=== PATIENT | male | born 1950 | race Caucasian/White ===

== ENCOUNTER 2018-04-30 12:02 | Emergency (ER) | payer MEDICARE, SELFPAY ==
[2018-04-30 12:03] VITALS: BP 190/95; PULSE 119; RESP 16; TEMP 36.7; O2SAT 95; BMI 24.3
--- NOTE | 2018-04-30 12:21 | EKG12_ITS ---
Test Reason : Blood Pressure : / mmHG Vent. Rate : 114 BPM Atrial Rate : 114 BPM P-R Int : 158 ms QRS Dur : 080 ms QT Int : 320 ms P-R-T Axes : 070 -58 066 degrees QTc Int : 441 ms Sinus tachycardia Left axis deviation Septal infarct , age undetermined Abnormal ECG Confirmed by OSMAN GO, SERENITY ([id number]), video news editor CLARISSE MARTINEZ ([id number]) on 05/01/2018 10:08:08 AM Referred By: CLARIBEL Confirmed By:SERENITY BREWER MD
--- NOTE | 2018-04-30 12:25 | ED.VISSUMM ---
- ER Visit Summary Date of Service: 04/30/18 Chief Complaint: [] Rectal cancer diagnosed at [facility] here to see local [place] surgeon History of Present Illness: The patient is a 68 M [] patient reports 6 weeks ago he was diagnosed with rectal cancer at the [facility] in [place]. He otherwise reports he has no past history he is on no medications. Indicates his symptoms began with rectal pain he had for evaluation they are was diagnosed with rectal cancer. He saw an oncologist named Dr. MIRELES who told him he would need chemo and MRI scanning after his surgery and he indicates he was in the preop area [facility] Saturday ready to have surgery, he indicates he waited there for many hours, he indicates he feels he was ignored nobody told him anything nobody came to get him for surgery so he got dressed and walked out of the preop area. He then indicates he called the [place] spoke with staff there indicating he wanted to be seen at [facility] to have his cancer managed by a surgeon here and indicates the [place] approved his transfer of care to [facility]. So he presents to the emergency department asking to be seen by a [place] surgeon to have his rectal cancer condition managed. 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 He did have with him some colonoscopy pictures of the tumor and what appeared to be preop labs are unremarkable no other imaging no other records, he indicates that history as above he is very adamant that the week [place] has approved his care at [facility]. I have explained to him that that is something we cannot confirm at this time but in either case we will proceed with our evaluation to stabilize his condition. I spoke with Dr. Goodwin of surgery, he indicates he be happy to see the patient to further manage his condition through the office he agrees with general screening labs, he also asked that all records if possible be obtained from the [place] and then he would see the patient and discussed management options, he did not feel that any imaging was necessary at this time as he would prefer to review his entire record to determine further management options Test Results: [] Emergency Department Course and Treatment: [] The patient screening labs are generally unremarkable see those reports, [facility] they have not yet been sent when they arrive we will attached into the chart and if they arrive while the patient is here we will provide him a copy, at this time patient is comfortable discharge home to follow-up as an outpatient he will be given Colace and Percocet No. 10 to use as needed pain and return for change in symptoms Treatment Plan: [] Disposition: [] Home stable Impression: [] Rectal pain related to rectal cancer This note was generated with [employer] dictation software. It may contain incorrect words, spelling, and punctuation that were not noted in review of the chart prior to signing ED Disposition - Plan for ED Patient: Chief Complaint: Abscess
--- NOTE | 2018-04-30 12:29 | ED.DCSUM_ITS ---
- ER Visit Summary Date of Service: 04/30/18 Chief Complaint: [] Rectal cancer diagnosed at [facility] here to see local [place] surgeon History of Present Illness: The patient is a 68 M [] patient reports 6 weeks ago he was diagnosed with rectal cancer at the [facility] in [place]. He otherwise reports he has no past history he is on no medications. Indicates his symptoms began with rectal pain he had for evaluation they are was diagnosed with rectal cancer. He saw an oncologist named Dr. MIRELES who told him he would need chemo and MRI scanning after his surgery and he indicates he was in the preop area [facility] Saturday ready to have surgery, he indicates he waited there for many hours, he indicates he feels he was ignored nobody told him anything nobody came to get him for surgery so he got dressed and walked out of the preop area. He then indicates he called the CT spoke with staff there indicating he wanted to be seen at [facility] to have his cancer managed by a surgeon here and indicates the CT approved his transfer of care to [facility]. So he presents to the emergency department asking to be seen by a [place] surgeon to have his rectal cancer condition managed. 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 He did have with him some colonoscopy pictures of the tumor and what appeared to be preop labs are unremarkable no other imaging no other records, he indicates that history as above he is very adamant that the week CT has approved his care at [facility]. I have explained to him that that is something we cannot confirm at this time but in either case we will proceed with our evaluation to stabilize his condition. I spoke with Dr. Goodwin of surgery, he indicates he be happy to see the patient to further manage his condition through the office he agrees with general screening labs, he also asked that all records if possible be obtained from the CT and then he would see the patient and discussed management options, he did not feel that any imaging was necessary at this time as he would prefer to review his entire record to determine further management options Test Results: [] Emergency Department Course and Treatment: [] The patient screening labs are generally unremarkable see those reports, [facility] they have not yet been sent when they arrive we will attached into the chart and if they arrive while the patient is here we will provide him a copy, at this time patient is comfortable discharge home to follow-up as an outpatient he will be given Colace and Percocet No. 10 to use as needed pain and return for change in symptoms Treatment Plan: [] Disposition: [] Home stable Impression: [] Rectal pain related to rectal cancer This note was generated with [employer] dictation software. It may contain incorrect words, spelling, and punctuation that were not noted in review of the chart prior to signing ED Disposition - Plan for ED Patient: Chief Complaint: Abscess
[2018-04-30] MEDS: 0.9% Normal Saline 1,000 ML 125 ML IV (12:46)
[2018-04-30 13:04] LABS: Absolute Lymphocyte Count 1.55 X10^3/ul (0.83-4.51); Absolute Neutrophil Count 6.7 X10^3/uL (2.0-7.7); Basophil# 0.02 X10^3/uL; Basophil% 0.2 % (0-1); Eosinophil# 0.05 X10^3/uL; Eosinophils% 0.5 % (0-5); Hematocrit 44.7 % (40-54); Lymphocyte # 1.55 X10^3/ul (4.0); Lymphocyte % 16.1 % (19-41); Mean Platelet Vol. 8.8 fl (6.2-12.0); Monocyte# 1.34 X10^3/uL; Monocyte% 13.9 % (0-10); Neutrophil # 6.67 X10^3/uL (2.7-7.7); Neutrophil % 69.1 % (47-70); Platelet Count 195 K/mm3 (150-450); RBC Distribution Width CV 12.3 % (11.6-14.6); RBC Distribution Width SD 43.2 fl (35.1-43.9); Red Blood Count 4.61 M/mm3 (4.6-6.2); White Blood Count 9.7 K/mm3 (4.4-11.0)
[2018-04-30 13:11] LABS: AST(SGOT) 51 U/L (15-37); Alanine Aminotransfer ALT/SGPT 57 U/L (16-61); Albumin, Serum 3.6 g/dL (3.2-5.0); Alkaline Phosphatase 113 U/L (45-117); Anion Gap 6 (5-15); BUN 5 mg/dL (7-18); BUN/Creat Ratio 7.2 RATIO (10-20); Bilirubin, Direct 0.41 mg/dL (0.00-0.30); Calcium,Total 8.8 mg/dL (8.5-10.1); Chloride 103 mmol/L (98-107); Creatinine, Serum 0.69 mg/dL (0.70-1.30); EST Glomerular Filtration Rate 120 mL/min (>60); Est Glom Filt Rate - Afr Amer 145 mL/min (>60); Globulin 3.7 g/dL (2.2-4.2); Glucose 156 mg/dL (74-106); Hemoglobin 16.6 g/dl (13.0-16.5); Lipase 157 U/L (73-393); Mean Corp Hgb Conc 37.1 g/gl (32-36); POSITIVE COUNT NO; POSITIVE DIFFERENTIAL NO; POSITIVE MORPHOLOGY NO; Potassium 3.6 mmol/L (3.5-5.1); Protein, Total 7.3 g/dL (6.4-8.2); Sodium Level 136 mmol/L (136-145)
[2018-04-30 13:13] LABS: Bacteria 0 SEEN /hpf (None Seen); Mucous, Urine 0 SEEN /hpf (<or=2+); Red Blood Cells-Urine 0 SEEN /hpf (0-5); Squamous Epithelial Cells - UA 0 SEEN /hpf (0-5); White Blood Cells 0 SEEN /hpf (0-5)
[2018-04-30 13:20] LABS: Color, Urine Yellow (Yellow); Glucose, Dipstick Normal (Normal); Ketone-Dipstick Negative (Negative); Leukocyte Esterase-Dipstick 25 /ul (Negative); Nitrite-Dipstick Negative (Negative); Occult Blood-Urine Negative /ul (Negative); Protein-Dipstick 15 mg/dl (Negative); Specific Gravity, Urine 1.015 (1.002-1.030); Urine Bilirubin Dipstick Negative (Negative); Urine Clarity Sl. Cloudy (Clear); Urine Urobilinogen 4 mg/dl (Normal)
[2018-04-30 14:02] VITALS: BP 148/78; PULSE 81; RESP 16; O2SAT 96
--- NOTE | 2018-04-30 14:31 | ED.DEP ---
ED Disposition - Plan for ED Patient: Chief Complaint: Abscess Instructions: ED Hemorrhoids Referrals: [facility] [Primary Care Provider] - Aelc Goodwin MD [STAFF PHYSICIAN] - Additional Instructions: Take all of your records with you to see Dr. Goodwin of surgery for further management
--- NOTE | 2018-04-30 14:34 | DCINST.ED_ITS ---
ED Disposition - Plan for ED Patient: Chief Complaint: Abscess Instructions: ED Hemorrhoids Referrals: [facility] [Primary Care Provider] - Alec Goodwin MD [STAFF PHYSICIAN] - Additional Instructions: Take all of your records with you to see Dr. Goodwin of surgery for further management
--- NOTE | 2018-04-30 14:35 | ED.DEP ---
ED Disposition - Plan for ED Patient: Chief Complaint: Abscess Instructions: ED Hemorrhoids Prescriptions: Oxycodone HCl/Acetaminophen [Percocet 5/325] 1 tab PO Q6H PRN PRN 3 Days #12 tab PRN Reason: Pain Docusate Sodium [Colace] 100 mg PO DAILY #20 cap Referrals: Alec Goodwin MD [STAFF PHYSICIAN] - [facility] [Primary Care Provider] - Additional Instructions: Take all of your records with you to see Dr. Goodwin of surgery for further management
[2018-04-30 15:05] VITALS: BP 136/74; PULSE 84; RESP 16; O2SAT 96
== END 2018-04-30 15:14 | disposition home or self-care (01) ==
PROVIDERS: Emergency Provider Emergency Medicine
DX: G89.3 Neoplasm related pain (acute) (chronic) (principal); C20 Malignant neoplasm of rectum; Z79.899 Other long term (current) drug therapy
CPT/HCPCS: 80048; 80076; 81001; 83690; 85025; 93005; 96360; 96361; 99283; J7030; A4216; J2405

== ENCOUNTER → 2018-05-07 08:14 | Outpatient (CLI) | payer MEDICARE, SELFPAY ==
--- NOTE | 2018-05-07 08:16 | CT_ITS ---
STUDY: CT CHEST WITH CONTRAST REASON FOR EXAM: Male, 68 years old. Recent diagnosis of anal carcinoma. RADIATION DOSAGE (If Supplied By Facility): CTDIvol = ( 11.24 ) mGy, DLP = ( 1048.00 ) mGycm TECHNIQUE: Transaxial imaging was performed following intravenous administration of 100 ml of Isovue 300 contrast material. Multiplanar coronal and sagittal images were reformatted. Individualized dose optimization techniques were used for this CT. COMPARISON: None. FINDINGS: Mild increased linear markings in the right middle lobe. This suggests over linear atelectasis and/or scarring. Minimal scarring in the posterior aspect of the lingular segment of the left upper lobe. There is no demonstrated pleural abnormality. There are calcifications of the coronary arteries. Normal mediastinum. Normal hilar regions. Normal enhanced pulmonary arteries. There is atherosclerotic calcification of the aortic arch and descending thoracic aorta. There are mild degenerative changes of the thoracic spine. There is a 3.2 cm x 2.8 cm fat containing nodular density in the right adrenal gland. A similar-appearing nodule is also seen in the left adrenal gland measuring 2.2 cm x 1.5 cm. These may represent adrenal adenomas. CT/Chest WITH Contrast IMPRESSION: Findings suggestive of a linear scarring in the right middle lobe and possible focal area of scarring in the posterior aspect of the medial segment of the left upper lobe. Electronically Signed: Albert Villatoro MD at 9:00 EDT Tel [phone], Service support ,
--- NOTE | 2018-05-07 08:16 | CT_ITS ---
STUDY: CT ABDOMEN AND PELVIS WITH CONTRAST REASON FOR EXAM: Male, 68 years old. Recent diagnosis of anal carcinoma. RADIATION DOSAGE (If Supplied By Facility): CTDIvol = ( 11.24 ) mGy, DLP = ( 1048.00 ) mGycm TECHNIQUE: Transaxial images were obtained from the dome of the diaphragm to the symphysis pubis with oral contrast. 100 ml of Isovue 300 contrast was administered. Sagittal and coronal images were reconstructed. Individualized dose optimization techniques were used for this CT. COMPARISON: None. FINDINGS: Focal linear marking is seen in the right middle lobe suggestive of developing or scarring and possible tiny scar in the posterior aspect of the lingular segment of the left upper lobe. Coronary artery calcification. There is decreased attenuation of the liver consistent with steatosis. Normal gallbladder and extrahepatic biliary system. Normal spleen. Normal pancreas. There is a 3.2 cm x 3 cm hypodense nodular mass in the right adrenal gland. This is not a typical adenoma. A similar appearing mass in the left adrenal gland measuring 2.5 cm x 1.7 cm is present. Correlation with MR is recommended for further evaluation. Normal right kidney. Normal left kidney. Normal visualized stomach. Normal small intestine. There are multiple colonic diverticula consistent with diverticulosis. There is inhomogeneous soft tissue mass arising from the anterior aspect of the rectum extending calculi into the anus in keeping with the patient's history of anal carcinoma. The appendix is visualized and appears normal. There is diffuse atherosclerotic calcification of the abdominal aorta and its major visceral branches, without a demonstrated aneurysm. Normal inferior vena cava. Normal retroperitoneum. Normal urinary bladder. There is inhomogeneous enlargement of the prostate gland. This measures 4.7 cm x 5.6 cm. There is a small umbilical hernia containing fat. Small bilateral hernias containing fat. Normal osseous structures. CT/Abdomen/Pelvis WITH Contrast IMPRESSION: Bilateral adrenal masses as described. These are not typical for adrenal adenomas and correlation with MRI is recommended. Soft tissue mass seen in the anterior aspect of the rectum extending caudally into the anal region. Inhomogeneously enlarged prostate gland. Electronically Signed: Albert Villatoro MD at 9:06 EDT Tel [phone], Service support ,
== END ==
PROVIDERS: Referring Provider Surgery; Visit Provider Surgery
DX: C21.0 Malignant neoplasm of anus, unspecified (principal)
CPT/HCPCS: 71260; 74177; Q9967

== ENCOUNTER → 2018-05-16 15:10 | Outpatient (CLI) | payer MEDICARE, SELFPAY ==
[2018-05-12 13:00] VITALS: BMI 24.6
[2018-05-16 15:17] LABS: Bacteria 0 SEEN /hpf (None Seen); Mucous, Urine 0 SEEN /hpf (<or=2+); Red Blood Cells-Urine 0 SEEN /hpf (0-5); Squamous Epithelial Cells - UA 0 SEEN /hpf (0-5); White Blood Cells 0 SEEN /hpf (0-5)
[2018-05-16 17:36] LABS: Color, Urine Yellow (Yellow); Glucose, Dipstick Normal (Normal); Ketone-Dipstick Negative (Negative); Leukocyte Esterase-Dipstick 25 /ul (Negative); Nitrite-Dipstick Negative (Negative); Occult Blood-Urine Negative /ul (Negative); Protein-Dipstick Negative (Negative); Urine Bilirubin Dipstick Negative (Negative); Urine Clarity Clear (Clear); Urine Urobilinogen 1 mg/dl (Normal)
[2018-05-16 17:42] LABS: Absolute Lymphocyte Count 1.67 X10^3/ul (0.83-4.51); Absolute Neutrophil Count 5.6 X10^3/uL (2.0-7.7); Basophil# 0.03 X10^3/uL; Basophil% 0.3 % (0-1); Eosinophil# 0.05 X10^3/uL; Eosinophils% 0.6 % (0-5); Hematocrit 45.4 % (40-54); Hemoglobin 16.5 g/dl (13.0-16.5); Lymphocyte # 1.67 X10^3/ul (4.0); Lymphocyte % 18.8 % (19-41); Mean Corp Hgb Conc 36.3 g/gl (32-36); Mean Corpuscular Hgb 35.5 pg (27.0-32.0); Mean Corpuscular Volume 97.6 fL (80-94); Monocyte% 16.9 % (0-10); Neutrophil # 5.63 X10^3/uL (2.7-7.7); Neutrophil % 63.2 % (47-70); Platelet Count 225 K/mm3 (150-450); RBC Distribution Width CV 12.2 % (11.6-14.6); RBC Distribution Width SD 43.3 fl (35.1-43.9); Red Blood Count 4.65 M/mm3 (4.6-6.2); White Blood Count 8.9 K/mm3 (4.4-11.0)
[2018-05-16 17:43] LABS: POSITIVE COUNT NO; POSITIVE DIFFERENTIAL NO; POSITIVE MORPHOLOGY NO
[2018-05-16 18:01] LABS: Hemoglobin A1c 5.6 % (4.2-6.3)
[2018-05-16 18:31] LABS: AST(SGOT) 51 U/L (15-37); Alanine Aminotransfer ALT/SGPT 63 U/L (16-61); Albumin, Serum 3.6 g/dL (3.2-5.0); Alkaline Phosphatase 112 U/L (45-117); Anion Gap 10 (5-15); BUN 6 mg/dL (7-18); BUN/Creat Ratio 9.2 RATIO (10-20); Calcium,Total 8.9 mg/dL (8.5-10.1); Chloride 102 mmol/L (98-107); Cholesterol 169 mg/dL (200); Creatinine, Serum 0.65 mg/dL (0.70-1.30); EST Glomerular Filtration Rate 128 mL/min (>60); Est Glom Filt Rate - Afr Amer 155 mL/min (>60); Globulin 3.7 g/dL (2.2-4.2); Glucose 111 mg/dL (74-106); High Density Lipoprotein 76 mg/dL; Potassium 3.5 mmol/L (3.5-5.1); Protein, Total 7.3 g/dL (6.4-8.2); Sodium Level 138 mmol/L (136-145); Thyroid Stim Hormone (TSH) 2.23 uIU/mL (0.358-3.74); Triglycerides 84 mg/dL; Very Low Density Lipoprotein 17 mg/dL (5-40)
[2018-05-17 08:08] LABS: Vitamin B12 458 pg/mL (211-911)
[2018-05-22 12:06] LABS: Vitamin B1, Thiamine 113.6 nmol/L (66.5-200.0)
== END ==
LOC: MFPLAB 15:10
PROVIDERS: Visit Provider Family Medicine
DX: I10 Essential (primary) hypertension (principal); F10.10 Alcohol abuse, uncomplicated; R73.09 Other abnormal glucose; Z72.0 Tobacco use
CPT/HCPCS: 36415; 80053; 80061; 81001; 82607; 82746; 83036; 84100; 84425; 84443; 85025

== ENCOUNTER 2018-05-20 09:21 | Day surgery (SDC) | payer MEDICARE, SELFPAY ==
[2018-05-12 13:00] VITALS: BMI 24.6
[2018-05-20] VITALS (7 sets, daily range): BP systolic 102–163; BP diastolic 65–90; PULSE 83–92; RESP 14–16; TEMP 36.1–36.8; O2SAT 93–97; BMI 24.2
--- NOTE | 2018-05-20 10:22 | RAD_ITS ---
STUDY: X-RAY CHEST REASON FOR EXAM: Male, 68 years old. Port placement. TECHNIQUE: Single AP portable view of the chest. COMPARISON: None. FINDINGS: A right-sided Port-A-Cath has been placed. The tip is in the proximal portion of the superior vena cava. Hyperinflation. There is no demonstrated pleural abnormality. Normal size heart. Normal mediastinum and jami. Normal visualized pulmonary arteries. Normal visualized aortic arch and descending thoracic aorta. Normal visualized thoracic spine. Normal visualized ribs, clavicles, and shoulders. There is no demonstrated abnormality of the visualized soft tissue structures of the upper abdomen. RAD/Chest 1 View (Portable) IMPRESSION: The tip of the port is in the proximal portion of the superior vena cava. Electronically Signed: Albert Villatoro MD at 12:47 EST Tel [phone], Service support ,
[2018-05-20] MEDS: Cefazolin 2 GM in 0.9% Normal Saline 100 ML IV (10:23)
--- NOTE | 2018-05-20 10:23 | DCINST_ITS ---
Discharge Diet: Light diet - advance as tolerated - if you have questions about your diet instructions, please talk to you doctor. Discharge Activity: May Not Drive - for 1 week or while taking narcotic pain medicine. May shower in (days): 1 Lifting Restrictions: 10 pounds Call your doctor if your incision/area has: Continuous Slow Oozing, Sudden Increased Bleeding, Increased Pain/ Swelling, Increased Redness, Foul Smelling Discharge Call your doctor if you observe: Fever of 101 or Higher Suture Line Care: Avoid Pulling/Pushing, Avoid Pinching/Bending Additional Dressing/Incision Instructions:: Change or remove dressing in 4 days. Leave steri-strips in place for 1 week. Allergies/Adverse Reactions: Allergies No Known Allergies Allergy (Verified 05/19/18 14:35) Medications to take at Discharge Cyclobenzaprine [Flexeril] 10 mg PO TID PRN PRN 04/30/18 Docusate Sodium [Colace] 100 mg PO DAILY #20 cap 04/30/18 Omeprazole [Prilosec] 1 tab PO DAILY 05/12/18 Loperamide [Imodium] 2 mg PO Q2H PRN PRN #60 cap 05/14/18 Hydrochlorothiazide [Hctz] 25 mg PO DAILY 05/19/18 Metoprolol Tartrate [Lopressor (Beta Adan)] 25 mg PO DAILY 05/19/18 Oxycodone HCl/Acetaminophen [Percocet 5/325] 1 - 2 tablet PO Q6H PRN PRN 05/19/18 Primary Care Physician: Care Physician,No Primary [Primary Care Provider] - Test Results: Test results from this visit will be discussed in further detail at your follow- up appointment, if applicable. Please Follow Up With: Alec Goodwin MD - [phone] When: Call to make an appointment to be seen in about 10 days.
[2018-05-20] MEDS: Bupivacaine Mpf 0.5% 30 ML VIAL (10:37)
--- NOTE | 2018-05-20 11:07 | OP.PCM_ITS ---
Problem List (1) Primary anal squamous cell carcinoma Status: Acute Report of Operation Date of Procedure: 05/20/18 Pre-Operative Diagnosis: Squamous cell carcinoma of the anus Post-Operative Diagnosis: Same Surgery/Procedure Performed:: Right internal jugular 6 Wallisian PowerPort placement Description of Surgical Findings:: Timeout and informed consent was obtained. 68-year-old gent was taken the operating room. He was placed on the table. He underwent monitored anesthesia care. Ancef 2 g given intravenously. The right neck was sterilely prepped draped. Ultrasound was used to identify the right internal jugular vein. 1% lidocaine mixed 50-50 with 0.5% Marcaine was used as local anesthetic. Total of 15 cc was used. Local was instilled under ultrasound guidance. Micropuncture needle inserted in the right internal jugular vein. Micropuncture wire. Micropuncture sheath. Exchanged out for an 035 J-wire. Local instilled down upon the chest wall. A transverse incision was created. Electrocautery dissection was used to make a subcutaneous port. The tubing was tunneled from the chest to the neck site. Sheath dilator was placed over the wire. The wire and dilator were removed. The catheter was advanced through the sheath. The sheath was split. The catheter was positioned at the SVC atrial junction. It was amputated to length connected to the port secured there with a port attachment device. The port was placed in the pocket and secured there with 2-0 silk. The port site was closed with interrupted 3-0 Vicryl subdermal stitch. The neck was closed with interrupted 5-0 Vicryl. Steri-Strips applied Telfa OpSite dressings applied. The port was accessed. It aspirated and then was flushed with saline and then heparinized saline. Sponge and instrument and needle counts were reported the surgeon be correct. Blood loss was minimal. He tolerated the procedure well and was taken to the recovery area in satisfactory condition without apparent complication. Blood loss minimal. Specimens none. Drains none. Blood loss minimal. Alec Goodwin M.D., F.A.C.S. Type of Anesthesia:: Local MAC Anesthesiologist: Ollie Vidal
== END 2018-05-20 12:24 | disposition home or self-care (01) ==
LOC: SDC 09:22 → AC 09:23
PROVIDERS: Referring Provider Surgery; Visit Provider Surgery
PROC: (CPT 36561; principal; 2018-05-20 10:45)
DX: C21.0 Malignant neoplasm of anus, unspecified (principal); I10 Essential (primary) hypertension; F17.200 Nicotine dependence, unspecified, uncomplicated; Z79.899 Other long term (current) drug therapy
CPT/HCPCS: 00532; 36561; 76937; 71045; 77001; 77386; J7120

== ENCOUNTER 2018-06-27 13:59 | Inpatient (IN) | payer MEDICARE, SELFPAY ==
[2018-05-12 13:00] VITALS: BMI 24.6
[2018-06-26 12:01] VITALS: BMI 22.9
[2018-06-27 14:02] VITALS: BP 144/79; PULSE 115; RESP 18; TEMP 37.2; O2SAT 98; BMI 24.3
[2018-06-27] MEDS: 0.9% Normal Saline 1,000 ML 999 ML IV (15:05)
[2018-06-27 15:14] LABS: Hematocrit 24.6 % (40-54); Mean Corpuscular Volume 99.2 fL (80-94); Mean Platelet Vol. 9.1 fl (6.2-12.0); Platelet Count 68 K/mm3 (150-450); RBC Distribution Width SD 52.9 fl (35.1-43.9); Red Blood Count 2.48 M/mm3 (4.6-6.2)
[2018-06-27 15:28] LABS: ALB/GLOB Ratio 0.7 RATIO (0.9-2.4); AST(SGOT) 30 U/L (15-37); Alanine Aminotransfer ALT/SGPT 22 U/L (16-61); Albumin, Serum 2.1 g/dL (3.2-5.0); Alkaline Phosphatase 69 U/L (45-117); Anion Gap 9 (5-15); BUN 11 mg/dL (7-18); BUN/Creat Ratio 17.9 RATIO (10-20); Calcium,Total 7.5 mg/dL (8.5-10.1); Chloride 98 mmol/L (98-107); Creatinine, Serum 0.61 mg/dL (0.70-1.30); EST Glomerular Filtration Rate 138 mL/min (>60); Est Glom Filt Rate - Afr Amer 167 mL/min (>60); Globulin 3.2 g/dL (2.2-4.2); Glucose 226 mg/dL (74-106); Lipase 24 U/L (73-393); Potassium 3.2 mmol/L (3.5-5.1); Protein, Total 5.3 g/dL (6.4-8.2); Sodium Level 131 mmol/L (136-145)
[2018-06-27 15:58] LABS: Differential Indicated MANUAL DIFF; POSITIVE COUNT YES; POSITIVE DIFFERENTIAL YES; POSITIVE MORPHOLOGY YES; White Blood Count 0.6 K/mm3 (4.4-11.0)
[2018-06-27 15:59] LABS: Mean Corpuscular Hgb 33.9 pg (27.0-32.0)
[2018-06-27 16:00] LABS: Hemoglobin 8.4 g/dl (13.0-16.5); Mean Corp Hgb Conc 34.1 g/gl (32-36)
[2018-06-27 16:26] LABS: Neutrophil-Segmented 44 % (47-70); Total Cells Counted 100 (MANUAL DIFF)
[2018-06-27 16:27] LABS: Lymphocyte 16 % (19-41); Monocyte 32 % (0-10); Neutrophil-Band 8 % (0-5)
[2018-06-27 16:29] LABS: Absolute Neutrophil Count 0.3 X10^3/uL (2.0-7.7)
[2018-06-27 16:30] LABS: Anisocytosis RARE; Differential Comment SEE COMMENTS; Macrocytosis RARE; Platelet Estimate MOD DEC (ADEQ)
--- NOTE | 2018-06-27 16:36 | ED.DCSUM_ITS ---
- ER Visit Summary Date of Service: 06/27/18 Chief Complaint: Diarrhea, dehydration History of Present Illness: The patient is a 68 M who presents with the above symptoms. Patient's been feeling this way for a couple of weeks. He has stage II-III anal cancer. He is getting chemo and radiation for this. He has been having persistent diarrhea and skin breakdown in his anal area. He also has sores in his mouth from his chemotherapy. He has been on Imodium and Lomotil. His radiation oncologist, Dr. Jim, gave him Aquaphor lidocaine and Silvadene for his anal area but it is not helping. Patient denies a fever. Physical Examination: Vital signs are reviewed. HEENT exam reveals sores inside of the mouth. He does have dry mucous membranes. Heart is tachycardic and regular rhythm without murmurs. Lungs are clear bilaterally. Abdomen soft with mild diffuse tenderness. Skin exam reveals skin breakdown and excoriations in his groin and anal area. His neurologic exam is at baseline and normal. Test Results: White blood cell count 0.6, hemoglobin 9, platelets 68. Sodium 131, potassium 3.2. Creatinine normal. Total bilirubin 1.8 Emergency Department Course and Treatment: Patient was hydrated with normal saline. He does appear to be clinically dehydrated. His radiation oncologist recommended admission. I will discussed this with the hospitalist. Treatment Plan: [] Disposition: Admit Impression: Dehydration, diarrhea, anal cancer This note was generated with [employer]hem dictation software. It may contain incorrect words, spelling, and punctuation that were not noted in review of the chart prior to signing ED Disposition - Plan for ED Patient: Chief Complaint: Diarrhea Referrals: Alexander Park MD [Primary Care Provider] -
--- NOTE | 2018-06-27 16:48 | PCM.HP.STD ---
<Aime Mayorga - Last Filed: 06/27/18 16:48> Problem List (1) Dehydration Status: Acute (2) Hyponatremia Status: Acute (3) Pancytopenia Status: Acute (4) Hypokalemia Status: Acute (5) Rectal cancer Status: Chronic History of Present Illness Date of Admission: 06/27/18 Chief Complaint: diarrhea The patient is a 68 year old M with pmhx of anal cancer stage II-III, pt of Dr. Trevino and Diandra, who presents to the ER with severe diarrhea ongoing for several days. He has associated anal pain and has been on immodium, lomotil, silvadene, aquaphor, lidocaine. He was found by nursing to be covered in stool across his backside. This began after his last chemo and radation which was 3 days ago. He had a negative C diff test, and enteric panel is pending. He denies sick contacts. He has poor PO intake. He denies nausea / vomiting and subjective abdominal pain. He denies fevers and chills. He appears dehydrated with electrolyte disturbances, and is pancytopenic. [] Past Medical History Past Medical History (Chronic Problems): Chronic Problems (Last Reviewed 06/19/18 @ 09:58 by Carla Barrett) Rectal cancer (Chronic) Mass of both adrenal glands (Chronic) Medical History: Medical History (Last Reviewed 06/19/18 @ 09:58 by Carla Barrett) Bleeding (Acute) R58 Blood in stool (Acute) K92.1 Nausea (Acute) R11.0 Back problem (Acute) M53.9 Allergies No Known Allergies Allergy (Verified 06/27/18 14:32) Home Medications: Ambulatory Orders Medication Instructions Recorded RX: Cyclobenzaprine [Flexeril] 10 mg PO TID PRN PRN 04/30/18 RX: Omeprazole [Prilosec] 1 tab PO DAILY 05/12/18 RX: Hydrochlorothiazide [Hctz] 25 mg PO DAILY 05/19/18 RX: Metoprolol Tartrate [Lopressor 25 mg PO DAILY 05/19/18 (beta vivi)] RX: Oxycodone HCl/Acetaminophen 1 - 2 tablet PO Q6H PRN PRN 05/19/18 [Percocet 5-325] RX: Lidocaine 2% Viscous 15 ml GT Q4H PRN PRN #240 ml 05/30/18 [Xylocaine Viscous] RX: Oxycodone HCl 5 mg PO Q4H PRN PRN #200 ml 05/30/18 RX: Potassium Chloride 20 meq PO BID 28 Days #420 ml 06/03/18 RX: Silver Sulfadiazine 1% Crm 1 applic TOPICAL BID #80 gm 06/03/18 [Silvadene Cream] RX: Lidocaine 2% Jelly [Xylocaine 30 ml TOPICAL TID #1 tube 06/10/18 2% Jelly] Loperamide [Imodium] 2 mg PO Q4H PRN PRN #60 capsule 06/11/18 Diphenoxylate/Atrop [Lomotil] 2 tablet PO 4X/DAY PRN PRN #60 06/25/18 tablet RX: Oxycodone [Oxyir] 5 mg PO Q4H PRN PRN #60 tablet 06/25/18 RX: Oxycodone HCl 5 - 10 ml PO Q4H PRN PRN 06/27/18 Surgical History: Surgical History (Last Reviewed 06/19/18 @ 09:58 by Carla Barrett) Hx of colonoscopy (Acute) Z98.890 04/24/2018 Lives: Alone Smoking Status: Current every day smoker Tobacco Use: Non-smoker Alcohol: None Drugs: None - *Family History Maternal Family History: Family History (Last Reviewed 06/19/18 @ 09:58 by Carla Barrett) Father Stomach cancer Brain cancer History Items: No pertinent history Paternal Family History: Family History (Last Reviewed 06/19/18 @ 09:58 by Carla Barrett) Father Stomach cancer Brain cancer History Items: Cancer Review of Systems Constitutional: Reports: Weakness. Denies: Chills, Fever, Weight Change HEENT: Denies: Head Aches, Sinus Congestion, Sinus Drainage Cardiovascular: Denies: Chest Pain, Palpitations Respiratory: Denies: Cough, Shortness of breath at rest, Sputum production Gastrointestinal: Reports: Diarrhea. Denies: Abdominal Pain, Nausea, Vomiting Genitourinary: Denies: Dysuria Musculoskeletal: Denies: Joint Pain, Joint Tenderness Skin: Denies: Rash, Wounds Neurological: Denies: Numbness, Tingling, Focal weakness Psychiatric: Denies: Anxiety, Depression, Homicidal Ideations, Suicidal Ideations Hematologic/ Lymphatic: Denies: Easy Bruising, Easy Bleeding VTE Information - Inpt Only VTE Present on Admission: No VTE Mechan Device Prophylaxis: SCD's VTE Pharm Prophylaxis ordered?: No Patient Problems: Active and Suspected Problems (Last Reviewed 06/19/18 @ 09:58 by Carla Barrett) Hyponatremia (Acute) Pancytopenia (Acute) Hypomagnesemia (Acute) Diarrhea (Acute) Dehydration (Acute) Hypokalemia (Acute) Mucositis (ulcerative) due to antineoplastic therapy (Acute) - Physical Exam General: Alert, Oriented x3, Cooperative HEENT: Atraumatic, PERRLA, EOMI, Normocephalic Neck: Supple, No JVD, Negative Carotid Bruits Lungs: Clear to auscultation, Normal air movement Cardiovascular: Regular rate, No murmurs Abdomen: Bowel Sounds Present, Tender - umbilical region Extremities: No edema, Capillary Refill Less than 3 Seconds Skin: No rashes, No breakdown Musculoskeletal: No Tenderness to Palpation of Joints or Extremities Neurological: Cranial nerves II-XII grossly intact Psych/Mental Status: Normal Affect, Appropriate, Alert and oriented to time, place, person, mood and affect Vital Signs Temp Pulse Resp BP Pulse Ox 98.9 F 115 H 18 144/79 H 98 06/27/18 14:02 06/27/18 14:02 06/27/18 14:02 06/27/18 14:02 06/27/18 14:02 Oxygen Delivery Method Room Air Weight: 160 lb 0.889 oz Body Mass Index (BMI) 24.3 Laboratory Tests Past 24 Hrs 06/27/18 06/27/18 15:05 15:05 WBC 0.6 L* RBC 2.48 L Hgb 8.4 L Hct 24.6 L MCV 99.2 H MCH 33.9 H MCHC 34.1 RDW 15.0 H RDW Differential 52.9 H Plt Count 68 L MPV 9.1 Neut % (Auto) Not Reportable Absolute Neuts (auto) 0.3 L Absolute Lymphs (auto) 0.10 L Total Counted 100 Neutrophils % (Manual) 44 L Band Neutrophils % 8 H Lymphocytes % (Manual) 16 L Monocytes % (Manual) 32 H Differential Comment SEE COMMENTS Diff Path Review May foll Platelet Estimate MOD DEC Anisocytosis RARE Macrocytosis RARE Sodium 131 L Potassium 3.2 L Chloride 98 Carbon Dioxide 24.0 Anion Gap 9 BUN 11 Creatinine 0.61 L Estim Creat Clear Calc 66.50 Est GFR (MDRD) Af Amer 167 Est GFR (MDRD) Non-Af 138 BUN/Creatinine Ratio 17.9 Glucose 226 H Calcium 7.5 L Total Bilirubin 1.80 H AST 30 ALT 22 Alkaline Phosphatase 69 Total Protein 5.3 L Albumin 2.1 L Globulin 3.2 Albumin/Globulin Ratio 0.7 L Lipase 24 L Assessment/Plan All Active Problems (Last Reviewed 06/19/18 @ 09:58 by Carla Barrett) Hyponatremia (Acute) Pancytopenia (Acute) Hypomagnesemia (Acute) Diarrhea (Acute) Dehydration (Acute) Hypokalemia (Acute) Mucositis (ulcerative) due to antineoplastic therapy (Acute) Primary anal squamous cell carcinoma (Acute) Hx of colonoscopy (Acute) Bleeding (Acute) Blood in stool (Acute) Nausea (Acute) Back problem (Acute) 1. Dehydration 2/2 chemo induced diarrhea - Hydrate with IV NaCl. continue lomotil, immodium, topicals for irritation/skin breakdown. C diff neg. Enteric panel neg. Lipase neg. T bili elevated. + umbilical pain to palp. 2. Hyponatremia/kalemia - 2/2 above - replete. check mag / phos. 3. Pancytopenia - trend. Monitor for fevers. 4. Anal cancer st II-III - pt of Drs. Jim/Uriel. DVT ppx: SCDs DC planning: PTOT. He appears very frail and weak. This patient was seen by Aime Mayorga PA-C under the supervision of Doctor Max. <Pierre Santana - Last Filed: 06/27/18 18:40> History of Present Illness The patient is a 68 year old M [] Past Medical History Medical History: Medical History (Last Reviewed 06/19/18 @ 09:58 by Carla Barrett) Bleeding (Acute) R58 Blood in stool (Acute) K92.1 Nausea (Acute) R11.0 Back problem (Acute) M53.9 Allergies No Known Allergies Allergy (Verified 06/27/18 14:32) Surgical History: Surgical History (Last Reviewed 06/19/18 @ 09:58 by Carla Barrett) Hx of colonoscopy (Acute) Z98.890 04/24/2018 - *Family History Maternal Family History: Family History (Last Reviewed 06/19/18 @ 09:58 by Carla Barrett) Father Stomach cancer Brain cancer Paternal Family History: Family History (Last Reviewed 06/19/18 @ 09:58 by Carla Barrett) Father Stomach cancer Brain cancer - Physical Exam Vital Signs Temp Pulse Resp BP Pulse Ox 99.9 F H 110 H 18 162/72 H 99 06/27/18 17:06 06/27/18 17:06 06/27/18 14:02 06/27/18 17:06 06/27/18 17:06 Oxygen Delivery Method Room Air Weight: 147 lb 4.301 oz Body Mass Index (BMI) 22.4 Microbiology Past 72 Hours 06/27/18 15:15 Enteric Bacteriology - Final Stool Laboratory Tests Past 24 Hrs 06/27/18 06/27/18 15:05 15:05 WBC 0.6 L* RBC 2.48 L Hgb 8.4 L Hct 24.6 L MCV 99.2 H MCH 33.9 H MCHC 34.1 RDW 15.0 H RDW Differential 52.9 H Plt Count 68 L MPV 9.1 Neut % (Auto) Not Reportable Absolute Neuts (auto) 0.3 L Absolute Lymphs (auto) 0.10 L Total Counted 100 Neutrophils % (Manual) 44 L Band Neutrophils % 8 H Lymphocytes % (Manual) 16 L Monocytes % (Manual) 32 H Differential Comment SEE COMMENTS Diff Path Review May foll Platelet Estimate MOD DEC Anisocytosis RARE Macrocytosis RARE Sodium 131 L Potassium 3.2 L Chloride 98 Carbon Dioxide 24.0 Anion Gap 9 BUN 11 Creatinine 0.61 L Estim Creat Clear Calc 66.50 Est GFR (MDRD) Af Amer 167 Est GFR (MDRD) Non-Af 138 BUN/Creatinine Ratio 17.9 Glucose 226 H Calcium 7.5 L Total Bilirubin 1.80 H AST 30 ALT 22 Alkaline Phosphatase 69 Total Protein 5.3 L Albumin 2.1 L Globulin 3.2 Albumin/Globulin Ratio 0.7 L Lipase 24 L Code Visit Addendum: Dr. Santana I personally examined the patient and reviewed the chart. I agree with the above. 1-year-old male with stage II-III anal cancer undergoing both chemotherapy and radiation. He states that he is never had surgery for it. He is presenting from home today because his radiation oncologist felt that with his diarrhea over the last 3 weeks and his lack of oral intake due to sores in his mouth. He had his last chemo on Saturday and was supposed to have radiation on Saturday and which she was not able to tolerate. He presented to the ER with leukopenia and thrombus cytopenia and anemia. This was felt to be related to his chemotherapy. We will treat his dehydration with IV fluids. He did have a C. difficile test a couple of days ago which was negative, and enteric bacteriology is pending. Can continue to to give his Lomotil and Imodium. OBSV E&M: [id number] Initial observation care L3
[2018-06-27 17:06] VITALS: BP 162/72; PULSE 110; TEMP 37.7; O2SAT 99
[2018-06-27 18:03] VITALS: BMI 22.4
[2018-06-27 18:07] VITALS: BMI 22.4
[2018-06-27 18:15] VITALS: BP 155/74; PULSE 113; RESP 16; TEMP 37.6; O2SAT 100
[2018-06-27] MEDS: 0.9% Normal Saline 1,000 ML 125 ML IV (18:58)
[2018-06-27 20:00] VITALS: BP 154/71; PULSE 116; RESP 16; TEMP 37.4; O2SAT 100
[2018-06-27] MEDS: BMX LIQUID 180 ML 10 ML PO (20:44)
[2018-06-27] MEDS: Menthol/Lanolin/Calamine/Znox 113 GM Tube 1 APPLIC TOPICAL (20:45)
[2018-06-27] MEDS: Acetaminophen 650 MG/20 ML UDC PO (22:27)
[2018-06-28] VITALS (7 sets, daily range): BP systolic 149–172; BP diastolic 66–86; PULSE 110–124; RESP 15–20; TEMP 36.4–38.3; O2SAT 96–100
[2018-06-28] MEDS: 0.9% NaCl VAD Flush 10 ML IV ×3 (06:35→06:38)
[2018-06-28 07:03] LABS: Anion Gap 9 (5-15); BUN 10 mg/dL (7-18); BUN/Creat Ratio 21.1 RATIO (10-20); Calcium,Total 7.4 mg/dL (8.5-10.1); Chloride 103 mmol/L (98-107); Creatinine, Serum 0.47 mg/dL (0.70-1.30); EST Glomerular Filtration Rate 186 mL/min (>60); Est Glom Filt Rate - Afr Amer 225 mL/min (>60); Estimated Creatinine Clearance 64.94 ml/min; Glucose 140 mg/dL (74-106); Sodium Level 135 mmol/L (136-145)
[2018-06-28 07:12] LABS: Absolute Lymphocyte Count 0.19 X10^3/ul (0.83-4.51); Absolute Neutrophil Count 0.1 X10^3/uL (2.0-7.7); Hematocrit 24.6 % (40-54); Hemoglobin 8.9 g/dl (13.0-16.5); Lymphocyte # 0.19 X10^3/ul (4.0); Lymphocyte % 34.5 % (19-41); Mean Corp Hgb Conc 36.2 g/gl (32-36); Mean Corpuscular Hgb 35.6 pg (27.0-32.0); Mean Corpuscular Volume 98.4 fL (80-94); Mean Platelet Vol. 9.5 fl (6.2-12.0); Monocyte# 0.25 X10^3/uL; Monocyte% 45.5 % (0-10); Neutrophil # 0.06 X10^3/uL (2.7-7.7); Neutrophil % 10.9 % (47-70); Platelet Count 62 K/mm3 (150-450); RBC Distribution Width SD 52.8 fl (35.1-43.9)
[2018-06-28 07:16] LABS: Differential Indicated SCAN CRITERIA MET; POSITIVE COUNT YES; POSITIVE DIFFERENTIAL YES; POSITIVE MORPHOLOGY YES
[2018-06-28 07:18] LABS: White Blood Count 0.6 K/mm3 (4.4-11.0)
[2018-06-28] MEDS: 0.9% Normal Saline 1,000 ML 125 ML IV (07:20)
[2018-06-28 07:29] LABS: Differential Comment SCAN; Platelet Estimate MOD DEC (ADEQ); Platelet Morphology LARGE
[2018-06-28 08:23] LABS: Magnesium 1.9 mg/dL (1.6-2.6); Phosphorus 1.7 mg/dL (2.5-4.9)
[2018-06-28] MEDS: BMX LIQUID 180 ML 10 ML PO ×2 (09:55→16:47)
[2018-06-28] MEDS: Menthol/Lanolin/Calamine/Znox 113 GM Tube 1 APPLIC TOPICAL ×3 (10:02→23:22)
--- NOTE | 2018-06-28 10:03 | NURSING ---
Pt talking to on phone. you made me come in here. I guess I'll Just here. pt continues to be very flat and irritable.
--- NOTE | 2018-06-28 11:58 | CM.UR ---
Attempted to meet with patient however he was sleeping at this time so I did not awake him. Remains obs status at this time. Gbaby Redmond RN, CCM.
--- NOTE | 2018-06-28 12:38 | PN_ITS ---
<Aime Mayorga - Last Filed: 06/28/18 12:35> Patient Problems: Active and Suspected Problems (Last Reviewed 06/19/18 @ 09:58 by Carla Barrett) Hyponatremia (Acute) Pancytopenia (Acute) Hypomagnesemia (Acute) Diarrhea (Acute) Dehydration (Acute) Hypokalemia (Acute) Mucositis (ulcerative) due to antineoplastic therapy (Acute) Subjective: Ongoing rectal pain and sores. Wants to try eating today. States he has not eaten in 3 days 2/2 throat pain with swallowing. Refused all pills this AM. No abdominal pain, no nausea or vomiting. No fever or chills. He does not feel the quantity of stool has decreased at all. - Physical Exam General: Alert, Oriented x3, Cooperative HEENT: Atraumatic, PERRLA, EOMI, Normocephalic Neck: Supple, No JVD, Negative Carotid Bruits Lungs: Clear to auscultation, Normal air movement Cardiovascular: Regular rate, No murmurs Abdomen: Bowel Sounds Present, Soft, Non Tender Extremities: No edema, Capillary Refill Less than 3 Seconds Skin: No rashes, No breakdown Musculoskeletal: No Tenderness to Palpation of Joints or Extremities Neurological: Cranial nerves II-XII grossly intact Psych/Mental Status: Appropriate, - - angry, Alert and oriented to time, place, person, mood and affect Vital Signs Temp Pulse Resp BP Pulse Ox 99.8 F H 115 H 20 H 152/73 H 96 06/28/18 10:00 06/28/18 10:00 06/28/18 10:00 06/28/18 10:00 06/28/18 10:00 Oxygen Delivery Method Room Air Weight: 147 lb 4.301 oz Body Mass Index (BMI) 22.4 Intake and Output for Last 24 Hours 06/26/18 06/27/18 06/28/18 23:59 23:59 23:59 Intake Total 2900 / 2900 Output Total 250 / 250 Balance 2650 / 2650 Microbiology Past 72 Hours 06/27/18 15:15 Enteric Bacteriology - Final Stool Laboratory Tests Past 24 Hrs 06/27/18 06/27/18 06/28/18 15:05 15:05 06:25 WBC 0.6 L* 0.6 L* RBC 2.48 L 2.50 L Hgb 8.4 L 8.9 L Hct 24.6 L 24.6 L MCV 99.2 H 98.4 H MCH 33.9 H 35.6 H MCHC 34.1 36.2 H RDW 15.0 H 15.0 H RDW Differential 52.9 H 52.8 H Plt Count 68 L 62 L MPV 9.1 9.5 Immature Gran % (Auto) 9.100 H Neut % (Auto) Not Reportable 10.9 L Lymph % (Auto) 34.5 [place] % (Auto) 45.5 H Eos % (Auto) 0.0 Baso % (Auto) 0.0 Absolute Neuts (auto) 0.3 L 0.1 L Absolute Lymphs (auto) 0.10 L 0.19 L Total Counted 100 Not Reportable Neutrophils % (Manual) 44 L Band Neutrophils % 8 H Lymphocytes % (Manual) 16 L Monocytes % (Manual) 32 H Differential Comment SEE COMMENTS SCAN Diff Path Review May foll May foll Platelet Estimate MOD DEC MOD DEC Plt Morphology Comment LARGE Anisocytosis RARE Macrocytosis RARE Sodium 131 L Potassium 3.2 L Chloride 98 Carbon Dioxide 24.0 Anion Gap 9 BUN 11 Creatinine 0.61 L Estim Creat Clear Calc 66.50 Est GFR (MDRD) Af Amer 167 Est GFR (MDRD) Non-Af 138 BUN/Creatinine Ratio 17.9 Glucose 226 H Calcium 7.5 L Phosphorus Magnesium Total Bilirubin 1.80 H AST 30 ALT 22 Alkaline Phosphatase 69 Total Protein 5.3 L Albumin 2.1 L Globulin 3.2 Albumin/Globulin Ratio 0.7 L Lipase 24 L 06/28/18 06/28/18 06:25 06:25 WBC RBC Hgb Hct MCV MCH MCHC RDW RDW Differential Plt Count MPV Immature Gran % (Auto) Neut % (Auto) Lymph % (Auto) [place] % (Auto) Eos % (Auto) Baso % (Auto) Absolute Neuts (auto) Absolute Lymphs (auto) Total Counted Neutrophils % (Manual) Band Neutrophils % Lymphocytes % (Manual) Monocytes % (Manual) Differential Comment Diff Path Review Platelet Estimate Plt Morphology Comment Anisocytosis Macrocytosis Sodium 135 L Potassium 3.0 L Chloride 103 Carbon Dioxide 23.0 Anion Gap 9 BUN 10 Creatinine 0.47 L Estim Creat Clear Calc 64.94 Est GFR (MDRD) Af Amer 225 Est GFR (MDRD) Non-Af 186 BUN/Creatinine Ratio 21.1 H Glucose 140 H Calcium 7.4 L Phosphorus 1.7 L Magnesium 1.9 Total Bilirubin AST ALT Alkaline Phosphatase Total Protein Albumin Globulin Albumin/Globulin Ratio Lipase Medical Necessity - Tobacco Use Smoking Status: Current every day smoker Tobacco Use: Cigarettes Assessment/Plan All Active Problems (Last Reviewed 06/19/18 @ 09:58 by Carla Barrett) Hyponatremia (Acute) Pancytopenia (Acute) Hypomagnesemia (Acute) Diarrhea (Acute) Dehydration (Acute) Hypokalemia (Acute) Mucositis (ulcerative) due to antineoplastic therapy (Acute) Primary anal squamous cell carcinoma (Acute) Hx of colonoscopy (Acute) Bleeding (Acute) Blood in stool (Acute) Nausea (Acute) Back problem (Acute) 1. Dehydration 2/2 chemo induced diarrhea - Hydrate with IV NaCl. continue lomotil, immodium, topicals for irritation/skin breakdown. C diff neg. Enteric panel neg. Lipase neg. T bili elevated. trial magic mouthwash for throat pain. 2. Hyponatremia/kalemia - 2/2 above - replete. check mag / phos. 3. Pancytopenia - trend. Monitor for fevers. 4. Anal cancer st II-III - pt of Drs. Jim/Uriel. DVT ppx: SCDs DC planning: PTOT. He appears very frail and weak. This patient was seen by Aime Mayorga PA-C under the supervision of Doctor Patiño. <Piper Patiño - Last Filed: 06/28/18 15:31> - Physical Exam Vital Signs Temp Pulse Resp BP Pulse Ox 99.4 F H 115 H 20 H 170/85 H 100 06/28/18 13:00 06/28/18 13:00 06/28/18 13:00 06/28/18 13:00 06/28/18 13:00 Oxygen Delivery Method Room Air Weight: 66.8 kg Body Mass Index (BMI) 22.4 Intake and Output for Last 24 Hours 06/26/18 06/27/18 06/28/18 23:59 23:59 23:59 Intake Total 2900 / 2900 Output Total 250 / 250 Balance 2650 / 2650 Microbiology Past 72 Hours 06/27/18 15:15 Enteric Bacteriology - Final Stool Laboratory Tests Past 24 Hrs 06/27/18 06/27/18 06/28/18 15:05 15:05 06:25 WBC 0.6 L* 0.6 L* RBC 2.48 L 2.50 L Hgb 8.4 L 8.9 L Hct 24.6 L 24.6 L MCV 99.2 H 98.4 H MCH 33.9 H 35.6 H MCHC 34.1 36.2 H RDW 15.0 H 15.0 H RDW Differential 52.9 H 52.8 H Plt Count 68 L 62 L MPV 9.1 9.5 Immature Gran % (Auto) 9.100 H Neut % (Auto) Not Reportable 10.9 L Lymph % (Auto) 34.5 [place] % (Auto) 45.5 H Eos % (Auto) 0.0 Baso % (Auto) 0.0 Absolute Neuts (auto) 0.3 L 0.1 L Absolute Lymphs (auto) 0.10 L 0.19 L Total Counted 100 Not Reportable Neutrophils % (Manual) 44 L Band Neutrophils % 8 H Lymphocytes % (Manual) 16 L Monocytes % (Manual) 32 H Differential Comment SEE COMMENTS SCAN Diff Path Review May foll May foll Platelet Estimate MOD DEC MOD DEC Plt Morphology Comment LARGE Anisocytosis RARE Macrocytosis RARE Sodium 131 L Potassium 3.2 L Chloride 98 Carbon Dioxide 24.0 Anion Gap 9 BUN 11 Creatinine 0.61 L Estim Creat Clear Calc 66.50 Est GFR (MDRD) Af Amer 167 Est GFR (MDRD) Non-Af 138 BUN/Creatinine Ratio 17.9 Glucose 226 H Calcium 7.5 L Phosphorus Magnesium Total Bilirubin 1.80 H AST 30 ALT 22 Alkaline Phosphatase 69 Total Protein 5.3 L Albumin 2.1 L Globulin 3.2 Albumin/Globulin Ratio 0.7 L Lipase 24 L 06/28/18 06/28/18 06:25 06:25 WBC RBC Hgb Hct MCV MCH MCHC RDW RDW Differential Plt Count MPV Immature Gran % (Auto) Neut % (Auto) Lymph % (Auto) [place] % (Auto) Eos % (Auto) Baso % (Auto) Absolute Neuts (auto) Absolute Lymphs (auto) Total Counted Neutrophils % (Manual) Band Neutrophils % Lymphocytes % (Manual) Monocytes % (Manual) Differential Comment Diff Path Review Platelet Estimate Plt Morphology Comment Anisocytosis Macrocytosis Sodium 135 L Potassium 3.0 L Chloride 103 Carbon Dioxide 23.0 Anion Gap 9 BUN 10 Creatinine 0.47 L Estim Creat Clear Calc 64.94 Est GFR (MDRD) Af Amer 225 Est GFR (MDRD) Non-Af 186 BUN/Creatinine Ratio 21.1 H Glucose 140 H Calcium 7.4 L Phosphorus 1.7 L Magnesium 1.9 Total Bilirubin AST ALT Alkaline Phosphatase Total Protein Albumin Globulin Albumin/Globulin Ratio Lipase Assessment/Plan This patient was seen in conjunction with ANNI Shah. I have independently interviewed and examined the patient and reviewed pertinent historical, laboratory, and other data. Please refer to ANNI Shah note for his patient's presentation, findings, and recommendations. I have reviewed and his note and concur with his documentation Patient was seen and examined. Complains of inability to eat because of pain in his mouth. Denied any fever or chills. In neutropenic precautions. Denied any chest pain no dizziness or palpitations. He has had 2 bowel movements today. Physical Exam: Gen: Looks in some discomfort, cachectic, pale, not jaundiced, mildly dehydrated CVS:HS I +II, regular, no murmurs RESP: Diminished at lung bases ABD: Full, soft, nontender, no ballotable organs EXT:No edema ASSESSMENT: 1. Diarrhea, chemo-induced 2. Pancytopenia 3. Hypokalemia 4. Hypophosphatemia 5. Hyponatremia 6. Malnutrition, moderate protein-energy 7. Anal cancer stage II-III Plan: Continue with gentle hydration Replete electrolytes Labs in am Code Visit Inpatient E&M: [id number] Subs Hosp L2
[2018-06-28] MEDS: Na Biphos/Potassium Phosphate PACKET 1 PACKET PO (16:35)
--- NOTE | 2018-06-28 16:44 | NURSING ---
pt is upset that he was incont of stool in his attends. Wanted to get up but Too late now. Despite Breakfast and lunch being delivered to him, he has refused to eat. This nurse encouraged pt to have Fecal Management system x2 different times today. Pt gets agitated and upset. I dont want no damn tube up my ass. My butt already hurts. Despite education, refusing. Pt refusing Lomtoil as well.
--- NOTE | 2018-06-28 16:57 | NURSING ---
Just voided 150ml of drk tea colored urine per Lakeisha ROCHA. Bladder scanned by this nurse for 168ml. Will continue to monitor. pt stated, leave me alone, I just want to when this nurse offered pain medicaion orally for his pain to his throat and coccyx.
--- NOTE | 2018-06-28 17:58 | NURSING ---
Informed Dr. Patiño of low output today. Order for bolus verbally givne.
[2018-06-28] MEDS: Morphine 2 MG/ML Syringe 1 MG IV ×2 (19:01→23:48)
--- NOTE | 2018-06-28 19:10 | NURSING ---
This nurse walked in room, pt sitting in chair naked and trying to use the phone. Stool all over the bed, all over the floor. Pt knew where he was at but refused to tell me his name and month/year. I dont need to tell you. Agitated and seems confused. All before morphine was given. this nurse tried to reapply Ekaterina to coccyx but pt was agitated and refused at this time. Back in bed. Talking to . Bed exit on at this time.
[2018-06-29] VITALS (13 sets, daily range): BP systolic 86–161; BP diastolic 54–89; PULSE 88–150; RESP 15–52; TEMP 36.5–37.8; O2SAT 94–100
[2018-06-29] MEDS: 0.9% Normal Saline 1,000 ML 999 ML IV ×2 (01:29→20:19)
[2018-06-29] MEDS: BMX LIQUID 180 ML 10 ML PO ×2 (01:49→09:36)
[2018-06-29] MEDS: Morphine 2 MG/ML Syringe 1 MG IV ×2 (02:48→09:35)
[2018-06-29 06:26] LABS: BUN 13 mg/dL (7-18); BUN/Creat Ratio 24.1 RATIO (10-20); Calcium,Total 7.3 mg/dL (8.5-10.1); Creatinine, Serum 0.54 mg/dL (0.70-1.30); EST Glomerular Filtration Rate 160 mL/min (>60); Est Glom Filt Rate - Afr Amer 194 mL/min (>60); Estimated Creatinine Clearance 64.94 ml/min; Glucose 161 mg/dL (74-106); Magnesium 2.1 mg/dL (1.6-2.6); Sodium Level 135 mmol/L (136-145)
[2018-06-29 06:27] LABS: Anion Gap 10 (5-15); Chloride 104 mmol/L (98-107); Potassium 3.8 mmol/L (3.5-5.1)
[2018-06-29 06:41] LABS: Absolute Lymphocyte Count 0.13 X10^3/ul (0.83-4.51); Absolute Neutrophil Count 0.5 X10^3/uL (2.0-7.7); Eosinophil# 0.01 X10^3/uL; Eosinophils% 1.4 % (0-5); Hematocrit 27.4 % (40-54); Hemoglobin 9.9 g/dl (13.0-16.5); Lymphocyte # 0.13 X10^3/ul (4.0); Lymphocyte % 17.6 % (19-41); Mean Corp Hgb Conc 36.1 g/gl (32-36); Mean Corpuscular Hgb 37.1 pg (27.0-32.0); Mean Corpuscular Volume 102.6 fL (80-94); Mean Platelet Vol. 10.2 fl (6.2-12.0); Monocyte# 0.01 X10^3/uL; Monocyte% 1.4 % (0-10); Neutrophil # 0.51 X10^3/uL (2.7-7.7); Neutrophil % 68.8 % (47-70); RBC Distribution Width CV 15.1 % (11.6-14.6); RBC Distribution Width SD 53.3 fl (35.1-43.9); Red Blood Count 2.67 M/mm3 (4.6-6.2)
[2018-06-29 06:43] LABS: Differential Indicated SCAN CRITERIA MET; POSITIVE COUNT YES; POSITIVE DIFFERENTIAL YES; POSITIVE MORPHOLOGY YES; Platelet Count 48 K/mm3 (150-450); White Blood Count 0.7 K/mm3 (4.4-11.0)
[2018-06-29 07:05] LABS: Differential Comment SCAN; Platelet Estimate MKD DEC (ADEQ); Platelet Morphology LARGE
[2018-06-29] MEDS: 0.9% NaCl VAD Flush 10 ML IV ×5 (09:35→20:33)
[2018-06-29] MEDS: Diphenoxylate/Atrop 1 Tablet PO (09:36)
[2018-06-29] MEDS: Menthol/Lanolin/Calamine/Znox 113 GM Tube 1 APPLIC TOPICAL ×3 (09:41→17:26)
--- NOTE | 2018-06-29 10:14 | RAD_ITS ---
STUDY: X-RAY - ABDOMEN/PELVIS REASON FOR EXAM: Male, 68 years old. Abdominal distention with pain TECHNIQUE: AP supine and upright views of the abdomen and pelvis. COMPARISON: None. FINDINGS: Normal visualized lung bases. Dilated loops of small bowel noted throughout the abdomen with luminal diameter measuring up to 5.9 cm in the right lower quadrant. Very little colonic gas is identified. Multiple air-fluid levels are seen on upright imaging. There is also an air-fluid level in the stomach. This is new since CT assembler tractor topogram of 05/14/2018. There is no demonstrated free abdominal air. The visualized liver, spleen and kidneys are grossly normal in size and morphology. Normal soft tissue structures. Vascular calcifications are present. No obvious bony abnormality. RAD/Abd Inc Decub and/or Erect IMPRESSION: 1. Small bowel obstruction. 2. Atherosclerosis. Electronically Signed: Arturo Ambrosio MD at 12:47 EST , Service support ,
--- NOTE | 2018-06-29 10:20 | PN_ITS ---
Patient Problems: Active and Suspected Problems (Last Reviewed 06/19/18 @ 09:58 by Carla Barrett) Hyponatremia (Acute) Pancytopenia (Acute) Hypomagnesemia (Acute) Diarrhea (Acute) Dehydration (Acute) Hypokalemia (Acute) Mucositis (ulcerative) due to antineoplastic therapy (Acute) Subjective: Patient was seen and examined. He complains of ulcers in the mouth. Was started on BMX yesterday. He is reportedly refusing to take medications from the nurses or eat or drink. He expresses frustration at care but is unwilling to be medicated even for pain. No fevers or chills. No nausea or vomiting. Vitals/I&O's: Vital Signs Temp Pulse Resp BP Pulse Ox 98.9 F 119 H 15 157/71 H 94 06/29/18 02:53 06/29/18 02:53 06/29/18 05:00 06/29/18 02:53 06/29/18 05:00 Oxygen Delivery Method Room Air Weight: 66.8 kg Body Mass Index (BMI) 22.4 Intake and Output for Last 24 Hours 06/27/18 06/28/18 06/29/18 23:59 23:59 23:59 Intake Total 4761 / 4761 1525 / 1525 Output Total 575 / 575 250 / 250 Balance 4186 / 4186 1275 / 1275 General: Alert, Oriented x3, Cooperative, - - Very ill looking, pale, no jaundice HEENT: Atraumatic, PERRLA, EOMI, Normocephalic, - - Ulcers of the lower extremities with scabbing, old blood Oral: Dry Mucosa Neck: Supple, No JVD, Negative Carotid Bruits Lungs: Clear to auscultation, Normal air movement Cardiovascular: Regular rate, Regular Rhythm, Normal S1, Normal S2, No murmurs Abdomen: Bowel Sounds Present, Soft, Distended, Tender - Generalized tenderness without guarding Extremities: Edema - Trace bilateral stay Skin: No rashes, No breakdown Musculoskeletal: No Tenderness to Palpation of Joints or Extremities Neurological: Cranial nerves II-XII grossly intact, Neuro grossly intact Psych/Mental Status: Normal Affect, Appropriate Microbiology Past 72 Hours 06/27/18 15:15 Stool Enteric Bacteriology - Final Laboratory Results 06/29/18 05:50: WBC 0.7 L*, RBC 2.67 L, Hgb 9.9 L, Hct 27.4 L, MCV 102.6 H, MCH 37.1 H, MCHC 36.1 H, RDW 15.1 H, RDW Differential 53.3 H, Plt Count 48 L*, MPV 10.2, Immature Gran % (Auto) 10.800 H, Neut % (Auto) 68.8, Lymph % (Auto) 17.6 L , [place] % (Auto) 1.4, Eos % (Auto) 1.4, Baso % (Auto) 0.0, Absolute Neuts (auto) 0.5 L, Absolute Lymphs (auto) 0.13 L, Total Counted Not Reportable, Differential Comment SCAN, Diff Path Review November mervat, Platelet Estimate MKD DEC, Plt Morphology Comment LARGE 06/29/18 05:50: Sodium 135 L, Potassium 3.8, Chloride 104, Carbon Dioxide 21.0, Anion Gap 10, BUN 13, Creatinine 0.54 L, Estim Creat Clear Calc 64.94, Est GFR (MDRD) Af Amer 194, Est GFR (MDRD) Non-Af 160, BUN/Creatinine Ratio 24.1 H, Glucose 161 H, Calcium 7.3 L, Magnesium 2.1 Current Medications Acetaminophen (Tylenol Liquid) 650 mg PO Q6H PRN PRN PRN Reason: fever Last Admin: 06/27/18 22:27 Dose: 650 mg Calamine/Phenol (Calmoseptine Ointment) 1 applic TOPICAL 4X/DAY JOSE LUIS; Protocol Last Admin: 06/29/18 09:41 Dose: 1 applicatio Diphenoxylate HCl/Atropine (Lomotil) 1 - 2 tablet PO 4X/DAY PRN PRN PRN Reason: Diarrhea Last Admin: 06/29/18 09:36 Dose: 2 tablet Heparin Sodium (Beef Lung) () 50 units IV UD PRN PRN Reason: HEPARIN FLUSH Potassium Chloride/Sodium Chloride () 1,000 mls @ 125 mls/hr IV .Q8H JOSE LUIS Last Admin: 06/29/18 06:26 Dose: 125 mls/hr Lidocaine/Diphenhydr/Alum/Mg/Simeth () 15 ml PO Q3H PRN PRN PRN Reason: WOUND CARE Magnesium Hydroxide (Milk Of Magnesia) 30 ml PO DAILY PRN PRN PRN Reason: Constipation Morphine Sulfate () 2 mg IV Q2H PRN PRN PRN Reason: SEVERE PAIN (6-1010) Nicotine (Nicoderm Cq (Pbkc)) 21 mg TRANSDERM. DAILY [facility] Nicotine Polacrilex (Rugby Nicotine (Bkc)) 2 mg PO Q2H PRN PRN PRN Reason: Nicotine Craving Nutritional Formula (Lactose Free) (Ensure Clear) 120 ml PO 4X/DAY [facility] Last Admin: 06/29/18 09:35 Dose: 120 ml Oxycodone HCl (Oxyir) 5 mg PO Q4H PRN PRN PRN Reason: SEVERE PAIN (6-04/23) Potassium Phos/Sodium Phos (Neutra-Phos Packet) 1 packet PO 4X/DAY [facility] Last Admin: 06/29/18 09:42 Dose: Not Given Sodium Chloride () 10 ml IV UD PRN PRN Reason: VAD FLUSH Last Admin: 06/29/18 09:35 Dose: 10 ml Tbo-Filgrastim (Granix) 480 mcg SC DAILY [facility] Medical Necessity - Tobacco Use Smoking Status: Current every day smoker Tobacco Use: Cigarettes Assessment/Plan All Active Problems (Last Reviewed 06/19/18 @ 09:58 by Carla Barrett) Hyponatremia (Acute) Pancytopenia (Acute) Hypomagnesemia (Acute) Diarrhea (Acute) Dehydration (Acute) Hypokalemia (Acute) Mucositis (ulcerative) due to antineoplastic therapy (Acute) Primary anal squamous cell carcinoma (Acute) Hx of colonoscopy (Acute) Bleeding (Acute) Blood in stool (Acute) Nausea (Acute) Back problem (Acute) 68-year-old male with past medical history of an Donte/T2/T3 follows up with oncology in the outpatient undergoing chemotherapy and radiotherapy comes in with a 3-day history of severe diarrhea pain and pain in his rectal region. 1. Pancytopenia, chemotherapy related, absolute neutrophil count is 500 today, down from 1000 yesterday, will start patient on Granix, oncology consulted. Repeat CBC D in a.m. 2. Abdominal distention, patient admitted with diarrhea, diarrhea appears to be resolved, status post Lomotil treatment last night and today, will get a KUB, hold off on Lomotil, monitor patient closely 3. Hypokalemia, resolved with treatment 4. Hyponatremia, remains the same 5. Hypophosphatemia, replaced yesterday, repeat pending 6. Anal cancer stage II/III, follows oncology in the outpatient 7. Moderate protein energy malnutrition 8. DVT ppx: SCDs on account of thrombocytopenia Code Visit Inpatient E&M: 21818 Subs Hosp L2
[2018-06-29 12:35] LABS: Phosphorus 1.9 mg/dL (2.5-4.9)
[2018-06-29] MEDS: TBO-FILGRASTIM 480 MCG/0.8 ML ML SC (14:03)
[2018-06-29] MEDS: NYSTATIN 500,000 UNIT/5 ML UDC 500000 UNIT PO ×2 (14:05→17:25)
--- NOTE | 2018-06-29 14:32 | CON.PCM_ITS ---
Consult Referring Physician: Consult Results: Neutropenic feverdue to chemotherapy, mucositis, abdominal dis tension. 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 He started combined chemotherapy and Radiation therapy on 05/22/2018. He received the last cycle of chemotherapy-Mytomycin + 5FU from 06/19/2018 to 06/23/2018. He is now admitted with fever, neutropenia, mucositis and diarrhea. Has developed abdominal distension on admission. Past Medical History: Chronic Problems (Last Reviewed 06/19/18 @ 09:58 by Carla Barrett) Rectal cancer (Chronic) Primary anal squamous cell carcinoma (Chronic) Mass of both adrenal glands (Chronic) Past Medical/Surgical History: Past Medical History - Most Recent Inpatient Visit Past Medical History Start: 06/27/18 18:03 Text: Status: Complete Freq: ONCE Protocol: Document 06/27/18 18:07 VIRGILIO (Rec: 06/27/18 18:14 VIRGILIO [id number]) BMI Required to complete PMH What is Patient's BMI 22.4 Past Medical History Unable History Recalled No Query Text:Pt Unable/Family Not Present Neurologic Medical History Hx Stroke/TIA No Hx Dementia/Alzheimer's No Hx Parkinson's Disease No Hx Seizures No Hx Multiple Sclerosis No Hx Migraines No Cardiac Medical History VTE Present on Admission No Hx of Deep Vein Thrombosis/VTE/PE No Hx Hypertension No Hx Chest Pain/Angina No Hx Heart Attack No Hx Cardiac Surgery/Stents/Etc. No Hx Heart Failure No Hx Pacemaker/AICD No Hx Irregular Heartbeat and/or Afib No Hx Anticoagulant Therapy No Query Text:(Coumadin, Aspirin, Plavix, Xarelto, etc.) Hx Pain in Legs when Walking/Leg Cramps No Respiratory Medical History Hx COPD No Hx Emphysema No Hx Smoking Yes Smoking Status Current every day smoker Tobacco Use Cigarettes Years Smoking 54 Packs Smoked per Day 2 Hx Smoking Cessation Counseling No Hx Smoking Exposure No Hx Tobacco Use in last 12 months Yes Sent to [facility] Yes Hx of Pipe Smoking No Hx of Cigar Smoking No Hx Sleep Apnea No Do you snore loudly (louder than talking No or can be heard through closed doors)? Do you often feel tired/ fatigued/ No sleepy during daytime? Has anyone observed you stop breathing No during sleep? STOP Results Negative GI Medical History Hx Ulcer No Hx Hepatitis No Hx Cirrhosis No Hx GI Bleed Yes Hx Unplanned Weight Loss Yes Genitourinary Medical History Indwelling Catheter in Place on Arrival/ No Admission Hx Renal Disease No Hx Dialysis No Musculoskeletal History Hx Arthritis No Hx Rheumatoid Arthritis No Endocrine Medical History Hx Diabetes No Hx Thyroid Disease No Hematologic Medical History Hx of Blood Transfusion No Hx of Transfusion in last 3 Months No Ever experience any problems with No transfusion(s)? Hx of Preganancy in last 3 Months N/A Nurse Filling Out Transfusion & JDIAL Questions: Date: 06/27/18 Time: 18:13 Psycho/Social Medical History Hx Depression Yes Hx Anxiety Yes Hx Behavior Disorder No Hx Alcohol Use No Hx Substance Use No Other Medical History Hx Blood Disorders No Hx Anemia Yes Hx Cancer Yes: rectal Hx Drug Resistant Organism No Wound/Pressure Injury Present on Arrival Yes /Admission Query Text:If yes, chart assessment in Shift/Clinical Findings Central Line/PICC/VAD Present on Arrival Yes /Admission Antibiotics within last 7 days? No Methicillin Resistant Staphylococcus aureus Screening Active MRSA No Risk for Readmission Number of Risk Factors 6 At Risk for Readmission Patient is At Risk For Readmission Patient is eligible for Call Back Y Past Medical History (Last Reviewed 06/19/18 @ 09:58 by Carla Barrett) Bleeding (Acute) Blood in stool (Acute) Nausea (Acute) Back problem (Acute) Past Surgical History (Last Reviewed 06/19/18 @ 09:58 by Carla Barrett) Hx of colonoscopy (Acute) Maternal Family History: Family History (Last Reviewed 06/19/18 @ 09:58 by Carla Barrett) Father Stomach cancer Brain cancer Family History: No pertinent history Paternal Family History: Family History (Last Reviewed 06/19/18 @ 09:58 by Carla Barrett) Father Stomach cancer Brain cancer Family History: Cancer - Social History Lives: Alone Smoking Status: Current every day smoker Tobacco Use: Cigarettes Alcohol: None Drugs: None Allergies/Adverse Reactions: Allergy/AdvReac Type Severity Reaction Status Date / Time No Known Allergies Allergy Verified 06/27/18 14:32 Review of Systems Constitutional:: Reports: Weakness, Fatigue, Fever Cardiovascular:: Denies: Chest pain, Palpitations, Dyspnea on exertion, Orthopnea, PND, Shortness of breath Respiratory: Denies: Cough, Hemoptysis, Shortness of Breath, Wheezing Gastrointestinal:: Reports: Abdominal pain, Diarrhea. Denies: Nausea, Vomiting, Constipation, Hematochezia Genitourinary: Denies: Dysuria, Hematuria, 15, Flank pain Musculoskeletal:: Denies: Back pain, Myalgia, Arthralgia Skin: Reports: Skin Changes - perianal area.. Denies: Rash, Wounds Neurological:: Denies: Headache, Dizziness, Visual changes, Tinnitus, Hearing loss Psychiatric: Denies: Anxiety, Depression, Homicidal Ideations, Suicidal Ideations Vital Signs Height 5 ft 8 in Weight: 66.8 kg Weight in Pounds 147.3 lbs BMI 24.6 Pulse Ox 100 Temperature 98.7 F Pulse Rate 101 Respiratory Rate 19 Blood Pressure 160/89 Blood Pressure Position Semi-Fowlers - Physical Exam General: Alert, Oriented x3, - - Looks ill. HEENT: Atraumatic, PERRLA, EOMI, Normocephalic Oropharynx:: Ulcerated lesions - lips Neck:: Supple, Trachea midline. Negative for: JVD, bilateral Cardiac:: Regular rate, Regular rhythm, Normal S1, Normal S2. Negative for: Murmur Lungs: Clear to auscultation, Excusion symmetrical. Negative for: Rhonchi, Wheezes Abdomen:: Distended, Tender Neurological: Neuro grossly intact Lymphatics:: Negative for: Cervical lymphadenopathy, Supraclavicular lymphadenopathy, Axillary lymphadenopathy Laboratory Data: Microbiology 06/27/18 15:15 Enteric Bacteriology - Final Stool Laboratory Tests 06/29/18 06/29/18 06/29/18 Range/Units 05:50 05:50 05:50 WBC 0.7 L* (4.4-11.0) K/mm3 RBC 2.67 L (4.6-6.2) M/mm3 Hgb 9.9 L (13.0-16.5) g/dl Hct 27.4 L (40-54) % MCV 102.6 H (80-94) fL MCH 37.1 H (27.0-32.0) pg MCHC 36.1 H (32-36) g/gl RDW 15.1 H (11.6-14.6) % RDW Differential 53.3 H (35.1-43.9) fl Plt Count 48 L* (150-450) K/mm3 MPV 10.2 (6.2-12.0) fl Immature Gran % (Auto) 10.800 H (0.0-0.9) % Neut % (Auto) 68.8 (47-70) % Lymph % (Auto) 17.6 L (19-41) % [place] % (Auto) 1.4 (0-10) % Eos % (Auto) 1.4 (0-5) % Baso % (Auto) 0.0 (0-1) % Absolute Neuts (auto) 0.5 L (2.0-7.7) X10^3/uL Absolute Lymphs (auto) 0.13 L (0.83-4.51) X10^3/ul Total Counted Not Reportable Differential Comment SCAN Diff Path Review May foll Platelet Estimate MKD DEC (ADEQ) Plt Morphology Comment LARGE Sodium 135 L (136-145) mmol/L Potassium 3.8 (3.5-5.1) mmol/L Chloride 104 (98-107) mmol/L Carbon Dioxide 21.0 (21.0-32.0) mmol/L Anion Gap 10 (5-15) BUN 13 (7-18) mg/dL Creatinine 0.54 L (0.70-1.30) mg/dL Estim Creat Clear Calc 64.94 ml/min Est GFR (MDRD) Af Amer 194 (>60) mL/min Est GFR (MDRD) Non-Af 160 (>60) mL/min BUN/Creatinine Ratio 24.1 H (10-20) RATIO Glucose 161 H (74-106) mg/dL Calcium 7.3 L (8.5-10.1) mg/dL Phosphorus 1.9 L (2.5-4.9) mg/dL Magnesium 2.1 (1.6-2.6) mg/dL Diagnostic Data: Diagnostic Data Abdomen X-Ray 06/29/18 10:14 IMPRESSION: 1. Small bowel obstruction. 2. Atherosclerosis. Electronically Signed: Arturo Ambrosio MD at 12:47 EST , Service support , Assessment and Plan Neutropenic Fever, Pancytopenia due to chemotherapy. Anal cancer on chemotherapy and Radiation therapy. Mucositis. Abdominal distention + diarrhea R/O ileus vs obstruction. Suggestions: To continue broad spectrum Antibiotics. NPO, obtain CT a/p and Surgery consult. Thanks, will follow. Medications: Prescriptions This Visit Medication Instructions Recorded Oxycodone HCl 5 - 10 ml PO Q4H PRN PRN 06/27/18 Medications Added to Medication List This Visit Category Date Time Status Bmx Liquid Med 06/29/18 09:57 Active 15 ml PO Q3H PRN PRN Docosonal [Abreva] Med 06/29/18 10:30 Active 1 applic TP 5X/DAY KCL 20MEQ in D5.45NS [KCl 20Meq in D5.45ns 1000ML] 1, Med 06/29/18 15:00 Active 000 ml IV 100 mls/hr Nicotine Polacrilex [Rugby Nicotine (BKC)] Med 06/29/18 09:55 Active 2 mg PO Q2H PRN PRN Nicotine [Nicoderm Cq (PBKC)] Med 06/29/18 11:30 Active 21 mg TRANSDERM. DAILY Nystatin Med 06/29/18 14:00 Active 500,000 unit PO 4X/DAY Tbo-Filgrastim [Granix] Med 06/29/18 10:30 Active 480 mcg SC DAILY morphine Inj Med 06/29/18 09:56 Active 2 mg IV Q2H PRN PRN Primary Care Provider: Alexander Park MD Referring Provider: - Problem List (1) Neutropenic fever Status: Acute (2) Pancytopenia Status: Acute (3) Primary anal squamous cell carcinoma Status: Chronic Code Visit Office Visits / Consults: 43440 IP Consult L5
--- NOTE | 2018-06-29 15:00 | CT_ITS ---
STUDY: CT ABDOMEN AND PELVIS WITH CONTRAST REASON FOR EXAM: Male, 68 years old. Blood in stool. Rectal cancer. RADIATION DOSAGE (If Supplied By Facility): CTDIvol = ( 18.06 ) mGy, DLP = ( 718.42 ) mGycm TECHNIQUE: Transaxial images were obtained from the dome of the diaphragm to the symphysis pubis without oral contrast. 100ML ml of Isovue 300 contrast was administered. Sagittal and coronal images were reconstructed. Individualized dose optimization techniques were used for this CT. COMPARISON: 05/07/2018 FINDINGS: The visualized lung bases are clear. The visualized portions of the heart and pericardium are within normal limits. There are no calcified gallstones present. There is portal venous air noted in the left lobe of the liver. There are no focal hepatic lesions. The spleen is normal in size. The pancreas is within normal limits. There are stable bilateral indeterminate adrenal nodules. There are no renal or ureteral stones. There is no hydronephrosis. There are no focal renal lesions. There is marked distention of the stomach. There is thickening in the pyloric region which may represent focal gastritis. There are multiple dilated loops of small bowel with collapsed loops noted distally. This is consistent with a small bowel obstruction. There is pneumatosis noted within small bowel loops in the right mid abdomen. There are thickened loops of small bowel in right lower quadrant. There is bowel wall thickening and decreased enhancement noted in the distal sigmoid colon. The appendix is visualized and appears normal. Their atherosclerotic calcifications noted in the aorta and its branches The aorta is normal in caliber. There is a moderate amount of free fluid. There is no free air, fluid collection or lymphadenopathy. There are no destructive osseous lesions. CT/Abdomen/Pelvis WITH Contrast IMPRESSION: Small obstruction. Pneumatosis noted in small bowel loops in the right mid abdomen. Thickened loops of small bowel in the right lower quadrant. Portal venous air in the left lobe of the liver. These findings are consistent with bowel ischemia. Bowel wall thickening and decreased enhancement in the sigmoid colon which may also be due to ischemia. Distended stomach. Thickening of the pylorus which may represent focal gastritis. Moderate amount of ascites. No free air. Stable bilateral indeterminate adrenal nodules. N.B. : The above information has been verbally conveyed by Daryn Sauceda to Yoseph Smith RN, on 06/29/2018 19:29:22 (ET). Electronically Signed: Daryn Sauceda, at 19:07 EST Tel , Service support ,
--- NOTE | 2018-06-29 15:07 | NURSING ---
This RN and commis chef attempted x2 to place NG tube unsuccessfully. Pt refusing to allow anymore attempts. notified.
[2018-06-29] MEDS: Morphine 2 MG/ML Syringe IV (17:32)
--- NOTE | 2018-06-29 17:56 | PCM.CONS.GEN ---
Problem List (1) Abdominal distention Status: Acute (2) Diarrhea Status: Acute Qualifiers: Diarrhea type: unspecified type Qualified Code(s): R19.7 - Diarrhea, unspecified Reason for Consult Date of Consultation: 06/29/18 Reason for Consultation: Ileus versus small bowel obstruction History of Present Illness: The patient is a 68 year old M who was admitted with neutropenic fever. Throughout the course of the day he has become more distended. He is complaining of thigh pain as well as shortness of breath. He says his abdominal pain is minimal but he is more distended. He is not having any nausea. NG was attempted but was unable to be placed. He reports that he is not passing any gas today. He has not vomited. Past Medical History Past Medical History (Chronic Problems): Chronic Problems (Last Reviewed 06/19/18 @ 09:58 by Carla Barrett) Rectal cancer (Chronic) Primary anal squamous cell carcinoma (Chronic) Mass of both adrenal glands (Chronic) Medical History: Medical History (Last Reviewed 06/19/18 @ 09:58 by Carla Barrett) Bleeding (Acute) R58 Blood in stool (Acute) K92.1 Nausea (Acute) R11.0 Back problem (Acute) M53.9 Allergies No Known Allergies Allergy (Verified 06/27/18 14:32) Home Medications: Ambulatory Orders Medication Instructions Recorded Omeprazole [Prilosec] 1 tab PO DAILY 05/12/18 Hydrochlorothiazide [Hctz] 25 mg PO DAILY 05/19/18 Metoprolol Tartrate [Lopressor 25 mg PO DAILY 05/19/18 (beta vivi)] Oxycodone HCl/Acetaminophen 1 - 2 tablet PO Q6H PRN PRN 05/19/18 [Percocet 5-325] Lidocaine 2% Viscous [Xylocaine 15 ml GT Q4H PRN PRN #240 ml 05/30/18 Viscous] Oxycodone HCl 5 mg PO Q4H PRN PRN #200 ml 05/30/18 Potassium Chloride 20 meq PO BID 28 Days #420 ml 06/03/18 Silver Sulfadiazine 1% Crm 1 applic TOPICAL BID #80 gm 06/03/18 [Silvadene Cream] Lidocaine 2% Jelly [Xylocaine 2% 30 ml TOPICAL TID #1 tube 06/10/18 Jelly] Loperamide [Imodium] 2 mg PO Q4H PRN PRN #60 capsule 06/11/18 Diphenoxylate/Atrop [Lomotil] 2 tablet PO 4X/DAY PRN PRN #60 06/25/18 tablet Oxycodone [Oxyir] 5 mg PO Q4H PRN PRN #60 tablet 06/25/18 Oxycodone HCl 5 - 10 ml PO Q4H PRN PRN 06/27/18 Surgical History: Surgical History (Last Reviewed 06/19/18 @ 09:58 by Carla Barrett) Hx of colonoscopy (Acute) Z98.890 04/24/2018 Surgical History: no surgical history Lives: Alone Smoking Status: Current every day smoker Tobacco Use: Cigarettes Alcohol: None Drugs: None - *Family History Maternal Family History: Family History (Last Reviewed 06/19/18 @ 09:58 by Carla Barrett) Father Stomach cancer Brain cancer History Items: No pertinent history Paternal Family History: Family History (Last Reviewed 06/19/18 @ 09:58 by Carla Barrett) Father Stomach cancer Brain cancer History Items: Cancer Review of Systems Constitutional: Reports: Anorexia, Fever HEENT: Denies: Difficulty Swallowing Cardiovascular: Denies: Chest Pain Respiratory: Reports: Shortness of Breath Gastrointestinal: Reports: Abdominal Pain, Diarrhea, Nausea. Denies: Constipation, Vomiting Musculoskeletal: Reports: Leg Pain. Denies: Joint Tenderness Neurological: Denies: Incoordination Psychiatric: Reports: Depression Patient Problems: Active and Suspected Problems (Last Reviewed 06/19/18 @ 09:58 by Carla Barrett) Hyponatremia (Acute) Pancytopenia (Acute) Neutropenic fever (Acute) Abdominal distention (Acute) - Physical Exam General: Alert, Cooperative HEENT: Atraumatic Oral: Moist Mucosa Neck: No JVD Lungs: Normal air movement Cardiovascular: Tachycardic Abdomen: Distended, Tender Extremities: No clubbing Musculoskeletal: Cachexia Neurological: Cranial nerves II-XII grossly intact Psych/Mental Status: Normal Affect Vital Signs Temp Pulse Resp BP Pulse Ox 100.1 F H 140 H 22 H 157/88 H 97 06/29/18 14:37 06/29/18 14:37 06/29/18 14:37 06/29/18 14:37 06/29/18 14:37 Oxygen Delivery Method Room Air Weight: 147 lb 4.301 oz Body Mass Index (BMI) 22.4 Intake and Output for Last 24 Hours 06/27/18 06/28/18 06/29/18 23:59 23:59 23:59 Intake Total 4761 / 4761 2420 / 2420 Output Total 575 / 575 650 / 650 Balance 4186 / 4186 1770 / 1770 Microbiology Past 72 Hours 06/27/18 15:15 Enteric Bacteriology - Final Stool Laboratory Tests Past 24 Hrs 06/29/18 06/29/18 06/29/18 05:50 05:50 05:50 WBC 0.7 L* RBC 2.67 L Hgb 9.9 L Hct 27.4 L MCV 102.6 H MCH 37.1 H MCHC 36.1 H RDW 15.1 H RDW Differential 53.3 H Plt Count 48 L* MPV 10.2 Immature Gran % (Auto) 10.800 H Neut % (Auto) 68.8 Lymph % (Auto) 17.6 L [place] % (Auto) 1.4 Eos % (Auto) 1.4 Baso % (Auto) 0.0 Absolute Neuts (auto) 0.5 L Absolute Lymphs (auto) 0.13 L Total Counted Not Reportable Differential Comment SCAN Diff Path Review May foll Platelet Estimate MKD DEC Plt Morphology Comment LARGE Sodium 135 L Potassium 3.8 Chloride 104 Carbon Dioxide 21.0 Anion Gap 10 BUN 13 Creatinine 0.54 L Estim Creat Clear Calc 64.94 Est GFR (MDRD) Af Amer 194 Est GFR (MDRD) Non-Af 160 BUN/Creatinine Ratio 24.1 H Glucose 161 H Calcium 7.3 L Phosphorus 1.9 L Magnesium 2.1 Clinical Impression(s) from Imaging Studies Abdomen X-Ray 06/29/18 10:14 IMPRESSION: 1. Small bowel obstruction. 2. Atherosclerosis. Electronically Signed: Arturo Ambrosio MD at 12:47 EST , Service support , Assessment/Plan All Active Problems (Last Reviewed 06/19/18 @ 09:58 by Carla Barrett) Hyponatremia (Acute) Pancytopenia (Acute) Neutropenic fever (Acute) Abdominal distention (Acute) Hypomagnesemia (Acute) Diarrhea (Acute) Dehydration (Acute) Hypokalemia (Acute) Mucositis (ulcerative) due to antineoplastic therapy (Acute) Hx of colonoscopy (Acute) Bleeding (Acute) Blood in stool (Acute) Nausea (Acute) Back problem (Acute) 68-year-old male with ileus versus small bowel obstruction 1. Patient appears in discomfort with shortness of breath and is complaining of leg pain. NG tube was attempted but was unable to be placed and the patient refused any further attempts. I have ordered a CT scan with p.o. and IV contrast to check the abdomen. I assume this is an ileus as the patient has had no previous abdominal surgeries or bowel obstructions. 2. Patient is severely neutropenic and febrile this afternoon. The patient is also thrombocytopenic. The patient would not be a good surgical candidate at this time given all of these things. The patient does have a port and I will check blood cultures as well. 3. Continue n.p.o., IV fluids. If the patient will allow for another attempt at an NG I believe this will make him more comfortable. If this is an ileus the underlying cause needs to be identified and treated for the ileus to resolve. David Guadalupe MD Pager: [facility] [address] [place] [address], [address] [place] [address] Office:
--- NOTE | 2018-06-29 18:01 | CON.PCM_ITS ---
Problem List (1) Abdominal distention Status: Acute (2) Diarrhea Status: Acute Qualifiers: Diarrhea type: unspecified type Qualified Code(s): R19.7 - Diarrhea, unspecified Reason for Consult Date of Consultation: 06/29/18 Reason for Consultation: Ileus versus small bowel obstruction History of Present Illness: The patient is a 68 year old M who was admitted with neutropenic fever. Throughout the course of the day he has become more distended. He is complaining of thigh pain as well as shortness of breath. He says his abdominal pain is minimal but he is more distended. He is not having any nausea. NG was attempted but was unable to be placed. He reports that he is not passing any gas today. He has not vomited. Past Medical History Past Medical History (Chronic Problems): Chronic Problems (Last Reviewed 06/19/18 @ 09:58 by Carla Barrett) Rectal cancer (Chronic) Primary anal squamous cell carcinoma (Chronic) Mass of both adrenal glands (Chronic) Medical History: Medical History (Last Reviewed 06/19/18 @ 09:58 by Carla Barrett) Bleeding (Acute) R58 Blood in stool (Acute) K92.1 Nausea (Acute) R11.0 Back problem (Acute) M53.9 Allergies No Known Allergies Allergy (Verified 06/27/18 14:32) Home Medications: Ambulatory Orders Medication Instructions Recorded Omeprazole [Prilosec] 1 tab PO DAILY 05/12/18 Hydrochlorothiazide [Hctz] 25 mg PO DAILY 05/19/18 Metoprolol Tartrate [Lopressor 25 mg PO DAILY 05/19/18 (beta vivi)] Oxycodone HCl/Acetaminophen 1 - 2 tablet PO Q6H PRN PRN 05/19/18 [Percocet 5-325] Lidocaine 2% Viscous [Xylocaine 15 ml GT Q4H PRN PRN #240 ml 05/30/18 Viscous] Oxycodone HCl 5 mg PO Q4H PRN PRN #200 ml 05/30/18 Potassium Chloride 20 meq PO BID 28 Days #420 ml 06/03/18 Silver Sulfadiazine 1% Crm 1 applic TOPICAL BID #80 gm 06/03/18 [Silvadene Cream] Lidocaine 2% Jelly [Xylocaine 2% 30 ml TOPICAL TID #1 tube 06/10/18 Jelly] Loperamide [Imodium] 2 mg PO Q4H PRN PRN #60 capsule 06/11/18 Diphenoxylate/Atrop [Lomotil] 2 tablet PO 4X/DAY PRN PRN #60 06/25/18 tablet Oxycodone [Oxyir] 5 mg PO Q4H PRN PRN #60 tablet 06/25/18 Oxycodone HCl 5 - 10 ml PO Q4H PRN PRN 06/27/18 Surgical History: Surgical History (Last Reviewed 06/19/18 @ 09:58 by Carla Barrett) Hx of colonoscopy (Acute) Z98.890 04/24/2018 Surgical History: no surgical history Lives: Alone Smoking Status: Current every day smoker Tobacco Use: Cigarettes Alcohol: None Drugs: None - *Family History Maternal Family History: Family History (Last Reviewed 06/19/18 @ 09:58 by Carla Barrett) Father Stomach cancer Brain cancer History Items: No pertinent history Paternal Family History: Family History (Last Reviewed 06/19/18 @ 09:58 by Carla Barrett) Father Stomach cancer Brain cancer History Items: Cancer Review of Systems Constitutional: Reports: Anorexia, Fever HEENT: Denies: Difficulty Swallowing Cardiovascular: Denies: Chest Pain Respiratory: Reports: Shortness of Breath Gastrointestinal: Reports: Abdominal Pain, Diarrhea, Nausea. Denies: Co nstipation, Vomiting Musculoskeletal: Reports: Leg Pain. Denies: Joint Tenderness Neurological: Denies: Incoordination Psychiatric: Reports: Depression Patient Problems: Active and Suspected Problems (Last Reviewed 06/19/18 @ 09:58 by Carla Barrett) Hyponatremia (Acute) Pancytopenia (Acute) Neutropenic fever (Acute) Abdominal distention (Acute) - Physical Exam General: Alert, Cooperative HEENT: Atraumatic Oral: Moist Mucosa Neck: No JVD Lungs: Normal air movement Cardiovascular: Tachycardic Abdomen: Distended, Tender Extremities: No clubbing Musculoskeletal: Cachexia Neurological: Cranial nerves II-XII grossly intact Psych/Mental Status: Normal Affect Vital Signs Temp Pulse Resp BP Pulse Ox 100.1 F H 140 H 22 H 157/88 H 97 06/29/18 14:37 06/29/18 14:37 06/29/18 14:37 06/29/18 14:37 06/29/18 14:37 Oxygen Delivery Method Room Air Weight: 147 lb 4.301 oz Body Mass Index (BMI) 22.4 Intake and Output for Last 24 Hours 06/27/18 06/28/18 06/29/18 23:59 23:59 23:59 Intake Total 4761 / 4761 2420 / 2420 Output Total 575 / 575 650 / 650 Balance 4186 / 4186 1770 / 1770 Microbiology Past 72 Hours 06/27/18 15:15 Enteric Bacteriology - Final Stool Laboratory Tests Past 24 Hrs 06/29/18 06/29/18 06/29/18 05:50 05:50 05:50 WBC 0.7 L* RBC 2.67 L Hgb 9.9 L Hct 27.4 L MCV 102.6 H MCH 37.1 H MCHC 36.1 H RDW 15.1 H RDW Differential 53.3 H Plt Count 48 L* MPV 10.2 Immature Gran % (Auto) 10.800 H Neut % (Auto) 68.8 Lymph % (Auto) 17.6 L [place] % (Auto) 1.4 Eos % (Auto) 1.4 Baso % (Auto) 0.0 Absolute Neuts (auto) 0.5 L Absolute Lymphs (auto) 0.13 L Total Counted Not Reportable Differential Comment SCAN Diff Path Review May foll Platelet Estimate MKD DEC Plt Morphology Comment LARGE Sodium 135 L Potassium 3.8 Chloride 104 Carbon Dioxide 21.0 Anion Gap 10 BUN 13 Creatinine 0.54 L Estim Creat Clear Calc 64.94 Est GFR (MDRD) Af Amer 194 Est GFR (MDRD) Non-Af 160 BUN/Creatinine Ratio 24.1 H Glucose 161 H Calcium 7.3 L Phosphorus 1.9 L Magnesium 2.1 Clinical Impression(s) from Imaging Studies Abdomen X-Ray 06/29/18 10:14 IMPRESSION: 1. Small bowel obstruction. 2. Atherosclerosis. Electronically Signed: Arturo Ambrosio MD at 12:47 EST , Service support , Assessment/Plan All Active Problems (Last Reviewed 06/19/18 @ 09:58 by Carla Barrett) Hyponatremia (Acute) Pancytopenia (Acute) Neutropenic fever (Acute) Abdominal distention (Acute) Hypomagnesemia (Acute) Diarrhea (Acute) Dehydration (Acute) Hypokalemia (Acute) Mucositis (ulcerative) due to antineoplastic therapy (Acute) Hx of colonoscopy (Acute) Bleeding (Acute) Blood in stool (Acute) Nausea (Acute) Back problem (Acute) 68-year-old male with ileus versus small bowel obstruction 1. Patient appears in discomfort with shortness of breath and is complaining of leg pain. NG tube was attempted but was unable to be placed and the patient refused any further attempts. I have ordered a CT scan with p.o. and IV contrast to check the abdomen. I assume this is an ileus as the patient has had no previous abdominal surgeries or bowel obstructions. 2. Patient is severely neutropenic and febrile this afternoon. The patient is also thrombocytopenic. The patient would not be a good surgical candidate at this time given all of these things. The patient does have a port and I will check blood cultures as well. 3. Continue n.p.o., IV fluids. If the patient will allow for another attempt at an NG I believe this will make him more comfortable. If this is an ileus the underlying cause needs to be identified and treated for the ileus to resolve. David Guadalupe MD Pager: [facility] [address] [place] [address], [address] [place] [address] Office:
--- NOTE | 2018-06-29 18:58 | RAD_ITS ---
STUDY: X-RAY - ABDOMEN/PELVIS REASON FOR EXAM: Male, 68 years old. NG tube placement. TECHNIQUE: Single AP view of the abdomen / pelvis. COMPARISON: CT dated 06/29/2018. FINDINGS: There is an enteric tube noted with its tip in the stomach. There are multiple dilated loops of small bowel in the upper abdomen, consistent with the patient's history of a small bowel obstruction. This is not significantly changed when compared with the CT performed earlier the same day. The visualized osseous structures are within normal limits. RAD/Abdomen Single View (Portable) IMPRESSION: Enteric tube tip in the stomach. Electronically Signed: Daryn Sauceda, at 20:37 EST Tel , Service support ,
--- NOTE | 2018-06-29 18:59 | PCM.PN.BLA ---
Progress Note I reviewed the patient's CT scan. The patient CT is not officially read but I see a large amount of fluid around the liver as well as portal venous gas and severe pneumatosis of the small bowel. I am concerned for ischemic bowel versus translocation of bacteria. I discussed this with the patient and I explained that he is in a very serious situation given his neutropenic status and platelet count. I explained that if he wanted to be conservative I could treat him with antibiotics and an NG tube but that if he wanted to be aggressive now was the window for transfer to a tertiary care center as our hospital does not have an on-site water treatment plant supervisor overnight and minimal staff. The patient would like to be as aggressive as possible and would like transfer to the [facility]. I was able to place a pediatric NG tube. I was unable to place a full size NG due to the patient's nasal turbinates. KUB is pending. I will start the patient on Cipro and Flagyl. I am ordering a stat CBC, lactate, CMP. I have discussed this with the hospitalist and we are arranging for a stat transfer to the surgical intensive care unit at [facility]. David Guadalupe MD Pager: [facility] [address] [place] [address], [address] [place] [address] Office:
--- NOTE | 2018-06-29 19:02 | PN_ITS ---
Progress Note I reviewed the patient's CT scan. The patient CT is not officially read but I see a large amount of fluid around the liver as well as portal venous gas and severe pneumatosis of the small bowel. I am concerned for ischemic bowel versus translocation of bacteria. I discussed this with the patient and I explained that he is in a very serious situation given his neutropenic status and platelet count. I explained that if he wanted to be conservative I could treat him with antibiotics and an NG tube but that if he wanted to be aggressive now was the window for transfer to a tertiary care center as our hospital does not have an on-site assistant reading teacher overnight and minimal staff. The patient would like to be as aggressive as possible and would like transfer to the [facility]. I was able to place a pediatric NG tube. I was unable to place a full size NG due to the patient's nasal turbinates. KUB is pending. I will start the patient on Cipro and Flagyl. I am ordering a stat CBC, lactate, CMP. I have discussed this with the hospitalist and we are arranging for a stat transfer to the surgical intensive care unit at [facility]. David Guadalupe MD Pager: [facility] [address] [place] [address], [address] [place] [address] Office:
[2018-06-29] MEDS: LORazepam 2 MG/ML Syringe 0.5 MG IV (19:10)
[2018-06-29 19:21] LABS: Hematocrit 28.1 % (40-54); Hemoglobin 9.7 g/dl (13.0-16.5); Mean Corp Hgb Conc 34.5 g/gl (32-36); Mean Corpuscular Hgb 36.6 pg (27.0-32.0); Mean Platelet Vol. 11.3 fl (6.2-12.0); Platelet Count 40 K/mm3 (150-450); RBC Distribution Width CV 16.7 % (11.6-14.6); RBC Distribution Width SD 62.4 fl (35.1-43.9); Red Blood Count 2.65 M/mm3 (4.6-6.2)
[2018-06-29 19:23] LABS: POSITIVE COUNT YES; POSITIVE DIFFERENTIAL YES; POSITIVE MORPHOLOGY YES
[2018-06-29 19:24] LABS: Absolute Nucleated RBC Count 0.03 10^3/uL (0-5)
[2018-06-29 19:49] LABS: Phosphorus 6.8 mg/dL (2.5-4.9)
[2018-06-29 19:53] LABS: White Blood Count 1.4 K/mm3 (4.4-11.0)
[2018-06-29 19:57] LABS: ALB/GLOB Ratio 0.5 RATIO (0.9-2.4); AST(SGOT) 70 U/L (15-37); Alanine Aminotransfer ALT/SGPT 65 U/L (16-61); Albumin, Serum 1.5 g/dL (3.2-5.0); Alkaline Phosphatase 71 U/L (45-117); Anion Gap 23 (5-15); BUN 22 mg/dL (7-18); BUN/Creat Ratio 17.3 RATIO (10-20); Calcium,Total 7.9 mg/dL (8.5-10.1); Chloride 103 mmol/L (98-107); Creatinine, Serum 1.27 mg/dL (0.70-1.30); EST Glomerular Filtration Rate 60 mL/min (>60); Est Glom Filt Rate - Afr Amer 72 mL/min (>60); Estimated Creatinine Clearance 51.14 ml/min; Globulin 3.1 g/dL (2.2-4.2); Glucose 172 mg/dL (74-106); Potassium 4.6 mmol/L (3.5-5.1); Protein, Total 4.6 g/dL (6.4-8.2); Sodium Level 138 mmol/L (136-145)
[2018-06-29 20:00] LABS: Lactic Acid 15.7 mmol/L (0.4-2.0)
--- NOTE | 2018-06-29 20:18 | DCINST_ITS ---
- Discharge Diagnoses Current Active Problems: Current Active and Chronic Problems (Last Reviewed 06/19/18 @ 09:58 by Carla Barrett) Hyponatremia (Acute) Pancytopenia (Acute) Rectal cancer (Chronic) Neutropenic fever (Acute) Abdominal distention (Acute) Allergies/Adverse Reactions: Allergies No Known Allergies Allergy (Verified 06/27/18 14:32) Medications to take at Discharge Omeprazole [Prilosec] 1 tab PO DAILY 05/12/18 Hydrochlorothiazide [Hctz] 25 mg PO DAILY 05/19/18 Metoprolol Tartrate [Lopressor (beta vivi)] 25 mg PO DAILY 05/19/18 Lidocaine 2% Viscous [Xylocaine Viscous] 15 ml GT Q4H PRN PRN #240 ml 05/30/18 Oxycodone HCl 5 mg PO Q4H PRN PRN #200 ml 05/30/18 Potassium Chloride 20 meq PO BID 28 Days #420 ml 06/03/18 Silver Sulfadiazine 1% Crm [Silvadene Cream] 1 applic TOPICAL BID #80 gm 06/03/18 Lidocaine 2% Jelly [Xylocaine 2% Jelly] 30 ml TOPICAL TID #1 tube 06/10/18 Oxycodone HCl 5 - 10 ml PO Q4H PRN PRN 06/27/18 Ciprofloxacin [Cipro IVPB] 400 mg IV Q12 bag 06/29/18 Docosonal [Abreva] 1 applic TP 5X/DAY tube 06/29/18 Metronidazole [Flagyl IVPB] 500 mg IV Q8 bag 06/29/18 Nicotine Polacrilex [Nicotine Gum] 2 mg PO Q2H PRN PRN gum 06/29/18 Nicotine [Nicoderm Cq] 21 mg TRANSDERM. DAILY patch 06/29/18 Nystatin 500,000 unit PO 4X/DAY udc 06/29/18 Oxycodone [Oxyir] 5 mg PO Q4H PRN PRN tablet 06/29/18 Tbo-Filgrastim [Granix] 480 mcg SC DAILY vial 06/29/18 Primary Care Physician: Alexander Park MD [Primary Care Provider] - Test Results: Test results from this visit will be discussed in further detail at your follow- up appointment, if applicable. Proposed Discharge Date: 06/29/18 - Transfer to [facility]
--- NOTE | 2018-06-29 20:19 | PCM.DC.SUM ---
Discharge Date and Diagnosis - Problem List Patient Problems: Active and Suspected Problems (Last Reviewed 06/19/18 @ 09:58 by Carla Barrett) Hyponatremia (Acute) Pancytopenia (Acute) Neutropenic fever (Acute) Abdominal distention (Acute) Date of Admission: 06/27/18 Date of Discharge: 06/29/18 - Primary Discharge Diagnosis Active and Suspected Problems (Last Reviewed 06/19/18 @ 09:58 by Carla Barrett) Hyponatremia (Acute) Pancytopenia (Acute) Neutropenic fever (Acute) Abdominal distention (Acute) - Secondary Discharge Diagnosis Chronic Problems (Last Reviewed 06/19/18 @ 09:58 by Carla Barrett) Rectal cancer (Chronic) Primary anal squamous cell carcinoma (Chronic) Mass of both adrenal glands (Chronic) Hospital Course and Treatment Imaging Results: 06/29/18 15:00 CT Abd [Abdomen/Pelvis WITH Contrast] [CT] Urgent IMPRESSION: Small obstruction. Pneumatosis noted in small bowel loops in the right mid abdomen. Thickened loops of small bowel in the right lower quadrant. Portal venous air in the left lobe of the liver. These findings are consistent with bowel ischemia. Bowel wall thickening and decreased enhancement in the sigmoid colon which may also be due to ischemia. Distended stomach. Thickening of the pylorus which may represent focal gastritis. Moderate amount of ascites. No free air. Stable bilateral indeterminate adrenal nodules. Consults: Oncology General Surgery Operations: None Procedures: None Summary of Care Provided: Per HPI: The patient is a 68 year old M with pmhx of anal cancer stage II-III, pt of Dr. Trevino and Diandra, who presents to the ER with severe diarrhea ongoing for several days. He has associated anal pain and has been on immodium, lomotil, silvadene, aquaphor, lidocaine. He was found by nursing to be covered in stool across his backside. This began after his last chemo and radation which was 3 days ago. He had a negative C diff test, and enteric panel is pending. He denies sick contacts. He has poor PO intake. He denies nausea / vomiting and subjective abdominal pain. He denies fevers and chills. He appears dehydrated with electrolyte disturbances, and is pancytopenic. Hospital Course: He presented to our hospital with throat pain, and anal pain on the recommendation of his radiation oncologist who felt that with his diarrhea he was dehydrated over the last couple weeks. He was given Imodium as an outpatient and his diarrhea has since stopped. During his hospitalization he developed and had worsening abdominal distention. He also developed a fever to 100.9 and given that his white count on admission was 0.6 he was started on Cipro and Flagyl. 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 He has completed his chemotherapy that consisted of mitomycin and 5-FU, however he had not completed all radiation treatments. To evaluate his abdominal distention and a KUB was ordered which showed dilated loops therefore general surgery was consulted who went ahead and ordered a CT scan of his abdomen and pelvis. When general surgery evaluated the patient he was not having any significant abdominal pain but did say that his abdominal distention was worse. Surgery was able to get a 10 [place] NG placed and had close to 2 L of output almost immediately. The CT scan of the abdomen and pelvis did demonstrate pneumatosis of the intestine as well portal air in the left lobe of the liver. It was discussed with the patient that surgery could not be done at this facility because of his thrombocytopenia down to 40 as well as his white count of 0.7. He said that he would like everything done and to be as aggressive as possible, therefore [facility] was called and they accepted patient in transfer. Prior to the patient being able to be transferred I was notified by nursing staff that patient's blood pressure had gone to 119 systolic which while normal, the patient had been sitting in systolics of 150s-170s all day therefore he was started on a 2 L bolus. About 35 minutes after the bolus started patient systolic blood pressure was in the 80s and a rapid response was called. His blood pressure did respond without any pressors needed and fluids were continued. He was transferred to the ICU pending arrival of transport and transfer to [facility]. Prior to the [employer] labs were obtained which demonstrated a lactic acid of 15.7 as well as a worsening creatinine from 0.54 earlier in the day to 1.27. Also an ABG was obtained during the [employer], which demonstrated a pH of 7.2, bicarb of 10.7, O2 saturation of 84, PCO2 of 27.2. He was also given bicarb during the [employer], and fluids were continued. Patient Problems: Active and Suspected Problems (Last Reviewed 06/19/18 @ 09:58 by Carla Barrett) Hyponatremia (Acute) Pancytopenia (Acute) Neutropenic fever (Acute) Abdominal distention (Acute) - Physical Exam Vital Signs Temp Pulse Resp BP Pulse Ox 97.7 F L 138 H 40 H 102/84 H 100 06/29/18 20:12 06/29/18 20:12 06/29/18 20:12 06/29/18 20:12 06/29/18 20:12 Oxygen Delivery Method Room Air Weight: 147 lb 4.301 oz Body Mass Index (BMI) 22.4 Intake and Output for Last 24 Hours 06/27/18 06/28/18 06/29/18 23:59 23:59 23:59 Intake Total 4761 / 4761 2420 / 2420 Output Total 575 / 575 650 / 650 Balance 4186 / 4186 1770 / 1770 Microbiology Past 72 Hours 06/27/18 15:15 Enteric Bacteriology - Final Stool Laboratory Tests Past 24 Hrs 06/29/18 06/29/18 06/29/18 05:50 05:50 05:50 WBC 0.7 L* RBC 2.67 L Hgb 9.9 L Hct 27.4 L MCV 102.6 H MCH 37.1 H MCHC 36.1 H RDW 15.1 H RDW Differential 53.3 H Plt Count 48 L* MPV 10.2 Immature Gran % (Auto) 10.800 H Neut % (Auto) 68.8 Lymph % (Auto) 17.6 L [place] % (Auto) 1.4 Eos % (Auto) 1.4 Baso % (Auto) 0.0 Absolute Neuts (auto) 0.5 L Absolute Lymphs (auto) 0.13 L Total Counted Not Reportable Nucleated RBC % Differential Comment SCAN Diff Path Review May foll Platelet Estimate MKD DEC Plt Morphology Comment LARGE Absolute Retic Sodium 135 L Potassium 3.8 Chloride 104 Carbon Dioxide 21.0 Anion Gap 10 BUN 13 Creatinine 0.54 L Estim Creat Clear Calc 64.94 Est GFR (MDRD) Af Amer 194 Est GFR (MDRD) Non-Af 160 BUN/Creatinine Ratio 24.1 H Glucose 161 H Lactic Acid Calcium 7.3 L Phosphorus 1.9 L Magnesium 2.1 Total Bilirubin AST ALT Alkaline Phosphatase Total Protein Albumin Globulin Albumin/Globulin Ratio 06/29/18 06/29/18 06/29/18 19:04 19:04 19:04 WBC Pending RBC 2.65 L Hgb 9.7 L Hct 28.1 L MCV 106.0 H MCH 36.6 H MCHC 34.5 RDW 16.7 H RDW Differential 62.4 H Plt Count 40 L* MPV 11.3 Immature Gran % (Auto) 0.000 Neut % (Auto) 19.3 L Lymph % (Auto) 9.6 L [place] % (Auto) 70.4 H Eos % (Auto) 0.7 Baso % (Auto) 0.0 Absolute Neuts (auto) 0.3 L Absolute Lymphs (auto) 0.13 L Total Counted Pending Nucleated RBC % Pending Differential Comment Diff Path Review Pending Platelet Estimate Plt Morphology Comment Absolute Retic Pending Sodium 138 Potassium 4.6 Chloride 103 Carbon Dioxide 12.0 L Anion Gap 23 H BUN 22 H Creatinine 1.27 Estim Creat Clear Calc 51.14 Est GFR (MDRD) Af Amer 72 Est GFR (MDRD) Non-Af 60 BUN/Creatinine Ratio 17.3 Glucose 172 H Lactic Acid 15.7 H* Calcium 7.9 L Phosphorus Magnesium 3.0 H Total Bilirubin 1.90 H AST 70 H ALT 65 H Alkaline Phosphatase 71 Total Protein 4.6 L Albumin 1.5 L Globulin 3.1 Albumin/Globulin Ratio 0.5 L 06/29/18 19:04 WBC RBC Hgb Hct MCV MCH MCHC RDW RDW Differential Plt Count MPV Immature Gran % (Auto) Neut % (Auto) Lymph % (Auto) [place] % (Auto) Eos % (Auto) Baso % (Auto) Absolute Neuts (auto) Absolute Lymphs (auto) Total Counted Nucleated RBC % Differential Comment Diff Path Review Platelet Estimate Plt Morphology Comment Absolute Retic Sodium Potassium Chloride Carbon Dioxide Anion Gap BUN Creatinine Estim Creat Clear Calc Est GFR (MDRD) Af Amer Est GFR (MDRD) Non-Af BUN/Creatinine Ratio Glucose Lactic Acid Calcium Phosphorus 6.8 H Magnesium Total Bilirubin AST ALT Alkaline Phosphatase Total Protein Albumin Globulin Albumin/Globulin Ratio Home Medications: Medications to take at Discharge Omeprazole [Prilosec] 1 tab PO DAILY 05/12/18 Hydrochlorothiazide [Hctz] 25 mg PO DAILY 05/19/18 Metoprolol Tartrate [Lopressor (beta vivi)] 25 mg PO DAILY 05/19/18 Lidocaine 2% Viscous [Xylocaine Viscous] 15 ml GT Q4H PRN PRN #240 ml 05/30/18 Oxycodone HCl 5 mg PO Q4H PRN PRN #200 ml 05/30/18 Potassium Chloride 20 meq PO BID 28 Days #420 ml 06/03/18 Silver Sulfadiazine 1% Crm [Silvadene Cream] 1 applic TOPICAL BID #80 gm 06/03/18 Lidocaine 2% Jelly [Xylocaine 2% Jelly] 30 ml TOPICAL TID #1 tube 06/10/18 Oxycodone HCl 5 - 10 ml PO Q4H PRN PRN 06/27/18 Ciprofloxacin [Cipro IVPB] 400 mg IV Q12 bag 06/29/18 Docosonal [Abreva] 1 applic TP 5X/DAY tube 06/29/18 Metronidazole [Flagyl IVPB] 500 mg IV Q8 bag 06/29/18 Nicotine Polacrilex [Nicotine Gum] 2 mg PO Q2H PRN PRN gum 06/29/18 Nicotine [Nicoderm Cq] 21 mg TRANSDERM. DAILY patch 06/29/18 Nystatin 500,000 unit PO 4X/DAY udc 06/29/18 Oxycodone [Oxyir] 5 mg PO Q4H PRN PRN tablet 06/29/18 Tbo-Filgrastim [Granix] 480 mcg SC DAILY vial 06/29/18 Primary Care Physician: Alexander Park MD [Primary Care Provider] - Disposition: Acute care Hospital Minutes spent on discharge:: 55 Patient Condition:: Poor Medical Necessity - Tobacco Use Smoking Status: Current every day smoker Tobacco Use: Cigarettes Meaningful Use Info Meaningful Use Diagnoses (Choose all that apply): None applicable Code Visit Inpatient E&M: 58246 Disch Hosp
--- NOTE | 2018-06-29 20:28 | NURSING ---
Addendum entered by Dayana Machado Underation 06/29/18 21:35: Bedside report given in ICU to Caryn Mixon RN. Dr. Guadalupe at bedside. Original Note: Pt's vital signs beginning to worsen, IV boluses up and running per MD orders. Rapid Response called. Dr. Guadalupe, Dr. Santana, & Dr. Wu all at bedside. See rapid response documentation for interventions & vital signs. Still attempting to get bed at [facility] where pt wishes to be transferred. Dr. Guadalupe spoke with pt's multiple times. She agreed pt would want to remain a full code. This RN assisted pt in transfer to ICU at approximately 2100.
[2018-06-29] MEDS: Sodium Bicarbonate 8.4% 50 ML Syringe 50 MEQ IV (20:32)
--- NOTE | 2018-06-29 20:58 | PCM.PN.BLA ---
Progress Note Rapid Response note: Patient with anal cancer who rapid response was called because of Severe Sepsis secondary to enteritis from pneumatosis intestinalis. Patient is awaiting transport to [facility]. HR: 120-140s; RR 30s to 40s: BP increased from 88/57 to SPB 144 while receiving IVF bolus. Lethargic S1, S2 present tachycardia Lungs diminished Bowel sounds absent; distended; tender Assessment Plan: Patient with severe sepsis from enteritis and colitis Was given bicarb by Surgeon. Per Dr. Guadalupe, General Surgeon, Patient and wants patient to be a Full Code ABGs with pH of 7.2; PCO2 of 27.2; PO2 of 57; bicarb of 10.7. Oxygen saturation 84%. Discussed with dietetic technician registered Continue IV fluid bolus at Continue Cipro and Flagyl If patient deteriorate further will intubate while we wait for transport to patient registration [facility]. Trend lactic acid.
[2018-06-29 20:59] LABS: Differential Indicated MANUAL DIFF
[2018-06-29 21:00] LABS: Lymphocyte 9 % (19-41); Metamyelocyte 6 % (0-1); Monocyte 6 % (0-10); Neutrophil-Band 24 % (0-5); Neutrophil-Segmented 55 % (47-70); Toxic Granulation 2+
[2018-06-29 21:01] LABS: Allen Test POS; Base Excess -17 mmol/L (-2 to +2); Bicarbonate 10.7 mmol/L (22-26); Blood Gas Specimen Type ART; O2 Delivery Device Nasal Can; PO2 57 mmHG (75-100); SITE L Radial; SO2 84 % (95-99); Time Given 2045; Total Carbon Dioxide 12 mmol/L; pCO2 27.2 mmHg (35-45)
[2018-06-29 21:01] LABS: Anisocytosis 1+; Burr Cells 1+; Platelet Estimate MKD DEC (ADEQ)
[2018-06-29 21:02] LABS: Neutrophil # 1.11 X10^3/uL (2.7-7.7)
[2018-06-29 21:03] LABS: Absolute Lymphocyte Count 0.13 X10^3/ul (0.83-4.51); Absolute Neutrophil Count 1.1 X10^3/uL (2.0-7.7); Lymphocyte # 0.13 X10^3/ul (4.0)
[2018-06-29 21:05] LABS: Total Cells Counted 100 (MANUAL DIFF)
[2018-06-29 21:08] LABS: NRBC Flagged by Analyzer 2.2 % (0-5)
--- NOTE | 2018-06-29 21:11 | PN_ITS ---
Progress Note Rapid Response note: Patient with anal cancer who rapid response was called because of Severe Sepsis secondary to enteritis from pneumatosis intestinalis. Patient is awaiting transport to [facility]. HR: 120-140s; RR 30s to 40s: BP increased from 88/57 to SPB 144 while receiving IVF bolus. Lethargic S1, S2 present tachycardia Lungs diminished Bowel sounds absent; distended; tender Assessment Plan: Patient with severe sepsis from enteritis and colitis Was given bicarb by Surgeon. Per Dr. Guadalupe, General Surgeon, Patient and wants patient to be a Full Code ABGs with pH of 7.2; PCO2 of 27.2; PO2 of 57; bicarb of 10.7. Oxygen saturation 84%. Discussed with member of the legislative council Continue IV fluid bolus at Continue Cipro and Flagyl If patient deteriorate further will intubate while we wait for transport to patient registration [facility]. Trend lactic acid.
[2018-06-29] MEDS: Ciprofloxacin 400 MG/200 ML BAG 200 MG IV (21:21)
--- NOTE | 2018-06-29 21:50 | NURSING ---
verbal consent obtained to transfer pt to [facility]. Witnessed by MariRN
[2018-06-29 23:04] LABS: Reflex Lactate? Y
[2018-06-29] MEDS: 0.9% Normal Saline 1,000 ML 150 ML IV (23:27)
[2018-06-30 00:24] LABS: Lactic Acid 8.8 mmol/L (0.4-2.0)
--- NOTE | 2018-06-30 00:28 | PN_ITS ---
Progress Note Severe Sepsis Follow up Note Patient is alert and knows what is going on Tachypnea; LCTA; s1, S2 present tachycardia Abdomen: Tender, distended; no bowel sounds Severe sepsis due to enteritis and colitis in the setting of pneumatosis intestinalis and ischemic colitis Anal cancer Thrombocytopenia Lactate is trending down Completed IVF NSS bolus. Maintenance IVF continued Continue Cipro and Flagyl. Stool cultures unremarkable Transport is here to take patient to [facility].
--- NOTE | 2018-06-30 00:36 | NURSING ---
Squad arrived, verbal [id number] report given. Assisted in transferring pt to EMS cart. Pt Alert to self upon discharge. Nurse called and notified of pt's departure from our facility. [facility] called to report pt has departed the facility and approximate ETA of 1 hour. Provided update to JOSEFINA Harvey at [facility] of repeat Lactic, and pt condition.
[2018-06-30 13:58] LABS: Pathologist Review Reviewed
[2018-06-30 14:01] LABS: Pathologist Review Reviewed
[2018-06-30 14:03] LABS: Pathologist Review Reviewed
[2018-06-30 14:05] LABS: Pathologist Review Reviewed
--- OUTSIDE RECORDS SUMMARY | 2018-10-01 06:08 | XMS RPT_ITS ---
:1950 Author Organization OHIP Support Name Relationship Address Phone R Unavailable Unavailable Unavailable SHMIGAL, PUMA Unavailable [address] + [place] [address] R Unavailable Unavailable Unavailable SHMIGAL, PUMA Unavailable [address] + [place] [address] R Unavailable Unavailable Unavailable SHMIGAL, PUMA Unavailable [address] + [place] [address] R Unavailable Unavailable Unavailable SHMIGAL, PUMA Unavailable [address] + [place] [address] R Unavailable Unavailable Unavailable SHMIGAL, PUMA Unavailable [address] + [place] [address] R Unavailable Unavailable Unavailable SHMIGAL, PUMA Unavailable [address] + [place] [address] R Unavailable Unavailable Unavailable SHMIGAL, PUMA Unavailable [address] + [place] [address] MOMS DAWG POUND Unavailable [address] + [place] [address] SHMIGAL, PUMA Unavailable [address] + [place] [address] [employer] Unavailable [address] + [place] [address] SHMIGAL, PUMA Unavailable [address] + [place] [address] [employer]OM[employer] Unavailable [address] + [place] [address] SHMIGAL, PUMA Unavailable [address] + [place] [address] [employer] Unavailable [address] + [place] [address] SHMIGAL, PUMA Unavailable [address] + [place] [address] [employer] Unavailable [address] + [place] [address] SHMIGAL, PUMA Unavailable [address] + [place] [address] [employer] Unavailable [address] + [place] [address] SHMIGAL, PUMA Unavailable [address] + [place] [address] [employer] Unavailable [address] + [place] [address] SHMIGAL, PUMA Unavailable [address] + [place] [address] [employer] Unavailable [address] + [place] [address] SHMIGAL, PUMA Unavailable [address] + [place] [address] [employer] Unavailable [address] + [place] [address] SHMIGAL, PUMA Unavailable [address] + [place] [address] [employer] Unavailable [address] + [place] [address] SHMIGAL, PUMA Unavailable [address] + [place] [address] [employer] Unavailable [address] + [place] [address] SHMIGAL, PUMA Unavailable [address] + [place] [address] [employer] Unavailable [address] + [place] [address] SHMIGAL, PUMA Unavailable [address] + [place] [address] [employer] Unavailable [address] + [place] [address] SHMIGAL, PUMA Unavailable [address] + [place] [address] [employer] Unavailable [address] + [place] [address] SHMIGAL, PUMA Unavailable [address] + [place] [address] [employer] Unavailable [address] + [place] [address] SHMIGAL, PUMA Unavailable [address] + [place] [address] [employer] Unavailable [address] + [place] [address] SHMIGAL, PUMA Unavailable [address] + [place] [address] [employer] Unavailable [address] + [place] [address] SHMIGAL, PUMA Unavailable [address] + [place] [address] [employer] Unavailable [address] + [place] [address] SHMIGAL, PUMA Unavailable [address] + [place] [address] [employer] Unavailable [address] + [place] [address] SHMIGAL, PUMA Unavailable [address] + [place] [address] [employer] Unavailable [address] + [place] [address] SHMIGAL, PUMA Unavailable [address] + [place] [address] [employer] Unavailable [address] + [place] [address] SHMIGAL, PUMA Unavailable [address] + [place] [address] [employer] Unavailable [address] + [place] [address] SHMIGAL, PUMA Unavailable [address] + [place] [address] [employer] Unavailable [address] + [place] [address] SHMIGAL, PUMA Unavailable [address] + [place] [address] [employer] Unavailable [address] + [place] [address] SHMIGAL, PUMA Unavailable [address] + [place] [address] [employer] Unavailable [address] + [place] [address] SHMIGAL, PUMA Unavailable [address] + [place] [address] Care Team Providers Name Role Phone Hugo Jim Attending Unavailable Hugo Jim Attending Unavailable Hugo Jim Referring Unavailable Primay Care Physicia, No Primary Care Unavailable Becki Trevino Consulting Unavailable [place] Primary Care Unavailable Anita Santanas F Admitting Unavailable Paintsil, Big Horn Attending Unavailable Royce Melendez Consulting Unavailable David Guadalupe Consulting Unavailable Tam Murillo Consulting Unavailable Lalys, Pierre F Admitting Unavailable [place] Primary Care Unavailable Kotsonis, Pierre F Consulting Unavailable Kotsros, Pierre F Attending Unavailable Lalys, Pierre F Admitting Unavailable [place] Primary Care Unavailable Paintsil, Big Horn Consulting Unavailable Paintsil, [place] Attending Unavailable Jane Ramirez Attending Unavailable [facility] [place] Primary Care Unavailable Alec Goodwin Attending Unavailable [facility] [place] Referring Unavailable Alec Goodwin Attending Unavailable Alec Goodwin Referring Unavailable Primay Care Physicia, No Primary Care Unavailable Becki Trevino Attending Unavailable Primay Care Physicia, No Primary Care Unavailable Hugo Jim Referring Unavailable KoericsWestonPierre F Admitting Unavailable [place] Primary Care Unavailable Prah, Royce Consulting Unavailable Pierre Santana F Attending Unavailable Paintsil, [place] Consulting Unavailable KotsonisWestonPierre F Admitting Unavailable Prah, Royce Attending Unavailable [place] Primary Care Unavailable Prah, Royce Consulting Unavailable Paintsil, Big Horn Referring Unavailable Calabretta, David Consulting Unavailable Paintsil, [place] Consulting Unavailable Kotsonis, Pierre F Admitting Unavailable Calabretta, David Attending Unavailable [place] Primary Care Unavailable Prah, Royce Consulting Unavailable Kotsonis, Pierre F Referring Unavailable Calabretta, David Consulting Unavailable Paintsil, Big [place] Consulting Unavailable Max, Pierre F Admitting Unavailable AgyeRoyce guevara Attending Unavailable [place] Primary Care Unavailable Prah, Royce Consulting Unavailable Calabretta, David Consulting Unavailable ChidiTam wray Consulting Unavailable Paintsil, Big Horn Consulting Unavailable Becki Trevino Attending Unavailable Primay Care Physicia, No Primary Care Unavailable Isckarus, Mansour Consulting Unavailable BillkarusBecki Attending Unavailable Ludwigus, Becki Referring Unavailable Primay Care Physicia, No Primary Care Unavailable Hugo Jim Attending Unavailable Primay Care Physicia, No Primary Care Unavailable Isckarus, Mansour Consulting Unavailable BillkarusBecki Attending Unavailable Hugo Jim Referring Unavailable Primay Care Physicia, No Primary Care Unavailable Isckarus, Mansour Consulting Unavailable Hugo Jim Attending Unavailable Hugo Jim Referring Unavailable Cebul Alec Attending Unavailable Cebul, Alec Referring Unavailable Primay Care Physicia, No Primary Care Unavailable Cebul Alec Attending Unavailable Primay Care Physicia, No Referring Unavailable [place] Attending Unavailable Primay Care Physicia, No Primary Care Unavailable Hugo Jim Attending Unavailable Hugo Jim Referring Unavailable Primay Care Physicia, No Primary Care Unavailable Isckarus, Mansour Consulting Unavailable LudwigusBecki Attending Unavailable Hugo Jim Referring Unavailable Primay Care Physicia, No Primary Care Unavailable Isckarus, Mansour Consulting Unavailable Hugo Jim Attending Unavailable Hugo Jim Referring Unavailable Hugo Jim Attending Unavailable Diandra, Hugo Referring Unavailable Primay Care Physicia, No Primary Care Unavailable Isckarus, Mansour Consulting Unavailable Asya Javed Attending Unavailable Diandra, Hugo Referring Unavailable Primay Care Physicia, No Primary Care Unavailable Isckarus, Mansour Consulting Unavailable Diandra, Hugo Attending Unavailable Diandra, Hugo Referring Unavailable Primay Care Physicia, No Primary Care Unavailable Isckarus, Mansour Consulting Unavailable Isckarus, Mansour Attending Unavailable Diandra, Hugo Referring Unavailable Primay Care Physicia, No Primary Care Unavailable Isckarus, Mansour Consulting Unavailable Diandra, Hugo Attending Unavailable Diandra, Hugo Referring Unavailable Primay Care Physicia, No Primary Care Unavailable Isckarus, Mansour Consulting Unavailable Isckarus, Mansour Attending Unavailable Diandra, Hugo Referring Unavailable Primay Care Physicia, No Primary Care Unavailable Isckarus, Mansour Consulting Unavailable Alec Goodiwn Attending Unavailable Isckarus, Mansour Attending Unavailable Diandra, Hugo Referring Unavailable Primay Care Physicia, No Primary Care Unavailable Isckarus, Mansour Consulting Unavailable YOBANI POE II Attending Unavailable VILMA GRESHAM Admitting Unavailable VILMA GRESHAM Attending Unavailable Chitra Cruz Admitting Unavailable Chitra Cruz Attending Unavailable [facility] Primary Care Unavailable PROBLEMS PROBLEMS DATE TYPE CONDITION / CODE ATTENDING STATUS SOURCE 06/30/2018 Active Vascular disorder of VILMA GRESHAM intestine, [facility] unspecified / [place] K55.9(ICD-10) Repository 06/30/2018 Active Cardiac arrest, VILMA GRESHAM cause unspecified / [facility] I46.9(ICD-10) [place] Repository 06/30/2018 Active Other abnormalities VILMA GRESHAM of breathing / [facility] R06.89(ICD-10) [place] Repository 06/30/2018 Active Disorder of kidney VILMA GRESHAM Active Matthew and ureter, Clinic [facility] unspecified / [place] N28.9(ICD-10) Repository 06/25/2018 Unknown C21.0 - Malignant Hugo Jim Active [facility] neoplasm of anus, Community unspecified / Hospital C21.0(ICD-10) Repository 06/25/2018 Unknown E27.9 - Disorder of Hugo Jim Active [facility] adrenal gland, Community unspecified / Hospital E27.9(ICD-10) Repository 06/25/2018 Unknown Z79.899 - Other long Hugo Jim Active [facility] term (current) drug Community therapy / Hospital Z79.899(ICD-10) Repository 06/25/2018 Unknown G89.3 - Neoplasm Hugo Jim Active [facility] related pain (acute) Community (chronic) / Hospital G89.3(ICD-10) Repository 06/25/2018 Unknown R19.7 - Diarrhea, Hugo Jim Active [facility] unspecified / Community R19.7(ICD-10) Hospital Repository 06/03/2018 Unknown E87.6 - Hypokalemia Hugo Jim Active [facility] / E87.6(ICD-10) [facility] Repository 06/03/2018 Unknown E86.0 - Dehydration Hugo Jim Active [facility] / E86.0(ICD-10) [facility] Repository 06/03/2018 Unknown E83.42 - Hugo Jim Active [facility] Hypomagnesemia / Community E83.42(ICD-10) Hospital Repository 06/03/2018 Unknown D70.9 - Neutropenia, Hugo Jim Active [facility] unspecified / [facility] D70.9(ICD-10) Hospital Repository 06/03/2018 Unknown L58.9 - Hugo Jim Active [facility] Radiodermatitis, [facility] unspecified / Hospital L58.9(ICD-10) Repository 05/28/2018 Unknown K12.30 - Oral Hugo Jim Active [facility] mucositis [facility] (ulcerative), Hospital unspecified / Repository K12.30(ICD-10) 05/06/2018 Unknown C44.92 - Squamous CebulAlec Active [facility] cell carcinoma of Community skin, unspecified / Hospital C44.92(ICD-10) Repository 04/30/2018 Unknown R52 - Pain, Jwayyed, Active [facility] unspecified / [place] [facility] R52(ICD-10) Hospital Repository PROCEDURES PROCEDURES No Procedure Records FoundRESULTS RESULTS END OF TREATMENT Observed: 07/01/2018 Status: F Source: [facility] SUMMARY 4:46 PM [facility] HOSPITAL REPOSITORY [facility] [place] [address] End of Treatment Summary Date of Service: 07/01/18 1623 MR#: [id number] Acct: [id number] Name: RAJ NORIEGA Rep #: [id number] : 1950 From: Hugo Jim DO Age/Sex: 68/M Location: [facility] Status: Signed End of Treatment Summary: Diagnosis: Raj Noriega is a 68-year-old male diagnosed with Clinical Stage IIA-IIB (cT2-3 N0 Mx) 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 Oncologic History: Presented with symptoms of change in bowel habits, rectal bleeding, drainage and mucus with pain with defecation. Symptoms are present 2-3 months. 04/14/2018: Patient was evaluated by GI physician. 04/14/2018: Flexible sigmoidoscopy was performed which demonstrated a large ulcer in the distal rectum to the dentate line with abscess cavity concerning for malignancy, unable to take biopsies as the patient was unable to tolerate. 04/16/2018: Ultrasound of the liver was completed due to elevated liver enzymes which demonstrated a hypoechoic mass along the posterior aspect of the liver, recommend MRI of the liver. There is also diffuse hyperechogenicity of the liver most consistent with fatty infiltration. 04/17/2018: Patient underwent colonoscopy due to hematochezia and pain with defecation. 2 small polyps were found in the sigmoid colon which were removed by cold snare polypectomy. There was a large ulcerated tumor in the distal rectum extending to the anal verge, multiple biopsies were taken. Diverticulosis was found in the sigmoid colon and ascending colon. Pathology demonstrated invasive moderately differentiated squamous cell carcinoma. Within the sigmoid colon polyp demonstrated tubular adenoma. 04/30/2018: Patient presented to the [facility] emergency room for pain and to try and see his surgeon for the rectal/anal mass. 05/06/2018: Patient was seen by general surgery at [facility]. Recommended CT scan of the abdomen and pelvis for further staging and consultation with oncology. It was not felt there was an abscess to be drained. 05/07/2018: Patient underwent CT chest abdomen pelvis. There is noted to be bilateral adrenal masses, the right adrenal gland has a 3.2 x 3 cm hypodense nodular mass that does not appear to be a typical adenoma and there is a similar-appearing mass in the left adrenal gland measuring 2.5 x 1.7 cm. 05/07/2018: Patient was seen by medical oncology. PET scan was ordered for anal cancer staging as well as to evaluate to the adrenal masses bilaterally. MRI of the pelvis was to further delineate the local extent of disease. 06/27/2018: Patient was admitted to [facility] for severe diarrhea and anal region pain. He was found to have severe pancytopenia with WBC 1.4 ANC 0.3 (0.1 tito on 06/28/18). CT of the abdomen and pelvis was completed on 06/29/2018 which demonstrated pneumatosis noted in the small bowel loops in the right mid abdomen with thickened loops of small bowel and portal venous air in the left lobe of the liver which are findings consistent with bowel ischemia. Bowel wall thickening and decreased enhancement in the sigmoid colon is also noted and may be due to ischemia. He was ultimately diagnosed with small bowel obstruction and neutropenic fever with sepsis and decision was made to transfer to [facility] for further management. Unfortunately within a few hours of arriving at [facility] the patient succumbed to his illness and . The patient completed a course of external beam radiotherapy in our department. This treatment was delivered for curative intent. Treatment was given according to the following parameters: RAJ NORIEGA received 3900 cGy of 10 MV photons in 26 fractions to the anal tumor with margin, dequan-rectal fat, presacral space, internal iliac LNs, external iliac LNs, and inguinal LNs. He received simultaneous integrated boost consisting of 4680 cGy to the anal tumor with margin. Treatment was completed in 26 fractions with a VMAT technique consisting of 3 arcs. Initial plan was to complete a simultaneous integrated boost plan consisting of 5400 centigrade to the anal tumor and 4500 cGy to the elective cornelio regions as noted above but he was not able to complete treatment due to toxicity and clinical decline. The patient did receive concurrent chemotherapy with CI 5FU and MMC. Date of First Treatment: 05/20/18 Date of Last Treatment: 06/26/18 Total Elapsed Days (including weekend and holidays): 37 Missed Treatments: 2 treatments related to toxicity Response and Tolerance: The patient tolerated this course of chemoradiation therapy with difficulty. The following radiation related toxicities developed during the course of radiation therapy: * Grade 3 dequan-anal skin toxicity which was treated with aquaphor/lidocaine and silvadene cream as well as Sitz bath. Patient was not reliably using recommendations * Grade 3-4 diarrhea which was treated with dietary modification, imodium, and lomotil. He regularly received IV fluids to ensure hydration * Grade 1 fatigue * Grade 3 mucositis with ulceration which was treated with MMW and oxycodone * Grade 4 neutropenia with ANC of 0.1 (tito) and secondary sepsis * Small bowel enteritis and possibly ischemic gut Total weight change during therapy: 8 lb weight loss Disposition: The patient was planned to receive definitive chemoradiation therapy for anal cancer in 30 fractions but due to severe chemoradiation toxicity he was admitted to the hospital towards the end of treatment and because of severe neutropenic sepsis and possible bowel ischemia he was transferred to [facility] for further management and stabilization where he very unfortunately likely from sepsis. Hugo Jim DO, MS Vault Custodian, Department of Radiation Oncology [facility] 07/01/18 1646 <Electronically signed by Hugo Jim DO> Date Hugo Jim DO Cosigner Signature: Date (if applicable) CC: No Primary Care Physician; Becki Trevino MD; Hugo Jim DO PROCEDURE Observed: 06/30/2018 Status: COMPLETED Source: [place] 6:05 AM [facility] REPOSITORY HNO ID: [id number] Author: Elian Morales MD (Fel) Service: Critical Care Author Type: Fellow Type: Procedures Filed: 06/30/2018 6:07 AM Note Text: BEDSIDE PROCEDURE NOTE INTUBATION Date/Start Time: 06/30/2018 2:19 AM Performed by: ELIAN MORALES) Authorized by: MARNIE SALGADO Consent/[place] Protocol Written consent obtained: No, emergent procedure Sign in communication: N/A, emergent procedure Affirmation of time out: N/A Sign out discussion: No Pre-procedure Details: Type: Orotracheal Medications: N/A Procedure Details: Indication: Airway protection, cardiopulmonary resuscitation and respiratory failure Respiratory Failure Type: Acute Difficulty Encountered: None Equipment: Video laryngoscope The patient was administered supplemental oxygen by bag-mask ventilation. Adjunct airway equipment and suction were at the bedside and ready to use. The head was unable to be placed in the sniffing position. The method used for intubation was: Rapid sequence Cricoid Pressure: was maintained I - visualized entire cords via direct video laryngoscopy. The tube was inserted using a glide scope and secured at 23 cm at the lip. Placement was confirmed with capnometer and end-tidal CO2. Number of Attempts: 1 SIGNATURE: Elian Morales MD PATIENT NAME: Raj Noriega DATE: June 30, 2018 TIME: 6:05 AM PAGER/CONTACT #: ALL[facility] Observed: 06/30/2018 Status: COMPLETED Source: [place] 4:14 AM [facility] REPOSITORY HNO ID: [id number] Author: Mis Glover (Chaplain) Service: (none) Author Type: Regulatory Assistant Type: Allied Health Filed: 06/30/2018 4:15 AM Note Text: SPIRITUALCARE Spiritual Care Visit- Brief Note Name: Raj Noriega Date: June 30, 2018 Notes: Regulatory Assistant notified of pt , will send condolence card. Regulatory Assistant Signature: Mis Glover Jumpbasting Lining Baster To contact the Spiritual Care Department: Please call [phone] or Page the On-Call Regulatory Assistant at pager [phone] Thank you for the opportunity to be of service. This is an electronically created document. IF PRINTED, PLEASE DO NOT REMOVE FROM THE CHART OR MODIFY PRINTED COPY. PLAN OF CARE Observed: 06/30/2018 Status: COMPLETED Source: [place] 3:51 AM [facility] REPOSITORY HNO ID: [id number] Author: Raj Lawton Service: General Surgery Author Type: Resident Type: Plan of Care Filed: 06/30/2018 6:01 AM Note Text: CORS NF Note 06/30/18 3:53 AM 68yo M with history of anal cancer s/p chemo/rads who presents on transfer from [facility] after he presented there with rectal pain found to have abd distension with CT at OSH showing pneumatosis of SB and portal gas, with hypotension to 80's responsive to fluids but with lactate 15. On arrival to bedside patient coded. Code continued for ~1.5 hours before stopped-see code flowsheet for details. Raj Lawton MD PGY-1 Urology Pager: [phone] Phone: [phone] ALL[facility] Observed: 06/30/2018 Status: COMPLETED Source: [place] 3:47 AM [facility] REPOSITORY HNO ID: [id number] Author: Makenna Nelson RN Service: Healing Service Author Type: Registered Nurse Type: Allied Health Filed: 06/30/2018 10:32 AM Note Text: HEALING SERVICES THERAPY NOTE SERVICE DATE: 06/30/2018 SERVICE TIME: 818 INTERVENTIONAL FOCUS: Self-directed Care / Patient Experience Visit With: Patient Urgency of Visit: Routine Type of Visit: Patient Not Available HS visit attempted; pt , per nurse in SICU. SIGNATURE: Makenna Nelson RN PATIENT NAME: Raj Noriega DATE: June 30, 2018 TIME: 10:31 AM PAGER/CONTACT #: [phone] CASE MANAGEM Observed: 06/30/2018 Status: COMPLETED Source: [email or web address] 3:47 AM [facility] REPOSITORY HNO ID: [id number] Author: Betty Marquez RN Service: Care Management Author Type: Registered Nurse Type: Care Mgt Progress Note Filed: 07/01/2018 1:04 PM Note Text: CARE MANAGEMENT PROGRESS NOTE SERVICE DATE: 07/01/2018 SERVICE TIME: 1:03 PM LOS: 1 day [place] [employer] Chief Note Not Attributed Census List Admission Date: 06/30/2018 [place] Care Opportunities: No Alerts SIGNATURE: Betty Marquez RN PATIENT NAME: Raj Noriega DATE: July 01, 2018 TIME: 1:03 PM PAGER/CONTACT #: [phone] CNDS Observed: 06/30/2018 Status: COMPLETED Source: [place] 3:47 AM [facility] REPOSITORY HNO ID: [id number] Author: Rose Cheney Service: Critical Care Author Type: Nurse Practitioner Type: Discharge Summaries Filed: 07/21/2018 4:43 PM Note Text: Attestation signed by Marnie Salgado at 07/21/2018 6:54 PM I was present upon the patient's arrival and participated in all resuscitative efforts as described in this discharge summary. MARNIE SALGADO MD 07/21/2018 DISCHARGE SUMMARY PATIENT NAME: Raj Noriega ADMISSION DATE: 06/30/2018 DISCHARGE DATE: June 30, 2018 ATTENDING PHYSICIAN: Marnie Salgado / Jaydon Gresham Code Status: Full REASON FOR HOSPITALIZATION: Second opinion, possible surgical management of ischemic bowel. DIAGNOSIS: Active Problems: Ischemic colitis, elevated lactate Primary Diagnosis: Ischemic bowel. Secondary Diagnoses: Distributive shock, elevated lactate OPERATIONS DURING HOSPITALIZATION: None PROCEDURES DURING HOSPITALIZATION: Central line placement, arterial line placement, endotracheal intubation, cardiopulmonary resuscitation. HOSPITAL COURSE: Mr. Raj Noriega arrived to the [facility] via ambulance transport in shock, minimally responsive, hypotensive, thready pulse. Upon arrival he quickly lost a pulse within seconds of transferring to hospital bed from transport cot. Cardiopulmonary resuscitation was initiated and maintained for 90 minutes. (please see code documentation for details) After 90 minutes of CPR Mr. Noriega had no return of circulation. Resuscitation stopped and he at 3:47am. Family was notified and supported emotionally, all family questions answered. Transitions of Care Critical Issues: Patient arrived in shock. LABS AND PROCEDURES PENDING AT DISCHARGE: NA ALLERGIES No Known Allergies SIGNATURE: Rose Cheney APRN.CNP PAGER/CONTACT #: [phone] DATE: July 21, 2018 TIME: 4:33 PM PROCEDURE Observed: 06/30/2018 Status: COMPLETED Source: [place] 3:46 AM [facility] REPOSITORY HNO ID: [id number] Author: Rose Cheney Service: Critical Care Author Type: Nurse Practitioner Type: Procedures Filed: 06/30/2018 3:48 AM Note Text: BEDSIDE PROCEDURE NOTE ARTERIAL LINE Date/Start Time: 06/23/2018 2:35 AM Performed by: ROSE CHENEY) Authorized by: ROSE CHENEY) Consent/[place]say Protocol Written consent obtained: No, emergent procedure Sign in communication: N/A, emergent procedure Affirmation of Time Out: Yes Sign Out Discussion: Yes Pre-procedure Details: The area was prepped with chlorhexidine (Chloroprep) and allowed to dry. Medications: N/A Procedure Details: Indication: Monitoring of vital bodily functions Site: Right femoral Technique: Modified Seldinger The artery was cannulated with an 18 gauge introducer needle. A J-tipped spring wire was passed into the artery through the needle and left in situ while the needle was removed. An 18 gauge catheter was advanced over the guidewire and left in situ while the guidewire was removed. Pulsatile blood flow exited the catheter. Arterial waveform was noted on the monitor when the catheter was transduced. Securement/Dressing: Sterile sutures All catheters, needles, and wires were accounted for and intact Number of attempts: 1 Successful Placement: Yes Post-procedure Details: Patient tolerated the procedure well with no immediate complications Estimated Blood Loss: Scant Specimens Sent: None Comments: Procedure completed during cardiac arrest SIGNATURE: Rose Cheney APRN.CNP PATIENT NAME: Raj Noriega DATE: June 30, 2018 TIME: 3:46 AM PAGER/CONTACT #: PROCEDURE Observed: 06/30/2018 Status: COMPLETED Source: [place] 3:42 AM [facility] REPOSITORY HNO ID: [id number] Author: Rose Cheney Service: Critical Care Author Type: Nurse Practitioner Type: Procedures Filed: 06/30/2018 3:45 AM Note Text: BEDSIDE PROCEDURE NOTE CENTRAL LINE Date/Start Time: 06/30/2018 2:25 AM Performed by: ROSE CHENEY) Authorized by: ROSE CHENEY (JASBIR) Consent/[place] Protocol Written consent obtained: No, emergent procedure Sign In Communication: Completed Affirmation of Time Out: Yes Sign Out Discussion: Yes Pre-procedure details: The area was prepped with chlorhexidine (Chloroprep) and allowed to dry. A sterile partial body drape was applied following the usual aseptic technique. [facility] central line insertion checklist, attached to the Central Line- Associated Bloodstream infection Prevention policy utilized: No, emergent procedure Medications: N/A Procedure details: Indication: Monitoring of central venous pressure, vasoactive medication, venous access and replace a malfunctioning catheter Patient Position: Flat A 20 cm triple-lumen, 7 Fr, non-tunneled, pressure injectable, antimicrobial catheter was advanced over the guidewire and left in situ while the guidewire was removed. The catheter was secured in place at 20 cm Securement: Line sutured and securement device Assessment: Blood return through all ports All catheters, needles, and wires were accounted for and intact Number of Attempts: 1 Successful Placement: yes Post-procedure Details: Patient tolerated the procedure well with no immediate complications Immediate Complications: None Estimated Blood Loss: Scant Specimens Sent: None Comments: Procedure completed emergently during cardiac arrest. SIGNATURE: Rose Cheney APRN.CNP PATIENT NAME: Raj Noriega DATE: June 30, 2018 TIME: 3:42 AM PAGER/CONTACT #: PROGRESS Observed: 06/30/2018 Status: COMPLETED Source: [place] 3:40 AM [facility] REPOSITORY O ID: [id number] Author: Marnie Salgado Service: Critical Care Author Type: Physician Type: Progress Notes Filed: 06/30/2018 4:09 AM Note Text: Patient arrived in extremis with RR 50, sat difficult to obtain, minimally responsive, mottled Monitors being placed and IV / antonio being placed pt went into pulseless Vtach ACLS protocol initiated with defibrillation, epi, amio, hco3, volume, calcium, [id number] drips, intubation ACLS for over 1 hour with inability to sustain a BP without compressions PH 6.95 with lactate 21 despite aggressive interventions No operative intervention possible ETT full of pulmonary edema Patients notified by SENIOR DEVELOPER and surgical fellow of grim prognosis Surgical fellow discussed no operative intervention possible and that resuscitation not effective and she agreed to stop resuscitation / withdraw support Epi, Levo and vaso drips discontinued, cpr terminated Fentanyl 100 mcg and versed 2 mg given No Heartbeat, pupil reaction, respiration, organized cardiac electrical activity Mr. Noriega pronounced at 0347 Continuously present at bedside for duration of resuscitation efforts. SENIOR DEVELOPER and I spoke with patients . MARNIE SALGADO MD 06/30/2018 3:55 AM PROCEDURE Observed: 06/30/2018 Status: COMPLETED Source: [place] 2:47 AM [facility] REPOSITORY HNO ID: [id number] Author: Marnie Salgado Service: Critical Care Author Type: Physician Type: Procedures Filed: 07/04/2018 10:14 AM Note Text: Order Date + Time: 06/30/18246 [place] [facility] [place] Justification: Due to the urgency of patient need, I assume responsibility for the decision to transfuse the blood products requested below. I understand that patient testing may be incomplete, and that subsequent testing results may prove to be positive or incompatible. Please release the requested blood products. I understand that I will be called immediately if upon completion of testing the red cell products are found to be incompatible. If for any reason the decision is made not to transfuse the ordered products, I understand that I am still responsible for completing the order by responding to this notification. Emerg Rel Reason: No Current Type and Screen sample available. Blood Prod Requested: No. of Units Issued: 1 GASA + ALL Collected: 06/30/2018 Status: F Source: [place] FOR 2:43 AM [facility] RADIANCE USE ONLY REPOSITORY TYPE CODE TESTS RESULT OUT OF REFERENCE UNITS RANGE LAB PH 7.35-7.45 pH Low Alert 6.95 LAB PCO2 34-46 mm Hg pCO2 High 71 LAB PO2 85-95 mm Hg pO2 Low Alert 24 LAB BE mmol/L Base Excess NEG 15 LAB HCO3 22-26 mmol/L Bicarbonate Low 15 LAB CO2CT 22.0-28.0 mmol/L CO2 Content Low 17 LAB O2HB 95-98 % Oxyhemoglobin, Low Art. 14 LAB COHB 0-5.0 % Carboxyhemoglobin, 0.5 Art LAB MHGB 0.4-1.5 % Methemoglobin 1.0 LAB TEMP C Temperature, Body 37.0 LAB PHTC 7.35-7.45 pH, Temp Low Alert Corrected 6.95 LAB PCO2T 34-46 mm Hg pCO2, Temp High Correct 71 LAB PO2T mm Hg pO2, Temp Corrected 24 LAB NAB 135-146 mmol/L Sodium,Whole Bld 135 LAB KWB 3.5-5.0 mmol/L Potassium, High Whole Bld 5.9 LAB HGBB 13.0-17.0 g/dL Low Alert Hemoglobin,Total,A 4.6 CL LAB HCTB 39.0-51.0 % Hematocrit, Low ACL 15 LAB IC 1.08-1.30 mmol/L Calcium, Ion, Low WB 0.93 LAB GLB 60-105 mg/dL Glucose,Whole High Bld 273 LAB LACT 0.5-2.2 mmol/L Lactate High 21.0 LAB ABGCOM Blood Gas Comm, Art Critical Value Result Comment: PH TOT HGB PCO2 PO2 HCT LACTATE LAB ACBWHO Notified Whom, Art Called to and read back by Result Comment: Marbella MEDINA G54 A ANAIS LAB ACBDTE [id number] Notify Date, Art LAB ACBTME [id number] Notify Time, Art Performed By: #### ALLBG #### [facility] [address] [place] [id number] GASA + ALL Collected: 06/30/2018 Status: F Source: [place] FOR 2:31 AM [facility] RADIANCE USE ONLY REPOSITORY TYPE CODE TESTS RESULT OUT OF REFERENCE UNITS RANGE LAB PH 7.35-7.45 pH Low Alert 6.99 LAB PCO2 34-46 mm Hg pCO2 High 60 LAB PO2 85-95 mm Hg pO2 Low Alert 30 LAB BE mmol/L Base Excess NEG 17 LAB HCO3 22-26 mmol/L Bicarbonate Low 14 LAB CO2CT 22.0-28.0 mmol/L CO2 Content Low 16 LAB O2HB 95-98 % Oxyhemoglobin, Low Art. 23 LAB COHB 0-5.0 % Carboxyhemoglobin, 0.2 Art LAB MHGB 0.4-1.5 % Methemoglobin 0.7 LAB TEMP C Temperature, Body 37.0 LAB PHTC 7.35-7.45 pH, Temp Low Alert Corrected 6.99 LAB PCO2T 34-46 mm Hg pCO2, Temp High Correct 60 LAB PO2T mm Hg pO2, Temp Corrected 30 LAB NAB 135-146 mmol/L Sodium,Whole Bld 139 LAB KWB 3.5-5.0 mmol/L Potassium, High Alert Whole Bld 6.5 LAB HGBB 13.0-17.0 g/dL Low Hemoglobin,Total,A 9.4 CL LAB HCTB 39.0-51.0 % Hematocrit, Low ACL 29 LAB IC 1.08-1.30 mmol/L Calcium, Ion, Low WB 1.05 LAB GLB 60-105 mg/dL Glucose,Whole Low Bld 53 LAB LACT 0.5-2.2 mmol/L Lactate High 16.0 LAB ABGCOM Blood Gas Comm, Art Critical Value Result Comment: PH K PO2 LACTIC ACID LAB ACBWHO Notified Whom, Art Called to and read back by Result Comment: Marbella MEDINA G54 L CLOSE LAB ACBDTE [id number] Notify Date, Art LAB ACBTME [id number] Notify Time, Art Performed By: #### ALLBG #### [facility] [address] [place] [address] NURSING PROG Observed: 06/30/2018 Status: COMPLETED Source: [place] 2:00 AM [facility] REPOSITORY HNO ID: [id number] Author: Brionna (Rn) JOSEFINA [place] Service: Nursing Author Type: Registered Nurse Type: Nursing Progress Note Filed: 06/30/2018 6:23 AM Note Text: 0140: pt admitted to G54-08 from O[facility] via critical care transport with no monitor attached; patient immediately connected to SICU monitor; sinus tachycardia. Upon assessment, AANDOx0, unable to follow commands, labored breathing with use of accessory muscles. Abdominal distention with no bowel sounds present. NG attached to LIS draining sanguinous. SICU at bedside. Patient skin appears mottled, unstageable noted around rectum-present on admission, and having difficulty breathing at rest on 4L NC ; supplies for arterial line, central line, and intubation at bedside; will continue to monitor 0200- VTach shown on monitor, no pulse palpated, CPR started, SEE CODE SHEET 0347: asystole on monitor; no pulse palpated despite interventions; time of pronounced by SICU staff PROTIME Collected: 06/30/2018 Status: F Source: [place] 1:54 AM [facility] REPOSITORY TYPE CODE TESTS RESULT OUT OF RANGE REFERENCE UNITS LAB PSEC 9.7-13.0 sec High PT Sec 31.5 LAB INR 0.9-1.3 High PT INR 3.2 Result Comment: Vitamin K Antagonist (VKA) Therapeutic Range: INR 2 to 3 (Target INR of 2.5) Note: For patients treated with VKA drugs, such as warfarin, the [place] [employer] 2012 Guideline recommends a therapeutic INR range of 2 to 3 (target INR of 2.5). This recommendation includes high-risk patients with antiphospholipid syndrome with previous arterial or venous thromboembolism, current-generation mechanical or bioprosthetic aortic heart valve replacement. Note: Patients with mechanical aortic valve replacement and additional risk factors for thromboembolic events (atrial fibrillation, previous thromboembolism, LV dysfunction, hypercoagulable conditions) or an older generation mechanical AVR (i.e., ball in-Cage) or any mechanical MVR should have a INR therapeutic range of 2.5 to 3.5 (target INR of 3). Kathleen GH, et al. Chest 2012, 141:7S-47S Bianca RA, et al. [facility] 2017, 70: 252-289 Performed By: #### PT, PTT, PROCAL, CMP, MG1, PHOS, TRANSF, PREALB, CBCDIF #### [facility] [employer] [address] [place], [place] [address] APTT Collected: 06/30/2018 Status: F Source: [place] 1:54 [facility] REPOSITORY TYPE CODE TESTS RESULT OUT OF RANGE REFERENCE UNITS LAB APTT 23.0-32.4 sec High APTT 41.2 Result Comment: Unfractionated Heparin Therapeutic Ranges: Standard Heparin Nomogram: 53 to 78 seconds (anti-Xa level of 0.3 to 0.7 U/ml) Low Dose/ACS Nomogram: 49 to 67 seconds (anti-Xa level of 0.2 to 0.5 U/ml) Stroke Treatment Nomogram: 49 to 67 seconds (anti-Xa level of 0.2 to 0.5 U/ml) Note: The APTT therapeutic range has been determined for the current lot of laboratory APTT reagent in use throughout the [facility]. Performed By: #### PT, PTT, PROCAL, CMP, MG1, PHOS, TRANSF, PREALB, CBCDIF #### [facility] [employer] [address], [place] [address] PROCALCITONIN Collected: 06/30/2018 Status: F Source: [place] 1:54 AM [facility] REPOSITORY TYPE CODE TESTS RESULT OUT OF REFERENCE UNITS RANGE LAB PROCLT <0.09 ng/mL Procalcitonin High 20.29 Result Comment: For a guided interpretation of test results, please visit the Change in Procalcitonin Calculator, [email or web address]. Performed By: #### PT, PTT, PROCAL, CMP, MG1, PHOS, TRANSF, PREALB, CBCDIF #### [facility] [employer] [address] [place], [place] [address] COMP METABOLIC PANEL Collected: 06/30/2018 Status: F Source: [place] 1:54 AM [facility] REPOSITORY TYPE CODE TESTS RESULT OUT OF REFERENCE UNITS RANGE LAB TP 6.3-8.0 g/dL Low Protein, Total 4.1 LAB ALB 3.9-4.9 g/dL Low Albumin 1.7 LAB CA 8.5-10.2 mg/dL Low Calcium, Total 6.6 LAB TBIL 0.2-1.3 mg/dL Bilirubin, High Total 1.9 LAB ALKP 38-113 U/L Alkaline Phosphatase 61 LAB AST 14-40 U/L AST High 613 Result Comment: Results may be falsely increased due to interference by hemolysis. Suggest reorder as clinically indicated. LAB GLU 74-99 mg/dL Glucose 82 Result Comment: The [place] [employer] (ADA) provides guidance for cutoff values for fasting glucose and random glucose. The ADA defines fasting as no caloric intake for at least 8 hours. Fas ting plasma glucose results between 100 to 125 mg/dL indicate increased risk for diabetes (prediabetes). Fasting plasma glucose results greater than or equal to 126 mg/dL meet the criteria for diagnosis of diabetes. In the absence of unequivocal hyperglycemia, results should be confirmed by repeat testing. In a patient with classic symptoms of hyperglycemia or hyperglycemic crisis, random plasma glucose results greater than or equal to 200 mg/dL meet the criteria for diagnosis of diabetes. Reference: Standards of Medical Care in Diabetes 2016, [place] [employer]. Diabetes Care. 2016.39(Suppl 1). LAB BUN 9-24 mg/dL BUN 22 LAB CRET 0.73-1.22 mg/dL Creatinine 0.90 LAB NA 136-144 mmol/L Sodium 140 LAB K 3.7-5.1 mmol/L Potassium 4.3 LAB CL 97-105 mmol/L Chloride 105 LAB CO2 22-30 mmol/L Low CO2 10 LAB AGAP 9-18 mmol/L Anion Gap High 25 LAB ALT 10-54 U/L ALT High 339 LAB GFRAA eGFR- Amer. >60 LAB GFRNAA . eGFR-All Other Races >60 Result Comment: eGFR (Estimated GFR) Units of measure: mL/min/1.73 meters squared eGFR is derived from the reexpressed MDRD Study equation using the following parameters: serum creatinine, age, gender and race. The creatinine assay has been calibrated to be traceable to IDMS. An eGFR <60 mL/min/1.73m2 for >3 months is consistent with chronic kidney disease. Refer to KDOQI guidelines for clinical interpretation. In patients with unstable renal function, e.g. those with acute kidney injury, the eGFR may not accurately reflect actual GFR. Performed By: #### PT, PTT, PROCAL, CMP, MG1, PHOS, TRANSF, PREALB, CBCDIF #### [facility] [employer] [address] [place] [address] MAGNESIUM Collected: 06/30/2018 Status: F Source: [place] 1:54 AM [facility] REPOSITORY TYPE CODE TESTS RESULT OUT OF REFERENCE UNITS RANGE LAB MG 1.7-2.3 mg/dL High Magnesium 2.9 Performed By: #### PT, PTT, PROCAL, CMP, MG1, PHOS, TRANSF, PREALB, CBCDIF #### [facility] [employer] [address] [place] [address] PHOSPHORUS Collected: 06/30/2018 Status: F Source: [place] 1:54 AM [facility] REPOSITORY TYPE CODE TESTS RESULT OUT OF REFERENCE UNITS RANGE LAB PHOS 2.7-4.8 mg/dL Phosphorus 4.8 Performed By: #### PT, PTT, PROCAL, CMP, MG1, PHOS, TRANSF, PREALB, CBCDIF #### [facility] [address] [place], [place] [id number] TRANSFERRIN Collected: 06/30/2018 Status: F Source: [place] 1:54 AM [facility] REPOSITORY TYPE CODE TESTS RESULT OUT OF REFERENCE UNITS RANGE LAB TRANSF 200-360 mg/dL Transferrin Low 60 Performed By: #### PT, PTT, PROCAL, CMP, MG1, PHOS, TRANSF, PREALB, CBCDIF #### [address] [address] PREALBUMIN Collected: 06/30/2018 Status: F Source: [place] 1:54 AM [facility] REPOSITORY TYPE CODE TESTS RESULT OUT OF REFERENCE UNITS RANGE LAB PREALB 17-36 mg/dL Low Prealbumin <3 Performed By: #### PT, PTT, PROCAL, CMP, MG1, PHOS, TRANSF, PREALB, CBCDIF #### [place] [id number] CBC AND DIFFERENTIAL Collected: 06/30/2018 Status: F Source: [place] 1:54 AM [facility] REPOSITORY TYPE CODE TESTS RESULT OUT OF REFERENCE UNITS RANGE LAB WBC 3.70-11.00 k/uL Low WBC 2.81 LAB RBC 4.20-6.00 m/uL Low RBC 2.48 LAB HGB 13.0-17.0 g/dL Low Hemoglobin 9.0 LAB HCT 39.0-51.0 % Low Hematocrit 26.6 LAB MCV 80.0-100.0 fL MCV High 107.3 LAB MCH 26.0-34.0 pG MCH High 36.3 LAB MCHC 30.5-36.0 g/dL MCHC 33.8 LAB RDWCV 11.5-15.0 % RDW-CV High 17.0 LAB PLTCT 150-400 k/uL Low Platelet Count 33 Result Comment: Result checked and verified No clot detected. LAB MPV 9.0-12.7 fL MPV 11.3 LAB ANEUT % Neut% 83.5 LAB AANEUT 1.45-7.50 k/uL Abs Neut 2.35 LAB ALYMP % Lymph% 1.7 LAB AALYMP 1.00-4.00 k/uL Abs Lymph 0.05 Low LAB AMONO % Mineral% 9.6 LAB AAMONO <0.87 k/uL Abs Mineral 0.27 LAB AEOS % Eosin% 0.0 LAB AAEOS <0.46 k/uL Abs Eosin 0.00 LAB ABASO % Baso% 0.0 LAB AABASO <0.11 k/uL Abs Baso 0.00 LAB NRBC 0 /100 WBC NRBCs 2 High LAB AMETA % [place]ville% 4.3 LAB AMYELO % Myelo% 0.9 LAB ANIIMI Anisocytosis Present LAB LFTIMI Left Shift Present LAB OVAIMI Ovalocytes Few LAB POLIMI Polychromasia Slight LAB RCFIMI RBC Fragments Few LAB TEAIMI Tear Drop Cells Few LAB PLTEST Platelet Estimate Platelet estimate decreased LAB DTYP DTYPE Manual Diff Performed By: #### PT, PTT, PROCAL, CMP, MG1, PHOS, TRANSF, PREALB, CBCDIF #### [facility] [address] [place], [place] [address] GASV + ALL Collected: 06/30/2018 Status: F Source: [place] 1:53 AM [facility] REPOSITORY TYPE CODE TESTS RESULT OUT OF REFERENCE UNITS RANGE LAB VPH 7.32-7.42 pH Low 7.21 LAB VPC2 42-55 mm Hg pCO2 Low 33 LAB VPO2 35-45 mm Hg pO2 Low 23 LAB VBE mmol/L Base Excess NEG 14 LAB VHC3 24-28 mmol/L Bicarbonate Low 13 LAB VC2C 25-29 mmol/L CO2 Content Low 14 LAB O2HBCX 60-85 % Oxyhemoglobin, Low Jordan. 19 LAB CO <2.0 % Carboxyhemoglobin, 0.1 Jordan LAB METHB 0.4-1.5 % Methemoglobin Low 0.0 LAB VTMP C Temperature, Body 37.0 LAB VPHTC 7.32-7.42 pH, Temp Low Corrected 7.21 LAB VPC2T mm Hg pCO2, Temp Correct 33 LAB VPO2T mm Hg pO2, Temp Corrected 23 LAB NAB 135-146 mmol/L Sodium,Whole Bld 136 LAB KWB 3.5-5.0 mmol/L Potassium, Whole Bld 4.6 LAB HGBB 13.0-17.0 g/dL Low Hemoglobin,Total,A 10.0 CL LAB HCTB 39.0-51.0 % Hematocrit, Low ACL 31 LAB IC 1.08-1.30 mmol/L Calcium, Ion, WB 1.08 LAB GLB 60-105 mg/dL Glucose,Whole Bld 92 LAB LACT 0.5-2.2 mmol/L Lactate High 12.3 LAB VBGCOM Blood Gas Comm, Jordan Urgent value Result Comment: LACT LAB VCBWHO Notified Whom, Jordan Called to and read back by Result Comment: RITA G54 IbethSHUN LAB VCBDTE [id number] Notify Date, Jordan LAB VCBTME [id number] Notify Time, Jordan Performed By: #### VALLBG #### [facility] [employer] [address] [place] [address] TYPE AND SCREEN Collected: 06/30/2018 Status: F Source: [place] 1:53 AM [facility] REPOSITORY TYPE CODE TESTS RESULT OUT OF REFERENCE UNITS RANGE LAB %ABR O ABO/RH(D) POSITIVE LAB % Antibody NEG Screen Performed By: #### TSCR #### [facility] [employer] [address] [place] [id number] LACTIC ACID Collected: 06/29/2018 Status: F Source: [place] 11:42 PM [facility] REPOSITORY Order Comment: NEEDS TO BE ON ICE AFTER YOU COLLECT TYPE CODE TESTS RESULT OUT OF REFERENCE UNITS RANGE LAB L503.6005 0.4-2.0 mmol/L High alert LACTIC ACID 8.8 Result Comment: Critical Result(s) Called at: 00:25:05 06/30/2018 by: KARIN BENNETT Performed By: #### L503.6005 #### [facility] [address] [place], [place], [address] PROGRESS Observed: 06/29/2018 Status: COMPLETED Source: [place] 9:11 PM [facility] REPOSITORY HNO ID: [id number] Author: Rose [place]) Close Service: Critical Care Author Type: Nurse Practitioner Type: Progress Notes Filed: 06/30/2018 3:56 AM Note Text: Surgical Intensive Care Unit History and Physical Admission Note Admit DATE: June 29, 2018 Admit TIME: 01:55 REASON FOR ICU ADMISSION: Surgical evaluation, critical care management of ischemic gut, hemodynamic support, resuscitation. ASSESSMENT AND PLAN: Mr. Raj Noriega is a 68 year old gentleman who presents to the SICU from [facility] for concern of ischemic colitis. At [facility] his lactate was 16, upon arrival he was mottled, cool purple extremities, resp rate 40, saturation 80s. He went into cardiac arrest shortly after arrival to SICU. See code flowsheet for details He has a history of Rectal cancer for which he is currently undergoing chemotherapy, currently neutropenic. Update: After 1+ hours in cardiac arrest, implementing all measures to resuscitate Mr. Noriega's was called about patient's status. He was showing signs of brain , fixed dilated pupils. Resuscitation stopped, his blood pressure was immediately non-detectable, escape non perfusion beats on ECG. Given fentanly. Time of 3:47am. Neurological: Acute pain, encephalopathy, likely anoxic injury secondary to cardiac arrest. -- neuro exam once able CardioVascular: Cardiac arrest, V.fib arrest, intermittent NSR with significant ST elevations. Requiring high doses of norepi, epi, and vaso infusions. -- ongoing resuscitation -- central access obtained -- broad abx -- continue pressors Respiratory/Pulmonary: Respiratory failure in setting of arrest. -- intubated, ventilating Renal/; Renal insufficiency, hdez in place Renal dosing meds Ischemic Colitis, Pertonitis: History of rectal cancer, chemo and radiation CT at OSH with portal vas, severe pneumatosis, concern for ischemic bowel. -- surgical team consulted -- broad abx: vanco, pip/tazo, fluconazole Dysglycemia: -- POC blood glucose checks Q6hrs -- Goal Glucose 80-180, PRN SSI Hematology: Anemia of chronic disease Goal Hgb >7.0 Immunosuppressed, neutropenia: Secondary to chemotherapy, complicated by persumed peritonitis in setting of ischemic colitis -- broad abx: pip/tazo and vanco Rectal Cancer: Currently undergoing chemotherapy Seen and discussed on rounds with SICU staff: Marnie Salgado MD PAST MEDICAL HISTORY: Rectal Cancer, SCC, HTN PAST SURGICAL HISTORY: NA SOCIAL HISTORY: NA PRIOR TO ADMISSION MEDICATIONS HCTZ, metop ALLERGIES: NKDA OBJECTIVE: VITAL SIGNS: See code shet RESPIRATORY Mechanical Ventilation: Yes PHYSICAL EXAM: Neuro: Unable to assess at this time Pulmonary Exam: Diminished throughout Cardiovascular: RRR without murmur, gallop, or rubs. No ectopy. Abdomen: Distended Skin: cool, mottled. Extremities: no edema , thready Pedal pulses Surgical incisions: clean, dry and intact CXR Findings: pending PATIENT CHECKLIST ? Are restraints necessary? No ? Deep vein thrombosis prophylaxis administered? NA ? Central line present on admission to SICU? No ? Stress ulcer prophylaxis? Yes. ? HOB elevated 45 degrees? Yes. ? On sedation? No ? Pain addressed? Yes. ? Plan reviewed with assigned RN? Yes. ? Nutrition: Enteral- No. TPN- No. PO- No. ? Family updated? Yes. LEVEL OF CARE:Critical Care I have seen and reviewed the patient today for an aggregate of 50 minutes directly supervising and providing critical care in the prevention of imminent deterioration as noted above, exclusive of any procedures I performed or supervised. Time spent included physical examination at bedside and verifying the findings, reviewing labs, X Rays; discussing with SICU staff, primary physician and consultants; and developing plan of care with the bedside nurse. SIGNATURE: Rose Cheney APRN.CNP PATIENT NAME: Raj Noriega DATE: June 29, 2018 TIME: 2:59 AM PHONE# (text, call, or page) [phone] DISCHARGE SUMMARY Observed: 06/29/2018 Status: F Source: [place] 9:08 PM [facility] REPOSITORY [facility] Medical Records Department [address] [place] [id number] Discharge Summary 06/29/182018 MR#: [id number] Acct: [id number] Name: RAJ NORIEGA Rep #: [id number] : 1950 68 From: Pierre Santana MD PCP: Alexander Park MD Status: ADM IN Y Location: ICU ICU07- Discharge Date and Diagnosis - Problem List Patient Problems: Active and Suspected Problems (Last Reviewed 06/19/18 @ 09:58 by Carla Brarett) Hyponatremia (Acute) Pancytopenia (Acute) Neutropenic fever (Acute) Abdominal distention (Acute) Date of Admission: 06/27/18 Date of Discharge: 06/29/18 - Primary Discharge Diagnosis Active and Suspected Problems (Last Reviewed 06/19/18 @ 09:58 by Carla Barrett) Hyponatremia (Acute) Pancytopenia (Acute) Neutropenic fever (Acute) Abdominal distention (Acute) - Secondary Discharge Diagnosis Chronic Problems (Last Reviewed 06/19/18 @ 09:58 by Carla Barrett) Rectal cancer (Chronic) Primary anal squamous cell carcinoma (Chronic) Mass of both adrenal glands (Chronic) Hospital Course and Treatment Imaging Results: 06/29/18 15:00 CT Abd [Abdomen/Pelvis WITH Contrast] [CT] Urgent IMPRESSION: Small obstruction. Pneumatosis noted in small bowel loops in the right mid abdomen. Thickened loops of small bowel in the right lower quadrant. Portal venous air in the left lobe of the liver. These findings are consistent with bowel ischemia. Bowel wall thickening and decreased enhancement in the sigmoid colon which may also be due to ischemia. Distended stomach. Thickening of the pylorus which may represent focal gastritis. Moderate amount of ascites. No free air. Stable bilateral indeterminate adrenal nodules. Consults: Oncology General Surgery Operations: None Procedures: None Summary of Care Provided: Per HPI: The patient is a 68 year old M with pmhx of anal cancer stage II-III, pt of Dr. Trevino and Dianrda, who presents to the ER with severe diarrhea ongoing for several days. He has associated anal pain and has been on immodium, lomotil, silvadene, aquaphor, lidocaine. He was found by nursing to be covered in stool across his backside. This began after his last chemo and radation which was 3 days ago. He had a negative C diff test, and enteric panel is pending. He denies sick contacts. He has poor PO intake. He denies nausea / vomiting and subjective abdominal pain. He denies fevers and chills. He appears dehydrated with electrolyte disturbances, and is pancytopenic. Hospital Course: He presented to our hospital with throat pain, and anal pain on the recommendation of his radiation oncologist who felt that with his diarrhea he was dehydrated over the last couple weeks. He was given Imodium as an outpatient and his diarrhea has since stopped. During his hospitalization he developed and had worsening abdominal distention. He also developed a fever to 100.9 and given that his white count on admission was 0.6 he was started on Cipro and Flagyl. 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 He has completed his chemotherapy that consisted of mitomycin and 5-FU, however he had not completed all radiation treatments. To evaluate his abdominal distention and a KUB was ordered which showed dilated loops therefore general surgery was consulted who went ahead and ordered a CT scan of his abdomen and pelvis. When general surgery evaluated the patient he was not having any significant abdominal pain but did say that his abdominal distention was worse. Surgery was able to get a 10 [place] NG placed and had close to 2 L of output almost immediately. The CT scan of the abdomen and pelvis did demonstrate pneumatosis of the intestine as well portal air in the left lobe of the liver. It was discussed with the patient that surgery could not be done at this facility because of his thrombocytopenia down to 40 as well as his white count of 0.7. He said that he would like everything done and to be as aggressive as possible, therefore [facility] was called and they accepted patient in transfer. Prior to the patient being able to be transferred I was notified by nursing staff that patient's blood pressure had gone to 119 systolic which while normal, the patient had been sitting in systolics of 150s- 170s all day therefore he was started on a 2 L bolus. About 35 minutes after the bolus started patient systolic blood pressure was in the 80s and a rapid response was called. His blood pressure did respond without any pressors needed and fluids were continued. He was transferred to the ICU pending arrival of transport and transfer to [facility]. Prior to the [facility] labs were obtained which demonstrated a lactic acid of 15.7 as well as a worsening creatinine from 0.54 earlier in the day to 1.27. Also an ABG was obtained during the [facility], which demonstrated a pH of 7.2, bicarb of 10.7, O2 saturation of 84, PCO2 of 27.2. He was also given bicarb during the [facility], and fluids were continued. Patient Problems: Active and Suspected Problems (Last Reviewed 06/19/18 @ 09:58 by Carla Barrett) Hyponatremia (Acute) Pancytopenia (Acute) Neutropenic fever (Acute) Abdominal distention (Acute) - Physical Exam Vital Signs Temp Pulse Resp BP Pulse Ox 97.7 F L 138 H 40 H 102/84 H 100 06/29/18 20:12 06/29/18 20:12 06/29/18 20:12 06/29/18 20:12 06/29/18 20:12 Oxygen Delivery Method Room Air Weight: 147 lb 4.301 oz Body Mass Index (BMI) 22.4 Intake and Output for Last 24 Hours Intake Total 4761 / 4761 2420 / 2420 Output Total 575 / 575 650 / 650 Balance 4186 / 4186 1770 / 1770 Microbiology Past 72 Hours 06/27/18 15:15 Enteric Bacteriology - Final Stool Laboratory Tests Past 24 Hrs WBC 0.7 L* RBC 2.67 L Hgb 9.9 L Hct 27.4 L MCV 102.6 H MCH 37.1 H MCHC 36.1 H RDW 15.1 H Home Medications: Medications to take at Discharge Omeprazole [Prilosec] 1 tab PO DAILY 05/12/18 Hydrochlorothiazide [Hctz] 25 mg PO DAILY 05/19/18 Metoprolol Tartrate [Lopressor (beta vivi)] 25 mg PO DAILY 05/19/18 Lidocaine 2% Viscous [Xylocaine Viscous] 15 ml GT Q4H PRN PRN #240 ml 05/30/18 Oxycodone HCl 5 mg PO Q4H PRN PRN #200 ml 05/30/18 Potassium Chloride 20 meq PO BID 28 Days #420 ml 06/03/18 Silver Sulfadiazine 1% Crm [Silvadene Cream] 1 applic TOPICAL BID #80 gm 06/03/18 Lidocaine 2% Jelly [Xylocaine 2% Jelly] 30 ml TOPICAL TID #1 tube 06/10/18 Oxycodone HCl 5 - 10 ml PO Q4H PRN PRN 06/27/18 Ciprofloxacin [Cipro IVPB] 400 mg IV Q12 bag 06/29/18 Docosonal [Abreva] 1 applic TP 5X/DAY tube 06/29/18 Metronidazole [Flagyl IVPB] 500 mg IV Q8 bag 06/29/18 Nicotine Polacrilex [Nicotine Gum] 2 mg PO Q2H PRN PRN gum 06/29/18 Nicotine [Nicoderm Cq] 21 mg TRANSDERM. DAILY patch 06/29/18 Nystatin 500,000 unit PO 4X/DAY udc 06/29/18 Oxycodone [Oxyir] 5 mg PO Q4H PRN PRN tablet 06/29/18 Tbo-Filgrastim [Granix] 480 mcg SC DAILY vial 06/29/18 Primary Care Physician: Alexander Park MD [Primary Care Provider] - Disposition: Acute care Hospital Minutes spent on discharge:: 55 Patient Condition:: Poor Medical Necessity - Tobacco Use Smoking Status: Current every day smoker Tobacco Use: Cigarettes Meaningful Use Info Meaningful Use Diagnoses (Choose all that apply): None applicable Code Visit Inpatient E AND M: 46523 Disch Hosp 06/29/182107 <Electronically signed by Pierre Santana MD> Date Pierre Santana MD Cosigner Signature (if applicable): Date CC: Alexander Park MD; Pierre Santana MD Signed BLOOD GASES BY CPS Collected: 06/29/2018 Status: F Source: [place] 8:52 PM [facility] HOSPITAL REPOSITORY TYPE CODE TESTS RESULT OUT OF RANGE REFERENCE UNITS LAB L9000.9990 Normal BLD GAS TYPE ART LAB L9001.1000 Normal SITE L Radial LAB L9001.1010 Normal KEN TEST POS LAB L9001.1050 O2 Normal Delivery Dev Nasal Can LAB L9001.1055 /min Normal LPM 2.0 LAB L9001.1104 Normal Results To HOSP MD LAB L9001.1105 Normal Time Given 2044 LAB L9001.1110 7.35-7.45 Low pH - I-STAT 7.20 LAB L9001.1210 35-45 mmHg Low pCO2 - ISTAT 27.2 LAB L9001.1310 75-100 mmHG Low PO2 I-STAT 57 LAB L9001.2300 22-26 mmol/L Low HCO3 ISTAT 10.7 LAB L9001.2400 -2 to +2 mmol/L Low BE ISTAT -17 LAB L9001.2415 mmol/L Normal TOTAL CO2 12 ISTAT LAB L9001.2425 95-99 % Low SO2 ISTAT 84 Performed By: #### L9000.0800 #### [facility] Point of Care [address] [place] [address] DISCHARGE INSTRUCTION Observed: 06/29/2018 Status: F Source: [place] 8:18 PM [facility] REPOSITORY [facility] Medical Records Department [address] [place] [address] Instructions for Home/Discharge Instructions 06/29/182016 MR#: [id number] Acct: [id number] Name: RAJ NORIEGA Rep #: [id number] : 1950 68 From: Pierre Santana MD PCP: Alexander Park MD Status: ADM IN - Discharge Diagnoses Current Active Problems: Current Active and Chronic Problems (Last Reviewed 06/19/18 @ 09:58 by Carla Barrett) Hyponatremia (Acute) Pancytopenia (Acute) Rectal cancer (Chronic) Neutropenic fever (Acute) Abdominal distention (Acute) Allergies/Adverse Reactions: Allergies No Known Allergies Allergy (Verified 06/27/18 14:32) Medications to take at Discharge Omeprazole [Prilosec] 1 tab PO DAILY 05/12/18 Hydrochlorothiazide [Hctz] 25 mg PO DAILY 05/19/18 Metoprolol Tartrate [Lopressor (beta vivi)] 25 mg PO DAILY 05/19/18 Lidocaine 2% Viscous [Xylocaine Viscous] 15 ml GT Q4H PRN PRN #240 ml 05/30/18 Oxycodone HCl 5 mg PO Q4H PRN PRN #200 ml 05/30/18 Potassium Chloride 20 meq PO BID 28 Days #420 ml 06/03/18 Silver Sulfadiazine 1% Crm [Silvadene Cream] 1 applic TOPICAL BID #80 gm 06/03/18 Lidocaine 2% Jelly [Xylocaine 2% Jelly] 30 ml TOPICAL TID #1 tube 06/10/18 Oxycodone HCl 5 - 10 ml PO Q4H PRN PRN 06/27/18 Ciprofloxacin [Cipro IVPB] 400 mg IV Q12 bag 06/29/18 Docosonal [Abreva] 1 applic TP 5X/DAY tube 06/29/18 Metronidazole [Flagyl IVPB] 500 mg IV Q8 bag 06/29/18 Nicotine Polacrilex [Nicotine Gum] 2 mg PO Q2H PRN PRN gum 06/29/18 Nicotine [Nicoderm Cq] 21 mg TRANSDERM. DAILY patch 06/29/18 Nystatin 500,000 unit PO 4X/DAY udc 06/29/18 Oxycodone [Oxyir] 5 mg PO Q4H PRN PRN tablet 06/29/18 Tbo-Filgrastim [Granix] 480 mcg SC DAILY vial 06/29/18 Primary Care Physician: Alexander Park MD [Primary Care Provider] - Test Results: Test results from this visit will be discussed in further detail at your follow-up appointment, if applicable. Proposed Discharge Date: 06/29/18 - Transfer to [facility] 06/29/182017 <Electronically signed by Pierre Santana MD> Date Pierre Santana MD CC: David Guadalupe MD; Alexander Park MD; Royce Melendez MD CBC W/DIFF, AUTOMATED Collected: 06/29/2018 Status: C Source: [place] 7:04 PM [facility] REPOSITORY Order Comment: CRITICAL PLATELET VALUE VERIFIED. CALLED TO A. SELF 06/29/181953 Aletha Limon. RESULTS READ BACK BY SAME. TYPE CODE TESTS RESULT OUT OF RANGE REFERENCE UNITS LAB L100.1000 4.4-11.0 K/mm3 Low alert WBC 1.4 Result Comment: CRITICAL VALUE VERIFIED. CALLED TO A. SELF 06/29/181952 Aletha Limon. RESULTS READ BACK BY SAME. AMENDED REPORT 06/29/181952 WBC previously reported as: 1.4 *L K/mm3 LAB L100.1200 4.6-6.2 M/mm3 Low RBC 2.65 LAB L100.1300 13.0-16.5 g/dl Low HGB 9.7 LAB L100.1400 40-54 % Low HCT 28.1 LAB L100.1500 80-94 fL High MCV 106.0 LAB L100.1600 27.0-32.0 pg High MCH 36.6 LAB L100.1700 32-36 g/gl Normal MCHC 34.5 LAB L100.1810 11.6-14.6 % High RDW CV 16.7 LAB L100.1820 35.1-43.9 fl High RDW SD 62.4 LAB L100.1900 150-450 K/mm3 Low alert PLT 40 LAB L100.2000 6.2-12.0 fl Normal MPV 11.3 LAB L100.2620 2.0-7.7 X10 3/uL Low Absolute Neut 1.1 Result Comment: AMENDED REPORT 06/29/182099 Absolute Neut previously reported as: 0.3 L X10^3/uL LAB L100.2720 0.83-4.51 X10 3/ul Low Absolute Lymph 0.13 Result Comment: AMENDED REPORT 06/29/182099 Absolute Lymph previously reported as: 0.13 L X10^3/ul LAB L100.9900 Normal Reviewed PATH REV Result Comment: Pancytopenia. Clinical correlation necessary. Vasyl Mcmillan M.D. 06/30/18 AMENDED REPORT 06/30/18 0597 PATH REV previously reported as: May foll LAB L100.3100 MANUAL DIFF Normal CELLS COUNTED 100 LAB L100.3200 47-70 % Normal SEGS 55 LAB L100.3300 0-5 % High BAND 24 LAB L100.3400 0-1 % High META 6 LAB L100.3800 19-41 % Low LYMPH 9 LAB L100.3900 0-10 % Normal MONOCYTE 6 LAB L100.4800 Normal TOXIC GRAN 2+ LAB L100.5500 ADEQ Normal PLT EST MKD DEC LAB L100.7200 Normal PRABHA CELLS 1+ LAB L100.7300 Normal ANISO 1+ Performed By: #### L100.0100, L100.4422 #### [facility] [address] [place], [place], [id number] NRBC PANEL Collected: 06/29/2018 Status: F Source: [place] 7:04 PM [facility] REPOSITORY Order Comment: CRITICAL PLATELET VALUE VERIFIED. CALLED TO A. SELF 06/29/18 Jackeline Limon. RESULTS READ BACK BY SAME. TYPE CODE TESTS RESULT OUT OF RANGE REFERENCE UNITS LAB L100.4450 0-5 % Normal NRBC, FLAGGED 2.2 Result Comment: AMENDED REPORT 06/29/182107 NRBC, FLAGGED previously reported as: 2.2 % 0.@ Submit slide to Pathologist for review. LAB L100.4455 0-5 10 3/uL Normal NRBC # 0.03 Performed By: #### L100.0100, L100.4425 #### [facility] [address] [place], [address] PHOSPHORUS Collected: 06/29/2018 Status: F Source: [place] 7:04 PM [facility] REPOSITORY TYPE CODE TESTS RESULT OUT OF RANGE REFERENCE UNITS LAB L501.2300 2.5-4.9 mg/dL High PHOS 6.8 Performed By: #### L501.2300 #### [facility] [address] [place], [address] COMPREHENSIVE METABOLIC Collected: 06/29/2018 Status: F Source: [facility] 7:04 PM [facility] REPOSITORY TYPE CODE TESTS RESULT OUT OF RANGE REFERENCE UNITS LAB L501.0100 74-106 mg/dL High GLU 172 Result Comment: Fasting Glucose result greater than or equal to 126 mg/dL suggests DIABETES MELLITUS per A.D.A. criteria. Please note revised GLUCOSE reference range effective 2017. LAB L501.1000 7-18 mg/dL High BUN 22 LAB L501.1100 0.70-1.30 mg/dL Normal CREAT,SERUM 1.27 Result Comment: The validity of the calculated GFR AND GFRAA in patients over 70 years has not been determined. Clinical correlation is essential. LAB L501.1110 >60 mL/min Normal EST GFR 60 Result Comment: Non- GFR Calc LAB L501.1115 >60 mL/min Normal EST GFR - AA 72 Result Comment: GFR Calc LAB L501.1255 ml/min Normal Estimated CRCL 51.14 LAB L501.1300 10-20 RATIO Normal BUN/CRE 17.3 LAB L501.1500 6.4-8. g/dL Low 2 T PROT 4.6 LAB L501.1800 3.2-5. g/dL Low 0 ALB 1.5 LAB L501.1950 2.2-4. g/dL Normal 2 GLOB 3.1 LAB L501.2000 0.9-2. RATIO Low 4 A/G 0.5 LAB L501.2200 8.5-10 mg/dL Low .1 CA 7.9 LAB L501.4100 15-37 U/L High AST 70 LAB L501.4305 45-117 U/L Normal ALK P 71 LAB L501.4405 16-61 U/L High ALT 65 LAB L501.4600 0.20-1 mg/dL High .00 T BILI 1.90 LAB L501.5300 136-14 mmol/L Normal 5 NA 138 Result Comment: CALLED SARAH FAJARDO MS-3 WITH CRITICAL CREAT BY [facility] 06-29-18.1956PM READ BACK BY SAME LAB L501.5600 3.5-5.1 mmol/L Normal K 4.6 LAB L501.5900 98-107 mmol/L Normal CL 103 LAB L501.6100 21.0-32.0 mmol/L Low CO2 12.0 LAB L501.6200 5-15 High GAP 23 Performed By: #### L500.4050, L501.5200 #### [facility] [address] [place], [place], [id number] MAGNESIUM Collected: 06/29/2018 Status: F Source: [place] 7:04 PM [facility] REPOSITORY TYPE CODE TESTS RESULT OUT OF RANGE REFERENCE UNITS LAB L501.5200 1.6-2.6 mg/dL High MG 3.0 Performed By: #### L500.4050, L501.5200 #### [facility] [address] [place], [place], [id number] LACTIC ACID Collected: 06/29/2018 Status: F Source: [place] 7:04 PM [facility] REPOSITORY Order Comment: Yes/No query for Sepsis Lactate Rule Y TYPE CODE TESTS RESULT OUT OF REFERENCE UNITS RANGE LAB L503.6005 0.4-2.0 mmol/L High alert LACTIC ACID 15.7 Result Comment: RESULT CALLED TO LUPE ALONZO-3 ON LA BY [facility] 12-16-18 AT 2001PM READ BACK BY SAME Performed By: #### L503.6005 #### [facility] [address] [place], [address] ABDOMEN SINGLE VIEW Observed: 06/29/2018 Status: F Source: [place] (PORTABLE) 6:59 PM [facility] REPOSITORY [facility] Imaging Services [address] [place] [address] Abdomen Single View (Portable) MR#: [id number] Acct: [id number] Name: RAJ NORIEGA Rep #: [id number] : 1950 M 68 From: Daryn Sauceda MD PCP: Alexander Park MD Status: ADM IN Study: Abdomen Single View (Portable) Date of Exam: 06/29/18 Exam# [id number] Ordering Dr: David Guadalupe MD STUDY: X-RAY - ABDOMEN/PELVIS REASON FOR EXAM: Male, 68 years old. NG tube placement. TECHNIQUE: Single AP view of the abdomen / pelvis. COMPARISON: CT dated 06/29/2018. FINDINGS: There is an enteric tube noted with its tip in the stomach. There are multiple dilated loops of small bowel in the upper abdomen, consistent with the patient's history of a small bowel obstruction. This is not significantly changed when compared with the CT performed earlier the same day. The visualized osseous structures are within normal limits. RAD/Abdomen Single View (Portable) IMPRESSION: Enteric tube tip in the stomach. Electronically Signed: Daryn Sauceda, at 20:37 EST Tel , Service support , CC: David Guadalupe MD; Alexander Park MD Advertising Copywriter: Signed CONSULTATION Observed: 06/29/2018 Status: F Source: [place] 6:01 PM [facility] RE[facility]IT[facility] Medical Records Department [address] [place] [address] Consultation 06/29/18 1756 MR#: [id number] Acct: [id number] Name: RAJ NORIEGA Rep #: [id number] : 1950 68 From: David Guadalupe MD PCP: Alexander Park MD Status: ADM IN Location: [place] [address] Problem List (1) Abdominal distention Status: Acute (2) Diarrhea Status: Acute Qualifiers: Diarrhea type: unspecified type Qualified Code(s): R19.7 - Diarrhea, unspecified Reason for Consult Date of Consultation: 06/29/18 Reason for Consultation: Ileus versus small bowel obstruction History of Present Illness: The patient is a 68 year old M who was admitted with neutropenic fever. Throughout the course of the day he has become more distended. He is complaining of thigh pain as well as shortness of breath. He says his abdominal pain is minimal but he is more distended. He is not having any nausea. NG was attempted but was unable to be placed. He reports that he is not passing any gas today. He has not vomited. Past Medical History Past Medical History (Chronic Problems): Chronic Problems (Last Reviewed 06/19/18 @ 09:58 by Carla Barrett) Rectal cancer (Chronic) Primary anal squamous cell carcinoma (Chronic) Mass of both adrenal glands (Chronic) Medical History: Medical History (Last Reviewed 06/19/18 @ 09:58 by Carla Barrett) Bleeding (Acute) R58 Blood in stool (Acute) K92.1 Nausea (Acute) R11.0 Back problem (Acute) M53.9 Allergies No Known Allergies Allergy (Verified 06/27/18 14:32) Home Medications: Ambulatory Orders Medication Instructions Recorded Omeprazole [Prilosec] 1 tab PO DAILY 05/12/18 Hydrochlorothiazide [Hctz] 25 mg PO DAILY 05/19/18 Surgical History: Surgical History (Last Reviewed 06/19/18 @ 09:58 by Carla Barrett) Hx of colonoscopy (Acute) Z98.890 04/24/2018 Surgical History: no surgical history Lives: Alone Smoking Status: Current every day smoker Tobacco Use: Cigarettes Alcohol: None Drugs: None - *Family History Maternal Family History: Family History (Last Reviewed 06/19/18 @ 09:58 by Carla Barrett) Father Stomach cancer Brain cancer History Items: No pertinent history Paternal Family History: Family History (Last Reviewed 06/19/18 @ 09:58 by Carla Barrett) Father Stomach cancer Brain cancer History Items: Cancer Review of Systems Constitutional: Reports: Anorexia, Fever HEENT: Denies: Difficulty Swallowing Cardiovascular: Denies: Chest Pain Respiratory: Reports: Shortness of Breath Gastrointestinal: Reports: Abdominal Pain, Diarrhea, Nausea. Denies: Constipation, Vomiting Musculoskeletal: Reports: Leg Pain. Denies: Joint Tenderness Neurological: Denies: Incoordination Psychiatric: Reports: Depression Patient Problems: Active and Suspected Problems (Last Reviewed 06/19/18 @ 09:58 by Carla Barrett) Hyponatremia (Acute) Pancytopenia (Acute) Neutropenic fever (Acute) Abdominal distention (Acute) - Physical Exam General: Alert, Cooperative HEENT: Atraumatic Oral: Moist Mucosa Neck: No JVD Lungs: Normal air movement Cardiovascular: Tachycardic Abdomen: Distended, Tender Extremities: No clubbing Musculoskeletal: Cachexia Neurological: Cranial nerves II-XII grossly intact Psych/Mental Status: Normal Affect Vital Signs Temp Pulse Resp BP Pulse Ox 100.1 F H 140 H 22 H 157/88 H 97 06/29/18 14:37 06/29/18 14:37 06/29/18 14:37 06/29/18 14:37 06/29/18 14:37 Oxygen Delivery Method Room Air Weight: 147 lb 4.301 oz Body Mass Index (BMI) 22.4 Intake and Output for Last 24 Hours Intake Total 4761 / 4761 2420 / 2420 Output Total 575 / 575 650 / 650 Balance 4186 / 4186 1770 / 1770 Microbiology Past 72 Hours 06/27/18 15:15 Enteric Bacteriology - Final Stool Laboratory Tests Past 24 Hrs WBC 0.7 L* RBC 2.67 L Hgb 9.9 L Hct 27.4 L MCV 102.6 H MCH 37.1 H MCHC 36.1 H RDW 15.1 H Clinical Impression(s) from Imaging Studies Abdomen X-Ray 06/29/18 10:14 IMPRESSION: 1. Small bowel obstruction. 2. Atherosclerosis. Electronically Signed: Arturo Ambrosio MD at 12:47 EST , Service support , Assessment/Plan All Active Problems (Last Reviewed 06/19/18 @ 09:58 by Carla Barrett) Hyponatremia (Acute) Pancytopenia (Acute) Neutropenic fever (Acute) Abdominal distention (Acute) Hypomagnesemia (Acute) Diarrhea (Acute) Dehydration (Acute) Hypokalemia (Acute) Mucositis (ulcerative) due to antineoplastic therapy (Acute) Hx of colonoscopy (Acute) Bleeding (Acute) Blood in stool (Acute) Nausea (Acute) Back problem (Acute) 68-year-old male with ileus versus small bowel obstruction 1. Patient appears in discomfort with shortness of breath and is complaining of leg pain. NG tube was attempted but was unable to be placed and the patient refused any further attempts. I have ordered a CT scan with p.o. and IV contrast to check the abdomen. I assume this is an ileus as the patient has had no previous abdominal surgeries or bowel obstructions. 2. Patient is severely neutropenic and febrile this afternoon. The patient is also thrombocytopenic. The patient would not be a good surgical candidate at this time given all of these things. The patient does have a port and I will check blood cultures as well. 3. Continue n.p.o., IV fluids. If the patient will allow for another attempt at an NG I believe this will make him more comfortable. If this is an ileus the underlying cause needs to be identified and treated for the ileus to resolve. David Guadalupe MD Pager: [facility] [address] [place] [address] Office: 06/29/18 1801 <Electronically signed by David Guadalupe MD> Date David Guadalupe MD Cosigner Signature (if applicable): Date CC: David Guadalupe MD; Alexander Park MD; Royce Melendez MD Signed CONSULTATION Observed: 06/29/2018 Status: F Source: [place] 3:12 PM [facility] REPOSITORY [facility] Medical Records Department [address] [place] [address] Consultation 06/29/18 1428 MR#: [id number] Acct: [id number] Name: RAJ NORIEGA Rep #: [id number] : 1950 68 From: Royce Melendez MD PCP: Alexander Park MD Status: ADM IN Y Location: [address] Consult Referring Physician: Consult Results: Neutropenic feverdue to chemotherapy, mucositis, abdominal distension. 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 He started combined chemotherapy and Radiation therapy on 05/22/2018. He received the last cycle of chemotherapy-Mytomycin + 5FU from 06/19/2018 to 06/23/2018. He is now admitted with fever, neutropenia, mucositis and diarrhea. Has developed abdominal distension on admission. Past Medical History: Chronic Problems (Last Reviewed 06/19/18 @ 09:58 by Carla Barrett) Rectal cancer (Chronic) Primary anal squamous cell carcinoma (Chronic) Mass of both adrenal glands (Chronic) Past Medical/Surgical History: Past Medical History - Most Recent Inpatient Visit Past Medical History Start: 06/27/18 18:03 Text: Status: Complete Freq: ONCE Protocol: Document 06/27/18 18:07 VIRGILIO (Rec: 06/27/18 18:14 VIRGILIO [id number]) BMI Required to complete PMH What is Patient's BMI 22.4 Past Medical History Unable History Recalled No Query Text:Pt Unable/Family Not Present Neurologic Medical History Hx Stroke/TIA No Hx Dementia/Alzheimer's No Hx Parkinson's Disease No Hx Seizures No Hx Multiple Sclerosis No Hx Migraines No Cardiac Medical History VTE Present on Admission No Hx of Deep Vein Thrombosis/VTE/PE No Hx Hypertension No Hx Chest Pain/Angina No Hx Heart Attack No Hx Cardiac Surgery/Stents/Etc. No Hx Heart Failure No Hx Pacemaker/AICD No Hx Irregular Heartbeat and/or Afib No Hx Anticoagulant Therapy No Query Text:(Coumadin, Aspirin, Plavix, Xarelto, etc.) Hx Pain in Legs when Walking/Leg Cramps No Respiratory Medical History Hx COPD No Hx Emphysema No Hx Smoking Yes Smoking Status Current every day smoker Tobacco Use Cigarettes Years Smoking 54 Packs Smoked per Day 2 Hx Smoking Cessation Counseling No Hx Smoking Exposure No Hx Tobacco Use in last 12 months Yes Sent to [facility] Yes Hx of Pipe Smoking No Hx of Cigar Smoking No Hx Sleep Apnea No Do you snore loudly (louder than talking No or can be heard through closed doors)? Do you often feel tired/ fatigued/ No sleepy during daytime? Has anyone observed you stop breathing No during sleep? STOP Results Negative GI Medical History Hx Ulcer No Hx Hepatitis No Hx Cirrhosis No Hx GI Bleed Yes Hx Unplanned Weight Loss Yes Genitourinary Medical History Indwelling Catheter in Place on Arrival/ No Admission Hx Renal Disease No Hx Dialysis No Musculoskeletal History Hx Arthritis No Hx Rheumatoid Arthritis No Endocrine Medical History Hx Diabetes No Hx Thyroid Disease No Hematologic Medical History Hx of Blood Transfusion No Hx of Transfusion in last 3 Months No Ever experience any problems with No transfusion(s)? Hx of Preganancy in last 3 Months N/A Nurse Filling Out Transfusion AND JDIAL Questions: Date: 06/27/18 Time: 18:13 Psycho/Social Medical History Hx Depression Yes Hx Anxiety Yes Hx Behavior Disorder No Hx Alcohol Use No Hx Substance Use No Other Medical History Hx Blood Disorders No Hx Anemia Yes Hx Cancer Yes: rectal Hx Drug Resistant Organism No Wound/Pressure Injury Present on Arrival Yes /Admission Query Text:If yes, chart assessment in Shift/Clinical Findings Central Line/PICC/VAD Present on Arrival Yes /Admission Antibiotics within last 7 days? No Methicillin Resistant Staphylococcus aureus Screening Active MRSA No Risk for Readmission Number of Risk Factors 6 At Risk for Readmission Patient is At Risk For Readmission Patient is eligible for Call Back Y Past Medical History (Last Reviewed 06/19/18 @ 09:58 by Carla Barrett) Bleeding (Acute) Blood in stool (Acute) Nausea (Acute) Back problem (Acute) Past Surgical History (Last Reviewed 06/19/18 @ 09:58 by Carla Barrett) Hx of colonoscopy (Acute) Maternal Family History: Family History (Last Reviewed 06/19/18 @ 09:58 by Carla Barrett) Father Stomach cancer Brain cancer Family History: No pertinent history Paternal Family History: Family History (Last Reviewed 06/19/18 @ 09:58 by Carla Barrett) Father Stomach cancer Brain cancer Family History: Cancer - Social History Lives: Alone Smoking Status: Current every day smoker Tobacco Use: Cigarettes Alcohol: None Drugs: None Allergies/Adverse Reactions: Allergy/AdvReac Type Severity Reaction Status Date / Time No Known Allergies Allergy Verified 06/27/18 14:32 Review of Systems Constitutional:: Reports: Weakness, Fatigue, Fever Cardiovascular:: Denies: Chest pain, Palpitations, Dyspnea on exertion, Orthopnea, PND, Shortness of breath Respiratory: Denies: Cough, Hemoptysis, Shortness of Breath, Wheezing Gastrointestinal:: Reports: Abdominal pain, Diarrhea. Denies: Nausea, Vomiting, Constipation, Hematochezia Genitourinary: Denies: Dysuria, Hematuria, 15, Flank pain Musculoskeletal:: Denies: Back pain, Myalgia, Arthralgia Skin: Reports: Skin Changes - perianal area.. Denies: Rash, Wounds Neurological:: Denies: Headache, Dizziness, Visual changes, Tinnitus, Hearing loss Psychiatric: Denies: Anxiety, Depression, Homicidal Ideations, Suicidal Ideations Vital Signs Height 5 ft 8 in - Physical Exam General: Alert, Oriented x3, - - Looks ill. HEENT: Atraumatic, PERRLA, EOMI, Normocephalic Oropharynx:: Ulcerated lesions - lips Neck:: Supple, Trachea midline. Negative for: JVD, bilateral Cardiac:: Regular rate, Regular rhythm, Normal S1, Normal S2. Negative for: Murmur Lungs: Clear to auscultation, Excusion symmetrical. Negative for: Rhonchi, Wheezes Abdomen:: Distended, Tender Neurological: Neuro grossly intact Lymphatics:: Negative for: Cervical lymphadenopathy, Supraclavicular lymphadenopathy, Axillary lymphadenopathy Laboratory Data: Microbiology 06/27/18 15:15 Enteric Bacteriology - Final Stool Laboratory Tests WBC 0.7 L* (4.4-11.0) K/mm3 RBC 2.67 L (4.6-6.2) M/mm3 Hgb 9.9 L (13.0-16.5) g/dl Diagnostic Data: Diagnostic Data Abdomen X-Ray 06/29/18 10:14 IMPRESSION: 1. Small bowel obstruction. 2. Atherosclerosis. Electronically Signed: Arturo Ambrosio MD at 12:47 EST , Service support , Assessment and Plan Neutropenic Fever, Pancytopenia due to chemotherapy. Anal cancer on chemotherapy and Radiation therapy. Mucositis. Abdominal distention + diarrhea R/O ileus vs obstruction. Suggestions: To continue broad spectrum Antibiotics. NPO, obtain CT a/p and Surgery consult. Thanks, will follow. Medications: Prescriptions This Visit Medication Instructions Recorded Oxycodone HCl 5 - 10 ml PO Q4H PRN PRN 06/27/18 Medications Added to Medication List This Visit Bmx Liquid Med 06/29/18 09:57 Active 15 ml PO Q3H PRN PRN Primary Care Provider: Alexander Park MD Referring Provider: - Problem List (1) Neutropenic fever Status: Acute (2) Pancytopenia Status: Acute (3) Primary anal squamous cell carcinoma Status: Chronic Code Visit Office Visits / Consults: [id number] IP Consult L5 06/29/18 1422 <Electronically signed by Royce Melendez MD> Date Royce Melendez MD Cosigner Signature (if applicable): Date CC: David Guadalupe MD; Alexander Park MD; Royce Melendez MD Signed ABDOMEN/PELVIS WITH Observed: 06/29/2018 Status: F Source: HARVEY CONTRAST 3:01 PM [facility] REPOSITORY [facility] Imaging Services [address] [place] [address] Abdomen/Pelvis WITH Contrast MR#: [id number] Acct: [id number] Name: RAJ NORIEGA Rep #: [id number] : 1950 M 68 From: Daryn Sauceda MD PCP: Alexander Park MD Status: ADM IN Study: Abdomen/Pelvis WITH Contrast Date of Exam: 06/29/18 Exam# [id number] Ordering Dr: David Guadalupe MD STUDY: CT ABDOMEN AND PELVIS WITH CONTRAST REASON FOR EXAM: Male, 68 years old. Blood in stool. Rectal cancer. RADIATION DOSAGE (If Supplied By Facility): CTDIvol = ( 18.06 ) mGy, DLP = ( 718.42 ) mGycm TECHNIQUE: Transaxial images were obtained from the dome of the diaphragm to the symphysis pubis without oral contrast. 100ML ml of Isovue 300 contrast was administered. Sagittal and coronal images were reconstructed. Individualized dose optimization techniques were used for this CT. COMPARISON: 05/07/2018 FINDINGS: The visualized lung bases are clear. The visualized portions of the heart and pericardium are within normal limits. There are no calcified gallstones present. There is portal venous air noted in the left lobe of the liver. There are no focal hepatic lesions. The spleen is normal in size. The pancreas is within normal limits. There are stable bilateral indeterminate adrenal nodules. There are no renal or ureteral stones. There is no hydronephrosis. There are no focal renal lesions. There is marked distention of the stomach. There is thickening in the pyloric region which may represent focal gastritis. There are multiple dilated loops of small bowel with collapsed loops noted distally. This is consistent with a small bowel obstruction. There is pneumatosis noted within small bowel loops in the right mid abdomen. There are thickened loops of small bowel in right lower quadrant. There is bowel wall thickening and decreased enhancement noted in the distal sigmoid colon. The appendix is visualized and appears normal. Their atherosclerotic calcifications noted in the aorta and its branches The aorta is normal in caliber. There is a moderate amount of free fluid. There is no free air, fluid collection or lymphadenopathy. There are no destructive osseous lesions. CT/Abdomen/Pelvis WITH Contrast IMPRESSION: Small obstruction. Pneumatosis noted in small bowel loops in the right mid abdomen. Thickened loops of small bowel in the right lower quadrant. Portal venous air in the left lobe of the liver. These findings are consistent with bowel ischemia. Bowel wall thickening and decreased enhancement in the sigmoid colon which may also be due to ischemia. Distended stomach. Thickening of the pylorus which may represent focal gastritis. Moderate amount of ascites. No free air. Stable bilateral indeterminate adrenal nodules. N.B. : The above information has been verbally conveyed by Daryn Sauceda to Yoseph Tavarez RN, on 06/29/2018 19:29:22 (ET). Electronically Signed: Daryn Sauceda, at 19:07 EST Tel , Service support , CC: David Guadalupe MD; Alexander Park MD Advertising Copywriter: Signed ABD INC DECUB Observed: 06/29/2018 Status: F Source: HARVEY AND/OR ERECT 10:15 AM [facility] REPOSITORY [facility] Imaging Services [address] [place] [address] Abd Inc Decub and/or Erect MR#: [id number] Acct: [id number] Name: RAJ NORIEGA Rep #: [id number] : 1950 M 68 From: Arturo Ambrosio MD PCP: Alexander Park MD Status: ADM IN Study: Abd Inc Decub and/or Erect Date of Exam: 06/29/18 Exam# [id number] Ordering Dr: Piper Patiño MD STUDY: X-RAY - ABDOMEN/PELVIS REASON FOR EXAM: Male, 68 years old. Abdominal distention with pain TECHNIQUE: AP supine and upright views of the abdomen and pelvis. COMPARISON: None. FINDINGS: Normal visualized lung bases. Dilated loops of small bowel noted throughout the abdomen with luminal diameter measuring up to 5.9 cm in the right lower quadrant. Very little colonic gas is identified. Multiple air-fluid levels are seen on upright imaging. There is also an air-fluid level in the stomach. This is new since CT vp inform[facility] topogram of 05/14/2018. There is no demonstrated free abdominal air. The visualized liver, spleen and kidneys are grossly normal in size and morphology. Normal soft tissue structures. Vascular calcifications are present. No obvious bony abnormality. RAD/Abd Inc Decub and/or Erect IMPRESSION: 1. Small bowel obstruction. 2. Atherosclerosis. Electronically Signed: Arturo Ambrosio MD at 12:47 EST , Service support , CC: Piper Patiño MD; Alexander Park MD Advertising Copywriter: Signed BASIC METABOLIC Collected: 06/29/2018 Status: F Source: HARVEY PROFILE (BMP) 5:50 AM [facility] REPOSITORY Order Comment: SPECIMEN OBTAINED FROM LINE DRAW TYPE CODE TESTS RESULT OUT OF RANGE REFERENCE UNITS LAB L501.0100 74-106 mg/dL High GLU 161 Result Comment: Fasting Glucose result greater than or equal to 126 mg/dL suggests DIABETES MELLITUS per A.D.A. criteria. Please note revised GLUCOSE reference range effective 2017. LAB L501.1000 7-18 mg/dL Normal BUN 13 LAB L501.1100 0.70-1.30 mg/dL Low CREAT,SERUM 0.54 Result Comment: The validity of the calculated GFR AND GFRAA in patients over 70 years has not been determined. Clinical correlation is essential. LAB L501.1110 >60 mL/min Normal EST GFR 160 Result Comment: Non- GFR Calc LAB L501.1115 >60 mL/min Normal EST GFR - AA 194 Result Comment: GFR Calc LAB L501.1255 ml/min Normal Estimated CRCL 64.94 LAB L501.1300 10-20 RATIO High BUN/CRE 24.1 LAB L501.2200 8.5-10 mg/dL Low .1 CA 7.3 LAB L501.5300 136-14 mmol/L Low 5 NA 135 LAB L501.5600 3.5-5. mmol/L Normal 1 K 3.8 LAB L501.5900 98-107 mmol/L Normal CL 104 LAB L501.6100 21.0-3 mmol/L Normal 2.0 CO2 21.0 LAB L501.6200 5-15 Normal GAP 10 Performed By: #### L500.2500, L501.5200 #### [facility] [address] [place], [address] MAGNESIUM Collected: 06/29/2018 Status: F Source: [place]ER[place]OD 5:50 AM [facility] REPOSITORY Order Comment: SPECIMEN OBTAINED FROM LINE DRAW TYPE CODE TESTS RESULT OUT OF RANGE REFERENCE UNITS LAB L501.5200 1.6-2.6 mg/dL Normal MG 2.1 Performed By: #### L500.2500, L501.5200 #### [facility] [address] [place], [address] CBC W/DIFF, AUTOMATED Collected: 06/29/2018 Status: C Source: [place] 5:50 AM [facility] REPOSITORY Order Comment: SPECIMEN OBTAINED FROM LINE DRAW TYPE CODE TESTS RESULT OUT OF RANGE REFERENCE UNITS LAB L100.1000 4.4-11.0 K/mm3 Low alert WBC 0.7 Result Comment: CRITICAL VALUE VERIFIED. CALLED TO YOSEPH TAVAREZ 06/29/18 0642 Karin Shin. RESULTS READ BACK BY SAME . LAB L100.1200 4.6-6.2 M/mm3 Low RBC 2.67 LAB L100.1300 13.0-16.5 g/dl Low HGB 9.9 LAB L100.1400 40-54 % Low HCT 27.4 LAB L100.1500 80-94 fL High MCV 102.6 LAB L100.1600 27.0-32.0 pg High MCH 37.1 LAB L100.1700 32-36 g/gl High MCHC 36.1 LAB L100.1810 11.6-14.6 % High RDW 15.1 CV LAB L100.1820 35.1-43.9 fl High RDW 53.3 SD LAB L100.1900 150-450 K/mm3 Low alert PLT 48 Result Comment: CRITICAL VALUE VERIFIED. CALLED TO YOSEPH TAVAREZ 06/29/18 0642 Karin Shin. RESULTS READ BACK BY SAME . LAB L100.2000 6.2-12.0 fl Normal MPV 10.2 LAB L100.2100 47-70 % Normal NEUT% 68.8 LAB L100.2200 19-41 % Low LY% 17.6 LAB L100.2300 0-10 % Normal MONO% 1.4 LAB L100.2400 0-5 % Normal EO% 1.4 LAB L100.2500 0-1 % Normal BASO% 0.0 LAB L100.2550 0.0-0.9 % High IM GRAN % 10.800 Result Comment: IG% - Immature Granulocytes (promyelocytes, myelocytes and metamyelocytes) > 1% indicates that a LEFT SHIFT is Present. LAB L100.2620 2.0-7.7 X10 3/uL Low Absolute Neut 0.5 LAB L100.2720 0.83-4.51 X10 3/ul Low Absolute Lymph 0.13 LAB L100.4500 Normal SMEAR COMMENT SCAN LAB L100.5500 ADEQ Normal PLT EST MKD DEC LAB L100.5650 Normal PLT MORPH LARGE LAB L100.9900 Normal PATH REV Reviewed Result Comment: Pancytopenia. Clinical correlation necessary. Vasyl Mcmillan M.D. 06/30/18 AMENDED REPORT 06/30/18 1403 PATH REV previously reported as: November Performed By: #### L100.0100 #### [facility] [address] [place], [place], [address] PHOSPHORUS Collected: 06/29/2018 Status: F Source: HARVEY 5:50 AM [facility] REPOSITORY Order Comment: Comments: as add on test TYPE CODE TESTS RESULT OUT OF RANGE REFERENCE UNITS LAB L501.2300 2.5-4.9 mg/dL Low PHOS 1.9 Performed By: #### L501.2300 #### [facility] [address] [place], [address] SR-ABDOMEN/PELVIS WITH Observed: 06/29/2018 Status: F Source: CASTRO CONTRAST IMPORT 12:00 AM [facility] REPOSITORY Images were obtained outside of [facility] [id number] CR-ABD INC DECUB Observed: 06/29/2018 Status: F Source: CASTRO AND/OR ERECT IMPORT 12:00 AM [facility] REPOSITORY Images were obtained outside of [facility] [id number] BASIC METABOLIC Collected: 06/28/2018 Status: F Source: HARVEY PROFILE (BMP) 6:25 AM [facility] REPOSITORY TYPE CODE TESTS RESULT OUT OF RANGE REFERENCE UNITS LAB L501.0100 74-106 mg/dL High GLU 140 Result Comment: Fasting Glucose result greater than or equal to 126 mg/dL suggests DIABETES MELLITUS per A.D.A. criteria. Please note revised GLUCOSE reference range effective 2017. LAB L501.1000 7-18 mg/dL Normal BUN 10 LAB L501.1100 0.70-1.30 mg/dL Low CREAT,SERUM 0.47 Result Comment: The validity of the calculated GFR AND GFRAA in patients over 70 years has not been determined. Clinical correlation is essential. LAB L501.1110 >60 mL/min Normal EST GFR 186 Result Comment: Non- GFR Calc LAB L501.1115 >60 mL/min Normal EST GFR - AA 225 Result Comment: GFR Calc LAB L501.1255 ml/min Normal Estimated CRCL 64.94 LAB L501.1300 10-20 RATIO High BUN/CRE 21.1 LAB L501.2200 8.5-10 mg/dL Low .1 CA 7.4 LAB L501.5300 136-14 mmol/L Low 5 NA 135 LAB L501.5600 3.5-5. mmol/L Low 1 K 3.0 LAB L501.5900 98-107 mmol/L Normal CL 103 LAB L501.6100 21.0-3 mmol/L Normal 2.0 CO2 23.0 LAB L501.6200 5-15 Normal GAP 9 Performed By: #### L500.2500 #### [facility] [address] [place], [address] CBC W/DIFF, AUTOMATED Collected: 06/28/2018 Status: C Source: HARVEY 6:25 AM [facility] REPOSITORY TYPE CODE TESTS RESULT OUT OF RANGE REFERENCE UNITS LAB L100.1000 4.4-11.0 K/mm3 Low alert WBC 0.6 Result Comment: CRITICAL VALUE VERIFIED. CALLED TO XOCHILT ETIENNE 06/28/18 3718 Karin Shin. RESULTS READ BACK BY SAME . LAB L100.1200 4.6-6.2 M/mm3 Low RBC 2.50 LAB L100.1300 13.0-16.5 g/dl Low HGB 8.9 LAB L100.1400 40-54 % Low HCT 24.6 LAB L100.1500 80-94 fL High MCV 98.4 LAB L100.1600 27.0-32.0 pg High MCH 35.6 LAB L100.1700 32-36 g/gl High MCHC 36.2 LAB L100.1810 11.6-14.6 % High RDW 15.0 CV LAB L100.1820 35.1-43.9 fl High RDW 52.8 SD LAB L100.1900 150-450 K/mm3 Low PLT 62 LAB L100.2000 6.2-12.0 fl Normal MPV 9.5 LAB L100.2100 47-70 % Low NEUT% 10.9 LAB L100.2200 19-41 % Normal LY% 34.5 LAB L100.2300 0-10 % High MONO% 45.5 LAB L100.2400 0-5 % Normal EO% 0.0 LAB L100.2500 0-1 % Normal BASO% 0.0 LAB L100.2550 0.0-0.9 % High IM 9.100 GRAN % Result Comment: IG% - Immature Granulocytes (promyelocytes, myelocytes and metamyelocytes) > 1% indicates that a LEFT SHIFT is Present. LAB L100.2620 2.0-7.7 X10 3/uL Low Absolute Neut 0.1 LAB L100.2720 0.83-4.51 X10 3/ul Low Absolute Lymph 0.19 LAB L100.4500 Normal SMEAR COMMENT SCAN LAB L100.5500 ADEQ Normal PLT EST MOD DEC LAB L100.5650 Normal PLT MORPH LARGE LAB L100.9900 Normal PATH REV Reviewed Result Comment: Pancytopenia. Clinical correlation necessary. Vasyl Mcmillan M.D. 06/30/18 AMENDED REPORT 06/30/18 1401 PATH REV previously reported as: May foll Performed By: #### L100.0100 #### [facility] [address] [place], [address] PHOSPHORUS Collected: 06/28/2018 Status: F Source: [place] 6:25 AM [facility] REPOSITORY Order Comment: Comments: as add on test TYPE CODE TESTS RESULT OUT OF RANGE REFERENCE UNITS LAB L501.2300 2.5-4.9 mg/dL Low PHOS 1.7 Performed By: #### L501.2300, L501.5200 #### [facility] [address] [place], [address] MAGNESIUM Collected: 06/28/2018 Status: F Source: [place]ER[place]OD 6:25 AM [facility] REPOSITORY Order Comment: Comments: as add on test TYPE CODE TESTS RESULT OUT OF RANGE REFERENCE UNITS LAB L501.5200 1.6-2.6 mg/dL Normal MG 1.9 Performed By: #### L501.2300, L501.5200 #### [facility] [address] [place], [address] HISTORY AND PHYSICAL Observed: 06/27/2018 Status: F Source: [place]ER[place]OD EXAM 6:40 PM [facility] REPOSITORY [facility] Medical Records Department [address] [place] [id number] History and Physical 06/27/18 1648 MR#: [id number] Acct: [id number] Name: RAJ NORIEGA Rep #: [id number] : 1950 68 From: Aime HUTTON PCP: Alexander Park MD Status: ADM KI Y Location: [place] [address] <Aime Mayorga - Last Filed: 06/27/18 16:48> Problem List (1) Dehydration Status: Acute (2) Hyponatremia Status: Acute (3) Pancytopenia Status: Acute (4) Hypokalemia Status: Acute (5) Rectal cancer Status: Chronic History of Present Illness Date of Admission: 06/27/18 Chief Complaint: diarrhea The patient is a 68 year old M with pmhx of anal cancer stage II-III, pt of Dr. Jeff, who presents to the ER with severe diarrhea ongoing for several days. He has associated anal pain and has been on immodium, lomotil, silvadene, aquaphor, lidocaine. He was found by nursing to be covered in stool across his backside. This began after his last chemo and radation which was 3 days ago. He had a negative C diff test, and enteric panel is pending. He denies sick contacts. He has poor PO intake. He denies nausea / vomiting and subjective abdominal pain. He denies fevers and chills. He appears dehydrated with electrolyte disturbances, and is pancytopenic. [] Past Medical History Past Medical History (Chronic Problems): Chronic Problems (Last Reviewed 06/19/18 @ 09:58 by Carla Barrett) Rectal cancer (Chronic) Mass of both adrenal glands (Chronic) Medical History: Medical History (Last Reviewed 06/19/18 @ 09:58 by Carla Barrett) Bleeding (Acute) R58 Blood in stool (Acute) K92.1 Nausea (Acute) R11.0 Back problem (Acute) M53.9 Allergies No Known Allergies Allergy (Verified 06/27/18 14:32) Home Medications: Ambulatory Orders Medication Instructions Recorded Surgical History: Surgical History (Last Reviewed 06/19/18 @ 09:58 by Carla Barrett) Hx of colonoscopy (Acute) Z98.890 04/24/2018 Lives: Alone Smoking Status: Current every day smoker Tobacco Use: Non-smoker Alcohol: None Drugs: None - *Family History Maternal Family History: Family History (Last Reviewed 06/19/18 @ 09:58 by Carla Barrett) Father Stomach cancer Brain cancer History Items: No pertinent history Paternal Family History: Family History (Last Reviewed 06/19/18 @ 09:58 by Carla Barrett) Father Stomach cancer Brain cancer History Items: Cancer Review of Systems Constitutional: Reports: Weakness. Denies: Chills, Fever, Weight Change HEENT: Denies: Head Aches, Sinus Congestion, Sinus Drainage Cardiovascular: Denies: Chest Pain, Palpitations Respiratory: Denies: Cough, Shortness of breath at rest, Sputum production Gastrointestinal: Reports: Diarrhea. Denies: Abdominal Pain, Nausea, Vomiting Genitourinary: Denies: Dysuria Musculoskeletal: Denies: Joint Pain, Joint Tenderness Skin: Denies: Rash, Wounds Neurological: Denies: Numbness, Tingling, Focal weakness Psychiatric: Denies: Anxiety, Depression, Homicidal Ideations, Suicidal Ideations Hematologic/ Lymphatic: Denies: Easy Bruising, Easy Bleeding VTE Information - Inpt Only VTE Present on Admission: No VTE Mechan Device Prophylaxis: SCD's VTE Pharm Prophylaxis ordered?: No Patient Problems: Active and Suspected Problems (Last Reviewed 06/19/18 @ 09:58 by Carla Barrett) Hyponatremia (Acute) Pancytopenia (Acute) Hypomagnesemia (Acute) Diarrhea (Acute) Dehydration (Acute) Hypokalemia (Acute) Mucositis (ulcerative) due to antineoplastic therapy (Acute) - Physical Exam General: Alert, Oriented x3, Cooperative HEENT: Atraumatic, PERRLA, EOMI, Normocephalic Neck: Supple, No JVD, Negative Carotid Bruits Lungs: Clear to auscultation, Normal air movement Cardiovascular: Regular rate, No murmurs Abdomen: Bowel Sounds Present, Tender - umbilical region Extremities: No edema, Capillary Refill Less than 3 Seconds Skin: No rashes, No breakdown Musculoskeletal: No Tenderness to Palpation of Joints or Extremities Neurological: Cranial nerves II-XII grossly intact Psych/Mental Status: Normal Affect, Appropriate, Alert and oriented to time, place, person, mood and affect Vital Signs Temp Pulse Resp BP Pulse Ox 98.9 F 115 H 18 144/79 H 98 06/27/18 14:02 06/27/18 14:02 06/27/18 14:02 06/27/18 14:02 06/27/18 14:02 Oxygen Delivery Method Room Air Weight: 160 lb 0.889 oz Body Mass Index (BMI) 24.3 Laboratory Tests Past 24 Hrs WBC 0.6 L* RBC 2.48 L Hgb 8.4 L Assessment/Plan All Active Problems (Last Reviewed 06/19/18 @ 09:58 by Carla Barrett) Hyponatremia (Acute) Pancytopenia (Acute) Hypomagnesemia (Acute) Diarrhea (Acute) Dehydration (Acute) Hypokalemia (Acute) Mucositis (ulcerative) due to antineoplastic therapy (Acute) Primary anal squamous cell carcinoma (Acute) Hx of colonoscopy (Acute) Bleeding (Acute) Blood in stool (Acute) Nausea (Acute) Back problem (Acute) 1. Dehydration 2/2 chemo induced diarrhea - Hydrate with IV NaCl. continue lomotil, immodium, topicals for irritation/skin breakdown. C diff neg. Enteric panel neg. Lipase neg. T bili elevated. + umbilical pain to palp. 2. Hyponatremia/kalemia - 2/2 above - replete. check mag / phos. 3. Pancytopenia - trend. Monitor for fevers. 4. Anal cancer st II-III - pt of Drs. Jim/Uriel. DVT ppx: SCDs DC planning: PTOT. He appears very frail and weak. This patient was seen by Aime Mayorga PA-C under the supervision of Doctor Max. <Pierre Santana - Last Filed: 06/27/18 18:40> History of Present Illness The patient is a 68 year old M [] Past Medical History Medical History: Medical History (Last Reviewed 06/19/18 @ 09:58 by Carla Barrett) Bleeding (Acute) R58 Blood in stool (Acute) K92.1 Nausea (Acute) R11.0 Back problem (Acute) M53.9 Allergies No Known Allergies Allergy (Verified 06/27/18 14:32) Surgical History: Surgical History (Last Reviewed 06/19/18 @ 09:58 by Carla Barrett) Hx of colonoscopy (Acute) Z98.890 04/24/2018 - *Family History Maternal Family History: Family History (Last Reviewed 06/19/18 @ 09:58 by Carla Barrett) Father Stomach cancer Brain cancer Paternal Family History: Family History (Last Reviewed 06/19/18 @ 09:58 by Carla Barrett) Father Stomach cancer Brain cancer - Physical Exam Vital Signs Temp Pulse Resp BP Pulse Ox 99.9 F H 110 H 18 162/72 H 99 06/27/18 17:06 06/27/18 17:06 06/27/18 14:02 06/27/18 17:06 06/27/18 17:06 Oxygen Delivery Method Room Air Weight: 147 lb 4.301 oz Body Mass Index (BMI) 22.4 Microbiology Past 72 Hours 06/27/18 15:15 Enteric Bacteriology - Final Stool Laboratory Tests Past 24 Hrs WBC 0.6 L* RBC 2.48 L Hgb 8.4 L Code Visit Addendum: Dr. Santana I personally examined the patient and reviewed the chart. I agree with the above. 1-year-old male with stage II-III anal cancer undergoing both chemotherapy and radiation. He states that he is never had surgery for it. He is presenting from home today because his radiation oncologist felt that with his diarrhea over the last 3 weeks and his lack of oral intake due to sores in his mouth. He had his last chemo on Saturday and was supposed to have radiation on Saturday and which she was not able to tolerate. He presented to the ER with leukopenia and thrombus cytopenia and anemia. This was felt to be related to his chemotherapy. We will treat his dehydration with IV fluids. He did have a C. difficile test a couple of days ago which was negative, and enteric bacteriology is pending. Can continue to to give his Lomotil and Imodium. OBSV E AND M: 19992 Initial observation care L3 06/27/18 1700 <Electronically signed by Aime HUTTON> Date Aime HUTTON 06/27/18 1840<Electronically signed by Pierre Santana MD> Cosigner Signature: Date (if applicable) Pierre Santana MD CC: ANNI Mayorga; Alexander Park MD; Pierre Santana MD Signed EMERGENCY DEPARTMENT Observed: 06/27/2018 Status: F Source: [place] SUMMARY 4:36 PM [facility] REPOSITORY [facility] Medical Records Department [address] [address] Emergency Department Summary 06/27/18 1634 MR#: [id number] Acct: [id number] Name: RAJ NORIEGA Rep #: [id number] : 1950 68 From: Robb Dong MD PCP: Alexander Park MD Status: REG ER - ER Visit Summary Date of Service: 06/27/18 Chief Complaint: Diarrhea, dehydration History of Present Illness: The patient is a 68 M who presents with the above symptoms. Patient's been feeling this way for a couple of weeks. He has stage II-III anal cancer. He is getting chemo and radiation for this. He has been having persistent diarrhea and skin breakdown in his anal area. He also has sores in his mouth from his chemotherapy. He has been on Imodium and Lomotil. His radiation oncologist, Dr. Jim, gave him Aquaphor lidocaine and Silvadene for his anal area but it is not helping. Patient denies a fever. Physical Examination: Vital signs are reviewed. HEENT exam reveals sores inside of the mouth. He does have dry mucous membranes. Heart is tachycardic and regular rhythm without murmurs. Lungs are clear bilaterally. Abdomen soft with mild diffuse tenderness. Skin exam reveals skin breakdown and excoriations in his groin and anal area. His neurologic exam is at baseline and normal. Test Results: White blood cell count 0.6, hemoglobin 9, platelets 68. Sodium 131, potassium 3.2. Creatinine normal. Total bilirubin 1.8 Emergency Department Course and Treatment: Patient was hydrated with normal saline. He does appear to be clinically dehydrated. His radiation oncologist recommended admission. I will discussed this with the hospitalist. Treatment Plan: [] Disposition: Admit Impression: Dehydration, diarrhea, anal cancer This note was generated with [employer] dictation software. It may contain incorrect words, spelling, and punctuation that were not noted in review of the chart prior to signing ED Disposition - Plan for ED Patient: Chief Complaint: Diarrhea Referrals: Alxeander Park MD [Primary Care Provider] - What to do if you have Problems For any increased pain, shortness of breath, bleeding, nausea or vomiting, chest pain, or any unexpected problems, contact your Primary Care Provider. Call [facility] ([phone]) or report to the closest Emergency Room. Call 911 if necessary. 06/27/18 2707 <Electronically signed by Robb Dong MD> Date Robb Dong MD Cosigner Signature (If Indicated): Date CC: Alexander Park MD Observed: 06/27/2018 Status: F Source: [place] ENTERIC PATHOGEN 3:15 PM [facility] PANEL STOOL REPOSITORY Order Date: 06/27/18 EP PANEL STOOL Normal Reference Range = Not Detected Not detected for Campylobacter group, Salmonella species, Shigella species, Vibrio Group, Yersinia enterocolitica, EHEC (Shiga Toxin 1, Shiga Toxin 2), Norovirus Gl/Gll, and Rotavirus A. Other common stool pathogens are not detected on this panel include: Aeromonas/Plesiomonas or parasites. Order testing for these organisms separately if suspected. This is an amplified DNA test which makes it both specific and sensitive. CAMPYLOBACTER Not Detected Salmonella Not Detected Shigella sp. Not Detected Shiga Toxin Not Detected Yersinia Not Detected VIBRIO Not Detected Norovirus Not Detected Rotavirus Not Detected Performed By: #### M100.637 #### [facility] [address] [place], [address] COMPREHENSIVE METABOLIC Collected: 06/27/2018 Status: F Source: [place] PROFIL 3:05 PM [facility] REPOSITORY TYPE CODE TESTS RESULT OUT OF RANGE REFERENCE UNITS LAB L501.0100 74-106 mg/dL High GLU 226 Result Comment: Glucose result greater than or equal to 200 mg/dL suggests DIABETES MELLITUS per A.D.A. criteria. Please note revised GLUCOSE reference range effective 2017. LAB L501.1000 7-18 mg/dL Normal BUN 11 LAB L501.1100 0.70-1.30 mg/dL Low CREAT,SERUM 0.61 Result Comment: The validity of the calculated GFR AND GFRAA in patients over 70 years has not been determined. Clinical correlation is essential. LAB L501.1110 >60 mL/min Normal EST GFR 138 Result Comment: Non- GFR Calc LAB L501.1115 >60 mL/min Normal EST GFR - AA 167 Result Comment: GFR Calc LAB L501.1255 ml/min Normal Estimated CRCL 66.50 LAB L501.1300 10-20 RATIO Normal BUN/CRE 17.9 LAB L501.1500 6.4-8. g/dL Low 2 T PROT 5.3 LAB L501.1800 3.2-5. g/dL Low 0 ALB 2.1 LAB L501.1950 2.2-4. g/dL Normal 2 GLOB 3.2 LAB L501.2000 0.9-2. RATIO Low 4 A/G 0.7 LAB L501.2200 8.5-10 mg/dL Low .1 CA 7.5 LAB L501.4100 15-37 U/L Normal AST 30 LAB L501.4305 45-117 U/L Normal ALK P 69 LAB L501.4405 16-61 U/L Normal ALT 22 LAB L501.4600 0.20-1 mg/dL High .00 T BILI 1.80 LAB L501.5300 136-14 mmol/L Low 5 NA 131 LAB L501.5600 3.5-5. mmol/L Low 1 K 3.2 LAB L501.5900 98-107 mmol/L Normal CL 98 LAB L501.6100 21.0-3 mmol/L Normal 2.0 CO2 24.0 LAB L501.6200 5-15 Normal GAP 9 Performed By: #### L500.4050, L501.2450 #### [facility] [address] [place], [address] LIPASE Collected: 06/27/2018 Status: F Source: [place] 3:05 PM [facility] REPOSITORY TYPE CODE TESTS RESULT OUT OF REFERENCE UNITS RANGE LAB L501.2450 73-393 U/L Low LIPASE 24 Performed By: #### L500.4050, L501.2450 #### [facility] [address] [place], [address] CBC W/DIFF, AUTOMATED Collected: 06/27/2018 Status: C Source: [place] 3:05 PM [facility] REPOSITORY TYPE CODE TESTS RESULT OUT OF RANGE REFERENCE UNITS LAB L100.1000 4.4-11.0 K/mm3 Low alert WBC 0.6 Result Comment: RESULTS CALLED TO EZRA EASLEY RN 06/27/18 Fox Miller. REPORT READ BACK BY SAME . LAB L100.1200 4.6-6.2 M/mm3 Low RBC 2.48 LAB L100.1300 13.0-16.5 g/dl Low HGB 8.4 LAB L100.1400 40-54 % Low HCT 24.6 LAB L100.1500 80-94 fL High MCV 99.2 LAB L100.1600 27.0-32.0 pg High MCH 33.9 LAB L100.1700 32-36 g/gl Normal MCHC 34.1 LAB L100.1810 11.6-14.6 % High RDW CV 15.0 LAB L100.1820 35.1-43.9 fl High RDW SD 52.9 LAB L100.1900 150-450 K/mm3 Low 68 PLT LAB L100.2000 6.2-12.0 fl Normal MPV 9.1 LAB L100.3100 MANUAL DIFF Normal CELLS COUNTED 100 LAB L100.3200 47-70 % Low 44 SEGS LAB L100.3300 0-5 % 8 High BAND LAB L100.3800 19-41 % Low 16 LYMPH LAB L100.3900 0-10 % 32 High MONOCYTE LAB L100.2620 2.0-7.7 X10 3/uL Low Absolute Neut 0.3 LAB L100.2720 0.83-4.51 X10 3/ul Low Absolute Lymph 0.10 LAB L100.4500 Normal SMEAR COMMENT SEE COMMENTS Result Comment: NEUTROPENIA NOTED LYMPHOPENIA NOTED LEUKOCYTOPENIA NOTED LAB L100.5500 ADEQ PLT EST MOD Normal DEC LAB L100.7300 ANISO RARE Normal LAB L100.7800 RARE Normal MACROCYTE LAB L100.9900 PATH REV Normal Reviewed Result Comment: Pancytopenia. Clinical correlation necessary. Vasyl Mcmillan M.D. 06/30/18 AMENDED REPORT 06/30/18 1358 PATH REV previously reported as: November Performed By: #### L100.0100 #### [facility] [address] [place], [address] RADIATION ONCOLOGY Observed: 06/25/2018 Status: F Source: [place] VISIT 4:16 PM [facility] REPOSITORY [facility] Medical Oncology [address] 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 Plan was made to treat with definitive THERMODYNAMICS TEACHER with 5FU and MMC and SIB with 5400 cGy to anal disease with 2.5 cm margin and 4500 cGy to elective LNs (perirectal, presacral, internal iliac, external iliac, and inguinal), all in 30 fractions. Treatment Data: Treatment Site: Anal Canal and pelvic LNs Current total dose/Total dose planned: 4680 cGy / 5400 cGy Fraction number: Chemotherapy: 5FU and MMC (cycle 1 initiated on day 3 (05/22/18) due to delay getting PORT, cycle 2 06/19/18) Subjective: Reports fevers at home up to 101-102, resolved Pain: 6-8 / 10, to start oxycodone 5 mg prn. Skin: anal irritation and erythema, very raw and painful. Not following recommendations regarding management with sitz bath, unreliable use of of lidocaine/aquaphor and silvadene. Diarrhea management to reduce stool in the area. BM: rectal urgency and 10+ stool per day, sometimes diarrhea but many times has small amount of leakage without stool, worse this week with chemo. Believes imodium is not helping so not taking it, did not alter diet to improve diarrhea and still drinking alcohol. Will try Lomotil. No bleeding or mucus this week. Mucositis: developed painful mouth sores involving both lips and oral cavity/oropharynx, using salt gargles. Not using MMW or lidocaine. improved after cycle 1, very mild with cycle 2 Urination: no dysuria or hematuria Fever: complained of 101 F fever at home Nausea: none Fatigue: moderate Height/Weight/BMI: Height: 5 ft 8 in Weight: Baseline 160 lbs (05/21/18: 160.5 lbs, 05/28/18: 157.4 lbs, 06/03/18: 157.2 lbs, 06/11/18: 158.4 lbs, 06/19/18: 155.4 lbs, 06/25/18: 151.2 lbs) Vital Signs Temperature 97.9 F 06/25/18 13:55 Temperature Source Oral 06/25/18 13:55 Pulse Rate 115 H 06/25/18 13:55 Respiratory Rate 20 H 06/25/18 13:55 Objective: Gen: NAD Skin: dequan-anal erythema noted with patchy moist desquamation. ENT: minimal mucositis, no thrush Laboratory Tests Laboratory Tests WBC 3.2 L Hgb 11.8 L Plt Count 182 Absolute Neuts (auto) 1.6 L BUN 4 L Creatinine 0.68 L Albumin 3.0 L Laboratory Tests WBC 2.4 L Hgb 10.6 L Plt Count 106 L Absolute Neuts (auto) 2.1 Assessment: Tolerating radiation ok overall. All treatment related imaging reviewed and approved, good bladder filling. Heavy alcohol use (12 cans of beer per day) and smoking (2 ppd), continuing as is he able during treatment as he is unwilling to quit. Loose stool/diarrhea, worse this week. 10+ per patient, not all BM but some just mucus leakage. Believes imodium is not helping so not taking it, did not alter diet to improve diarrhea and still drinking alcohol. Having difficult time keeping skin clean. Pain/skin irritation involving anus 6-8 / 10 especially with BM oral sores/mucositis after first cycle of chemo very unreliable Plan: Continue treatment as planned Pain: lidocaine/aquaphor mixture and silvadene in anal region throughout the day. oxycodone prn, using at night Diarrhea: careful use of dietary modification and imodium scheduled, has improved, will continue IVF as needed. Cdiff pending. Reviewed skin care management using lotion in the groin and dequan-anal region Reviewed recommended use of Sitz bath multiple times per day to keep anal region clean and use anal creams as noted above. Patient doesn't follow instructions Mucositis: MMW, viscous lidocaine, liquid oxycodone. Resolved after cycle 1 Weight: mild loss, continue supplements as recommended. Continue regular IVF Fevers: no neutropenia or documented fever Recommend using pads for mucus leakage Follow up next week or sooner if needed Thank you for allowing me to participate in the management and care of your patient. If I may answer any questions in the interim, please do not hesitate to contact me at any time. Hugo Jim DO, MS [employer], Department of Radiation Oncology [facility] 06/25/18 1616 <Electronically signed by Hugo Jim DO> Date Hugo Jim DO Cosigner Signature: Date (if applicable) CC: Observed: 06/25/2018 Status: F Source: [place] CDIFF (MOLECULAR) 3:04 PM [facility] REPOSITORY Reason for Laboratory Test . Cdiff-Molecular Normal Reference Range = Negative C. Diff DNA Negative- No toxigenic C. Diff DNA Detected NAAT METHOD Testing was performed using nucleic acid amplification Performed By: #### M100.6796 #### [facility] [address] [place], [address] CBC W/DIFF, AUTOMATED Collected: 06/25/2018 Status: F Source: [place] 2:11 PM [facility] REPOSITORY Order Comment: Reason for Laboratory Test . TYPE CODE TESTS RESULT OUT OF RANGE REFERENCE UNITS LAB L100.1000 4.4-11.0 K/mm3 Low WBC 2.4 LAB L100.1200 4.6-6.2 M/mm3 Low RBC 2.93 LAB L100.1300 13.0-16.5 g/dl Low HGB 10.6 LAB L100.1400 40-54 % Low HCT 29.2 LAB L100.1500 80-94 fL High MCV 99.7 LAB L100.1600 27.0-32.0 pg High MCH 36.2 LAB L100.1700 32-36 g/gl High MCHC 36.3 LAB L100.1810 11.6-14.6 % High RDW CV 15.1 LAB L100.1820 35.1-43.9 fl High RDW SD 54.7 LAB L100.1900 150-450 K/mm3 Low PLT 106 LAB L100.2000 6.2-12.0 fl Normal MPV 9.0 LAB L100.2100 47-70 % High NEUT% 86.1 LAB L100.2200 19-41 % Low LY% 7.0 LAB L100.2300 0-10 % Normal MONO% 5.3 LAB L100.2400 0-5 % Normal EO% 1.2 LAB L100.2500 0-1 % Normal BASO% 0.4 LAB L100.2550 0.0-0.9 % Normal IM GRAN % 0.000 Result Comment: IG% - Immature Granulocytes (promyelocytes, myelocytes and metamyelocytes) > 1% indicates that a LEFT SHIFT is Present. LAB L100.2620 2.0-7.7 X10 3/uL Normal Absolute Neut 2.1 LAB L100.2720 0.83-4.51 X10 3/ul Low Absolute Lymph 0.17 LAB L100.4500 Normal SMEAR COMMENT COMMENT Result Comment: SLIDE SCANNED - LYMPHOPENIA NOTED. Performed By: #### L100.0100 #### [facility] [address] [place], [address] COMPREHENSIVE METABOLIC Collected: 06/25/2018 Status: F Source: [facility] 2:11 PM [facility] REPOSITORY Order Comment: Reason for Laboratory Test . TYPE CODE TESTS RESULT OUT OF RANGE REFERENCE UNITS LAB L501.0100 74-106 mg/dL High GLU 109 Result Comment: Fasting Glucose result from 100 to 125 mg/dL suggests IMPAIRED HOMEOSTASIS per A.D.A. criteria. Please note revised GLUCOSE reference range effective 2017. LAB L501.1000 7-18 mg/dL Normal BUN 10 LAB L501.1100 0.70-1.30 mg/dL Low CREAT,SERUM 0.54 Result Comment: The validity of the calculated GFR AND GFRAA in patients over 70 years has not been determined. Clinical correlation is essential. LAB L501.1110 >60 mL/min Normal EST GFR 158 Result Comment: Non- GFR Calc LAB L501.1115 >60 mL/min Normal EST GFR - AA 191 Result Comment: GFR Calc LAB L501.1255 ml/min Normal Estimated CRCL 66.50 LAB L501.1300 10-20 RATIO Normal BUN/CRE 18.3 LAB L501.1500 6.4-8. g/dL Low 2 T PROT 5.9 LAB L501.1800 3.2-5. g/dL Low 0 ALB 2.6 LAB L501.1950 2.2-4. g/dL Normal 2 GLOB 3.3 LAB L501.2000 0.9-2. RATIO Low 4 A/G 0.8 LAB L501.2200 8.5-10 mg/dL Low .1 CA 8.2 LAB L501.4100 15-37 U/L Normal AST 20 LAB L501.4305 45-117 U/L Normal ALK P 84 LAB L501.4405 16-61 U/L Normal ALT 21 LAB L501.4600 0.20-1 mg/dL High .00 T BILI 1.40 LAB L501.5300 136-14 mmol/L Low 5 NA 131 LAB L501.5600 3.5-5. mmol/L Normal 1 K 3.6 LAB L501.5900 98-107 mmol/L Low CL 94 LAB L501.6100 21.0-3 mmol/L Normal 2.0 CO2 24.0 LAB L501.6200 5-15 Normal GAP 13 Performed By: #### L500.4050 #### [facility] [address] [place], [address] RADIATION ONCOLOGY Observed: 06/19/2018 Status: F Source: [place] VISIT 1:20 PM [facility] REPOSITORY [facility] [address] 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 Plan was made to treat with definitive THERMODYNAMICS TEACHER with 5FU and MMC and SIB with 5400 cGy to anal disease with 2.5 cm margin and 4500 cGy to elective LNs (perirectal, presacral, internal iliac, external iliac, and inguinal), all in 30 fractions. Treatment Data: Treatment Site: Anal Canal and pelvic LNs Current total dose/Total dose planned: 3780 cGy / 5400 cGy Fraction number: Chemotherapy: 5FU and MMC (cycle 1 initiated on day 3 (05/22/18) due to delay getting PORT, cycle 2 06/19/18) Subjective: Reports fevers at home up to 101-102, resolved Pain: -, not using pain medication as prescribed, has liquid oxycodone Skin: anal irritation and erythema, very raw and painful. Not following recommendations regarding management with sitz bath, continued use of lidocaine/aquaphor and silvadene. Diarrhea management to reduce stool in the area. BM: multiple loose stool per day (mostly at night), sometimes diarrhea, improved some this week. No bleeding or mucus this week. Mucositis: developed painful mouth sores involving both lips and oral cavity/oropharynx, using salt gargles. Not using MMW or lidocaine. improved after cycle 1 Urination: no dysuria or hematuria Nausea: none Fatigue: mild Height/Weight/BMI: Height: 5 ft 8 in Weight: Baseline 160 lbs (05/21/18: 160.5 lbs, 05/28/18: 157.4 lbs, 06/03/18: 157.2 lbs, 06/11/18: 158.4 lbs, 06/19/18: 155.4 lbs) Vital Signs Temperature 97.5 F L 06/19/18 12:54 Temperature Source Oral 06/19/18 12:54 Pulse Rate 116 H 06/19/18 12:54 Respiratory Rate 17 06/19/18 12:54 Objective: Gen: NAD Skin: dequan-anal erythema noted with patchy moist desquamation. Laboratory Tests WBC 8.9 Hgb 16.5 Plt Count 225 Absolute Neuts (auto) 5.6 Laboratory Tests Laboratory Tests WBC 3.2 L Hgb 11.8 L Plt Count 182 Absolute Neuts (auto) 1.6 L BUN 4 L Creatinine 0.68 L Albumin 3.0 L 06/19/18: CBC/CMP otherwise unremarkable Assessment: Tolerating radiation ok overall. All treatment related imaging reviewed and approved, good bladder filling. Heavy alcohol use (12 cans of beer per day) and smoking (2 ppd), continuing as is he able during treatment as he is unwilling to quit. Loose stool/diarrhea, better controlled this week. About 7 stool per day Pain/skin irritation involving anus - especially with BM oral sores/mucositis after first cycle of chemo very unreliable Plan: Continue treatment as planned Pain: lidocaine/aquaphor mixture and silvadene in anal region throughout the day. oxycodone prn, using at night Diarrhea: careful use of dietary modification and imodium scheduled, has improved, will continue IVF as needed Reviewed skin care management using lotion in the groin and dequan-anal region Reviewed recommended use of Sitz bath multiple times per day to keep anal region clean and use anal creams as noted above. Patient doesn't follow instructions Mucositis: MMW, viscous lidocaine, liquid oxycodone. Resolved after cycle 1 Weight: mild loss, continue supplements as recommended. Continue regular IVF Recommend using pads for mucus leakage Follow up next week or sooner if needed Thank you for allowing me to participate in the management and care of your patient. If I may answer any questions in the interim, please do not hesitate to contact me at any time. Hugo Jim DO, MS [employer] Custodian, Department of Radiation Oncology [facility] 06/19/18 1320 <Electronically signed by Hugo Jim DO> Date Hugo Jim DO Cosigner Signature: Date (if applicable) CC: ONCOLOGY VISIT REPORT Observed: 06/19/2018 Status: F Source: [place] 10:30 AM [facility] REPOSITORY [facility] [place] [address] OFFICE VISIT Date of Service: 06/19/18 0941 MR#: [id number] Acct: [id number] Name: RAJ NORIEGA Rep #: [id number] : 1950 From: Becki Trevino MD Age/Sex: 68/M Location: ONC Status: Signed - Problem List (1) Primary anal squamous cell carcinoma Status: Acute (2) Mass of both adrenal glands Status: Chronic (3) Hypomagnesemia Status: Acute (4) Diarrhea Status: Acute Qualifiers: Diarrhea type: unspecified type Qualified Code(s): R19.7 - Diarrhea, unspecified (5) Dehydration Status: Acute (6) Hypokalemia Status: Acute (7) Mucositis (ulcerative) due to antineoplastic therapy Status: Acute - Date of Service Date of Service:: 06/19/18 - Chief Complaint Anal cancer on treatment - History of Present Illness Patient is a 68-year-old male who wishes to transfer his care from the [facility]. He has a history of alcohol and tobacco dependence. He has had increasing rectal pain and bleeding over the past few months and on April 14, 2018 he had a very limited sigmoidoscopy that revealed a large ulcer in the distal rectum to the dentate line with cavitation and biopsies then were not possible due to pain. On April 17 he was able to undergo a full colonoscopy when again a large ulcerated mass in the distal rectum extending into the anal verge multiple biopsies were done then revealing a squamous carcinoma. 2 sigmoid polyps were resected and were found to represent tubular adenomas. The patient was referred to oncology at the [place] though has not been seen yet and wishes to receive care closer to home. He was seen by Dr. Goodwin, who advised consultation with medical and radiation oncology. A CT scan of the abdomen and pelvis May 07, 2018: IMPRESSION: Bilateral adrenal masses as described. These are not typical for adrenal adenomas and correlation with MRI is recommended. Soft tissue mass seen in the anterior aspect of the rectum extending caudally into the anal region. Inhomogeneously enlarged prostate gland. CT scan of the chest May 07, 2018: IMPRESSION: Findings suggestive of a linear scarring in the right middle lobe and possible focal area of scarring in the posterior aspect of the medial segment of the left upper lobe. PET/CT May 12, 2018: MPRESSION: 1. ABNORMAL EXAMINATION INDICATIVE OF MALIGNANT VIABLE NEOPLASM. 2. Increased glucose concentration noted at the level of the distal rectal vault, anal verge fulfills quantitative criteria for neoplastic infiltration. 3. No other quantitatively significant hypermetabolic abnormalities are noted. There is no definitive scintigraphic evidence of distant metastatic Treatment: Combined chemo therapy (mitomycin-C and 5-FU) and radiation May 22, 2018- - Past Medical/Social History Past Medical History Other Cancer History: ANAL SQUAMOUS CELL CA Social History Social History: No changes Smoking Status Current every day smoker Review of Systems Constitutional:: Reports: Weakness, Fatigue, - - Mouth sores healed. Denies: Fever, Sweats, Weight loss, Appetite change, Chills Cardiovascular:: Reports: Ankle swelling - Occasional since he has been off HCTZ, Dyspnea on exertion. Denies: Chest pain, Palpitations, Orthopnea, PND, Shortness of breath Respiratory: Reports: Shortness of breath upon exertion. Denies: Cough, Hemoptysis, Shortness of Breath, Wheezing Gastrointestinal:: Reports: Diarrhea - Intermittent bouts of frequent small loose mucus mixed stools with bouts of constipation, Constipation, - - Pain in the rectum responsive to topical cream and as needed analgesia average use of narcotics is every afternoon to help him sleep. Denies: Abdominal pain, Nausea, Vomiting, Hematochezia Genitourinary: Denies: Dysuria, Hematuria, 15, Flank pain Musculoskeletal:: Denies: Back pain, Myalgia, Arthralgia Skin: Denies: Rash, Skin Changes, Wounds Neurological:: Denies: Headache, Dizziness, Visual changes, Tinnitus, Hearing loss Psychiatric: Denies: Anxiety, Depression, Homicidal Ideations, Suicidal Ideations Vital Signs Height 5 ft 8 in Weight: 71.486 kg Weight in Pounds 157.6 lbs BMI 24.6 Pulse Ox 98 - Physical Exam General: Alert, Oriented x3, No apparent distress, - - ECOG 1 HEENT: Atraumatic, PERRLA, EOMI, Normocephalic Oropharynx:: Dry mucosa Neck:: Supple, Trachea midline, - - Port okay. Negative for: JVD, bilateral Cardiac:: Regular rate, Regular rhythm, Normal S1, Normal S2. Negative for: Murmur Lungs: Clear to auscultation, Excusion symmetrical. Negative for: Rhonchi, Wheezes Abdomen:: Bowel sounds x 4, Soft, Non-tender, Non-distended. Negative for: Hepatosplenomegaly Extremities:: Negative for: Cyanosis, Edema Neurological: Neuro grossly intact Skin:: Negative for: Lesions, Rash, Petechiae, Ecchymosis Psychiatric:: Appropriate affect, Euthymic Lymphatics:: Negative for: Cervical lymphadenopathy, Supraclavicular lymphadenopathy, Axillary lymphadenopathy Diagnostic Data: Diagnostic Data PET, CT Tumor Imaging 05/12/18 10:26 IMPRESSION: 1. ABNORMAL EXAMINATION INDICATIVE OF MALIGNANT VIABLE NEOPLASM. 2. Increased glucose concentration noted at the level of the distal rectal vault, anal verge fulfills quantitative criteria for neoplastic infiltration. 3. No other quantitatively significant hypermetabolic abnormalities are noted. There is no definitive scintigraphic evidence of distant metastatic disease. Electronic Signature Casimiro Monaco D.O. 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 We will start combined modality therapy today May 22, 2018 and will be monitored on a weekly basis for supportive treatment. 2-Indeterminate bilateral adrenal masses not PET avid, unlikely metastatic. Plan: 1. Started sphincter sparing concomitant chemo therapy (mitomycin and 5-FU by CIV) and radiation therapy May 22, 2018. Radical surgery will be reserved for failure to achieve complete remission of his disease at the conclusion of treatment. He is to receive his second and final round of systemic therapy starting today. 2. pain management consult for rectal pain related to cancer and chronic back pain referred. 3. Mucositis secondary to 5-FU worsened by ongoing alcohol consumption, continue supportive treatment with lidocaine-based mouth wash and analgesia. Improved but expect a relapse with the upcoming round of chemotherapy and continued consumption of alcohol 4. Electrolyte imbalance, hypokalemia and hypomagnesemia secondary to HCTZ and diarrhea, continue support with IV fluids and parenteral potassium and magnesium as needed. Improved. 5. Diarrhea/strangury secondary to anal cancer and therapy, continue supportive treatment and use Imodium as needed. Use a stool softener when constipated especially and regularly using narcotic analgesia 6. Ongoing alcohol dependence . 7. We will continue with weekly toxicity evaluation. 8. Instructed to stay off HCTZ for the time being. Comorbid conditions: Alcohol and cigarette dependence, chronic back pain, GERD, fatty and alcoholic liver disease. Patient was seen with his impression and plan discussed, cutting down on cigarettes and alcohol was advised. Medications: Prescriptions This Visit Medication Instructions Recorded Omeprazole [Prilosec] 1 tab PO DAILY 05/12/18 Magic Mouth Wash 10 ml PO 4X/DAY PRN PRN 7 Days 05/28/18 Primary Care Provider: No Primary Care Phys Referring Provider: 06/19/18 1030 <Electronically signed by Becki Trevino MD> Date Becki Trevino MD Cosigner Signature: Date (if applicable) CC: CBC W/DIFF, AUTOMATED Collected: 06/19/2018 Status: F Source: [place] 9:29 AM [facility] REPOSITORY TYPE CODE TESTS RESULT OUT OF RANGE REFERENCE UNITS LAB L100.1000 4.4-11.0 K/mm3 Low WBC 3.2 LAB L100.1200 4.6-6.2 M/mm3 Low RBC 3.33 LAB L100.1300 13.0-16.5 g/dl Low HGB 11.8 LAB L100.1400 40-54 % Low HCT 34.3 LAB L100.1500 80-94 fL High MCV 103.0 LAB L100.1600 27.0-32.0 pg High MCH 35.4 LAB L100.1700 32-36 g/gl Normal MCHC 34.4 LAB L100.1810 11.6-14.6 % High RDW CV 16.8 LAB L100.1820 35.1-43.9 fl High RDW SD 62.1 LAB L100.1900 150-450 K/mm3 Normal PLT 182 LAB L100.2000 6.2-12.0 fl Normal MPV 8.7 LAB L100.2100 47-70 % Normal NEUT% 51.6 LAB L100.2200 19-41 % Low LY% 15.7 LAB L100.2300 0-10 % High MONO% 29.6 LAB L100.2400 0-5 % Normal EO% 1.9 LAB L100.2500 0-1 % Normal BASO% 0.6 LAB L100.2550 0.0-0.9 % Normal IM GRAN % 0.600 Result Comment: IG% - Immature Granulocytes (promyelocytes, myelocytes and metamyelocytes) > 1% indicates that a LEFT SHIFT is Present. LAB L100.2620 2.0-7.7 X10 3/uL Low Absolute Neut 1.6 LAB L100.2720 0.83-4.51 X10 3/ul Low Absolute Lymph 0.50 LAB L100.5500 ADEQ PLT EST Normal ADEQUATE LAB L100.7500 POLYCHROMASIA Normal 1+ LAB L100.7600 HYPOCHROMASIA Normal RARE LAB L100.7800 MACROCYTE Normal 1+ Performed By: #### L100.0100 #### [facility] [address] [place], [place], [address] COMPREHENSIVE METABOLIC Collected: 06/19/2018 Status: F Source: [facility] 9:29 AM [facility] REPOSITORY TYPE CODE TESTS RESULT OUT OF RANGE REFERENCE UNITS LAB L501.0100 74-106 mg/dL High GLU 147 Result Comment: Fasting Glucose result greater than or equal to 126 mg/dL suggests DIABETES MELLITUS per A.D.A. criteria. Please note revised GLUCOSE reference range effective 2017. LAB L501.1000 7-18 mg/dL Low BUN 4 LAB L501.1100 0.70-1.30 mg/dL Low CREAT,SERUM 0.68 Result Comment: The validity of the calculated GFR AND GFRAA in patients over 70 years has not been determined. Clinical correlation is essential. LAB L501.1110 >60 mL/min Normal EST GFR 122 Result Comment: Non- GFR Calc LAB L501.1115 >60 mL/min Normal EST GFR - AA 148 Result Comment: GFR Calc LAB L501.1255 ml/min Normal Estimated CRCL 66.50 LAB L501.1300 10-20 RATIO Low BUN/CRE 5.9 LAB L501.1500 6.4-8. g/dL Normal 2 T PROT 6.7 LAB L501.1800 3.2-5. g/dL Low 0 ALB 3.0 LAB L501.1950 2.2-4. g/dL Normal 2 GLOB 3.7 LAB L501.2000 0.9-2. RATIO Low 4 A/G 0.8 LAB L501.2200 8.5-10 mg/dL Normal .1 CA 8.5 LAB L501.4100 15-37 U/L Normal AST 33 LAB L501.4305 45-117 U/L Normal ALK P 111 LAB L501.4405 16-61 U/L Normal ALT 32 LAB L501.4600 0.20-1 mg/dL Normal .00 T BILI 0.70 LAB L501.5300 136-14 mmol/L Normal 5 NA 138 LAB L501.5600 3.5-5. mmol/L Normal 1 K 3.7 LAB L501.5900 98-107 mmol/L Normal CL 102 LAB L501.6100 21.0-3 mmol/L Normal 2.0 CO2 25.0 LAB L501.6200 5-15 Normal GAP 11 Performed By: #### L500.4050 #### [facility] [address] [place], [address] COMPREHENSIVE METABOLIC Collected: 06/16/2018 Status: F Source: [facility] 1:43 PM [facility] REPOSITORY Order Comment: Reason for Laboratory Test . TYPE CODE TESTS RESULT OUT OF RANGE REFERENCE UNITS LAB L501.0100 74-106 mg/dL High GLU 163 Result Comment: Fasting Glucose result greater than or equal to 126 mg/dL suggests DIABETES MELLITUS per A.D.A. criteria. Please note revised GLUCOSE reference range effective 2017. LAB L501.1000 7-18 mg/dL Normal BUN 7 LAB L501.1100 0.70-1.30 mg/dL Low CREAT,SERUM 0.63 Result Comment: The validity of the calculated GFR AND GFRAA in patients over 70 years has not been determined. Clinical correlation is essential. LAB L501.1110 >60 mL/min Normal EST GFR 133 Result Comment: Non- GFR Calc LAB L501.1115 >60 mL/min Normal EST GFR - AA 161 Result Comment: GFR Calc LAB L501.1255 ml/min Normal Estimated CRCL 66.50 LAB L501.1300 10-20 RATIO Normal BUN/CRE 11.1 LAB L501.1500 6.4-8. g/dL Normal 2 T PROT 6.4 LAB L501.1800 3.2-5. g/dL Low 0 ALB 2.8 LAB L501.1950 2.2-4. g/dL Normal 2 GLOB 3.6 LAB L501.2000 0.9-2. RATIO Low 4 A/G 0.8 LAB L501.2200 8.5-10 mg/dL Normal .1 CA 8.6 LAB L501.4100 15-37 U/L Normal AST 34 LAB L501.4305 45-117 U/L Normal ALK P 106 LAB L501.4405 16-61 U/L Normal ALT 36 LAB L501.4600 0.20-1 mg/dL Normal .00 T BILI 0.60 LAB L501.5300 136-14 mmol/L Normal 5 NA 136 LAB L501.5600 3.5-5. mmol/L Normal 1 K 3.9 LAB L501.5900 98-107 mmol/L Normal CL 99 LAB L501.6100 21.0-3 mmol/L Normal 2.0 CO2 28.0 LAB L501.6200 5-15 Normal GAP 9 Performed By: #### L500.4050, L501.5200 #### [facility] [address] [place], [place], [address] MAGNESIUM Collected: 06/16/2018 Status: F Source: [place] 1:43 PM [facility] REPOSITORY Order Comment: Reason for Laboratory Test . TYPE CODE TESTS RESULT OUT OF RANGE REFERENCE UNITS LAB L501.5200 1.6-2.6 mg/dL Low MG 1.5 Performed By: #### L500.4050, L501.5200 #### [facility] [address] [place], [place], [address] CBC W/DIFF, AUTOMATED Collected: 06/16/2018 Status: C Source: [place] 1:43 PM [facility] REPOSITORY Order Comment: Reason for Laboratory Test . TYPE CODE TESTS RESULT OUT OF RANGE REFERENCE UNITS LAB L100.1000 4.4-11.0 K/mm3 Low WBC 3.4 LAB L100.1200 4.6-6.2 M/mm3 Low RBC 3.14 LAB L100.1300 13.0-16.5 g/dl Low HGB 11.2 LAB L100.1400 40-54 % Low HCT 32.0 LAB L100.1500 80-94 fL High MCV 101.9 LAB L100.1600 27.0-32.0 pg High MCH 35.7 LAB L100.1700 32-36 g/gl Normal MCHC 35.0 LAB L100.1810 11.6-14.6 % High RDW CV 16.7 LAB L100.1820 35.1-43.9 fl High RDW SD 59.7 LAB L100.1900 150-450 K/mm3 Normal PLT 187 LAB L100.2000 6.2-12.0 fl Normal MPV 8.9 LAB L100.2100 47-70 % Normal NEUT% 61.9 LAB L100.2200 19-41 % Low LY% 11.0 LAB L100.2300 0-10 % High MONO% 25.6 LAB L100.2400 0-5 % Normal EO% 0.6 LAB L100.2500 0-1 % Normal BASO% 0.3 LAB L100.2550 0.0-0.9 % Normal IM GRAN % 0.600 Result Comment: IG% - Immature Granulocytes (promyelocytes, myelocytes and metamyelocytes) > 1% indicates that a LEFT SHIFT is Present. LAB L100.2620 2.0-7.7 X10 3/uL Absolute Neut Normal 2.1 LAB L100.2720 0.83-4.51 X10 3/ul Low Absolute Lymph 0.38 LAB L100.7300 ANISO Normal RARE LAB L100.7500 POLYCHROMASIA Normal RARE LAB L100.9900 PATH REV Normal Reviewed Result Comment: Leukopenia and Macrocytic anemia. Clinical correlation necessary. Vasyl Mcmillan M.D. 06/17/18 AMENDED REPORT 06/17/18 1504 PATH REV previously reported as: November Performed By: #### L100.0100 #### [facility] [address] [place], [address] ONCOLOGY VISIT REPORT Observed: 06/12/2018 Status: F Source: [place] 2:09 PM [facility] REPOSITORY [facility] [address] [place] [address] OFFICE VISIT Date of Service: 06/12/18 1233 MR#: [id number] Acct: [id number] Name: RAJ NORIEGA Rep #: [id number] : 1950 From: Becki Trevino MD Age/Sex: 68/M Location: [facility] Status: Signed - Problem List (1) Primary anal squamous cell carcinoma Status: Acute (2) Mass of both adrenal glands Status: Chronic (3) Hypomagnesemia Status: Acute (4) Diarrhea Status: Acute Qualifiers: Diarrhea type: unspecified type Qualified Code(s): R19.7 - Diarrhea, unspecified (5) Dehydration Status: Acute (6) Hypokalemia Status: Acute (7) Mucositis (ulcerative) due to antineoplastic therapy Status: Acute - Date of Service Date of Service:: 06/12/18 - Chief Complaint Anal cancer on treatment - History of Present Illness Patient is a 68-year-old male who wishes to transfer his care from the [facility]. He has a history of alcohol and tobacco dependence. He has had increasing rectal pain and bleeding over the past few months and on April 14, 2018 he had a very limited sigmoidoscopy that revealed a large ulcer in the distal rectum to the dentate line with cavitation and biopsies then were not possible due to pain. On April 17 he was able to undergo a full colonoscopy when again a large ulcerated mass in the distal rectum extending into the anal verge multiple biopsies were done then revealing a squamous carcinoma. 2 sigmoid polyps were resected and were found to represent tubular adenomas. The patient was referred to oncology at the [place] though has not been seen yet and wishes to receive care closer to home. He was seen by Dr. Cebul, who advised consultation with medical and radiation oncology. A CT scan of the abdomen and pelvis May 07, 2018: IMPRESSION: Bilateral adrenal masses as described. These are not typical for adrenal adenomas and correlation with MRI is recommended. Soft tissue mass seen in the anterior aspect of the rectum extending caudally into the anal region. Inhomogeneously enlarged prostate gland. CT scan of the chest May 07, 2018: IMPRESSION: Findings suggestive of a linear scarring in the right middle lobe and possible focal area of scarring in the posterior aspect of the medial segment of the left upper lobe. PET/CT May 12, 2018: MPRESSION: 1. ABNORMAL EXAMINATION INDICATIVE OF MALIGNANT VIABLE NEOPLASM. 2. Increased glucose concentration noted at the level of the distal rectal vault, anal verge fulfills quantitative criteria for neoplastic infiltration. 3. No other quantitatively significant hypermetabolic abnormalities are noted. There is no definitive scintigraphic evidence of distant metastatic Treatment: Combined chemo therapy (mitomycin-C and 5-FU) and radiation May 22, 2018- - Past Medical/Social History Past Medical History Other Cancer History: ANAL SQUAMOUS CELL CA Social History Social History: No changes Smoking Status Current every day smoker Review of Systems Constitutional:: Reports: Weakness, Fatigue, - - Mouth sores improved this week. Denies: Fever, Sweats, Weight loss, Appetite change, Chills Cardiovascular:: Reports: Dyspnea on exertion. Denies: Chest pain, Palpitations, Orthopnea, PND, Shortness of breath Respiratory: Reports: Shortness of breath upon exertion. Denies: Cough, Hemoptysis, Shortness of Breath, Wheezing Gastrointestinal:: Reports: Diarrhea - Frequent but generally small volume bowel movements no further rectal bleeds, - - Applying topical burn cream to the perianal area. Denies: Abdominal pain, Nausea, Vomiting, Constipation, Hematochezia Genitourinary: Denies: Dysuria, Hematuria, 15, Flank pain Musculoskeletal:: Denies: Back pain, Myalgia, Arthralgia Skin: Denies: Rash, Skin Changes, Wounds Neurological:: Denies: Headache, Dizziness, Visual changes, Tinnitus, Hearing loss Psychiatric: Denies: Anxiety, Depression, Homicidal Ideations, Suicidal Ideations Comment: 4-6 beers daily Vital Signs Height 5 ft 8 in Weight: 71.849 kg Weight in Pounds 158.4 lbs BMI 24.6 Pulse Ox 96 - Physical Exam General: Alert, Oriented x3, No apparent distress, - - ECOG 2 Seen in a wheelchair HEENT: Atraumatic, PERRLA, EOMI, Normocephalic Oropharynx:: Dry mucosa, - - Mucositis almost completely resolved Neck:: Supple, Trachea midline, - - Port okay. Negative for: JVD, bilateral Cardiac:: Regular rate, Regular rhythm, Normal S1, Normal S2. Negative for: Murmur Lungs: Clear to auscultation, Diminished, Excusion symmetrical. Negative for: Rhonchi, Wheezes Abdomen:: Soft, Non-tender, Non-distended. Negative for: Hepatosplenomegaly Extremities:: Negative for: Cyanosis, Edema Neurological: Neuro grossly intact Skin:: Negative for: Lesions, Rash, Petechiae, Ecchymosis Psychiatric:: Appropriate affect, Euthymic Lymphatics:: Negative for: Cervical lymphadenopathy, Supraclavicular lymphadenopathy Laboratory Data: Microbiology 06/03/18 14:40 Blood Culture - Final Blood Culture (Wb) - Anticubital Right No growth in 5 days. 06/03/18 14:45 Blood Culture - Final Blood Culture (Wb) - Port No growth in 5 days. Laboratory Tests WBC 3.2 L (4.4-11.0) K/mm3 RBC 3.07 L (4.6-6.2) M/mm3 Diagnostic Data: Diagnostic Data PET, CT Tumor Imaging 05/12/18 10:26 IMPRESSION: 1. ABNORMAL EXAMINATION INDICATIVE OF MALIGNANT VIABLE NEOPLASM. 2. Increased glucose concentration noted at the level of the distal rectal vault, anal verge fulfills quantitative criteria for neoplastic infiltration. 3. No other quantitatively significant hypermetabolic abnormalities are noted. There is no definitive scintigraphic evidence of distant metastatic disease. Electronic Signature Casimiro Monaco D.O. 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 We will start combined modality therapy today May 22, 2018 and will be monitored on a weekly basis for supportive treatment. 2-Indeterminate bilateral adrenal masses not PET avid, unlikely metastatic. Plan: 1. Started sphincter sparing concomitant chemo therapy (mitomycin and 5-FU by CIV) and radiation therapy May 22, 2018. Radical surgery will be reserved for failure to achieve complete remission of his disease at the conclusion of treatment. 2. pain management consult for rectal pain related to cancer and chronic back pain referred. 3. Mucositis secondary to 5-FU worsened by ongoing alcohol consumption, continue supportive treatment with lidocaine-based mouth wash and analgesia. Improving 4. Electrolyte imbalance, hypokalemia and hypomagnesemia secondary to HCTZ and diarrhea, continue support with IV fluids and parenteral potassium and magnesium. Improving. 5. Diarrhea/strangury secondary to anal cancer and therapy, continue supportive treatment and use Imodium as needed. 6. Ongoing alcohol dependence though he is cutting down, no DTs. 7. Poor oral intake due to anorexia, loss of taste, and mucositis; diet reviewed and will continue to support with IV fluids. 8. We will continue with weekly toxicity evaluation. 9. Instructed to stay off HCTZ for the time being. Comorbid conditions: Alcohol and cigarette dependence, chronic back pain, GERD, fatty and alcoholic liver disease. Patient was seen with his impression and plan discussed, cutting down on cigarettes and alcohol was advised. Medications: Prescriptions This Visit Medication Instructions Recorded Omeprazole [Prilosec] 1 tab PO DAILY 05/12/18 Primary Care Provider: Shari Primary Care Phys Referring Provider: 06/12/18 1409 <Electronically signed by Becki Trevino MD> Date Becki Trevino MD Cosigner Signature: Date (if applicable) CC: CBC W/DIFF, AUTOMATED Collected: 06/12/2018 Status: F Source: [place] 11:57 AM [facility] REPOSITORY TYPE CODE TESTS RESULT OUT OF RANGE REFERENCE UNITS LAB L100.1000 4.4-11.0 K/mm3 Low WBC 3.2 LAB L100.1200 4.6-6.2 M/mm3 Low RBC 3.07 LAB L100.1300 13.0-16.5 g/dl Low HGB 11.0 LAB L100.1400 40-54 % Low HCT 31.0 LAB L100.1500 80-94 fL High MCV 101.0 LAB L100.1600 27.0-32.0 pg High MCH 35.8 LAB L100.1700 32-36 g/gl Normal MCHC 35.5 LAB L100.1810 11.6-14.6 % High RDW CV 14.8 LAB L100.1820 35.1-43.9 fl High RDW SD 45.8 LAB L100.1900 150-450 K/mm3 Normal PLT 154 LAB L100.2000 6.2-12.0 fl Normal MPV 9.5 LAB L100.2100 47-70 % Normal NEUT% 63.2 LAB L100.2200 19-41 % Low LY% 14.9 LAB L100.2300 0-10 % High MONO% 20.0 LAB L100.2400 0-5 % Normal EO% 0.3 LAB L100.2500 0-1 % Normal BASO% 0.6 LAB L100.2550 0.0-0.9 % High IM GRAN % 1.000 Result Comment: IG% - Immature Granulocytes (promyelocytes, myelocytes and metamyelocytes) > 1% indicates that a LEFT SHIFT is Present. LAB L100.2620 2.0-7.7 X10 3/uL Normal Absolute Neut 2.0 LAB L100.2720 0.83-4.51 X10 3/ul Low Absolute Lymph 0.47 Performed By: #### L100.0100 #### [facility] [address] [place] [place], [address] BASIC METABOLIC Collected: 06/12/2018 Status: F Source: [place] [facility] ([facility]) 11:57 AM [facility] REPOSITORY TYPE CODE TESTS RESULT OUT OF RANGE REFERENCE UNITS LAB L501.0100 74-106 mg/dL High GLU 138 Result Comment: Fasting Glucose result greater than or equal to 126 mg/dL suggests DIABETES MELLITUS per A.D.A. criteria. Please note revised GLUCOSE reference range effective 2017. LAB L501.1000 7-18 mg/dL Low BUN 4 LAB L501.1100 0.70-1.30 mg/dL Low CREAT,SERUM 0.67 Result Comment: The validity of the calculated GFR AND GFRAA in patients over 70 years has not been determined. Clinical correlation is essential. LAB L501.1110 >60 mL/min Normal EST GFR 125 Result Comment: Non- GFR Calc LAB L501.1115 >60 mL/min Normal EST GFR - AA 151 Result Comment: GFR Calc LAB L501.1255 ml/min Normal Estimated CRCL 66.50 LAB L501.1300 10-20 RATIO Low BUN/CRE 6.0 LAB L501.2200 8.5-10 mg/dL Normal .1 CA 8.6 LAB L501.5300 136-14 mmol/L Normal 5 NA 137 LAB L501.5600 3.5-5. mmol/L Normal 1 K 3.9 LAB L501.5900 98-107 mmol/L Normal CL 100 LAB L501.6100 21.0-3 mmol/L Normal 2.0 CO2 28.0 LAB L501.6200 5-15 Normal GAP 9 Performed By: #### L500.2500, L501.5200 #### [facility] [address] [place], [address] MAGNESIUM Collected: 06/12/2018 Status: F Source: [place] 11:57 AM [facility] REPOSITORY TYPE CODE TESTS RESULT OUT OF RANGE REFERENCE UNITS LAB L501.5200 1.6-2.6 mg/dL Low MG 1.4 Performed By: #### L500.2500, L501.5200 #### [facility] [address] [place], [address] RADIATION ONCOLOGY Observed: 06/11/2018 Status: F Source: [place] VISIT 3:33 PM [facility] REPOSITORY [facility] 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 Plan was made to treat with definitive THERMODYNAMICS TEACHER with 5FU and MMC and SIB with 5400 cGy to anal disease with 2.5 cm margin and 4500 cGy to elective LNs (perirectal, presacral, internal iliac, external iliac, and inguinal), all in 30 fractions. Treatment Data: Treatment Site: Anal Canal and pelvic LNs Current total dose/Total dose planned: 2880 cGy / 5400 cGy Fraction number: Chemotherapy: 5FU and MMC (cycle 1 initiated on day 3 (05/22/18) due to delay getting PORT) Subjective: Reports fevers at home up to 101-102, resolved Pain: -, not using pain medication as prescribed Skin: anal irritation and erythema, very raw and painful. Not following recommendations regarding management with sitz bath, continued use of lidocaine/aquaphor, or diarrhea management to reduce stool in the area. BM: multiple loose stool per day (mostly at night), sometimes diarrhea. Has leakage of mucus and discomfort. Occasional minimal bleeding. Not taking imodium as Rx'ed Mucositis: developed painful mouth sores involving both lips and oral cavity/oropharynx, using salt gargles. Not using MMW or lidocaine. improved Nausea: none Fatigue: mild Height/Weight/BMI: Height: 5 ft 8 in Weight: Baseline 160 lbs (05/21/18: 160.5 lbs, 05/28/18: 157.4 lbs, 06/03/18: 157.2 lbs, 06/11/18: 158.4 lbs) Vital Signs Temperature 98.0 F 06/11/18 13:36 Temperature Source Temporal Artery 06/11/18 13:36 Pulse Rate 86 06/11/18 13:36 Respiratory Rate 16 06/11/18 13:36 Objective: Gen: NAD Skin: dequan-anal erythema noted. no desquamation involving dequan-anal skin or groin Laboratory Tests WBC 8.9 Hgb 16.5 Plt Count 225 Absolute Neuts (auto) 5.6 Laboratory Tests 06/09/18: chem 7 unremarkable Assessment: Tolerating radiation well overall. All treatment related imaging reviewed and approved, good bladder filling. Heavy alcohol use (12 cans of beer per day) and smoking (2 ppd), continuing during treatment as he is unwilling to quit. Loose stool/diarrhea, some mucus leakage Pain involving anus , not using sitz bath oral sores/mucositis much improved very unreliable Plan: Continue treatment as planned Pain: lidocaine/aquaphor mixture in anal region throughout the day. silvadene on desquamation. oxycodone prn Diarrhea: careful use of dietary modification and imodium scheduled, continue fluid intake Reviewed skin care management using lotion in the groin and dequan-anal region hypokalemia: related to diarrhea and oral sores/low intake. Replacement per med onc Reviewed recommended use of Sitz bath multiple times per day to keep anal region clean and use anal creams as noted above. Patient doesn't follow instructions Will check labs tomorrow per med onc Mucositis: MMW, viscous lidocaine. Resolved Weight: stable, continue supplements as recommended. Continue regular IVF given reduced intake due to mucositis. Recommend using pads for mucus leakage Follow up next week or sooner if needed Thank you for allowing me to participate in the management and care of your patient. If I may answer any questions in the interim, please do not hesitate to contact me at any time. Hugo Jim DO, MS Vault Custodian, Department of Radiation Oncology [facility] 06/11/18 4820 <Electronically signed by Hugo Jim DO> Date Hugo Jim DO Cosigner Signature: Date (if applicable) CC: BASIC METABOLIC Collected: 06/09/2018 Status: F Source: HARVE[place] PROFILE (BMP) 1:30 PM [facility] REPOSITORY TYPE CODE TESTS RESULT OUT OF RANGE REFERENCE UNITS LAB L501.0100 74-106 mg/dL Normal GLU 99 Result Comment: Please note revised GLUCOSE reference range effective 2017. LAB L501.1000 7-18 mg/dL Normal BUN 7 LAB L501.1100 0.70-1.30 mg/dL Low CREAT,SERUM 0.65 Result Comment: The validity of the calculated GFR AND GFRAA in patients over 70 years has not been determined. Clinical correlation is essential. LAB L501.1110 >60 mL/min Normal EST GFR 129 Result Comment: Non- GFR Calc LAB L501.1115 >60 mL/min Normal EST GFR - AA 156 Result Comment: GFR Calc LAB L501.1255 ml/min Normal Estimated CRCL 66.50 LAB L501.1300 10-20 RATIO Normal BUN/CRE 10.7 LAB L501.2200 8.5-10 mg/dL Normal .1 CA 8.5 LAB L501.5300 136-14 mmol/L Normal 5 NA 137 LAB L501.5600 3.5-5. mmol/L Normal 1 K 4.2 LAB L501.5900 98-107 mmol/L Normal CL 104 LAB L501.6100 21.0-3 mmol/L Normal 2.0 CO2 24.0 LAB L501.6200 5-15 Normal GAP 9 Performed By: #### L500.2500, L501.5200 #### [facility] [address] [place], [address] MAGNESIUM Collected: 06/09/2018 Status: F Source: HARVEY 1:30 PM [facility] REPOSITORY TYPE CODE TESTS RESULT OUT OF RANGE REFERENCE UNITS LAB L501.5200 1.6-2.6 mg/dL Low MG 1.3 Performed By: #### L500.2500, L501.5200 #### [facility] [address] [place], [address] CBC W/DIFF, AUTOMATED Collected: 06/06/2018 Status: C Source: HARVEY 10:41 AM [facility] REPOSITORY Order Comment: Reason for Laboratory Test . TYPE CODE TESTS RESULT OUT OF RANGE REFERENCE UNITS LAB L100.1000 4.4-11.0 K/mm3 Low WBC 3.4 LAB L100.1200 4.6-6.2 M/mm3 Low RBC 3.22 LAB L100.1300 13.0-16.5 g/dl Low HGB 11.4 LAB L100.1400 40-54 % Low HCT 31.6 LAB L100.1500 80-94 fL High MCV 98.1 LAB L100.1600 27.0-32.0 pg High MCH 35.4 LAB L100.1700 32-36 g/gl High MCHC 36.1 LAB L100.1810 11.6-14.6 % Normal RDW CV 12.5 LAB L100.1820 35.1-43.9 fl Normal RDW SD 42.3 LAB L100.1900 150-450 K/mm3 Low PLT 66 LAB L100.2000 6.2-12.0 fl Normal MPV 10.2 LAB L100.2100 47-70 % Normal NEUT% 63.9 LAB L100.2200 19-41 % Normal LY% 19.2 LAB L100.2300 0-10 % High MONO% 12.7 LAB L100.2400 0-5 % Normal EO% 0.9 LAB L100.2500 0-1 % Normal BASO% 0.9 LAB L100.2550 0.0-0.9 % High IM GRAN % 2.400 Result Comment: IG% - Immature Granulocytes (promyelocytes, myelocytes and metamyelocytes) > 1% indicates that a LEFT SHIFT is Present. LAB L100.2620 2.0-7.7 X10 3/uL Normal Absolute Neut 2.2 LAB L100.2720 0.83-4.51 X10 3/ul Low Absolute Lymph 0.65 LAB L100.9900 Normal PATH REV Reviewed Result Comment: Pancytopenia. Clinical correlation necessary. Vasyl Mcmillan M.D. 06/09/18 AMENDED REPORT 06/09/18 1053 PATH REV previously reported as: November mervat Performed By: #### L100.0100 #### [facility] [address] [place], [place], [address] BASIC METABOLIC Collected: 06/06/2018 Status: F Source: [place] PROFILE (BMP) 10:41 AM [facility] REPOSITORY Order Comment: Reason for Laboratory Test . Reason for Laboratory Test . TYPE CODE TESTS RESULT OUT OF RANGE REFERENCE UNITS LAB L501.0100 74-106 mg/dL High GLU 117 Result Comment: Fasting Glucose result from 100 to 125 mg/dL suggests IMPAIRED HOMEOSTASIS per A.D.A. criteria. Please note revised GLUCOSE reference range effective 2017. LAB L501.1000 7-18 mg/dL Normal BUN 9 LAB L501.1100 0.70-1.30 mg/dL Normal CREAT,SERUM 0.79 Result Comment: The validity of the calculated GFR AND GFRAA in patients over 70 years has not been determined. Clinical correlation is essential. LAB L501.1110 >60 mL/min Normal EST GFR 102 Result Comment: Non- GFR Calc LAB L501.1115 >60 mL/min Normal EST GFR - AA 124 Result Comment: GFR Calc LAB L501.1255 ml/min Normal Estimated CRCL 66.50 LAB L501.1300 10-20 RATIO Normal BUN/CRE 11.3 LAB L501.2200 8.5-10 mg/dL Normal .1 CA 9.3 LAB L501.5300 136-14 mmol/L Normal 5 NA 141 LAB L501.5600 3.5-5. mmol/L Low 1 K 3.4 LAB L501.5900 98-107 mmol/L Normal CL 98 LAB L501.6100 21.0-3 mmol/L Normal 2.0 CO2 31.0 LAB L501.6200 5-15 Normal GAP 12 Performed By: #### L500.2500, L503.6030, L503.6550 #### [facility] [address] [place], [address] IRON+IRON BINDING Collected: 06/06/2018 Status: F Source: HARVEY CAPACITY 10:41 AM [facility] REPOSITORY Order Comment: Reason for Laboratory Test . Reason for Laboratory Test . TYPE CODE TESTS RESULT OUT OF RANGE REFERENCE UNITS LAB L503.6075 250-450 ug/dL Low TIBC 172 LAB L503.6150 65-175 ug/dL IRON Normal 101 LAB L503.6250 15.0-55.0 % High IRON SATURATION 58.7 Performed By: #### L500.2500, L503.6030, L503.6550 #### [facility] [address] [place], [address] FERRITIN Collected: 06/06/2018 Status: F Source: HARVEY 10:41 AM [facility] REPOSITORY Order Comment: Reason for Laboratory Test . Reason for Laboratory Test . TYPE CODE TESTS RESULT OUT OF REFERENCE UNITS RANGE LAB L503.6550 26-388 ng/mL High FERRITIN 1416 Performed By: #### L500.2500, L503.6030, L503.6550 #### [facility] [address] [place], [address] ONCOLOGY VISIT REPORT Observed: 06/04/2018 Status: F Source: HARVEY 2:50 PM [facility] REPOSITORY [facility] [address] [place] [address] OFFICE VISIT Date of Service: 06/04/18 1421 MR#: [id number] Acct: [id number] Name: RAJ NORIEGA Rep #: [id number] : 1950 From: Becki Trevino MD Age/Sex: 68/M Location: [facility] Status: Signed - Problem List (1) Primary anal squamous cell carcinoma Status: Acute (2) Mass of both adrenal glands Status: Chronic (3) Hypomagnesemia Status: Acute (4) Diarrhea Status: Acute Qualifiers: Diarrhea type: unspecified type Qualified Code(s): R19.7 - Diarrhea, unspecified (5) Dehydration Status: Acute (6) Hypokalemia Status: Acute (7) Mucositis (ulcerative) due to antineoplastic therapy Status: Acute - Date of Service Date of Service:: 06/04/18 - Chief Complaint Anal cancer on treatment - History of Present Illness Patient is a 68-year-old male who wishes to transfer his care from the [facility]. He has a history of alcohol and tobacco dependence. He has had increasing rectal pain and bleeding over the past few months and on April 14, 2018 he had a very limited sigmoidoscopy that revealed a large ulcer in the distal rectum to the dentate line with cavitation and biopsies then were not possible due to pain. On April 17 he was able to undergo a full colonoscopy when again a large ulcerated mass in the distal rectum extending into the anal verge multiple biopsies were done then revealing a squamous carcinoma. 2 sigmoid polyps were resected and were found to represent tubular adenomas. The patient was referred to oncology at the [place] though has not been seen yet and wishes to receive care closer to home. He was seen by Dr. Goodwin, who advised consultation with medical and radiation oncology. A CT scan of the abdomen and pelvis May 07, 2018: IMPRESSION: Bilateral adrenal masses as described. These are not typical for adrenal adenomas and correlation with MRI is recommended. Soft tissue mass seen in the anterior aspect of the rectum extending caudally into the anal region. Inhomogeneously enlarged prostate gland. CT scan of the chest May 07, 2018: IMPRESSION: Findings suggestive of a linear scarring in the right middle lobe and possible focal area of scarring in the posterior aspect of the medial segment of the left upper lobe. PET/CT May 12, 2018: MPRESSION: 1. ABNORMAL EXAMINATION INDICATIVE OF MALIGNANT VIABLE NEOPLASM. 2. Increased glucose concentration noted at the level of the distal rectal vault, anal verge fulfills quantitative criteria for neoplastic infiltration. 3. No other quantitatively significant hypermetabolic abnormalities are noted. There is no definitive scintigraphic evidence of distant metastatic Treatment: Combined chemo therapy (mitomycin-C and 5-FU) and radiation May 22, 2018- - Past Medical/Social History Past Medical History Other Cancer History: ANAL SQUAMOUS CELL CA Social History Social History: No changes Smoking Status Current every day smoker Review of Systems Constitutional:: Reports: Weakness, Fatigue, Fever - Low-grade 99 past 24 hours, Weight loss, Appetite change, - - Soreness in mouth, limiting oral intake, yet still consumes alcohol, but down to 2 beers a day it mercado but I cannot quit. Denies: Sweats, Chills Cardiovascular:: Denies: Chest pain, Palpitations, Dyspnea on exertion, Orthopnea, PND, Shortness of breath Respiratory: Denies: Cough, Hemoptysis, Shortness of Breath, Wheezing Gastrointestinal:: Reports: Diarrhea - Frequent, mixed with mucus, not large volume, occasional incontinence, Hematochezia, Dysphagia - Painful, - - Mouth soreness, anal pain and raw skin using topical burn cream as instructed by radiation oncology. Denies: Abdominal pain, Nausea, Vomiting, Constipation Genitourinary: Denies: Dysuria, Hematuria, 15, Flank pain Musculoskeletal:: Denies: Back pain, Myalgia, Arthralgia Skin: Denies: Rash, Skin Changes, Wounds Neurological:: Denies: Headache, Dizziness, Visual changes, Tinnitus, Hearing loss Psychiatric: Denies: Anxiety, Depression, Homicidal Ideations, Suicidal Ideations Vital Signs Height 5 ft 8 in Weight: 71.849 kg Weight in Pounds 158.4 lbs BMI 24.6 Pulse Ox 100 - Physical Exam General: Alert, Oriented x3, No apparent distress, - - ECOG 2, seen in a wheelchair HEENT: Atraumatic, PERRLA, EOMI, Normocephalic Oropharynx:: - - Mucositis most pronounced at the lips Neck:: Supple, Trachea midline, - - Port okay. Negative for: JVD, bilateral Cardiac:: Regular rate, Regular rhythm, Normal S1, Normal S2. Negative for: Murmur Lungs: Clear to auscultation, Excusion symmetrical. Negative for: Rhonchi, Wheezes Abdomen:: Soft, Non-tender, Non-distended. Negative for: Hepatosplenomegaly Extremities:: Negative for: Cyanosis, Edema Neurological: Neuro grossly intact Skin:: Negative for: Rash, Ecchymosis Psychiatric:: Appropriate affect, Euthymic Lymphatics:: Negative for: Cervical lymphadenopathy, Supraclavicular lymphadenopathy Laboratory Data: Laboratory Tests WBC 2.8 L 2.8 L (4.4-11.0) K/mm3 RBC 3.06 L 3.05 L (4.6-6.2) M/mm3 Hgb 10.8 L 10.0 L (13.0-16.5) g/dl Hct 29.6 L 29.0 L (40-54) % Diagnostic Data: Diagnostic Data PET, CT Tumor Imaging 05/12/18 10:26 IMPRESSION: 1. ABNORMAL EXAMINATION INDICATIVE OF MALIGNANT VIABLE NEOPLASM. 2. Increased glucose concentration noted at the level of the distal rectal vault, anal verge fulfills quantitative criteria for neoplastic infiltration. 3. No other quantitatively significant hypermetabolic abnormalities are noted. There is no definitive scintigraphic evidence of distant metastatic disease. Electronic Signature Casimiro Monaco D.O. 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 We will start combined modality therapy today May 22, 2018 and will be monitored on a weekly basis for supportive treatment. 2-Indeterminate bilateral adrenal masses not PET avid, unlikely metastatic. Plan: 1. Started sphincter sparing concomitant chemo therapy (mitomycin and 5-FU by [facility]) and radiation therapy May 22, 2018. Radical surgery will be reserved for failure to achieve complete remission of his disease at the conclusion of treatment. 2. pain management consult for rectal pain related to cancer and chronic back pain referred. 3. Mucositis secondary to 5-FU worsened by ongoing alcohol consumption, continue supportive treatment with lidocaine-based mouth wash and analgesia. 4. Electrolyte imbalance, hypokalemia and hypomagnesemia secondary to HCTZ and diarrhea, continue support with IV fluids and parenteral potassium and magnesium. Hold HCTZ due to poor oral intake. 5. Diarrhea/strangury secondary to anal cancer and therapy, continue supportive treatment and use Imodium as needed. 6. Ongoing alcohol dependence though he is cutting down, no DTs. 7. Poor oral intake due to anorexia, loss of taste, and mucositis; diet reviewed and will support with IV fluids. 8. We will continue with twice weekly blood work and weekly toxicity evaluation. 9. On empiric antibiotics with Augmentin and Cipro following a low-grade fever but without neutropenia. Comorbid conditions: Alcohol and cigarette dependence, chronic back pain, GERD, fatty and alcoholic liver disease. Patient was seen with his impression and plan discussed, cutting down on cigarettes and alcohol was advised. Medications: Prescriptions This Visit Medication Instructions Recorded Medications Added to Medication List This Visit 0.9% Normal Saline 1,000 ml Med 06/04/18 14:15 Active Potassium Chloride 40 meq Magnesium Sulfate 2 gm IV 512 mls/hr Primary Care Provider: No Primary Care Phys Referring Provider: 06/04/18 2630 <Electronically signed by Becki Trevino MD> Date Becki Campos Signature: Date (if applicable) CC: COMPREHENSIVE METABOLIC Collected: 06/04/2018 Status: F Source: HARVEY BRANDT 1:26 PM [facility] REPOSITORY Order Comment: Reason for Laboratory Test . TYPE CODE TESTS RESULT OUT OF RANGE REFERENCE UNITS LAB L501.0100 74-106 mg/dL High GLU 144 Result Comment: Fasting Glucose result greater than or equal to 126 mg/dL suggests DIABETES MELLITUS per A.D.A. criteria. Please note revised GLUCOSE reference range effective 2017. LAB L501.1000 7-18 mg/dL Normal BUN 9 LAB L501.1100 0.70-1.30 mg/dL Low CREAT,SERUM 0.60 Result Comment: The validity of the calculated GFR AND GFRAA in patients over 70 years has not been determined. Clinical correlation is essential. LAB L501.1110 >60 mL/min Normal EST GFR 141 Result Comment: Non- GFR Calc LAB L501.1115 >60 mL/min Normal EST GFR - AA 170 Result Comment: GFR Calc LAB L501.1255 ml/min Normal Estimated CRCL 66.50 LAB L501.1300 10-20 RATIO Normal BUN/CRE 14.9 LAB L501.1500 6.4-8. g/dL Low 2 T PROT 6.0 LAB L501.1800 3.2-5. g/dL Low 0 ALB 2.6 LAB L501.1950 2.2-4. g/dL Normal 2 GLOB 3.4 LAB L501.2000 0.9-2. RATIO Low 4 A/G 0.8 LAB L501.2200 8.5-10 mg/dL Low .1 CA 8.1 LAB L501.4100 15-37 U/L High AST 72 LAB L501.4305 45-117 U/L Normal ALK P 86 LAB L501.4405 16-61 U/L High ALT 72 LAB L501.4600 0.20-1 mg/dL High .00 T BILI 1.20 LAB L501.5300 136-14 mmol/L Normal 5 NA 136 LAB L501.5600 3.5-5. mmol/L Low 1 K 2.9 LAB L501.5900 98-107 mmol/L Low CL 96 LAB L501.6100 21.0-3 mmol/L Normal 2.0 CO2 30.0 LAB L501.6200 5-15 Normal GAP 10 Performed By: #### L500.4050 #### [facility] [address] [place], [place], [address] CBC W/DIFF, AUTOMATED Collected: 06/04/2018 Status: C Source: HARVEY 1:26 PM [facility] REPOSITORY Order Comment: Reason for Laboratory Test . TYPE CODE TESTS RESULT OUT OF RANGE REFERENCE UNITS LAB L100.1000 4.4-11.0 K/mm3 Low WBC 2.8 LAB L100.1200 4.6-6.2 M/mm3 Low RBC 3.06 LAB L100.1300 13.0-16.5 g/dl Low HGB 10.8 LAB L100.1400 40-54 % Low HCT 29.6 LAB L100.1500 80-94 fL High MCV 96.7 LAB L100.1600 27.0-32.0 pg High MCH 35.3 LAB L100.1700 32-36 g/gl High MCHC 36.5 LAB L100.1810 11.6-14.6 % Normal RDW CV 12.0 LAB L100.1820 35.1-43.9 fl Normal RDW SD 40.1 LAB L100.1900 150-450 K/mm3 Low 54 PLT LAB L100.2000 6.2-12.0 fl Normal MPV 9.8 LAB L100.3100 MANUAL DIFF Normal CELLS COUNTED 100 LAB L100.3200 47-70 % 54 Normal SEGS LAB L100.3400 0-1 % High 2 META LAB L100.3500 0-0 High 2 MYELO LAB L100.3600 0-0 High 4 PROMYELO LAB L100.3800 19-41 % Low 10 LYMPH LAB L100.3900 0-10 % High 27 MONOCYTE LAB L100.4000 0-5 % 1 Normal EOS LAB L100.5500 ADEQ Normal PLT EST MOD DEC LAB L100.7000 NORM C AND C NORMAL Normal RED CELL MORPH NORM C+C LAB L100.2620 2.0-7.7 X10 3/uL Low Absolute Neut 1.5 LAB L100.2720 0.83-4.51 X10 3/ul Low Absolute Lymph 0.28 LAB L100.9900 Normal PATH REV Reviewed Result Comment: Pancytopenia. Clinical correlation necessary. Vasyl Mcmillan M.D. 06/06/18 AMENDED REPORT 06/06/18 1029 PATH REV previously reported as: November Performed By: #### L100.0100 #### [facility] [address] [place], [address] RADIATION ONCOLOGY Observed: 06/03/2018 Status: F Source: [place] VISIT 4:09 PM [facility] REPOSITORY [facility] [address] 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 Plan was made to treat with definitive THERMODYNAMICS TEACHER with 5FU and MMC and SIB with 5400 cGy to anal disease with 2.5 cm margin and 4500 cGy to elective LNs (perirectal, presacral, internal iliac, external iliac, and inguinal), all in 30 fractions. Treatment Data: Treatment Site: Anal Canal and pelvic LNs Current total dose/Total dose planned: 2160 cGy / 5400 cGy Fraction number: Chemotherapy: 5FU and MMC (cycle 1 initiated on day 3 (05/22/18) due to delay getting PORT) Subjective: Reports fevers at home up to 101-102 Pain: 6-8 / 10, not using pain medication as prescribed Skin: anal irritation and erythema. BM: multiple loose stool per day, sometimes diarrhea. Has leakage of mucus and discomfort. Occasional minimal bleeding. Not taking imodium as Rx'ed Mucositis: developed painful mouth sores involving both lips and oral cavity/oropharynx, using salt gargles. Not using MMW or lidocaine. Liquid oxycodone Rx provided 05/30 Nausea: none Fatigue: none Height/Weight/BMI: Height: 5 ft 8 in Weight: Baseline 160 lbs (05/21/18: 160.5 lbs, 05/28/18: 157.4 lbs, 06/03/18: 157.2 lbs) Vital Signs Temperature 98.3 F 06/03/18 15:28 Temperature Source Oral 06/03/18 15:28 Pulse Rate 95 06/03/18 15:28 Respiratory Rate 18 06/03/18 15:28 Objective: Gen: NAD Skin: dequan-anal erythema noted. no desquamation involving dequan-anal skin or groin Laboratory Tests WBC 8.9 Hgb 16.5 Plt Count 225 Absolute Neuts (auto) 5.6 Laboratory Tests Assessment: Tolerating radiation well overall. All treatment related imaging reviewed and approved, good bladder filling. Heavy alcohol use (12 cans of beer per day) and smoking (2 ppd), continuing during treatment as he is unwilling to quit. Loose stool/diarrhea, some mucus leakage Pain involving anus / 10 oral sores/mucositis / home fevers Plan: Continue treatment as planned Pain: lidocaine/aquaphor mixture in anal region throughout the day. Will start silvadene on desquamation. Percocet prn Diarrhea: careful use of dietary modification and imodium as needed, continue fluid intake Reviewed skin care management using lotion in the groin and dequan-anal region hypokalemia: related to diarrhea and oral sores/low intake. Replacement per med onc Reviewed recommended use of Sitz bath multiple times per day to keep anal region clean and use anal creams as noted above. Patient doesn't follow instructions Will check labs tomorrow per med onc Mucositis: MMW, viscous lidocaine, liquid oxycodone Rx provided. Not taking as prescribed Weight: stable, continue supplements as recommended. Continue regular IVF given reduced intake due to mucositis. Recommend using pads for mucus leakage Follow up next week or sooner if needed Thank you for allowing me to participate in the management and care of your patient. If I may answer any questions in the interim, please do not hesitate to contact me at any time. Hugo Jim DO, MS Vault Custodian, Department of Radiation Oncology [facility] 06/03/18 0836 <Electronically signed by Hugo Jim DO> Date Hugo Jim DO Cosigner Signature: Date (if applicable) CC: Observed: 06/03/2018 Status: F Source: HARVEY CULTURE, BLOOD (WB) 2:45 PM [facility] REPOSITORY PORT Has pt arrived? Y BC No growth in 5 days. Performed By: #### M200.1000 #### [facility] [address] [place], [place], [address] Observed: 06/03/2018 Status: F Source: HARVEY CULTURE, BLOOD (WB) 2:40 PM [facility] REPOSITORY Has pt arrived? Y BC No growth in 5 days. Performed By: #### M200.1000 #### [facility] [address] [place], [place], [address] CBC W/DIFF, AUTOMATED Collected: 06/03/2018 Status: F Source: HARVEY 2:22 PM [facility] REPOSITORY Order Comment: STAT ADD ON BLOOD IN LAB Reason for Laboratory Test . TYPE CODE TESTS RESULT OUT OF RANGE REFERENCE UNITS LAB L100.1000 4.4-11.0 K/mm3 Low WBC 2.8 LAB L100.1200 4.6-6.2 M/mm3 Low RBC 3.05 LAB L100.1300 13.0-16.5 g/dl Low HGB 10.0 LAB L100.1400 40-54 % Low HCT 29.0 LAB L100.1500 80-94 fL High MCV 95.1 LAB L100.1600 27.0-32.0 pg High MCH 32.7 LAB L100.1700 32-36 g/gl Normal MCHC 34.4 LAB L100.1810 11.6-14.6 % Normal RDW CV 11.6 LAB L100.1820 35.1-43.9 fl Normal RDW SD 39.3 LAB L100.1900 150-450 K/mm3 Low PLT 52 LAB L100.2000 6.2-12.0 fl Normal MPV 9.8 LAB L100.2100 47-70 % Normal NEUT% 53.7 LAB L100.2200 19-41 % Normal LY% 19.2 LAB L100.2300 0-10 % High MONO% 24.6 LAB L100.2400 0-5 % Normal EO% 1.4 LAB L100.2500 0-1 % Normal BASO% 0.4 LAB L100.2550 0.0-0.9 % Normal IM GRAN % 0.700 Result Comment: IG% - Immature Granulocytes (promyelocytes, myelocytes and metamyelocytes) > 1% indicates that a LEFT SHIFT is Present. LAB L100.2620 2.0-7.7 X10 3/uL Low Absolute Neut 1.5 LAB L100.2720 0.83-4.51 X10 3/ul Low Absolute Lymph 0.53 LAB L100.4500 Normal SMEAR COMMENT SCANNED Result Comment: LYMPHOPENIA NOTED Performed By: #### L100.0100 #### [facility] [address] [place], [place], [address] BASIC METABOLIC Collected: 06/03/2018 Status: F Source: [place] [facility] ([facility]) 1:56 PM [facility] REPOSITORY Order Comment: Reason for Laboratory Test . TYPE CODE TESTS RESULT OUT OF RANGE REFERENCE UNITS LAB L501.0100 74-106 mg/dL High GLU 155 Result Comment: Fasting Glucose result greater than or equal to 126 mg/dL suggests DIABETES MELLITUS per A.D.A. criteria. Please note revised GLUCOSE reference range effective 2017. LAB L501.1000 7-18 mg/dL Normal BUN 10 LAB L501.1100 0.70-1.30 mg/dL Low CREAT,SERUM 0.68 Result Comment: The validity of the calculated GFR AND GFRAA in patients over 70 years has not been determined. Clinical correlation is essential. LAB L501.1110 >60 mL/min Normal EST GFR 122 Result Comment: Non- GFR Calc LAB L501.1115 >60 mL/min Normal EST GFR - AA 148 Result Comment: GFR Calc LAB L501.1255 ml/min Normal Estimated CRCL 66.50 LAB L501.1300 10-20 RATIO Normal BUN/CRE 14.7 LAB L501.2200 8.5-10 mg/dL Low .1 CA 8.1 LAB L501.5300 136-14 mmol/L Low 5 NA 132 LAB L501.5600 3.5-5. mmol/L Low 1 K alert 2.7 Result Comment: Critical Result(s) Called at: 14:33:26 06/03/2018 by: Amy Avilez to Justice LAB L501.5900 98-107 mmol/L Low CL 93 LAB L501.6100 21.0-32.0 mmol/L Normal CO2 32.0 LAB L501.6200 5-15 Normal GAP 7 Performed By: #### L500.2500, L501.5200 #### [facility] [address] [place], [place], [address] MAGNESIUM Collected: 06/03/2018 Status: F Source: [place] 1:56 PM [facility] REPOSITORY Order Comment: Reason for Laboratory Test . TYPE CODE TESTS RESULT OUT OF RANGE REFERENCE UNITS LAB L501.5200 1.6-2.6 mg/dL Low MG 1.5 Performed By: #### L500.2500, L501.5200 #### [facility] [address] [place], [address] BASIC METABOLIC Collected: 06/02/2018 Status: F Source: [place] PROFILE ([facility]) 1:58 PM [facility] REPOSITORY Order Comment: Reason for Laboratory Test . TYPE CODE TESTS RESULT OUT OF RANGE REFERENCE UNITS LAB L501.0100 74-106 mg/dL High GLU 154 Result Comment: Fasting Glucose result greater than or equal to 126 mg/dL suggests DIABETES MELLITUS per A.D.A. criteria. Please note revised GLUCOSE reference range effective 2017. LAB L501.1000 7-18 mg/dL Normal BUN 10 LAB L501.1100 0.70-1.30 mg/dL Low CREAT,SERUM 0.62 Result Comment: The validity of the calculated GFR AND GFRAA in patients over 70 years has not been determined. Clinical correlation is essential. LAB L501.1110 >60 mL/min Normal EST GFR 136 Result Comment: Non- GFR Calc LAB L501.1115 >60 mL/min Normal EST GFR - AA 165 Result Comment: GFR Calc LAB L501.1255 ml/min Normal Estimated CRCL 66.50 LAB L501.1300 10-20 RATIO Normal BUN/CRE 16.1 LAB L501.2200 8.5-10 mg/dL Low .1 CA 8.2 LAB L501.5300 136-14 mmol/L Low 5 NA 127 LAB L501.5600 3.5-5. mmol/L Low 1 K alert 2.6 Result Comment: Critical Result(s) Called at: 14:28:12 06/02/2018 by: Amy Avilez to Deepak LAB L501.5900 98-107 mmol/L Low CL 87 LAB L501.6100 21.0-32.0 mmol/L Normal CO2 31.0 LAB L501.6200 5-15 Normal GAP 9 Performed By: #### L500.2500 #### [facility] [address] [place], [address] ONCOLOGY VISIT REPORT Observed: 05/29/2018 Status: F Source: [place] 9:12 PM [facility] REPOSITORY [facility] [place] [address] OFFICE VISIT Date of Service: 05/29/18 1547 MR#: [id number] Acct: [id number] Name: RAJ NORIEGA Rep #: [id number] : 1950 From: Asya MEDINA Age/Sex: 68/M Location: ONC Status: Signed Subjective - Date of Service Date of Service:: 05/29/18 - Chief Complaint Anal cancer - History of Present Illness Patient is a 68-year-old male who wishes to transfer his care from the [facility]. He has a history of alcohol and tobacco dependence. He has had increasing rectal pain and bleeding over the past few months and on April 14, 2018 he had a very limited sigmoidoscopy that revealed a large ulcer in the distal rectum to the dentate line with cavitation and biopsies then were not possible due to pain. On April 17 he was able to undergo a full colonoscopy when again a large ulcerated mass in the distal rectum extending into the anal verge multiple biopsies were done then revealing a squamous carcinoma. 2 sigmoid polyps were resected and were found to represent tubular adenomas. The patient was referred to oncology [place] the [place] though has not been seen yet and wishes to receive care closer to home. He was seen by Dr. Goodwin, who advised consultation with medical and radiation oncology. A CT scan of the abdomen and pelvis May 07, 2018: IMPRESSION: Bilateral adrenal masses as described. These are not typical for adrenal adenomas and correlation with MRI is recommended. Soft tissue mass seen in the anterior aspect of the rectum extending caudally into the anal region. Inhomogeneously enlarged prostate gland. CT scan of the chest May 07, 2018: IMPRESSION: Findings suggestive of a linear scarring in the right middle lobe and possible focal area of scarring in the posterior aspect of the medial segment of the left upper lobe. PET/CT May 12, 2018: MPRESSION: 1. ABNORMAL EXAMINATION INDICATIVE OF MALIGNANT VIABLE NEOPLASM. 2. Increased glucose concentration noted at the level of the distal rectal vault, anal verge fulfills quantitative criteria for neoplastic infiltration. 3. No other quantitatively significant hypermetabolic abnormalities are noted. There is no definitive scintigraphic evidence of distant metastatic Treatment: Combined chemo therapy (mitomycin-C and 5-FU) and radiation May 22, 2018- - Interval History The patient is presenting to clinic for 1 week follow up. Concerns today include diarrhea and mouth sores. C/o innumerable mouth lesions and painful swallowing x 3 days. Contributing to decreased PO fluid intake and has not able to take in much in terms of solids. Is not performing recommended mouth care and continues to drink 10- 12 cans of beer up until 2 days ago. Reports 10-20 episodes of diarrhea daily, although describes amount with each BM as scant. Was given lidocaine jelly for topical relief by Dr. Jim yesterday but has not used any. Did not take Imodium. Specifically denies dizziness/headaches, fever/chills, CP, palpitations, abd cramping, nausea/vomiting, swelling or pain of his extremities and any numbness/tingling. - Past Medical/Social History Past Medical History Other Cancer History: ANAL SQUAMOUS CELL CA Social History Social History: No changes Smoking Status Current every day smoker Review of Systems Constitutional:: Reports: Weakness, Fatigue, Appetite change. Denies: Fever, Sweats, Weight loss, Chills Cardiovascular:: Reports: Dyspnea on exertion - unchanged. Denies: Chest pain, Palpitations, Orthopnea, PND, Shortness of breath Respiratory: Denies: Cough, Hemoptysis, Shortness of Breath, Wheezing Gastrointestinal:: Reports: Diarrhea. Denies: Abdominal pain, Nausea, Vomiting, Constipation, Hematochezia Genitourinary: Denies: Dysuria, Hematuria, 15, Flank pain Musculoskeletal:: Denies: Back pain, Myalgia, Arthralgia Skin: Denies: Rash, Skin Changes, Wounds Neurological:: Denies: Headache, Dizziness, Numbness, Tingling, Visual changes, Tinnitus, Hearing loss Psychiatric: Denies: Anxiety, Depression, Homicidal Ideations, Suicidal Ideations Vital Signs Height 5 ft 8 in Weight: 157 lb 6.4 oz Weight in Pounds 157.4 lbs BMI 24.6 Pulse Ox 96 - Physical Exam General: Alert, Oriented x3, No apparent distress HEENT: Atraumatic, PERRLA, EOMI, Normocephalic Oropharynx:: Dry mucosa, Ulcerated lesions - diffuse oral mucosa, underside of tongue Neck:: Supple, Trachea midline. Negative for: JVD, bilateral Cardiac:: Regular rate, Regular rhythm, Normal S1, Normal S2. Negative for: Murmur Lungs: Diminished, Excusion symmetrical. Negative for: Rhonchi, Wheezes, Tachypneic, Increased respiratory effort Abdomen:: Bowel sounds x 4, Soft, Non-tender, Non-distended. Negative for: Hepatosplenomegaly Extremities:: Negative for: Cyanosis, Edema Neurological: Neuro grossly intact Skin:: - - port upper chest accessed with gripper covered with DSD. Negative for: Lesions, Rash, Petechiae, Ecchymosis Psychiatric:: Appropriate affect, Euthymic Lymphatics:: Negative for: Cervical lymphadenopathy, Supraclavicular lymphadenopathy, Axillary lymphadenopathy Laboratory Data: Laboratory Tests WBC (4.4-11.0) K/mm3 RBC (4.6-6.2) M/mm3 WBC 4.5 (4.4-11.0) K/mm3 RBC 3.85 L (4.6-6.2) M/mm3 Hgb 13.7 (13.0-16.5) g/dl Hct 36.2 L (40-54) % MCV 94.0 (80-94) fL MCH 35.6 H (27.0-32.0) pg Diagnostic Data: Diagnostic Data PET, CT Tumor Imaging 05/12/18 10:26 IMPRESSION: 1. ABNORMAL EXAMINATION INDICATIVE OF MALIGNANT VIABLE NEOPLASM. 2. Increased glucose concentration noted at the level of the distal rectal vault, anal verge fulfills quantitative criteria for neoplastic infiltration. 3. No other quantitatively significant hypermetabolic abnormalities are noted. There is no definitive scintigraphic evidence of distant metastatic disease. Electronic Signature Casimiro Monaco D.O. 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 We will start combined modality therapy today May 22, 2018 and will be monitored on a weekly basis for supportive treatment. 2-Indeterminate bilateral adrenal masses not PET avid, unlikely metastatic. Began sphincter sparing concomitant chemo therapy (mitomycin and 5-FU by [facility]) and radiation therapy on Radical surgery will be reserved for failure to achieve complete remission of his disease at the conclusion of treatment. 1. Locally advanced squamous cell ca of the anal canal- Poorly tolerated chemotherapy with mucositis and uncontrolled diarrhea, contributing to dehydration and electrolyte aberrancies. Engaged in lengthy discussion regarding symptom management below. 2. Cancer related pain- Referred to pain management, Dr. Hurley. Has percocet but has not been taking. 3. Dehydration/electrolyte aberrancies- K 2.8, Na 128. Orders placed for 1 L NS today and tomorrow. Given 20 meq K IVPB and rx for oral supplementation. Advised to reduce HCTZ to 5 daily doses per week and follow up with his pcp. Stressed the importance of PO hydration. IVF support prn next week. 4. Diarrhea- grade 3. Stressed the importance of adequate control of stool frequency. Provided written instructions on how to properly adminster Imodium. Patient was advised to call if he experiences 4-6 diarrhea stools in 24 hr period while using Imodium. BRAT diet. 5. Mucositis- Grade 3. Rx for magic mouth rinse. Advised to avoid ETOH and ETOH containing mouth rinses and highly acidic foods. Advised baking soda/salt water rinses/green tea rinses. Comorbid conditions: Alcohol and cigarette dependence, chronic back pain, GERD, fatty and alcoholic liver disease. Cutting down on cigarettes and alcohol was advised but the patient was not motivated. RTO on 06/04/18 as previously planned, sooner if issues arise. Asya Javed, MSN, ROUTE SALES REPRESENTATIVE-C, AOCNP Medications: Prescriptions This Visit Medication Instructions Recorded Omeprazole [Prilosec] 1 tab PO DAILY 05/12/18 Loperamide [Imodium] 2 mg PO Q2H PRN PRN #60 cap 05/14/18 Lidocaine 2% Jelly [Xylocaine 2% 30 ml TOPICAL TID #1 tube 05/21/18 Medications Added to Medication List This Visit Primary Care Provider: No Primary Care Phys Referring Provider: - Problem List (1) Primary anal squamous cell carcinoma Status: Acute (2) Diarrhea Status: Acute Qualifiers: Diarrhea type: unspecified type Qualified Code(s): R19.7 - Diarrhea, unspecified (3) Dehydration Status: Acute (4) Hypokalemia Status: Acute (5) Mucositis (ulcerative) due to antineoplastic therapy Status: Acute 05/29/182111 <Electronically signed by Asya MEDINA> Date Asya MEDINA Cosigner Signature: Date (if applicable) CC: HIV - [facility] Collected: 05/29/2018 Status: F Source: [place] 2:30 PM [facility] REPOSITORY Order Comment: ADD ON BLOOD IN LAB USE XTRA TUBE Reason for Laboratory Test . TYPE CODE TESTS RESULT OUT OF RANGE REFERENCE UNITS LAB L3890.6005 Nonreactive Normal HIV - [facility] Non-Reactive Performed By: #### L3890.6005 #### [facility] [address] [place], [address] COMPREHENSIVE METABOLIC Collected: 05/29/2018 Status: F Source: [place] [facility] 2:09 PM [facility] REPOSITORY Order Comment: ADD ON BLOOD IN LAB Reason for Laboratory Test . TYPE CODE TESTS RESULT OUT OF RANGE REFERENCE UNITS LAB L501.0100 74-106 mg/dL High GLU 180 Result Comment: Fasting Glucose result greater than or equal to 126 mg/dL suggests DIABETES MELLITUS per A.D.A. criteria. Please note revised GLUCOSE reference range effective 2017. LAB L501.1000 7-18 mg/dL Normal BUN 14 LAB L501.1100 0.70-1.30 mg/dL Normal CREAT,SERUM 0.72 Result Comment: The validity of the calculated GFR AND GFRAA in patients over 70 years has not been determined. Clinical correlation is essential. LAB L501.1110 >60 mL/min Normal EST GFR 115 Result Comment: Non- GFR Calc LAB L501.1115 >60 mL/min Normal EST GFR - AA 139 Result Comment: GFR Calc LAB L501.1255 ml/min Normal Estimated CRCL 66.50 LAB L501.1300 10-20 RATIO Normal BUN/CRE 19.5 LAB L501.1500 6.4-8. g/dL Normal 2 T PROT 6.6 LAB L501.1800 3.2-5. g/dL Normal 0 ALB 3.2 LAB L501.1950 2.2-4. g/dL Normal 2 GLOB 3.4 LAB L501.2000 0.9-2. RATIO Normal 4 A/G 0.9 LAB L501.2200 8.5-10 mg/dL Normal .1 CA 8.7 LAB L501.4100 15-37 U/L High AST 38 LAB L501.4305 45-117 U/L Normal ALK P 98 LAB L501.4405 16-61 U/L Normal ALT 41 LAB L501.4600 0.20-1 mg/dL High .00 T BILI 1.30 LAB L501.5300 136-14 mmol/L Low 5 NA 128 LAB L501.5600 3.5-5. mmol/L Low 1 K 2.8 LAB L501.5900 98-107 mmol/L Low CL 86 LAB L501.6100 21.0-3 mmol/L Normal 2.0 CO2 32.0 LAB L501.6200 5-15 Normal GAP 10 Performed By: #### L500.4050 #### [facility] [address] [place], [address] IRON+IRON BINDING Collected: 05/29/2018 Status: F Source: [facility] 1:08 PM [facility] REPOSITORY Order Comment: Reason for Laboratory Test . TYPE CODE TESTS RESULT OUT OF REFERENCE UNITS RANGE LAB L503.6075 250-450 ug/dL Low TIBC 234 LAB L503.6150 65-175 ug/dL IRON High 219 LAB L503.6250 15.0-55.0 % IRON High SATURATION 93.6 Performed By: #### L503.6030, L503.6550 #### [facility] [address] [place], [address] FERRITIN Collected: 05/29/2018 Status: F Source: [place] 1:08 PM [facility] REPOSITORY Order Comment: Reason for Laboratory Test . TYPE CODE TESTS RESULT OUT OF REFERENCE UNITS RANGE LAB L503.6550 26-388 ng/mL High FERRITIN 1726 Performed By: #### L503.6030, L503.6550 #### [facility] [address] [place], [address] CBC W/DIFF, AUTOMATED Collected: 05/29/2018 Status: F Source: [place] 1:08 PM [facility] REPOSITORY Order Comment: Reason for Laboratory Test . TYPE CODE TESTS RESULT OUT OF RANGE REFERENCE UNITS LAB L100.1000 4.4-11.0 K/mm3 Normal WBC 4.5 LAB L100.1200 4.6-6.2 M/mm3 Low RBC 3.85 LAB L100.1300 13.0-16.5 g/dl Normal HGB 13.7 Result Comment: FAILED TO SOLVE TURBIDITY/HGB ERROR. LAB L100.1400 40-54 % Low HCT 36.2 LAB L100.1500 80-94 fL Normal MCV 94.0 LAB L100.1600 27.0-32.0 pg High MCH 35.6 Result Comment: FAILED TO SOLVE TURBIDITY/HGB ERROR. LAB L100.1700 32-36 g/gl High MCHC 37.8 Result Comment: FAILED TO SOLVE TURBIDITY/HGB ERROR. LAB L100.1810 11.6-14.6 % Low RDW 10.9 CV LAB L100.1820 35.1-43.9 fl Normal RDW 36.5 SD LAB L100.1900 150-450 K/mm3 Low PLT 111 LAB L100.2000 6.2-12.0 fl Normal MPV 8.7 LAB L100.2100 47-70 % High NEUT% 87.3 LAB L100.2200 19-41 % Low LY% 6.5 LAB L100.2300 0-10 % Normal MONO% 5.1 LAB L100.2400 0-5 % Normal EO% 0.7 LAB L100.2500 0-1 % Normal BASO% 0.2 LAB L100.2550 0.0-0.9 % Normal IM 0.200 GRAN % Result Comment: IG% - Immature Granulocytes (promyelocytes, myelocytes and metamyelocytes) > 1% indicates that a LEFT SHIFT is Present. LAB L100.2620 2.0-7.7 X10 3/uL Normal Absolute Neut 3.9 LAB L100.2720 0.83-4.51 X10 3/ul Low Absolute Lymph 0.29 LAB L100.4500 Normal SMEAR COMMENT COMMENT Result Comment: SLIDE SCANNED - LYMPHOPENIA. Performed By: #### L100.0100 #### [facility] [address] [place], [address] RADIATION ONCOLOGY Observed: 05/28/2018 Status: F Source: [place] VISIT 2:04 PM [facility] REPOSITORY [facility] [address] [place] [address] OFFICE VISIT Date of Service: 05/28/18 1354 MR#: [id number] Acct: [id number] Name: RAJ NORIEGA Jeannette Rep #: [id number] : 1950 From: Hugo Jim DO Age/Sex: 68/M Location: OMD Status: Signed Date of Service: 05/28/18 Diagnosis: Raj Noriega is a 68-year-old male diagnosed with Clinical Stage IIA-IIB (cT2-3 N0 Mx) 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 Plan was made to treat with definitive THERMODYNAMICS TEACHER with 5FU and MMC and SIB with 5400 cGy to anal disease with 2.5 cm margin and 4500 cGy to elective LNs (perirectal, presacral, internal iliac, external iliac, and inguinal), all in 30 fractions. Treatment Data: Treatment Site: Anal Canal and pelvic LNs Current total dose/Total dose planned: 1260 cGy / 5400 cGy Fraction number: Chemotherapy: 5FU and MMC (cycle 1 initiated on day 3 (05/22/18) due to delay getting PORT) Subjective: Pain: 4-6 / 10, not taking pain medication but has percocet Skin: anal irritation and erythema. No desquamation BM: multiple loose stool per day, sometimes diarrhea. Has leakage of mucus and discomfort. Occasional minimal bleeding Mucositis: developed painful mouth sores involving both lips and oral cavity/oropharynx, using salt gargles Nausea: none Fatigue: none Height/Weight/BMI: Height: 5 ft 8 in Weight: Baseline 160 lbs (05/21/18: 160.5 lbs, 05/28/18: 157.4 lbs) Vital Signs Temperature 100.1 F H 05/28/18 13:41 Temperature Source Oral 05/28/18 13:41 Pulse Rate 107 H 05/28/18 13:41 Respiratory Rate 18 05/28/18 13:41 Objective: Gen: NAD Skin: dequan-anal erythema noted. no desquamation involving dequan-anal skin or groin Laboratory Tests WBC 8.9 Hgb 16.5 Plt Count 225 Absolute Neuts (auto) 5.6 Assessment: Tolerating radiation well overall. All treatment related imaging reviewed and approved, good bladder filling. Heavy alcohol use (12 cans of beer per day) and smoking (2 ppd), continuing during treatment as he is unwilling to quit. Loose stool/diarrhea, some mucus leakage Pain involving anus 4-6 / 10 oral sores/mucositis Plan: Continue treatment as planned Pain: lidocaine/aquaphor mixture throughout the day. Percocet prn Diarrhea: careful use of dietary modification and imodium as needed, continue fluid intake Reviewed skin care management using lotion in the groin and dequan-anal region Reviewed recommended use of Sitz bath multiple times per day to keep anal region clean Will check labs tomorrow per med onc [facility]W for mouth sores Recommend using pads for mucus leakage Follow up next week or sooner if needed Thank you for allowing me to participate in the management and care of your patient. If I may answer any questions in the interim, please do not hesitate to contact me at any time. Hugo Jim DO, MS Vault Custodian, Department of Radiation Oncology [facility] 05/28/18 7264 <Electronically signed by Hugo Jim DO> Date Hugo Jim DO Cosign Signature: Date (if applicable) CC: ONCOLOGY VISIT REPORT Observed: 05/22/2018 Status: F Source: [place] 10:14 AM [facility] REPOSITORY [facility] [address] [place] [address] OFFICE VISIT Date of Service: 05/22/18 0945 MR#: [id number] Acct: [id number] Name: RAJ NORIEGA Rep #: [id number] : 1950 From: Becki Trevino MD Age/Sex: 68/M Location: ONC Status: Signed - Problem List (1) Primary anal squamous cell carcinoma Status: Acute (2) Mass of both adrenal glands Status: Chronic - Date of Service Date of Service:: 05/22/18 - Chief Complaint Anal cancer - History of Present Illness Patient is a 68-year-old male who wishes to transfer his care from the [facility]. He has a history of alcohol and tobacco dependence. He has had increasing rectal pain and bleeding over the past few months and on April 14, 2018 he had a very limited sigmoidoscopy that revealed a large ulcer in the distal rectum to the dentate line with cavitation and biopsies then were not possible due to pain. On April 17 he was able to undergo a full colonoscopy when again a large ulcerated mass in the distal rectum extending into the anal verge multiple biopsies were done then revealing a squamous carcinoma. 2 sigmoid polyps were resected and were found to represent tubular adenomas. The patient was referred to [place]ology [place] the [place] though has not been seen yet and wishes to receive care closer to home. He was seen by Dr. Goodwin, who advised consultation with medical and radiation oncology. A CT scan of the abdomen and pelvis May 07, 2018: IMPRESSION: Bilateral adrenal masses as described. These are not typical for adrenal adenomas and correlation with MRI is recommended. Soft tissue mass seen in the anterior aspect of the rectum extending caudally into the anal region. Inhomogeneously enlarged prostate gland. CT scan of the chest May 07, 2018: IMPRESSION: Findings suggestive of a linear scarring in the right middle lobe and possible focal area of scarring in the posterior aspect of the medial segment of the left upper lobe. PET/CT May 12, 2018: MPRESSION: 1. ABNORMAL EXAMINATION INDICATIVE OF MALIGNANT VIABLE NEOPLASM. 2. Increased glucose concentration noted at the level of the distal rectal vault, anal verge fulfills quantitative criteria for neoplastic infiltration. 3. No other quantitatively significant hypermetabolic abnormalities are noted. There is no definitive scintigraphic evidence of distant metastatic Treatment: Combined chemo therapy (mitomycin-C and 5-FU) and radiation May 22, 2018- - Past Medical/Social History Past Medical History Other Cancer History: ANAL SQUAMOUS CELL CA Social History Social History: No changes Smoking Status Current every day smoker Review of Systems Constitutional:: Reports: Weakness, Fatigue, Weight loss, Appetite change. Denies: Fever, Sweats, Chills Cardiovascular:: Reports: Dyspnea on exertion. Denies: Chest pain, Palpitations, Orthopnea, PND, Shortness of breath Respiratory: Reports: Shortness of breath upon exertion. Denies: Cough, Hemoptysis, Shortness of Breath, Wheezing Gastrointestinal:: Reports: Constipation - With mucus and blood stained discharge, - - Pain in the ano-rectal area, hard to sit, ordered a donut. Denies: Abdominal pain, Nausea, Vomiting, Diarrhea, Hematochezia Genitourinary: Denies: Dysuria, Hematuria, 15, Flank pain Musculoskeletal:: Reports: Back pain - Chronic manageable. Denies: Myalgia, Arthralgia Skin: Denies: Rash, Skin Changes, Wounds Neurological:: Denies: Headache, Dizziness, Visual changes, Tinnitus, Hearing loss Psychiatric: Denies: Anxiety, Depression, Homicidal Ideations, Suicidal Ideations Vital Signs Height 5 ft 8 in Weight: 72.802 kg Weight in Pounds 160.5 lbs BMI 24.6 Pulse Ox 94 - Physical Exam General: Alert, Oriented x3, No apparent distress, - - ECOG 1 HEENT: Atraumatic, PERRLA, EOMI, Normocephalic Oropharynx:: Dry mucosa Neck:: Supple, Trachea midline, - - Port okay. Negative for: JVD, bilateral Cardiac:: Regular rate, Regular rhythm, Normal S1, Normal S2. Negative for: Murmur Lungs: Clear to auscultation, Diminished, Excusion symmetrical. Negative for: Rhonchi, Wheezes Abdomen:: Soft, Non-tender, Non-distended. Negative for: Hepatosplenomegaly Extremities:: Negative for: Cyanosis, Edema Neurological: Neuro grossly intact Skin:: Negative for: Lesions, Rash, Petechiae, Ecchymosis Psychiatric:: Appropriate affect, Euthymic Lymphatics:: Negative for: Cervical lymphadenopathy, Supraclavicular lymphadenopathy Laboratory Data: Reviewed in EMR CBC, CMP Iron profile pending Diagnostic Data: Diagnostic Data PET, CT Tumor Imaging 05/12/18 10:26 IMPRESSION: 1. ABNORMAL EXAMINATION INDICATIVE OF MALIGNANT VIABLE NEOPLASM. 2. Increased glucose concentration noted at the level of the distal rectal vault, anal verge fulfills quantitative criteria for neoplastic infiltration. 3. No other quantitatively significant hypermetabolic abnormalities are noted. There is no definitive scintigraphic evidence of distant metastatic disease. Electronic Signature Casimiro Monaco D.O. 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 We will start combined modality therapy today May 22, 2018 and will be monitored on a weekly basis for supportive treatment. 2-Indeterminate bilateral adrenal masses not PET avid, unlikely metastatic. Plan: 1. I reviewed the most recent NCCN guidelines and advice sphincter sparing concomitant chemo therapy (mitomycin and 5-FU by CIV) and radiation therapy. Radical surgery will be reserved for failure to achieve complete remission of his disease at the conclusion of treatment. 2. pain management consult for rectal pain related to cancer and chronic back pain referred. 3. Awaiting iron studies, if deficient will give IV iron to avoid the constipating side effect of oral line. Comorbid conditions: Alcohol and cigarette dependence, chronic back pain, GERD, fatty and alcoholic liver disease. Patient was seen with his impression and plan discussed, cutting down on cigarettes and alcohol was advised but the patient was not motivated. To schedule a formal chemotherapy teaching session and follow-up on day 1 of treatment Medications: Prescriptions This Visit Medication Instructions Recorded Primary Care Provider: No Primary Care Phys Referring Provider: 05/22/18 1014 <Electronically signed by Becki Trevino MD> Date Becki Trevino MD Cosigner Signature: Date (if applicable) CC: RADIATION ONCOLOGY Observed: 05/21/2018 Status: F Source: [place] VISIT 1:58 PM [facility] REPOSITORY [facility] [address] 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 Plan was made to treat with definitive THERMODYNAMICS TEACHER with 5FU and MMC and SIB with 5400 cGy to anal disease with 2.5 cm margin and 4500 cGy to elective LNs (perirectal, presacral, internal iliac, external iliac, and inguinal), all in 30 fractions. Treatment Data: Treatment Site: Anal Canal and pelvic LNs Current total dose/Total dose planned: 360 cGy / 5400 cGy Fraction number: Chemotherapy: 5FU and MMC (cycle 1 initiated on day 3 (05/22/18) due to delay getting PORT) Subjective: No current complaints Pain: / , not taking pain medication but has percocet Skin: no erythema or desquamation BM: multiple loose stool per day, sometimes diarrhea. Has leakage of mucus and discomfort. Occasional minimal bleeding Nausea: none Fatigue: none Height/Weight/BMI: Height: 5 ft 8 in Weight: Baseline 160 lbs (05/21/18: 160.5 lbs Vital Signs Temperature 98.0 F 05/21/18 13:30 Temperature Source Oral 05/21/18 13:30 Pulse Rate 104 H 05/21/18 13:30 Objective: Gen: NAD Skin: no erythema or desquamation involving dequan-anal skin or groin Laboratory Tests WBC 8.9 Hgb 16.5 Plt Count 225 Absolute Neuts (auto) 5.6 Assessment: Tolerating radiation well overall. All treatment related imaging reviewed and approved, good bladder filling. Heavy alcohol use (12 cans of beer per day) and smoking (2 ppd), continuing during treatment as he is unwilling to quit. Loose stool/diarrhea, some mucus leakage Pain involving anus Plan: Continue treatment as planned Pain: lidocaine/aquaphor mixture throughout the day. Percocet prn Diarrhea: careful use of dietary modification and imodium as needed, continue fluid intake Reviewed skin care management using lotion in the groin and dequan-anal region Reviewed recommended use of Sitz bath multiple times per day to keep anal region clean Recommend using pads for mucus leakage Follow up next week or sooner if needed Thank you for allowing me to participate in the management and care of your patient. If I may answer any questions in the interim, please do not hesitate to contact me at any time. Hugo Jim DO, MS Vault Custodian, Department of Radiation Oncology [facility] 05/21/18 1358 <Electronically signed by Hugo Jim DO> Date uHgo Jim DO Cosigner Signature: Date (if applicable) CC: DISCHARGE INSTRUCTION Observed: 05/21/2018 Status: F Source: [place] 5:27 AM [facility] REPOSITORY [facility] Medical Records Department [address] [facility] [place] [address] Instructions for Home/Discharge Instructions 05/20/18 1023 MR#: [id number] Acct: [id number] Name: RAJ NORIEGA Rep #: [id number] : 1950 68 From: Alec Goodwin MD PCP: Care Physician, No [place] [facility] [place] Diet: Light diet - advance as tolerated - if you have questions about your diet instructions, please talk to you doctor. Discharge Activity: May Not Drive - for 1 week or while taking narcotic pain medicine. May shower in (days): 1 Lifting Restrictions: 10 pounds Call your doctor if your incision/area has: Continuous Slow Oozing, Sudden Increased Bleeding, Increased Pain/ Swelling, Increased Redness, Foul Smelling Discharge Call your doctor if you observe: Fever of 101 or Higher Suture Line Care: Avoid Pulling/Pushing, Avoid Pinching/Bending Additional Dressing/Incision Instructions:: Change or remove dressing in 4 days. Leave steri-strips in place for 1 week. Allergies/Adverse Reactions: Allergies No Known Allergies Allergy (Verified 05/19/18 14:35) Medications to take at Discharge Cyclobenzaprine [Flexeril] 10 mg PO TID PRN PRN 04/30/18 Docusate Sodium [Colace] 100 mg PO DAILY #20 cap 04/30/18 Omeprazole [Prilosec] 1 tab PO DAILY 05/12/18 Loperamide [Imodium] 2 mg PO Q2H PRN PRN #60 cap 05/14/18 Hydrochlorothiazide [Hctz] 25 mg PO DAILY 05/19/18 Metoprolol Tartrate [Lopressor (Beta Vivi)] 25 mg PO DAILY 05/19/18 Oxycodone HCl/Acetaminophen [Percocet 5/325] 1 - 2 tablet PO Q6H PRN PRN 05/19/18 Primary Care Physician: Care Physician,No Primary [Primary Care Provider] - Test Results: Test results from this visit will be discussed in further detail at your follow-up appointment, if applicable. Please Follow Up With: Alec Goodwin MD - [phone] When: Call to make an appointment to be seen in about 10 days. 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 68-year-old gent was taken the operating room. He was placed on the table. He underwent monitored anesthesia care. Ancef 2 g given intravenously. The right neck was sterilely prepped draped. Ultrasound was used to identify the right internal jugular vein. 1% lidocaine mixed 50-50 with 0.5% Marcaine was used as local anesthetic. Total of 15 cc was used. Local was instilled under ultrasound guidance. Micropuncture needle inserted in the right internal jugular vein. Micropuncture wire. Micropuncture sheath. Exchanged out for an 035 J-wire. Local instilled down upon the chest wall. A transverse incision was created. Electrocautery dissection was used to make a subcutaneous port. The tubing was tunneled from the chest to the neck site. Sheath dilator was placed over the wire. The wire and dilator were removed. The catheter was advanced through the sheath. The sheath was split. The catheter was positioned at the SVC atrial junction. It was amputated to length connected to the port secured there with a port attachment device. The port was placed in the pocket and secured there with 2-0 silk. The port site was closed with interrupted 3-0 Vicryl subdermal stitch. The neck was closed with interrupted 5-0 Vicryl. Steri-Strips applied Telfa OpSite dressings applied. The port was accessed. It aspirated and then was flushed with saline and then heparinized saline. Sponge and instrument and needle counts were reported the surgeon be correct. Blood loss was minimal. He tolerated the procedure well and was taken to the recovery area in satisfactory condition without apparent complication. Blood loss minimal. Specimens none. Drains none. Blood loss minimal. Alec Goodwin M.D., F.A.C.S. Type of Anesthesia:: Local MAC Anesthesiologist: Ollie Vidal 05/21/18 0527 <Electronically signed by Alec Goodwin MD> Date Alec Goodwin MD CC: No Primary Care Physician; Alec Goodwin MD Signed CHEST 1 VIEW Observed: 05/20/2018 Status: F Source: [place] (PORTABLE) 10:23 AM [facility] REPOSITORY [facility] Imaging Services [address] [place] [address] Chest 1 View (Portable) MR#: [id number] Acct: [id number] Name: RAJ NORIEGA Rep #: [id number] : 1950 M 68 From: Albert Villatoro MD PCP: Care Physician, No Primary Status: [facility] Study: Chest 1 View (Portable) Date of Exam: 05/20/18 Exam# [id number] Ordering Dr: Alec Goodwin MD STUDY: X-RAY CHEST REASON FOR EXAM: Male, 68 years old. Port placement. TECHNIQUE: Single AP portable view of the chest. COMPARISON: None. FINDINGS: A right-sided Port-A-Cath has been placed. The tip is in the proximal portion of the superior vena cava. Hyperinflation. There is no demonstrated pleural abnormality. Normal size heart. Normal mediastinum and jami. Normal visualized pulmonary arteries. Normal visualized aortic arch and descending thoracic aorta. Normal visualized thoracic spine. Normal visualized ribs, clavicles, and shoulders. There is no demonstrated abnormality of the visualized soft tissue structures of the upper abdomen. RAD/Chest 1 View (Portable) IMPRESSION: The tip of the port is in the proximal portion of the superior vena cava. Electronically Signed: Albert Villatoro MD at 12:47 EST Tel [phone], Service support , CC: No Primary Care Physician; Alec Goodwin MD Advertising Copywriter: Signed URINALYSIS, COMPLETE Collected: 05/16/2018 Status: F Source: [place] 3:16 PM [facility] REPOSITORY Order Comment: How was Urine Obtained? CLEAN CATCH TYPE CODE TESTS RESULT OUT OF RANGE REFERENCE UNITS LAB L400.3000 Yellow COLOR Normal Yellow LAB L400.3050 Clear Normal CLARITY Clear LAB L400.3200 Normal mg/dl Normal GLUCOSE, UR Normal LAB L400.3300 Negative mg/dL Normal BILIRUBIN URINE Negative LAB L400.3400 Negative mg/dl Normal KETONE UR Negative LAB L400.3465 1.002-1.030 Normal SP.GR. DIPSTX 1.010 LAB L400.3550 5.0 - 8.0 pH UR Normal 6.0 LAB L400.3600 Negative mg/dl PROT Normal DIPSTX Negative LAB L400.3700 Normal mg/dl High 1 UROBILI LAB L400.3750 Negative Normal NITRITE UR Negative LAB L400.3780 Negative /ul Normal OCCULT BLOOD-UR Negative LAB L400.3800 Negative /ul High LEUK 25 ESTERASE LAB L400.4050 0-5 /hpf WBC 0 Normal SEEN LAB L400.4100 0-5 /hpf 0 Normal RBC-UA SEEN LAB L400.4150 0-5 /hpf SQUAM 0 Normal EPI SEEN LAB L400.4300 None Seen /hpf 0 Normal BACTERIA SEEN LAB L400.4350 <or=2+ /hpf 0 Normal MUCUS, URINE SEEN Performed By: #### L400.0001 #### [facility] [address] [facility]. [place], [place], [address] CBC W/DIFF, AUTOMATED Collected: 05/16/2018 Status: F Source: [place] 3:11 PM [facility] REPOSITORY TYPE CODE TESTS RESULT OUT OF RANGE REFERENCE UNITS LAB L100.1000 4.4-11.0 K/mm3 Normal WBC 8.9 LAB L100.1200 4.6-6.2 M/mm3 Normal RBC 4.65 LAB L100.1300 13.0-16.5 g/dl Normal HGB 16.5 LAB L100.1400 40-54 % Normal HCT 45.4 LAB L100.1500 80-94 fL High MCV 97.6 LAB L100.1600 27.0-32.0 pg High MCH 35.5 LAB L100.1700 32-36 g/gl High MCHC 36.3 LAB L100.1810 11.6-14.6 % Normal RDW CV 12.2 LAB L100.1820 35.1-43.9 fl Normal RDW SD 43.3 LAB L100.1900 150-450 K/mm3 Normal PLT 225 LAB L100.2000 6.2-12.0 fl Normal MPV 9.0 LAB L100.2100 47-70 % Normal NEUT% 63.2 LAB L100.2200 19-41 % Low LY% 18.8 LAB L100.2300 0-10 % High MONO% 16.9 LAB L100.2400 0-5 % Normal EO% 0.6 LAB L100.2500 0-1 % Normal BASO% 0.3 LAB L100.2550 0.0-0.9 % Normal IM GRAN % 0.200 Result Comment: IG% - Immature Granulocytes (promyelocytes, myelocytes and metamyelocytes) > 1% indicates that a LEFT SHIFT is Present. LAB L100.2620 2.0-7.7 X10 3/uL Normal Absolute Neut 5.6 LAB L100.2720 0.83-4.51 X10 3/ul Normal Absolute Lymph 1.67 Performed By: #### L100.0100, L501.9985, L500.4050, L500.4100, L501.9520, L506.0250, L503.0105 #### [facility] [address] [facility] [place], [place], [address] HEMOGLOBIN A1C Collected: 05/16/2018 Status: F Source: [place] 3:11 PM [facility] REPOSITORY TYPE CODE TESTS RESULT OUT OF RANGE REFERENCE UNITS LAB L501.9985 4.2-6.3 % Normal HGB A1C 5.6 Performed By: #### L100.0100, L501.9985, L500.4050, L500.4100, L501.9520, L506.0250, L503.0105 #### [facility] [address] [facility] [place], [address] COMPREHENSIVE METABOLIC Collected: 05/16/2018 Status: F Source: [facility] 3:11 PM [facility] REPOSITORY Order Comment: Is Patient Taking Vitamins or Folic Acid Supplements? N TYPE CODE TESTS RESULT OUT OF RANGE REFERENCE UNITS LAB L501.0100 74-106 mg/dL High GLU 111 Result Comment: Fasting Glucose result from 100 to 125 mg/dL suggests IMPAIRED HOMEOSTASIS per A.D.A. criteria. Please note revised GLUCOSE reference range effective 2017. LAB L501.1000 7-18 mg/dL Low BUN 6 LAB L501.1100 0.70-1.30 mg/dL Low CREAT,SERUM 0.65 Result Comment: The validity of the calculated GFR AND GFRAA in patients over 70 years has not been determined. Clinical correlation is essential. LAB L501.1110 >60 mL/min Normal EST GFR 128 Result Comment: Non- GFR Calc LAB L501.1115 >60 mL/min Normal EST GFR - AA 155 Result Comment: GFR Calc LAB L501.1300 10-20 RATIO Low BUN/CRE 9.2 LAB L501.1500 6.4-8.2 g/dL Normal T PROT 7.3 LAB L501.1800 3.2-5.0 g/dL Normal ALB 3.6 LAB L501.1950 2.2-4.2 g/dL Normal GLOB 3.7 LAB L501.2000 0.9-2.4 RATIO Normal A/G 1.0 LAB L501.2200 8.5-10.1 mg/dL Normal CA 8.9 LAB L501.4100 15-37 U/L High AST 51 LAB L501.4305 45-117 U/L Normal ALK P 112 LAB L501.4405 16-61 U/L High ALT 63 LAB L501.4600 0.20-1.00 mg/dL Normal T BILI 1.00 LAB L501.5300 136-145 mmol/L Normal NA 138 LAB L501.5600 3.5-5.1 mmol/L Normal K 3.5 LAB L501.5900 98-107 mmol/L Normal CL 102 LAB L501.6100 21.0-32.0 mmol/L Normal CO2 26.0 LAB L501.6200 5-15 Normal GAP 10 Performed By: #### L100.0100, L501.9985, L500.4050, L500.4100, L501.9520, L506.0250, L503.0105 #### [facility] [address] [place], [address] LIPID PROFILE Collected: 05/16/2018 Status: F Source: [place] 3:11 PM [facility] REPOSITORY Order Comment: Is Patient Taking Vitamins or Folic Acid Supplements? N TYPE CODE TESTS RESULT OUT OF RANGE REFERENCE UNITS LAB L501.4900 200 mg/dL Normal CHOL 169 Result Comment: <200 mg/dL Desirable 200-240 mg/dL Borderline >240 mg/dL High Risk LAB L501.5000 mg/dL Normal TRIG 84 Result Comment: The drugs N-Acetylcysteine and Metamizole may falsely depress this assay. Serum Triglycerides Reference Interval Normal <150 mg/dL Borderline high 150 - 199 mg/dL High 200 - 499 mg/dL Very High > or = 500 mg/dL LAB L501.6400 mg/dL Normal HDL 76 Result Comment: The drugs N-Acetylcysteine and Metamizole may falsely depress this assay. Reference Range HDL <40 mg/dL Low HDL Cholesterol HDL >or= 60 mg/dL High HDL Cholesterol LAB L501.6500 0-130 mg/dL Normal LDL 76 LAB L501.6600 5-40 mg/dL Normal VLDL 17 Performed By: #### L100.0100, L501.9985, L500.4050, L500.4100, L501.9520, L506.0250, L503.0105 #### [facility] [address] [place], [place], [id number] THYROID STIM HORMONE Collected: 05/16/2018 Status: F Source: [place] (TSH) 3:11 PM [facility] REPOSITORY Order Comment: Is Patient Taking Vitamins or Folic Acid Supplements? N TYPE CODE TESTS RESULT OUT OF RANGE REFERENCE UNITS LAB L501.9520 0.358-3.74 uIU/mL Normal TSH 2.23 Performed By: #### L100.0100, L501.9985, L500.4050, L500.4100, L501.9520, L506.0250, L503.0105 #### [facility] [address] [place], [place], [id number] FOLATES, (FOLIC ACID) Collected: 05/16/2018 Status: F Source: [place] 3:11 PM [facility] REPOSITORY Order Comment: Is Patient Taking Vitamins or Folic Acid Supplements? N TYPE CODE TESTS RESULT OUT OF RANGE REFERENCE UNITS LAB L506.0250 3.1-55.4 ng/mL Normal FOLATES 33.70 Result Comment: Slight Hemolysis, Result may be falsely increased. Performed By: #### L100.0100, L501.9985, L500.4050, L500.4100, L501.9520, L506.0250, L503.0105 #### [facility] [address] [place], [address] VITAMIN B12 Collected: 05/16/2018 Status: F Source: [place] 3:11 PM [facility] REPOSITORY TYPE CODE TESTS RESULT OUT OF RANGE REFERENCE UNITS LAB L503.0105 211-911 pg/mL Normal Vitamin B12 458 Performed By: #### L100.0100, L501.9985, L500.4050, L500.4100, L501.9520, L506.0250, L503.0105 #### [facility] [address] [place], [address] PHOSPHORUS Collected: 05/16/2018 Status: F Source: [place] 3:11 PM [facility] REPOSITORY Order Comment: Is Patient Taking Vitamins or Folic Acid Supplements? N TYPE CODE TESTS RESULT OUT OF RANGE REFERENCE UNITS LAB L501.2300 2.5-4.9 mg/dL Normal PHOS 3.0 Performed By: #### L501.2300 #### [facility] [address] [place], [address] VITAMIN B1, THIAMINE Collected: 05/16/2018 Status: F Source: [place] 3:11 PM [facility] REPOSITORY TYPE CODE TESTS RESULT OUT OF RANGE REFERENCE UNITS LAB L3300.8000 66.5-200.0 nmol/L Normal VIT B1 113.6 Result Comment: This test was developed and its performance characteristics determined by [facility]. It has not been cleared or approved by the Food and Drug Administration. Performed at: [address] [id number] [employer]rent[employer] Physiotherapist: Delmer Deleon MD, Phone: [phone] Performed By: #### L3300.8000 #### [facility] (refer to report for specific site) refer to report for address and phone number SURGERY VISIT REPORT Observed: 05/16/2018 Status: F Source: [place] 10:57 AM [facility] REPOSITORY [facility] [address] [place] [address] OFFICE VISIT Date of Service: 05/16/18 MR#: [id number] Acct: [id number] Name: RAJ NORIEGA Rep #: [id number] : 1950 Provider: Alec Goodwin MD Age/Sex: 68/M Location: [facility] Status: Signed Intake Vital Signs05/16/18 Height 5 ft 8 in 05/16/18 Weight: 164 lb 1 oz Intake Visit Reasons: port consult Chief Complaint: port consult Economic History Teacher Required: No Is patient in pain?: No Allergies No Known Allergies Allergy (Verified 05/16/18 10:39) Medications Cyclobenzaprine [Flexeril] 10 mg PO TID PRN PRN 04/30/18 [History Confirmed 05/16/18] Docusate Sodium [Colace] 100 mg PO DAILY #20 cap 04/30/18 [Rx Confirmed 05/16/18] Omeprazole [Prilosec] 1 tab PO DAILY 05/12/18 [History Confirmed 05/16/18] Loperamide [Imodium] 2 mg PO Q2H PRN PRN #60 cap 05/14/18 [Rx Confirmed 05/16/18] PFSH Medical History Bleeding (Acute) Blood in stool (Acute) Nausea (Acute) Back problem (Acute) Surgical History Hx of colonoscopy (Acute) Family History Father Stomach cancer Brain cancer Social History Smoking Status: Current every day smoker second hand exposure: Yes alcohol intake: current alcohol intake frequency: 3 or more drinks per day Alcohol type: beer substance use type: does not use caffeine: Yes what type of physical activity do you participate in: none frequency: does not exercise seatbelt use: always HPI HPI HPI: RAJ NORIEGA, is a 68 M who presents to the office today for surgical consultation for port placement. The patient has been diagnosed with squamous cell carcinoma of the anus. He has had imaging suggesting adrenal enlargement bilaterally. No other evidence definitive for metastatic disease. He has been kindly seen by Dr. Luis who is recommending chemo radiation. A request has been made for port. My previous office notes reflect the following. MR#:[id number]:[id number] Name: RAJ NORIEGA #:[id number] : 1950 Provider:Alec Goodwin MD Age/Sex: 68/M Location:[facility] Status:Signed Intake Vital Signs 05/06/18 Height 5 ft 8 in 05/06/18 Weight: 160 lb 05/06/18 Body Mass Index (BMI) 24.3 05/06/18 Blood Pressure 176/108 H 05/06/18 Blood Pressure Location Rt brachial 05/06/18 Blood Pressure Position Sitting 05/06/18 Respiratory Rate 14 05/06/18 Pulse Rate 108 H 05/06/18 Pulse Source Monitor 05/06/18 Temperature 98.0 F 05/06/18 Temperature Source Oral 05/06/18 Pulse Ox 97 05/06/18 Oxygen Delivery Method room air Intake Visit Reasons: Abscess of Rectum [facility] ER 04/30 Is patient in pain?: Yes (Rectum) Pain scale (1-10): 2 Allergies No Known Allergies Allergy (Verified 05/06/18 15:31) Medications Cyclobenzaprine [Flexeril] 10 mg PO TID PRN PRN 04/30/18 [History Confirmed 05/06/18] Docusate Sodium [Colace] 100 mg PO DAILY #20 cap 04/30/18 [Rx] PFSH Medical History Squamous cell carcinoma (Acute) Bleeding (Acute) Blood in stool (Acute) Nausea (Acute) Back problem (Acute) Colon cancer (Acute) Surgical History Hx of colonoscopy (Acute) Family History Father Stomach cancer Brain cancer Social History Smoking Status: Current every day smoker second hand exposure: Yes alcohol intake: current alcohol intake frequency: 3 or more drinks per day Alcohol type: beer substance use type: does not use caffeine: Yes what type of physical activity do you participate in: none frequency: does not exercise seatbelt use: always HPI HPI HPI: RAJ NORIEGA, is a 68 M who presents to the office today for surgical consultation. I was contacted on April 30, 2018 from the [facility] emergency room. The patient had been receiving his care at [facility] in [place]. He is frustrated because of the drive. Recently he was supposed to be admitted there for surgery and drainage of his abscess according to him. Because he was waiting for 3 hours and did receive care he left and presented to the [place] [facility] demanding that care be achieved locally. I was contacted and suggested that I would be willing to try to understand the patient's problem but at that point there were absolutely no medical records available. The patient presents with his . He states he is here to have his abscess drained. States that he has been told repetitively that he has an abscess. It appears that for at least a couple month period of time he has had a mucus per rectum. He has been evaluated and he has had a complete colonoscopy. 2 benign sigmoid polyps removed. Pathology was tubular adenoma. Sigmoid diverticulosis was noted. A ulcerated mass of the rectum was identified which on biopsy is squamous cell carcinoma, invasive moderately differentiated.. Laboratory was obtained at the [facility] April 30. Hemoglobin is 16.6 with hematocrit of 44.7. BUN is 5 and creatinine 0.69. Liver function tests are normal except for a AST of 51. His colonoscopy was performed on April 17. The patient states that he was supposed to be admitted and waited 3 hours. He claims he was going to have surgery to remove his abscess. And none of the material that I have from the [place] hospital is thorough discussion regarding surgery. There is a discussion that a general surgery consult was going to be obtained. There is a discussion that CT scan of the chest abdomen and pelvis was warranted. There was a discussion that radiation oncology needed to be consulted. I do not see any definitive plans for surgery which indeed would be appropriate for a squamous cell carcinoma It is of note that the patient is a heavy alcohol user and tobacco user ROS General General: Yes colon cancer; no weight change, appetite, fatigue, breast cancer or weakness HEENT HEENT: No difficulty swallowing, eye injury, eye surgery, swollen glands or hoarseness Endo Endocrine: No thyroid disease, diabetes mellitus, thyroid cancer, Hair loss, heat intolerance or cold intolerance Skin Skin: No rash or changing moles Musc Musculoskeletal: Yes back problems; no arthritis, rheumatoid arthritis, gout or joint pain Cardio Cardiovascular: No pacemaker, heart disease, atrial fibrillation, high blood pressure, heart attack, heart stent, palpitations, shortness of breat with exertion, chest pain or murmur Psych Psychiatric: No depression, anxiety or hearing voices Resp Respiratory: No shortness of breath, No sleep apnea, No cough, No COPD, No asthma, No emphysema, No wheezing Gastro Gastrointestinal: Yes nausea or vomiting, Yes blood in stool, No abdominal pain, No diarrhea, No constipation, No acid reflux, No hemorrhoids, No ulcers, No gallbladder problem, No black,tarry stools Forrest Hematologic: Yes bleeding, No blood thinners, No blood disorders, No anemia, No blood clots Neuro Neurologic: No weakness Exam Cardio Heart Sounds: no murmurs Assessment AND Plan Problems 1. Squamous cell carcinoma C44.92 Plan Patient has squamous cell carcinoma of the rectum I recommend CT scan of the chest abdomen and pelvis I recommend hematology oncology consultation and radiation oncology consultation. Today was a consultative appointment with the patient. The patient continues to comment that he needs to have his abscess drained. I believe that the patient is somewhat confused because he is having mucus per rectum and at some point it might have been suggested to him that he had an abscess until the definitive diagnosis was made. In any case I do not have any evidence of an abscess at this moment. We will try to expedite his imaging and expedite appropriate referral and care. Alec Goodwin M.D., F.A.C.S. Orders Orders: Abdomen/Pelvis WITH Contrast Today C21.0 Chest WITH Contrast Today C21.0 Referrals: Oncology C21.0 Coding Level of Care Code Off vis,new,level 2 Diagnoses Squamous cell carcinoma C44.92 Time Spent (min) 05/06/18 1288<Electronically signed by Alec Goodwin MD> Date ROS General General: Yes colon cancer; no weight change, appetite, fatigue, breast cancer or weakness HEENT HEENT: No difficulty swallowing, eye injury, eye surgery, swollen glands or hoarseness Endo Endocrine: No thyroid disease, diabetes mellitus, thyroid cancer, Hair loss, heat intolerance or cold intolerance Skin Skin: No rash or changing moles Musc Musculoskeletal: Yes back problems; no arthritis, rheumatoid arthritis, gout or joint pain Cardio Cardiovascular: No pacemaker, heart disease, atrial fibrillation, high blood pressure, heart attack, heart stent, palpitations, shortness of breat with exertion, chest pain or murmur Psych Psychiatric: No depression, anxiety or hearing voices Resp Respiratory: No shortness of breath, No sleep apnea, No cough, No COPD, No asthma, No emphysema, No wheezing Gastro Gastrointestinal: Yes nausea or vomiting, Yes blood in stool, No abdominal pain, No diarrhea, No constipation, No acid reflux, No hemorrhoids, No ulcers, No gallbladder problem, No black,tarry stools Forrest Hematologic: Yes bleeding, No blood thinners, No blood disorders, No anemia, No blood clots Neuro Neurologic: No weakness Exam Cardio Heart Sounds: no murmurs Assessment AND Plan Problems 1. Primary anal squamous cell carcinoma C21.0 Plan I recommend to the patient a right internal jugular port placement. I have discussed the technique, benefits, risks and alternatives. No guarantees of success have been offered. The patient is mildly hypertensive today. We will obtain pain urgent medical review to initiate treatment so that we can pursue port placement on May 20, 2018. This will facilitate his oncologic care. Alec Goodwin M.D., F.A.C.S. Coding Level of Care Code Off vis,est,level 2 Diagnoses Primary anal squamous cell carcinoma C21.0 05/16/18 1057 <Electronically signed by Alec Goodwin MD> Date Alec Goodwin MD Cosigner Signature: Date (if applicable) CC: ONCOLOGY VISIT REPORT Observed: 05/15/2018 Status: F Source: [facility] 12:40 PM [facility]ITORY [facility] [address] OFFICE VISIT Date of Service: 05/15/18 1113 MR#: [id number] Acct: [id number] Name: RAJ NORIEGA Rep #: [id number] : 1950 From: Becki Trevino MD Age/Sex: 68/M Location: [facility] Status: Signed - Problem List (1) Primary anal squamous cell carcinoma Status: Acute (2) Mass of both adrenal glands Status: Chronic - Date of Service Date of Service:: 05/15/18 - Chief Complaint Anal cancer - History of Present Illness Patient is a 68-year-old male who wishes to transfer his care from the [facility]. He has a history of alcohol and tobacco dependence. He has had increasing rectal pain and bleeding over the past few months and on April 14, 2018 he had a very limited sigmoidoscopy that revealed a large ulcer in the distal rectum to the dentate line with cavitation and biopsies then were not possible due to pain. On April 17 he was able to undergo a full colonoscopy when again a large ulcerated mass in the distal rectum extending into the anal verge multiple biopsies were done then revealing a squamous carcinoma. 2 sigmoid polyps were resected and were found to represent tubular adenomas. The patient was referred to oncology at the [place] though has not been seen yet and wishes to receive care closer to home. He was seen by Dr. Goodwin, who advised consultation with medical and radiation oncology. A CT scan of the abdomen and pelvis May 07, 2018: IMPRESSION: Bilateral adrenal masses as described. These are not typical for adrenal adenomas and correlation with MRI is recommended. Soft tissue mass seen in the anterior aspect of the rectum extending caudally into the anal region. Inhomogeneously enlarged prostate gland. CT scan of the chest May 07, 2018: IMPRESSION: Findings suggestive of a linear scarring in the right middle lobe and possible focal area of scarring in the posterior aspect of the medial segment of the left upper lobe. PET/CT May 12, 2018: MPRESSION: 1. ABNORMAL EXAMINATION INDICATIVE OF MALIGNANT VIABLE NEOPLASM. 2. Increased glucose concentration noted at the level of the distal rectal vault, anal verge fulfills quantitative criteria for neoplastic infiltration. 3. No other quantitatively significant hypermetabolic abnormalities are noted. There is no definitive scintigraphic evidence of distant metastatic - Past Medical/Social History Social History Smoking Status Current every day smoker Review of Systems Comment: See my note of May 07, 2018 Vital Signs Height 5 ft 8 in Weight: 73.618 kg Weight in Pounds 162.3 lbs BMI 24.6 Pulse Ox 97 - Physical Exam General: Alert, Oriented x3, No apparent distress, - - ECOG 1. For full exam please see my note of May 07, 2018 Laboratory Data: Laboratory Tests WBC 9.7 Hgb 16.6 H Diagnostic Data: Diagnostic Data I personally reviewed PET/CT images with Dr. Jim and concur with the reported findings. PET, CT Tumor Imaging 05/12/18 10:26 IMPRESSION: 1. ABNORMAL EXAMINATION INDICATIVE OF MALIGNANT VIABLE NEOPLASM. 2. Increased glucose concentration noted at the level of the distal rectal vault, anal verge fulfills quantitative criteria for neoplastic infiltration. 3. No other quantitatively significant hypermetabolic abnormalities are noted. There is no definitive scintigraphic evidence of distant metastatic disease. Electronic Signature Casimiro Monaco D.O. 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 2-Indeterminate bilateral adrenal masses not PET avid, unlikely metastatic. Plan: 1. I reviewed the most recent NCCN guidelines and advice sphincter sparing concomitant chemo therapy (mitomycin and 5-FU by [facility]IV) and radiation therapy. Radical surgery will be reserved for failure to achieve complete remission of his disease at the conclusion of treatment. 2. Baseline CBC and CMP are satisfactory, iron profile and HIV test pending. 3. Surgical consult for central venous access placement 4. pain management consult for rectal pain related to cancer and chronic back pain. Comorbid conditions: Alcohol and cigarette dependence, chronic back pain, GERD, fatty and alcoholic liver disease. Patient was seen with his impression and plan discussed, cutting down on cigarettes and alcohol was advised but the patient was not motivated. To schedule a formal chemotherapy teaching session and follow-up on day 1 of treatment Medications: Prescriptions This Visit Medication Instructions Recorded Omeprazole [Prilosec] 1 tab PO DAILY 05/12/18 Loperamide [Imodium] 2 mg PO Q2H PRN PRN #60 capsule 05/14/18 Primary Care Provider: No Primary Care Phys Referring Provider: 05/15/18 1240 <Electronically signed by Becki Trevino MD> Date Becki Trevino MD [facility] Signature: Date (if applicable) CC: Alec Goodwin MD CONSULTATION Observed: 05/12/2018 Status: F Source: [place] 2:31 PM [facility] REPOSITORY [facility] Medical Records Department [address] [place] [address] Consultation 05/12/18 1411 MR#: [id number] Acct: [id number] Name: RAJ NORIEGA Rep #: [id number] : 1950 68 From: Hugo Jim DO PCP: Care Physician, No Primary Status: REG RCR Y Location: [facility] Date of Service: 05/12/18 Referring Provider: Dr. 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 History of Present Illness: Presented with symptoms of change in bowel habits, rectal bleeding, drainage and mucus with pain with defecation. Symptoms are present 2-3 months. 04/14/2018: Patient was evaluated by GI physician. 04/14/2018: Flexible sigmoidoscopy was performed which demonstrated a large ulcer in the distal rectum to the dentate line with abscess cavity concerning for malignancy, unable to take biopsies as the patient was unable to tolerate. 04/16/2018: Ultrasound of the liver was completed due to elevated liver enzymes which demonstrated a hypoechoic mass along the posterior aspect of the liver, recommend MRI of the liver. There is also diffuse hyperechogenicity of the liver most consistent with fatty infiltration. 04/17/2018: Patient underwent colonoscopy due to hematochezia and pain with defecation. 2 small polyps were found in the sigmoid colon which were removed by cold snare polypectomy. There was a large ulcerated tumor in the distal rectum extending to the anal verge, multiple biopsies were taken. Diverticulosis was found in the sigmoid colon and ascending colon. Pathology demonstrated invasive moderately differentiated squamous cell carcinoma. Within the sigmoid colon polyp demonstrated tubular adenoma. 04/30/2018: Patient presented to the [facility] emergency room for pain and to try and see his surgeon for the rectal/anal mass. 05/06/2018: Patient was seen by general surgery at [facility]. Recommended CT scan of the abdomen and pelvis for further staging and consultation with oncology. It was not felt there was an abscess to be drained. 05/07/2018: Patient underwent CT chest abdomen pelvis. There is noted to be bilateral adrenal masses, the right adrenal gland has a 3.2 x 3 cm hypodense nodular mass that does not appear to be a typical adenoma and there is a similar-appearing mass in the left adrenal gland measuring 2.5 x 1.7 cm. 05/07/2018: Patient was seen by medical oncology. PET scan was ordered for anal cancer staging as well as to evaluate to the adrenal masses bilaterally. MRI of the pelvis was to further delineate the local extent of disease. Radiation Treatment History: Patient denies any previous history of radiation therapy. Denies having a pacemaker and denies diagnosis of collagen vascular disease. Interval History: Patient reports that for the last several months he has noted increasing rectal pain and bleeding. Specifically he notes that the pain is relatively mild (2/10) and present most of the time when he has a bowel movement it gets very severe (7/10) at times. He has not taken any pain medication for this. He reports relatively small amount of bleeding with bowel movements and denies having any bleeding in between bowel movements. He does report mucus discharge in between bowel movements that he has noted on his underwear. He has been having about 4-5 bowel movements per day and typically they are loose. He denies having obstruction or difficulty getting bowel movements out at this time. He denies having incontinence of stool but does note that sometimes when he believes he is passing gas he has some stool leakage. He denies having hematuria, dysuria, urinary frequency, reduced urinary stream. He denies having cough, shortness of breath, hemoptysis, chest pain, fevers/chills. He reports having a normal appetite and denies any unexpected weight loss. He is able to complete all activities of daily living without any difficulty. He reports having normal energy. He smokes 2 packs/day and has done so for over 50 years and also drinks a 12 pack of beer every day and has also done this for many years. He reports that he has been told to decrease or quit smoking and drinking but reports that he has no intentions of quitting at this time. He denies having any other problems or concerns at this time. Family History (Last Reviewed 05/12/18 @ 13:02 by Fariba Luis RN) Father Stomach cancer Brain cancer Medical History (Last Reviewed 05/12/18 @ 13:02 by Fariba Luis RN) Bleeding (Acute) Blood in stool (Acute) Nausea (Acute) Back problem (Acute) Surgical History (Last Reviewed 05/12/18 @ 13:02 by Fariba Luis RN) Hx of colonoscopy (Acute) 04/24/2018 Social History - Tobacco Smoking Status Current every day smoker Years used: 55 Passive smoke exposure: Yes Social History - Substance Drug use: No Caffeine use [drinks/day]: 1 Alcohol use: Yes Type of alcohol: BEER, 12 pack daily Comments: SMOKE 2 PACKS DAILY Social History - Living Arrangements Patients Living Arrangements With Family Home Medications Medication Instructions Recorded Cyclobenzaprine [Flexeril] 10 mg PO TID PRN PRN 04/30/18 Docusate Sodium [Colace] 100 mg PO DAILY #20 cap 04/30/18 Omeprazole [Prilosec] PO DAILY 05/12/18 Allergy/AdvReac Type Severity Reaction Status Date / Time No Known Allergies Allergy Verified 05/12/18 13:07 Health Maintenance Do you regularly see your No primary care physician? Have you ever had a Yes colonoscopy? Date of last colonoscopy: 04/07/18 I have reviewed the medical, surgical, and other pertinent history in details and have updated medication and allergy information in the electronic medical record. Review of Systems: A 12-point review of systems was completed and was negative except for what is noted in the HPI/Interval History and by the nurse. Height/Weight/BMI: Height: 5 ft 8 in Weight: 162.3 lbs Vital Signs Temperature 98.6 F 05/12/18 13:00 Temperature Source Oral 05/12/18 13:00 Pulse Rate 106 H 05/12/18 13:00 Physical Exam: ECO KARNOFSKY SCORE: 80% CONSTITUTIONAL: Well-developed, well-nourished, and in no apparent distress. HEENT: Mucous membranes moist. No evidence of thrush or lesions within the visualized oropharynx or oral cavity. No trismus. Pupils are equal, round, and reactive to light and accommodation. Extraocular movements are intact. Sclerae are anicteric. NECK: Supple,with no thyromegaly, and non-tender. Trachea midline. No cervical or supraclavicular adenopathy noted. CARDIAC: Regular rate and rhythm. Normal S1, S2. No murmurs, rubs, or gallops. PULMONARY/CHEST: Lungs are clear to auscultation and percussion bilaterally. No wheezes, rhonchi, or crackles noted. No increased work of breathing. ABDOMINAL: Abdomen soft, non-tender, non-distended. No hepatomegaly. Normoactive bowel sounds in all four quadrants. No guarding, rebound. BACK: Straight and aligned. No CVA tenderness. Axial skeleton non-tender to percussion. EXTREMITIES: Full range of motion in all four extremities, with normal strength equally and symmetrically. No evidence of edema. No clubbing. NEUROLOGICAL EXAM: Alert and oriented x 3. Cranial nerves II through XII are grossly intact. No focal neurological deficit. Speech is fluent. There is no upper or lower extremity sensory deficit or motor deficit. Muscle strength is 5/5 in all muscle groups. Gait and posture are steady. PSYCHIATRIC: Appropriate mood and affect for the clinical situation. SURI: There is a palpable firm nodular lesion appreciated approximately 1 cm into the anal canal. Due to pain the patient was unable to tolerate full exam. There is no evidence for skin nodules at the anal margin there is no disease extent outside of the anal canal. There is no groin adenopathy. Imaging: As per HPI I reviewed the PET scan from 05/12/2018 and although not yet read by radiology this appears to demonstrate the anal canal malignancy without any evidence of adenopathy or other metastatic disease. Laboratory Data: Laboratory Tests WBC 9.7 Hgb 16.6 H Plt Count 195 BUN 5 L Creatinine 0.69 L Direct Bilirubin 0.41 H AST 51 H ALT 57 Otherwise CBC and CMP 04/30/2018 unremarkable. 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 Clinically the patient remains at a relatively high performance status and is easily able to take care of himself. He does chronically smoke and drink alcohol daily as noted above and it was recommended that he decrease use and quit but he was unwilling to consider this at this time. I reviewed with the patient the PET scan findings from today and although not yet read by radiology this appears to demonstrate the anal canal malignancy without any evidence of adenopathy or other metastatic disease, I discussed that we will need to await the final report for confirmation. Currently the patient does have some apparent mucus discharge/leakage but this appears to be very little in the sphincter appears to be mostly intact. I reviewed the option of completing a diverting colostomy prior to initiating chemoradiation therapy and that this would likely improve side effects as he would not have stool passing through the treated area multiple times per day, the patient was unwilling to consider this option at this time and would prefer to move forward with treatment. If no definitive metastatic disease is noted on the PET scan that I recommend definitive chemoradiation consisting of concurrent 5-FU and mitomycin- C. I discussed that traditionally the treatment for anal canal cancer was an APR resection leading to permanent colostomy and other morbidity and quality of life issues, but that over time the standard of care has shifted to definitive chemoradiation to preserve anal canal function. I discussed briefly some of the trials leading up to the current standard of care which essentially displayed that concurrent chemoradiation therapy without induction chemotherapy or adjuvant chemotherapy offered the best chance of cure and local regional disease control while minimizing unnecessary toxicity. In recent trials there is shown to be about a 90% chance of complete clinical response and 75-80% chance of disease-free survival at 3 years follow-up. All benefits, risks, and alternatives to chemoradiation were discussed and all questions or concerns were addressed. I discussed the logistics of chemoradiation therapy for locally advanced anal canal cancer. Also, I explained that it is been shown that by using dose painting IMRT for radiation planning and delivery that there is reduced local toxicity and that this is the method I would pursue. I discussed the need to complete a CT simulation for radiation planning, followed by treatment planning which could take up to 10 business days, verification simulation, and then begin radiation treatments which would be delivered in a fractionated fashion daily for 5.5-6 weeks. During treatment there would be physician visits once every 5 treatments. I discussed the potential acute and chronic toxicities from therapy and that these would include but are not limited to fatigue, skin erythema peeling or even ulceration, loose stool and/or diarrhea formation, bloating, anal rectal irritation and pain with bowel movements with potential bleeding, increased pain or frequency with urination, risk of lymphedema in the lower extremities, risk of bone weakening and potential fracture of bones in the treatment area, chronic GI upset with increased diarrhea, potential risk for permanent colostomy due to chronic leakage from damage to the anal sphincter, bowel obstruction or fistula formation, secondary cancer formation. After full discussion the patient was interested in pursuing definitive chemoradiation therapy and informed consent was signed. He will return for CT simulation on 05/14/18. Thank you for allowing me to participate in the management and care of your patient. If I may answer any questions in the interim, please do not hesitate to contact me at any time. Hugo Jim DO, MS [employer], Department of Radiation Oncology [facility] 05/12/18 1431 <Electronically signed by Hugo Jim DO> Date Hugo Jim DO Cosigner Signature (if applicable): Date CC: No Primary Care Physician; Becki Trevino MD; Alec Goodwin MD Signed PET/CT TUMOR BASE Observed: 05/12/2018 Status: F Source: [place] -THIGH INIT 10:26 AM [facility] REPOSITORY [facility] Imaging Services [address] [address] PET/CT Tumor Base -Thigh Init MR#: [id number] Acct: [id number] Name: RAJ NORIEGA Rep #: [id number] : 1950 M 68 From: Casimiro Monaco DO PCP: Care Physician, No Primary Status: REG RCR Study: PET/CT Tumor Base -Thigh Init Date of Exam: 05/12/18 Exam# [id number] Ordering Dr: Becki Trevino MD EXAMINATION: FDG PET CT INDICATIONS: A 68-year-old male with reported history of primary squamous cell anal carcinoma presenting for initial staging examination. COMPARISON EXAMINATION: CT of the chest, abdomen and pelvis reports dated 05/07/18. INDEX LESION SIZE SUV INTERPRETATION Distal rectal vault, anal verge 35.4 mm x 38.2 mm (frame 40) 15.5 Fulfills quantitative criteria for viable neoplasm TECHNIQUE: Following the intravenous administration of 12.9 mCi of F-18 deoxyglucose via the left antecubital fossa, multiplanar image acquisitions of the head, neck, chest, abdomen and pelvis to level of mid thigh, obtained at one hour post radiopharmaceutical administration contemporaneously interpreted with the current CT of the head, neck, chest, abdomen and pelvis to level of mid thigh, dated 05/12/[address] of the chest, abdomen and pelvis reports dated 05/07/18 reveal: SERUM GLUCOSE LEVEL: 109 mg/dl. HEIGHT: 68 inches. WEIGHT: 162 lbs. FINDINGS: 1. Heterogeneous increased glucose metabolism is defined in the distribution of the distal rectal vault extending to the anal verge generating a calculated maximum standard uptake value of 15.5. The maximal axial diameter of the corresponding metabolic abnormality on review of CT of the pelvis dated 05/12/18 is 35.4 mm (transverse) x 38.2 mm (AP). 2. Normal physiologic distribution of the radiopharmaceutical is apparent in the hepatic (2.3) and splenic parenchyma, both renal units, bladder and visualized intestinal tract. There is symmetric glucose metabolism identified in the occipital, parietal, temporal and frontal lobes of the cerebral cortex, with normal visualization of the cerebellar hemispheres and basal ganglia. Diffuse intestinal tract activity is noted throughout all four quadrants of the abdominal-pelvic retroperitoneum, mesentery consistent with normal physiologic distribution of the radiopharmaceutical. Pertinent CT findings are as follows. CHEST: Right-left subcentimeter axillary soft tissue densities with fatty hilus formation are non-glucose avid. Atherosclerotic calcification is defined in the thoracic aorta without evidence of dilatation, aneurysm formation. Coronary arterial calcification is observed. There are no parenchymal densities-nodules noted in the right-left hemithorax demonstrating discernible, quantitatively significant increased glucose metabolism. ABDOMEN AND PELVIS: Atherosclerotic calcification is defined in the abdominal aorta without evidence of dilatation, aneurysm formation. Abdominal-pelvic arterial calcification is observed. Colonic diverticulosis is defined. Bilateral fat-containing inguinal hernias are noted. Right- left inguinal soft tissue densities are ametabolic. Dystrophic calcification appears evident within the prostate gland without evidence of facilitated glucose metabolism. There is fatty metamorphosis involving the hepatic parenchyma. SKELETAL: Degenerative changes defined in the cervical, thoracic and lumbar spine demonstrate no evidence for glucose hypermetabolism. PET/PET/CT Tumor Base -Thigh Init IMPRESSION: 1. ABNORMAL EXAMINATION INDICATIVE OF MALIGNANT VIABLE NEOPLASM. 2. Increased glucose concentration noted at the level of the distal rectal vault, anal verge fulfills quantitative criteria for neoplastic infiltration. 3. No other quantitatively significant hypermetabolic abnormalities are noted. There is no definitive scintigraphic evidence of distant metastatic disease. Electronic Signature Casimiro Monaco D.O. Electronically Signed: Casimiro Monaco DO at 23:48 EDT Tel , Service support , CC: No Primary Care Physician; Becki Trevino MD Advertising Copywriter: Signed ONCOLOGY HISTORY AND Observed: 05/07/2018 Status: F Source: [place] PHYSICAL 4:51 PM [facility] REPOSITORY [facility] Medical Records Department [address] [place] [address] History and Physical 05/07/18 1359 MR#: [id number] Acct: [id number] Name: RAJ NORIEGA Rep #: [id number] : 1950 68 From: Becki Trevino MD PCP: Care Physician, No Primary Status: REG RCR Y Location: [facility] - Problem List (1) Primary anal squamous cell carcinoma Status: Acute (2) Mass of both adrenal glands Status: Acute Subjective Date of Service:: 05/07/18 Chief Complaint: Anal cancer History of Present Illness: Patient is a 68-year-old male who wishes to transfer his care from the [facility]. He has a history of alcohol and tobacco dependence. He has had increasing rectal pain and bleeding over the past few months and on April 14, 2018 he had a very limited sigmoidoscopy that revealed a large ulcer in the distal rectum to the dentate line with cavitation and biopsies then were not possible due to pain. On April 17 he was able to undergo a full colonoscopy when again a large ulcerated mass in the distal rectum extending into the anal verge multiple biopsies were done then revealing a squamous carcinoma. 2 sigmoid polyps were resected and were found to represent tubular adenomas. The patient was referred to oncology at the [place] though has not been seen yet and wishes to receive care closer to home. He was seen by Dr. Goodwin, who advised consultation with medical and radiation oncology. A CT scan of the abdomen and pelvis May 07, 2018: IMPRESSION: Bilateral adrenal masses as described. These are not typical for adrenal adenomas and correlation with MRI is recommended. Soft tissue mass seen in the anterior aspect of the rectum extending caudally into the anal region. Inhomogeneously enlarged prostate gland. CT scan of the chest May 07, 2018: IMPRESSION: Findings suggestive of a linear scarring in the right middle lobe and possible focal area of scarring in the posterior aspect of the medial segment of the left upper lobe. Power of Global Engineering Manager: No Living Will: No Health History: Past Medical History (Last Updated 05/07/18 @ 13:52 by Becki Trevino MD) Bleeding (Acute) Blood in stool (Acute) Nausea (Acute) Back problem (Acute) Past Surgical History (Last Reviewed 05/07/18 @ 13:49 by Carla Barrett) Hx of colonoscopy (Acute) Family History (Last Reviewed 05/07/18 @ 13:50 by Carla Barrett) Father Stomach cancer Brain cancer Allergies/Adverse Reactions: Allergy/AdvReac Type Severity Reaction Status Date / Time No Known Allergies Allergy Verified 05/07/18 13:50 Risk Factors Social History Smoking Status Current every day smoker Tobacco Risk Data: Tobacco Risk Smoking Status Current every day smoker Type of tobacco: Smokeless tobacco usage: Items/Day: Year started: Years used: Counseled to quit/cut down: Reason for no counseling performed: Reason for no pharmacotherapy: Tobacco use comments: Passive smoke exposure: Substance Risk Drug use: Caffeine use [drinks/day]: Alcohol use: Type of alcohol: Drinks per day: Has patient felt the need to cut down: Has the patient been annoyed by complaints: Has the patient felt guilty about drinking: Has the patient needed an eye roads supervisor in the mornings: Comments: Review of Systems Constitutional:: Reports: Weakness, Fatigue. Denies: Fever, Sweats, Weight loss, Appetite change, Chills Cardiovascular:: Reports: Dyspnea on exertion. Denies: Chest pain, Palpitations, Orthopnea, PND, Shortness of breath Respiratory: Reports: Shortness of breath upon exertion. Denies: Cough, Hemoptysis, Shortness of Breath, Wheezing Gastrointestinal:: Reports: Hematochezia - And foul mucoid discharge and occasional soiling, - - Rectal pain, [facility] Denies: Abdominal pain, Nausea, Vomiting, Diarrhea, Constipation Genitourinary: Denies: Dysuria, Hematuria, 15, Flank pain Musculoskeletal:: Reports: Back pain - Chronic unchanged. Denies: Myalgia, Arthralgia Skin: Denies: Rash, Skin Changes, Wounds Neurological:: Denies: Headache, Dizziness, Visual changes, Tinnitus, Hearing loss Psychiatric: Denies: Anxiety, Depression, Homicidal Ideations, Suicidal Ideations - Physical Exam General: Alert, Oriented x3, No apparent distress, - - ECOG 1 HEENT: Atraumatic, PERRLA, EOMI, Normocephalic Oropharynx:: Dry mucosa Neck:: Supple, Trachea midline. Negative for: JVD, bilateral Cardiac:: Regular rate, Regular rhythm, Normal S1, Normal S2. Negative for: Murmur Lungs: Clear to auscultation, Diminished, Excusion symmetrical. Negative for: Rhonchi, Wheezes Abdomen:: Soft, Non-tender, Non-distended. Negative for: Hepatosplenomegaly Extremities:: Negative for: Cyanosis, Edema Neurological: Neuro grossly intact Skin:: Negative for: Lesions, Rash, Petechiae, Ecchymosis Psychiatric:: Appropriate affect, Euthymic Lymphatics:: - - No inguinal adenopathy. 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 2-Indeterminate bilateral adrenal masses need further evaluation Plan: 1. MRI of the pelvis to further evaluate the extent of the local disease and its relationship to the anal sphincter. 2. PET/CT for initial staging, to rule out distant metastatic disease, and to further evaluate bilateral adrenal masses. 3. HIV test, baseline CBC and CMP and iron profile. 4. Radiation oncology consultation. 5. pain management consult for rectal pain related to cancer and chronic back pain. Comorbid conditions: Alcohol and cigarette dependence, chronic back pain, GERD, fatty and alcoholic liver disease. Patient was seen was his impression and plan discussed, cutting down on cigarettes and alcohol was advised but the patient was not motivated. Primary Care Provider: No Primary Care Phys Referring Provider: 05/07/18 1651 <Electronically signed by Becki Trevino MD> Date Becki Trevino MD Cosigner Signature: Date (if applicable) CC: No Primary Care Physician; yashira Joel; Becki Trevino MD Signed CHEST WITH CONTRAST Observed: 05/07/2018 Status: F Source: [place] 8:16 AM [facility] REPOSITORY [facility] Imaging Services [address] [place] [address] Chest WITH Contrast MR#: [id number] Acct: [id number] Name: RAJ NORIEGA Rep #: [id number] : 1950 M 68 From: Albert Villatoro MD PCP: Care Physician, No Primary Status: REG CLI Study: Chest WITH Contrast Date of Exam: 05/07/18 Exam# [id number] Ordering Dr: Alec Goodwin MD STUDY: CT CHEST WITH CONTRAST REASON FOR EXAM: Male, 68 years old. Recent diagnosis of anal carcinoma. RADIATION DOSAGE (If Supplied By Facility): CTDIvol = ( 11.24 ) mGy, DLP = ( 1048.00 ) mGycm TECHNIQUE: Transaxial imaging was performed following intravenous administration of 100 ml of Isovue 300 contrast material. Multiplanar coronal and sagittal images were reformatted. Individualized dose optimization techniques were used for this CT. COMPARISON: None. FINDINGS: Mild increased linear markings in the right middle lobe. This suggests over linear atelectasis and/or scarring. Minimal scarring in the posterior aspect of the lingular segment of the left upper lobe. There is no demonstrated pleural abnormality. There are calcifications of the coronary arteries. Normal mediastinum. Normal hilar regions. Normal enhanced pulmonary arteries. There is atherosclerotic calcification of the aortic arch and descending thoracic aorta. There are mild degenerative changes of the thoracic spine. There is a 3.2 cm x 2.8 cm fat containing nodular density in the right adrenal gland. A similar-appearing nodule is also seen in the left adrenal gland measuring 2.2 cm x 1.5 cm. These may represent adrenal adenomas. CT/Chest WITH Contrast IMPRESSION: Findings suggestive of a linear scarring in the right middle lobe and possible focal area of scarring in the posterior aspect of the medial segment of the left upper lobe. Electronically Signed: Albert Villatoro MD at 9:00 EDT Tel [phone], Service support , CC: No Primary Care Physician; Alec Goodwin MD Advertising Copywriter: Signed ABDOMEN/PELVIS WITH Observed: 05/07/2018 Status: F Source: [place] CONTRAST 8:16 AM [facility] REPOSITORY [facility] Imaging Services [facility] [place] [address] Abdomen/Pelvis WITH Contrast MR#: [id number] Acct: [id number] Name: RAJ NORIEGA Rep #: [id number] : 1950 M 68 From: Albert Villatoro MD PCP: Care Physician, No Primary Status: REG CLI Study: Abdomen/Pelvis WITH Contrast Date of Exam: 05/07/18 Exam# [id number] Ordering Dr: Alec Goodwin MD STUDY: CT ABDOMEN AND PELVIS WITH CONTRAST REASON FOR EXAM: Male, 68 years old. Recent diagnosis of anal carcinoma. RADIATION DOSAGE (If Supplied By Facility): CTDIvol = ( 11.24 ) mGy, DLP = ( 1048.00 ) mGycm TECHNIQUE: Transaxial images were obtained from the dome of the diaphragm to the symphysis pubis with oral contrast. 100 ml of Isovue 300 contrast was administered. Sagittal and coronal images were reconstructed. Individualized dose optimization techniques were used for this CT. COMPARISON: None. FINDINGS: Focal linear marking is seen in the right middle lobe suggestive of developing or scarring and possible tiny scar in the posterior aspect of the lingular segment of the left upper lobe. Coronary artery calcification. There is decreased attenuation of the liver consistent with steatosis. Normal gallbladder and extrahepatic biliary system. Normal spleen. Normal pancreas. There is a 3.2 cm x 3 cm hypodense nodular mass in the right adrenal gland. This is not a typical adenoma. A similar appearing mass in the left adrenal gland measuring 2.5 cm x 1.7 cm is present. Correlation with MR is recommended for further evaluation. Normal right kidney. Normal left kidney. Normal visualized stomach. Normal small intestine. There are multiple colonic diverticula consistent with diverticulosis. There is inhomogeneous soft tissue mass arising from the anterior aspect of the rectum extending calculi into the anus in keeping with the patient's history of anal carcinoma. The appendix is visualized and appears normal. There is diffuse atherosclerotic calcification of the abdominal aorta and its major visceral branches, without a demonstrated aneurysm. Normal inferior vena cava. Normal retroperitoneum. Normal urinary bladder. There is inhomogeneous enlargement of the prostate gland. This measures 4.7 cm x 5.6 cm. There is a small umbilical hernia containing fat. Small bilateral hernias containing fat. Normal osseous structures. CT/Abdomen/Pelvis WITH Contrast IMPRESSION: Bilateral adrenal masses as described. These are not typical for adrenal adenomas and correlation with MRI is recommended. Soft tissue mass seen in the anterior aspect of the rectum extending caudally into the anal region. Inhomogeneously enlarged prostate gland. Electronically Signed: Albert Villatoro MD at 9:06 EDT Tel [phone], Service support , CC: No Primary Care Physician; lAec Goodwin MD Advertising Copywriter: Signed SURGERY VISIT REPORT Observed: 05/06/2018 Status: F Source: [place] 3:44 PM [facility] REPOSITORY [facility] [address] [place] [address] OFFICE VISIT Date of Service: 05/06/18 MR#: [id number] Acct: [id number] Name: RAJ NORIEGA Rep #: [id number] : 1950 Provider: Alec Goodwin MD Age/Sex: 68/M Location: [facility] Status: Signed Intake Vital Signs05/06/18 Height 5 ft 8 in 05/06/18 Weight: 160 lb Intake Visit Reasons: Abscess of Rectum [facility] ER 04/30 Is patient in pain?: Yes (Rectum) Pain scale (1-10): 2 Allergies No Known Allergies Allergy (Verified 05/06/18 15:31) Medications Cyclobenzaprine [Flexeril] 10 mg PO TID PRN PRN 04/30/18 [History Confirmed 05/06/18] Docusate Sodium [Colace] 100 mg PO DAILY #20 cap 04/30/18 [Rx] PFSH Medical History Squamous cell carcinoma (Acute) Bleeding (Acute) Blood in stool (Acute) Nausea (Acute) Back problem (Acute) Colon cancer (Acute) Surgical History Hx of colonoscopy (Acute) Family History Father Stomach cancer Brain cancer Social History Smoking Status: Current every day smoker second hand exposure: Yes alcohol intake: current alcohol intake frequency: 3 or more drinks per day Alcohol type: beer substance use type: does not use caffeine: Yes what type of physical activity do you participate in: none frequency: does not exercise seatbelt use: always HPI HPI HPI: RAJ NORIEGA, is a 68 M who presents to the office today for surgical consultation. I was contacted on April 30, 2018 from the [facility] emergency room. The patient had been receiving his care at [facility] in [place]. He is frustrated because of the drive. Recently he was supposed to be admitted there for surgery and drainage of his abscess according to him. Because he was waiting for 3 hours and did receive care he left and presented to the [place] ER demanding that care be achieved locally. I was contacted and suggested that I would be willing to try to understand the patient's problem but at that point there were absolutely no medical records available. The patient presents with his . He states he is here to have his abscess drained. States that he has been told repetitively that he has an abscess. It appears that for at least a couple month period of time he has had a mucus per rectum. He has been evaluated and he has had a complete colonoscopy. 2 benign sigmoid polyps removed. Pathology was tubular adenoma. Sigmoid diverticulosis was noted. A ulcerated mass of the rectum was identified which on biopsy is squamous cell carcinoma, invasive moderately differentiated.. Laboratory was obtained at the [facility] April 30. Hemoglobin is 16.6 with hematocrit of 44.7. BUN is 5 and creatinine 0.69. Liver function tests are normal except for a AST of 51. His colonoscopy was performed on April 17. The patient states that he was supposed to be admitted and waited 3 hours. He claims he was going to have surgery to remove his abscess. And none of the material that I have from the [place] hospital is thorough discussion regarding surgery. There is a discussion that a general surgery consult was going to be obtained. There is a discussion that CT scan of the chest abdomen and pelvis was warranted. There was a discussion that radiation oncology needed to be consulted. I do not see any definitive plans for surgery which indeed would be appropriate for a squamous cell carcinoma It is of note that the patient is a heavy alcohol user and tobacco user ROS General General: Yes colon cancer; no weight change, appetite, fatigue, breast cancer or weakness HEENT HEENT: No difficulty swallowing, eye injury, eye surgery, swollen glands or hoarseness Endo Endocrine: No thyroid disease, diabetes mellitus, thyroid cancer, Hair loss, heat intolerance or cold intolerance Skin Skin: No rash or changing moles Musc Musculoskeletal: Yes back problems; no arthritis, rheumatoid arthritis, gout or joint pain Cardio Cardiovascular: No pacemaker, heart disease, atrial fibrillation, high blood pressure, heart attack, heart stent, palpitations, shortness of breat with exertion, chest pain or murmur Psych Psychiatric: No depression, anxiety or hearing voices Resp Respiratory: No shortness of breath, No sleep apnea, No cough, No COPD, No asthma, No emphysema, No wheezing Gastro Gastrointestinal: Yes nausea or vomiting, Yes blood in stool, No abdominal pain, No diarrhea, No constipation, No acid reflux, No hemorrhoids, No ulcers, No gallbladder problem, No black,tarry stools [place] Hematologic: Yes bleeding, No blood thinners, No blood disorders, No anemia, No blood clots Neuro Neurologic: No weakness Exam Cardio Heart Sounds: no murmurs Assessment AND Plan Problems 1. Squamous cell carcinoma C44.92 Plan Patient has squamous cell carcinoma of the rectum I recommend CT scan of the chest abdomen and pelvis I recommend hematology oncology consultation and radiation oncology consultation. Today was a consultative appointment with the patient. The patient continues to comment that he needs to have his abscess drained. I believe that the patient is somewhat confused because he is having mucus per rectum and at some point it might have been suggested to him that he had an abscess until the definitive diagnosis was made. In any case I do not have any evidence of an abscess at this moment. We will try to expedite his imaging and expedite appropriate referral and care. Alec Goodwin M.D., F.A.C.S. Orders Orders: Referrals: Coding Level of Care Code Off vis,new,level 2 Diagnoses Squamous cell carcinoma C44.92 Time Spent (min) 20 05/06/18 0846 <Electronically signed by Alec Goodwin MD> Date Alec Goodwin MD Cosigner Signature: Date (if applicable) CC: [facility] 12 LEAD ELECTROCARDIOGRAM Observed: 05/01/2018 Status: F Source: [place] 10:08 AM [facility] Cardiovascular Services [address] [address] 12 Lead EKG 04/30/18 1236 MR#: [id number] Acct: [id number] Name: RAJ NORIEGA Rep #: [id number] : 1950 68 From: Ventura Fitzgerald MD Attending Dr: Status: DEP ER Ordering Dr: Jane Ramirez MD Date: 04/30/18 Location: ED Sex: M C Admitted: Test Reason : Blood Pressure : / mmHG Vent. Rate : 114 BPM Atrial Rate : 114 BPM P-R Int : 158 ms QRS Dur : 080 ms QT Int : 320 ms P-R-T Axes : 070 -58 066 degrees QTc Int : 441 ms Sinus tachycardia Left axis deviation Septal infarct , age undetermined Abnormal ECG Confirmed by VENTURA FITZGERALD MD ([id number]), editor managing director CLARISSE MARTINEZ ([id number]) on 05/01/2018 10:08:08 AM Referred By: Confirmed By:VENTURA FITZGERALD MD 05/01/18 1008 Date Ventura iFtzgerald MD CC: MD Denise Ramirez; [facility] Signed EMERGENCY DEPARTMENT Observed: 04/30/2018 Status: F Source: [place] SUMMARY 3:30 PM [facility] Medical Records Department [address] [address] Emergency Department Summary 04/30/18 1225 MR#: [id number] Acct: [id number] Name: RAJ NORIEGA Rep #: [id number] : 1950 68 From: Jane Ramirez MD PCP: [facility], [place] Status: DEP ER - ER Visit Summary Date of Service: 04/30/18 Chief Complaint: [] Rectal cancer diagnosed at [facility] here to see local [place] surgeon History of Present Illness: The patient is a 68 M [] patient reports 6 weeks ago he was diagnosed with rectal cancer at the [facility] in [place]. He otherwise reports he has no past history he is on no medications. Indicates his symptoms began with rectal pain he had for evaluation they are was diagnosed with rectal cancer. He saw an oncologist named Dr. JOEL who told him he would need chemo and MRI scanning after his surgery and he indicates he was in the preop area [facility] Saturday ready to have surgery, he indicates he waited there for many hours, he indicates he feels he was ignored nobody told him anything nobody came to get him for surgery so he got dressed and walked out of the preop area. [facility] with staff there indicating he wanted to be seen at [facility] to have his cancer managed by a surgeon here and indicates the [place] approved his transfer of care to [facility]. So he presents to the emergency department asking to be seen by a [place] surgeon to have his rectal cancer condition managed. He has had no fever no cough his bowel bladder habits have been normal other than to note stool volumes are reporter he is eating and drinking no fever no cough his rectal pain is tolerable it occasionally flares he did eat today, again he denies any other past history Physical Examination: [] Vital signs are unremarkable he is resting comforting the bed head neck chest unremarkable the abdomen soft nontender rectal exam shows a nodular lesion in the rectum that is tender there is no bleeding no fluid or pus, the pelvis is stable lower extremities unremarkable and his neurologic exam is unremarkable he is awake alert. He did have with him some colonoscopy pictures of the tumor and what appeared to be preop labs are unremarkable no other imaging no other records, he indicates that history as above he is very adamant that the week [place] has approved his care at [facility]. I have explained to him that that is something we cannot confirm at this time but in either case we will proceed with our evaluation to stabilize his condition. I spoke with Dr. Goodwin of surgery, he indicates he be happy to see the patient to further manage his condition through the office he agrees with general screening labs, he also asked that all records if possible be obtained from the [place] and then he would see the patient and discussed management options, he did not feel that any imaging was necessary at this time as he would prefer to review his entire record to determine further management options Test Results: [] Emergency Department Course and Treatment: [] The patient screening labs are generally unremarkable see those reports, [facility] they have not yet been sent when they arrive we will attached into the chart and if they arrive while the patient is here we will provide him a copy, at this time patient is comfortable discharge home to follow-up as an outpatient he will be given Colace and Percocet No. 10 to use as needed pain and return for change in symptoms Treatment Plan: [] Disposition: [] Home stable Impression: [] Rectal pain related to rectal cancer This note was generated with [employer] dictation software. It may contain incorrect words, spelling, and punctuation that were not noted in review of the chart prior to signing ED Disposition - Plan for ED Patient: Chief Complaint: Abscess What to do if you have Problems For any increased pain, shortness of breath, bleeding, nausea or vomiting, chest pain, or any unexpected problems, contact your Primary Care Provider. Call [facility] [employer] [facility] ([phone]) or report to the closest Emergency Room. Call 911 if necessary. 04/30/18 1530 <Electronically signed by Jane Ramirez MD> Date Jane Ramirez MD Cosigner Signature (If Indicated): Date CC: [place] Hospital DISCHARGE INSTRUCTION Observed: 04/30/2018 Status: F Source: [place] 2:36 PM [facility] REPOSITORY [facility] Medical Records Department [address] [address] Discharge Instruction 04/30/18 1435 MR#: [id number] Acct: [id number] Name: RAJ NORIEGA Rep #: [id number] : 1950 68 From: Jane Ramirez MD PCP: [place] Status: REG ER ED Disposition - Plan for ED Patient: Chief Complaint: Abscess Instructions: ED Hemorrhoids Prescriptions: Oxycodone HCl/Acetaminophen [Percocet 5/325] 1 tab PO Q6H PRN PRN 3 Days #12 tab PRN Reason: Pain Docusate Sodium [Colace] 100 mg PO DAILY #20 cap Referrals: Alec Goodwin MD [STAFF PHYSICIAN] - [facility] [Primary Care Provider] - Additional Instructions: Take all of your records with you to see Dr. Goodwin of surgery for further management What to do if you have Problems For any increased pain, shortness of breath, bleeding, nausea or vomiting, chest pain, or any unexpected problems, contact your Primary Care Provider. Call [facility] [employer] [facility] ([phone]) or report to the closest Emergency Room. Call 911 if necessary. 04/30/18 1436 <Electronically signed by Jane Ramirez MD> Date Jane Ramirez MD Cosigner Signature (If Indicated): Date CC: [place] Hospital DISCHARGE INSTRUCTION Observed: 04/30/2018 Status: F Source: [place] 2:34 PM [facility] REPOSITORY [facility] Medical Records Department [address] [place] [address] Discharge Instruction 04/30/18 1431 MR#: [id number] Acct: [id number] Name: RAJ NORIEGA Rep #: [id number] : 1950 68 From: Jane Ramirez MD PCP: [facility], [place] Status: REG ER ED Disposition - Plan for ED Patient: Chief Complaint: Abscess Instructions: ED Hemorrhoids Referrals: [facility] [Primary Care Provider] - Alec Goodwin MD [STAFF PHYSICIAN] - Additional Instructions: Take all of your records with you to see Dr. Goodwin of surgery for further management What to do if you have Problems For any increased pain, shortness of breath, bleeding, nausea or vomiting, chest pain, or any unexpected problems, contact your Primary Care Provider. Call [facility] [employer] [facility] ([phone]) or report to the closest Emergency Room. Call 911 if necessary. 04/30/18 1434 <Electronically signed by Jane Ramirez MD> Date Jane Ramirez MD Cosigner Signature (If Indicated): Date CC: [facility] URINALYSIS, COMPLETE Collected: 04/30/2018 Status: F Source: [place] 1:00 PM [facility] REPOSITORY Order Comment: How was Urine Obtained? CLEAN CATCH TYPE CODE TESTS RESULT OUT OF RANGE REFERENCE UNITS LAB L400.3000 Yellow COLOR Normal Yellow LAB L400.3050 Clear Normal CLARITY Sl. Cloudy LAB L400.3200 Normal mg/dl Normal GLUCOSE, UR Normal LAB L400.3300 Negative mg/dL Normal BILIRUBIN URINE Negative LAB L400.3400 Negative mg/dl Normal KETONE UR Negative LAB L400.3465 1.002-1.030 Normal SP.GR. DIPSTX 1.015 LAB L400.3550 5.0 - 8.0 pH UR Normal 6.0 LAB L400.3600 Negative mg/dl High PROT 15 DIPSTX LAB L400.3700 Normal mg/dl High 4 UROBILI LAB L400.3750 Negative Normal NITRITE UR Negative LAB L400.3780 Negative /ul Normal OCCULT BLOOD-UR Negative LAB L400.3800 Negative /ul High LEUK 25 ESTERASE LAB L400.4050 0-5 /hpf WBC 0 Normal SEEN LAB L400.4100 0-5 /hpf 0 Normal RBC-UA SEEN LAB L400.4150 0-5 /hpf SQUAM 0 Normal EPI SEEN LAB L400.4300 None Seen /hpf 0 Normal BACTERIA SEEN LAB L400.4350 <or=2+ /hpf 0 Normal MUCUS, URINE SEEN Performed By: #### L400.0001 #### [facility] [address] [place], [address] CBC W/DIFF, AUTOMATED Collected: 04/30/2018 Status: F Source: [place] 12:45 PM [facility] REPOSITORY TYPE CODE TESTS RESULT OUT OF RANGE REFERENCE UNITS LAB L100.1000 4.4-11.0 K/mm3 Normal WBC 9.7 LAB L100.1200 4.6-6.2 M/mm3 Normal RBC 4.61 LAB L100.1300 13.0-16.5 g/dl High HGB 16.6 LAB L100.1400 40-54 % Normal HCT 44.7 LAB L100.1500 80-94 fL High MCV 97.0 LAB L100.1600 27.0-32.0 pg High MCH 36.0 LAB L100.1700 32-36 g/gl High MCHC 37.1 LAB L100.1810 11.6-14.6 % Normal RDW CV 12.3 LAB L100.1820 35.1-43.9 fl Normal RDW SD 43.2 LAB L100.1900 150-450 K/mm3 Normal PLT 195 LAB L100.2000 6.2-12.0 fl Normal MPV 8.8 LAB L100.2100 47-70 % Normal NEUT% 69.1 LAB L100.2200 19-41 % Low LY% 16.1 LAB L100.2300 0-10 % High MONO% 13.9 LAB L100.2400 0-5 % Normal EO% 0.5 LAB L100.2500 0-1 % Normal BASO% 0.2 LAB L100.2550 0.0-0.9 % Normal IM GRAN % 0.200 Result Comment: IG% - Immature Granulocytes (promyelocytes, myelocytes and metamyelocytes) > 1% indicates that a LEFT SHIFT is Present. LAB L100.2620 2.0-7.7 X10 3/uL Normal Absolute Neut 6.7 LAB L100.2720 0.83-4.51 X10 3/ul Normal Absolute Lymph 1.55 Performed By: #### L100.0100 #### [facility] [address] [place], [address] BASIC METABOLIC Collected: 04/30/2018 Status: F Source: [place] PROFILE (BMP) 12:45 PM [facility] REPOSITORY TYPE CODE TESTS RESULT OUT OF RANGE REFERENCE UNITS LAB L501.0100 74-106 mg/dL High GLU 156 Result Comment: Fasting Glucose result greater than or equal to 126 mg/dL suggests DIABETES MELLITUS per A.D.A. criteria. Please note revised GLUCOSE reference range effective 2017. LAB L501.1000 7-18 mg/dL Low BUN 5 LAB L501.1100 0.70-1.30 mg/dL Low CREAT,SERUM 0.69 Result Comment: The validity of the calculated GFR AND GFRAA in patients over 70 years has not been determined. Clinical correlation is essential. LAB L501.1110 >60 mL/min Normal EST GFR 120 Result Comment: Non- GFR Calc LAB L501.1115 >60 mL/min Normal EST GFR - AA 145 Result Comment: GFR Calc LAB L501.1255 ml/min Normal Estimated CRCL 66.50 LAB L501.1300 10-20 RATIO Low BUN/CRE 7.2 LAB L501.2200 8.5-10 mg/dL Normal .1 CA 8.8 LAB L501.5300 136-14 mmol/L Normal 5 NA 136 LAB L501.5600 3.5-5. mmol/L Normal 1 K 3.6 LAB L501.5900 98-107 mmol/L Normal CL 103 LAB L501.6100 21.0-3 mmol/L Normal 2.0 CO2 27.0 LAB L501.6200 5-15 Normal GAP 6 Performed By: #### L500.2500, L500.3400, L501.2450 #### [facility] [place], [place], [address] LIVER PROFILE Collected: 04/30/2018 Status: F Source: [place] 12:45 PM [facility] REPOSITORY TYPE CODE TESTS RESULT OUT OF RANGE REFERENCE UNITS LAB L501.1500 6.4-8.2 g/dL Normal T PROT 7.3 LAB L501.1800 3.2-5.0 g/dL Normal ALB 3.6 LAB L501.1950 2.2-4.2 g/dL Normal GLOB 3.7 LAB L501.4100 15-37 U/L High AST 51 LAB L501.4305 45-117 U/L Normal ALK P 113 LAB L501.4405 16-61 U/L Normal ALT 57 LAB L501.4600 0.20-1.00 mg/dL Normal T BILI 1.00 LAB L501.4700 0.00-0.30 mg/dL High D BILI 0.41 Performed By: #### L500.2500, L500.3400, L501.2450 #### [facility] [address] [place], [address] LIPASE Collected: 04/30/2018 Status: F Source: [place] 12:45 PM [facility] REPOSITORY TYPE CODE TESTS RESULT OUT OF RANGE REFERENCE UNITS LAB L501.2450 73-393 U/L Normal LIPASE 157 Performed By: #### L500.2500, L500.3400, L501.2450 #### [facility] [address] [place], [address] US ABDOMEN, LIMITED Observed: 04/11/2018 Status: F Source: [facility] 8:00 AM [facility] REPOSITORY Exam Date/Time: 04/11/2018 08:30 EDT Reason for Exam: ELEVATED LIVER ENZYMES ATTN: LIVER Report STUDY: US Abdomen, Limited; 04/11/2018 8:30 am INDICATION: ELEVATED LIVER ENZYMES ATTN: LIVER. COMPARISON: None. ACCESSION NUMBER(S): [id number] ORDERING CLINICIAN: Chitra Cruz TECHNIQUE: Multiple grayscale ultrasonographic images were obtained through the right upper quadrant. FINDINGS: LIVER: There is a hypoechoic mass identified along the posterior aspect of the liver, measuring up to 4.2 x 3.0 x 2.8 cm, of uncertain etiology. There is diffuse hyperechogenicity of the liver, most consistent with fatty infiltration. GALLBLADDER: The gallbladder is nondilated without evidence of gallstones, wall thickening or pericholecystic fluid. No ultrasonographic Sinclair's sign was elicited. BILIARY TREE: There is no significant intra or extrahepatic biliary dilatation present, with the common bile duct measuring at up to 3 mm PANCREAS: The visualized portions of the pancreas are within normal limits, without evidence of focal masses. RIGHT KIDNEY: Screening evaluation of the right kidney demonstrates no evidence of hydronephrosis. IMPRESSION: 1. Hypoechoic mass along the posterior aspect of the liver, as above. Further evaluation with multiphase contrast CT or MRI of the liver is recommended. 2. No ultrasonographic evidence of acute cholecystitis or biliary dilatation. Exam Date/Time: 04/11/2018 08:30 EDT Report 3. Diffuse hyper echogenicity of the liver, most consistent with fatty infiltration. FINAL REPORT Dictated: 04/11/2018 11:34 am Mika Graf MD Signed (Electronic Signature): 04/11/2018 11:34 am Signed by: Mika Graf MD Technologist: ANNE PROGRESS Observed: 08/31/2017 Status: COMPLETED Source: [place] 10:51 AM [facility] [place] REPOSITORY HNO ID: [id number] Author: Yobani Poe II Service: (none) Author Type: FIELD EXAMINER Type: Progress Notes Filed: 08/31/2017 10:53 AM Note Text: ASSESSMENT/PLAN: 1. 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 Regular astigmatism, bilateral - ICD9: 367.21, ICD10: H52.223 3. Presbyopia - ICD9: 367.4, ICD10: H52.4 Patient picked same refraction but prefers vision in old glasses. Will remake glasses power closer to old Rx. Cataracts are complicating refraction. Recheck as needed. I have confirmed and edited as necessary the relevant ophthalmic history, review of systems, surgical history, and ophthalmological examination findings as obtained by the ophthalmic technical staff. I have seen and examined Raj Noriega. I have discussed the examination findings, diagnosis, and treatment options with the patient and/or the patient's family. I have also reviewed and agree with the assessment and plan as stated above and agree with all its relevant components. I gave the patient the opportunity to ask questions about the findings, diagnosis, and treatment options. Yobani Poe, URSZULA, OD ALLERGIES ALLERGIES DATE TYPE / CODE NAME / CODE REACTION SEVERITY SOURCE 06/27/2018 Drug No Known Unknown [place] Allergy/416 Allergies/D648852 [facility] 896964(SNOM 388(RXNORM) Hospital ED CT) Repository Drug/093061 No Known Scientologist 003(SNOMED Medication [facility] CT) Allergies System Repository Drug NO KNOWN [facility] Class/05170 ALLERGIES [place] 1003(SNOMED Repository CT) ENCOUNTERS ENCOUNTERS ADMIT/DISCHARGE ACCOUNT NUMBER ADMITTING ENCOUNTER LOCATION SOURCE CLASS 06/30/2018/06/30/20 [id number] [place], Inpatient [address] Repository 06/27/2018 [id number] Max, Ambulatory BMSBuilding: [place] [facility] F BMS.[facility] Repository 06/27/2018 [id number] Max, Ambulatory BMSBuilding: [place] [facility] BMS..Critical access hospital Repository 06/27/2018 [id number] Max, Ambulatory BMSBuilding: [place] BMS.CF.[facility] Repository 06/27/2018 [id number] Max, Ambulatory BMSBuilding: [place] BMS.[facility] Repository 06/27/2018/06/30/20 [id number] Max, Inpatient [facility] [address] [facility] ding:ICURoom Repository : GAT32Pkl: 1 06/27/2018 [id number] Max, Ambulatory BMSBuilding: [place] F BMS.[facility] Repository 06/27/2018 [id number] Max, Ambulatory BMSBuilding: [place] F BMS.[facility] Repository 06/26/2018 [id number] Ambulatory [facility] ding:CARRERA Repository 06/25/2018 [id number] Ambulatory BMSBuilding: [place] BMS.CF.Critical access hospital Repository 06/19/2018 [id number] [facility] [place] [facility] 06/19/2018 [id number] Ambulatory BMSBuilding: [place] BMS..Critical access hospital Repository 06/12/2018 [id number] Ambulatory BMSBuilding: [place] BMS.CF.Critical access hospital Repository 06/11/2018 [id number] Ambulatory BMSBuilding: [place] BMS.CF.Critical access hospital Repository 06/04/2018 [id number] Ambulatory BMSBuilding: [place] BMS.CF.Critical access hospital Repository 06/03/2018 [id number] Ambulatory BMSBuilding: [place] [facility]MS.[facility] Repository 05/29/2018 [id number] Ambulatory BMSBuilding: [place] [facility] Repository 05/28/2018 [id number] Ambulatory BMSBuilding: [place] BMS.CF.[facility] Hospital Repository 05/22/2018 [id number] Ambulatory BMSBuilding: [place] BMS.[facility] Hospital Repository 05/21/2018 [id number] Ambulatory BMSBuilding: [place] [facility]MS.CF.[facility] Hospital Repository 05/20/2018/05/20/20 [id number] Ambulatory [address] ding:SDCRoom Repository : AC06 05/20/2018/05/20/20 [id number] Ambulatory BMSBuilding: [place] 18 BMS.CF.[facility] Repository 05/16/2018 [id number] Ambulatory [facility] ding:MFPLAB Repository 05/16/2018/05/16/20 [id number] Ambulatory BMSBuilding: [place] 18 BMS.[facility] Repository 05/15/2018 [id number] Ambulatory BMSBuilding: [place] BMS.CF.Critical access hospital Repository 05/15/2018 [id number] Ambulatory BMSBuilding: [facility] Repository 05/14/2018 [id number] Ambulatory [facility] ding:MRI Repository 05/14/2018 [id number] Ambulatory BMSBuilding: [facility] Repository 05/12/2018 [id number] Ambulatory BMSBuilding: [place] BMS.CF.Critical access hospital Repository 05/07/2018 [id number] Ambulatory BMSBuilding: [place] BMS.CF.Critical access hospital Repository 05/07/2018 [id number] Ambulatory [facility] ding:CT Repository 05/06/2018/05/06/20 [id number] Ambulatory BMSBuilding: [place] 18 BMS.[facility] Repository 04/30/2018/04/30/20 [id number] Emergency [address] ding:ED Repository 04/11/2018/04/11/20 [id number] Nancy, Ambulatory [address] Regional ding:SH.[facility] Repository 04/11/2018 [id number] Ambulatory [address] [place] [address] Repository 08/31/2017/09/02/19 [id number] Ambulatory [address] Repository 08/12/2017/08/13/19 [id number] Ambulatory [address] Repository PAYERS PAYERS ENCOUNTER GUARANTOR PAYER SUBSCRIBER SOURCE 06/27/2018 RAJ Gabriel [id number] CR Insurance:[facility]LLY [facility]: [place] [address] [id number] [facility] [address]Qzy: ADVANTAPolicy Number: Repository [id number] (HP) Date:1848-41-45TI [address] [place] [address] [place] [address]ML: 06/27/2018 Secondary NOT GIVENUNK [place] Insurance:SELF PAY [facility] Number: Effective Repository Date:2018-06-27 06/27/2018 RAJ Gabriel [id number] CR Insurance:MELLY RODRIGUEZB: [place] [address], [place] SEN[place] [id number] St[address] [facility] [address]Gsj: [employer]ANT[employer]icy Number: Repository [id number] (HP) Date:8749-93-22YM [address] [place] [address] [place] [address]JT: 06/27/2018 Secondary NOT GIVENUNK [place] Insurance:SELF PAY [facility] Number: Effective Repository Date:2018-06-27 06/27/2018 RAJ Gabriel [id number] CR Insurance:MELLY RODRIGUEZB: [place] [address], [place] SENIOR [id number] [facility] [address]Jax: AD[employer]ANTAPolicy Number: Repository [id number] (HP) Date:6709-37-73BY [address] [place], [place] [address], [place] [address]FJ: 06/27/2018 Secondary NOT GIVENUNK [place] Insurance:SELF PAY [facility] Number: Effective Repository Date:2018-06-27 06/27/2018 RAJ Machado Primary RAJ J [place] [id number] CR Insurance:MELLY RODRIGUEZB: Community [address], [place] SENIOR [id number] St[facility] [address]Kdx: [employer]ANT[employer]icy Number: Repository [id number] (HP) Date:2533-05-74WP [address] [place] [address] [place] [address]OM: 06/27/2018 Secondary NOT GIVENUNK [place] Insurance:SELF PAY [facility] Number: Effective Repository Date:2018-06-27 06/27/2018 RAJ Machado Primary RAJ J [place] [id number] [address] Insurance:MELLY RODRIGUEZB: Community [address], MED[place] SENIOR [id number] [facility] [address]Qmh: [employer]icy Number: Repository [id number] (HP) Date:8756-01-04LM [address] [place] [address] [place] [address]LC: 06/27/2018 Secondary NOT GIVENUNK [place] Insurance:SELF PAY [facility] Number: Effective Repository Date:2018-06-27 06/27/2018 RAJ Machado Primary RAJ J [place] [id number] CR Insurance:MELLY RODRIGUEZB: [place] [address], [place] SENIOR [id number] St[facility] [address]Zxz: [employer]ANT[employer]icy Number: Repository [id number] (HP) Date:2770-20-04EJ [address], [place] [address]FF: 06/27/2018 Secondary NOT GIVENUNK [place] Insurance:SELF PAY [facility] Number: Effective Repository Date:2018-06-27 06/27/2018 RAJ Machado Primary RAJ J [place] [id number] [address] Insurance:MELLY RODRIGUEZB: [place] [address], [place] SENIOR [id number] Hospital [place] [address]Fed: AD[employer]ANTAPolicy Number: Repository [id number] (HP) Date:8273-39-02YD [address], [place] [address]PV: 06/27/2018 Secondary NOT GIVENUNK [place] Insurance:SELF PAY [facility] Number: Effective Repository Date:2018-06-27 06/26/2018 RAJ Machado Primary RAJ Gabriel [id number] CR Insurance:MELLY SHMIGALDOB: [place] [address], [place] SENIOR [id number] St[facility] [address]Kfc: [employer]ANT[employer]icy Number: Repository [id number] (HP) Date:1111-95-82WL [address], [place] [address]PR: 06/26/2018 Secondary NOT GIVENUNK [place] Insurance:SELF PAY [facility] Number: Effective Repository Date:2018-05-07 06/25/2018 RAJ Gabriel [id number] [address] Insurance:MELLY DHALIWALGALDOB: [place] [address], MED[place] SENIOR [id number] St. [facility] [address]Kbg: [employer]ANTAP[employer]icy Number: Repository [id number] (HP) Date:8558-67-52[address] [address]UM: 06/25/2018 Secondary NOT GIVENUNK [place] Insurance:SELF PAY [facility] Number: Effective Repository Date:2018-06-25 06/19/2018 RAJ Gabriel [id number] [address] Insurance:MLELY DHALIWALGALDOB: Community [address], MED[place] SENIOR [id number] St[facility] [address]Uhl: AD[employer]ANTAPolicy Number: Repository [id number] (HP) Date:2845-82-95LM [address], [place] [address]HE: 06/19/2018 Secondary NOT GIVENUNK [place] Insurance:SELF PAY [facility] Number: Effective Repository Date:2018-06-19 06/19/2018 RAJ Jeannette JENKINSDANNIE [place] [id number] [address] Insurance:MELLY RODRIGUEZB: [place] [address], MED[place] SENIOR [id number] St[facility] [address]Vpe: ADVANTAPolicy Number: Repository [id number] (HP) Date:3152-65-42RS [address] [place] [address]ZH: 06/19/2018 Secondary NOT GIVENUNK [place] Insurance:SELF PAY [facility] Number: Effective Repository Date:2018-06-19 06/12/2018 RAJ JENKISNDANNIE Machado [place] [id number] [address] Insurance:MELLY RODRIGUEZB: [place] [address], MED[place] SENIOR [id number] St[facility] [address]Ajp: ADVANTAPolicy Number: Repository [id number] (HP) Date:2821-03-94RW [address] [place] [address] [place] [address]BA: 06/12/2018 Secondary NOT GIVENUNK [place] Insurance:SELF PAY [facility] Number: Effective Repository Date:2018-06-12 06/11/2018 RAJ Jeannette JENKINSDANNIE [place] [id number] [address] Insurance:MELLY RODRIGUEZB: Community [address], MEDIC[place] SENIOR [id number] St[facility] [address]Oby: ADVANTAPolicy Number: Repository [id number] (HP) Date:8195-49-16US [address] [place] [address] [place] [address]EV: 06/11/2018 Secondary NOT GIVENUNK [place] Insurance:SELF PAY [facility] Number: Effective Repository Date:2018-06-11 06/04/2018 RAJ CHAMBERS Jeannette [place] [id number] CR Insurance:MELLY RODRIGUEZB: [place] [address], MED[place] SENIOR [id number] Hospital [place] [address]Xsf: ADVANTAPolicy Number: Repository [id number] (HP) Date:7279-44-35OA [address] [address]MY: 06/04/2018 Secondary NOT GIVENUNK [place] Insurance:SELF PAY [facility] Number: Effective Repository Date:2018-06-04 06/03/2018 RAJ Machado Primary RAJ J [place] [id number] CR Insurance:[facility]: [place] [address] SENIOR [id number] [place] [address]May: [employer]VANT[employer]olicy Number: Repository [id number] (HP) Date:4280-27-57SG [address]ZFCLZKMYANET FINNEY [address]JC: 06/03/2018 Secondary NOT GIVENUNK Harvey Insurance:SELF PAY [facility] Number: Effective Repository Date:2018-06-03 05/29/2018 RAJ Machado Primary RAJ J Harvey [id number] CR Insurance:ANTHEM RACHAELGALDOB: [place] [address], MED[place]ENIOR [id number] [address]Nyx: [employer]ANT[employer]olicy Number: Repository [id number] (HP) Date:8428-72-69OK [address]IOMSWIXYANET FINNEY [address]BM: 05/29/2018 Secondary NOT GIVENUNK [place] Insurance:SELF PAY [facility] Number: Effective Repository Date:2018-05-29 05/28/2018 RAJ Machado Primary RAJ J Harvey [id number] CR Insurance:ANTHTOOTIE RACHAELGALDOB: [place] [address], MED[place] SENIOR [id number] [facility] [address]Svb: [employer]ANT[employer]ol[employer] Number: Repository [id number] (HP) Date:6490-43-91CE [address]MSHLLEQYANET FINNEY [address]VS: 05/28/2018 Secondary NOT GIVENUNK Campbell Insurance:SELF PAY [facility] Number: Effective Repository Date:2018-05-28 05/22/2018 RAJ Jeannette JENKINSDANNIE Machado [place] [id number] [address] Insurance:MELLY RODRIGUEZB: Community [address], MEDIC[place] SENIOR [id number] [facility] [address]Abk: [employer] Number: Repository [id number] (HP) Date:0363-79-68AT [address] [place] [address]EG: 05/22/2018 Secondary NOT GIVENUNK Harvey Insurance:SELF PAY [facility] Number: Effective Repository Date:2018-05-22 05/21/2018 RAJ Jeannette JENKINSDANNIE Machado [place] [id number] [address] Insurance:MELLY RODRIGUEZB: Community [address], MED[place] SENIOR [id number] [address]Nlz: [employer] Number: Repository [id number] (HP) Date:5537-82-53PW [address] [place] [address] 88334RH: 05/21/2018 Secondary NOT GIVENUNK [place] Insurance:SELF PAY [facility] Number: Effective Repository Date:2018-05-21 05/20/2018 RAJ Jeannette JENKINSDANNIE Machado [place] [id number] CR Insurance:MELLY RODRIGUEZB: Community [address], MEDICARE SENIOR [id number] [facility] [address]Vru: [employer] Number: Repository [id number] (HP) Date:9077-77-45CB [address] [place] [address] 63852DB: 05/20/2018 Secondary NOT GIVENUNK [place] Insurance:SELF PAY [facility] Number: Effective Repository Date:2018-05-15 05/20/2018 RAJ Jeannette JENKINSDANNIE Machado [place] [id number] [address] Insurance:MELLY RODRIGUEZB: Community [address], MEDICARE SENIOR [id number] [facility] [address]Wpt: [employer] Number: Repository [id number] (HP) Date:4323-76-66SG [address] MANZANO [address]ML: 05/20/2018 Secondary NOT GIVENUNK [place] Insurance:SELF PAY [facility] Number: Effective Repository Date:2018-05-20 05/16/2018 RAJ Machado Primary RAJ Jeannette [place] [id number] [address] Insurance:ANTHEM SHMIGALDOB: Community [address], MEDICARE SENIOR [id number] [facility] [address]Dse: [employer] Number: Repository [id number] (HP) Date:9424-00-92EF [address]SDYOWFSYANET FINNEY [address]AX: 05/16/2018 Secondary NOT GIVENUNK [place] Insurance:SELF PAY [facility] Number: Effective Repository Date:2018-05-16 05/16/2018 RAJ Machado Primary RAJ J Harvey [id number] CR Insurance:ANTHEM MIGALDOB: Community [address], MEDICARE SENIOR [id number] St[facility] [address]Pab: [employer] Number: Repository [id number] (HP) Date:3848-19-56WH [address]SZGWARIYANET FINNEY [address]VC: 05/16/2018 Secondary NOT GIVENUNK [place] Insurance:SELF PAY [facility] Number: Effective Repository Date:2018-05-16 05/15/2018 RAJ Machado Primary RAJ J Harvey [id number] CR Insurance:ANTHEM SHMIGALDOB: Community [address], MEDICARE SENIOR [id number] St[facility] [address]Jto: [employer] Number: Repository [id number] (HP) Date:1852-53-78UK [address]EOBZMAU, [place] [address]TF: 05/15/2018 Secondary NOT GIVENUNK [place] Insurance:SELF PAY [facility] Number: Effective Repository Date:2018-05-15 05/15/2018 RAJ Gabriel [id number] CR Insurance:MELLY RODRIGUEZB: Community [address], MEDICARE SENIOR [id number] [place] [address]Tnw: [employer]olicy Number: Repository [id number] (HP) Date:5565-43-52ZD [address]KUJZCTM [place] [address]LS: 05/15/2018 Secondary NOT GIVENUNK [place] Insurance:SELF PAY [facility] Number: Effective Repository Date:2018-05-15 05/14/2018 RAJ Gabriel [id number] [address] Insurance:MELLY RODRIGUEZB: Community [address], MEDICARE SENIOR [id number] [place] [address]Dmq: [employer]icy Number: Repository [id number] (HP) Date:3770-71-39IX [address]BBNCWTL [place] [address]ZB: 05/14/2018 Secondary NOT GIVENUNK Harvey Insurance:SELF PAY [facility] Number: Effective Repository Date:2018-05-07 05/14/2018 RAJ Gabriel [id number] CR Insurance:MELLY RODRIGUEZB: Community [address], MEDICARE SENIOR [id number] [place] [address]Tey: [employer] Number: Repository [id number] (HP) Date:1711-89-80BY [address]LTAMGNZ [place] [address]BE: 05/14/2018 Secondary NOT GIVENUNK [place] Insurance:SELF PAY [facility] Number: Effective Repository Date:2018-05-14 05/12/2018 RAJ Gabriel [id number] CR Insurance:MELLY RODRIGUEZB: Community [address], MEDICARE SENIOR [id number] [address]Czv: [employer]olicy Number: Repository [id number] (HP) Date:7289-56-73SF [address]DAJCPZH [place] [address]XI: 05/12/2018 Secondary NOT GIVENUNK [place] Insurance:SELF PAY [facility] Number: Effective Repository Date:2018-05-12 05/07/2018 RAJ Gabriel [id number] CR Insurance:ANTHEM SHMIGALDOB: Community [address] [place] [address], MEDICARE SENIOR [id number] St. [facility] [address]Raz: [employer]olicy Number: Repository [id number] (HP) Date:7530-41-58HO [address]DAFFLAV, [place] [address]LN: 05/07/2018 Secondary NOT GIVENUNK [place] Insurance:SELF PAY [facility] Number: Effective Repository Date:2018-05-07 05/07/2018 RAJ Gabriel [id number] CR Insurance:ANTHEM SHMIGALDOB: [address], MEDICARE SENIOR [id number] St. [facility] [address]Wqi: [employer]olicy Number: Repository [id number] (HP) Date:6554-04-98RO [address] [place] [address] [place] [address]PE: 05/07/2018 Secondary NOT GIVENUNK Harvey Insurance:SELF PAY [facility] Number: Effective Repository Date:2018-05-06 05/06/2018 RAJ Gabriel [id number] CR Insurance:ANTHEM SHMIGALDOB: Community [address], MEDICARE SENIOR [id number] St. [facility] [address]Wso: [employer]ANTAPolicy Number: Repository [id number] (HP) Date:1031-95-61DK [address]VMFHMET, [place] [address]WG: 05/06/2018 Secondary NOT GIVENUNK Harvey Insurance:SELF PAY [facility] Number: Effective Repository Date:2018-05-06 04/30/2018 RA[facility]ado [id number] [facility] Insurance:ANTHEM [facility]: Community [facility], [place] [id number] [place] [address]Ijc: ADVANTAPolicy Number: Repository [id number] (HP) Date:7722-02-79AE [address] [place] [address] 25[address]CH: 04/30/2018 Secondary NOT GIVENUNK Campbell Insurance:SELF PAY [facility] Number: Effective Repository Date:2018-04-30 04/11/2018 RAJ Machado Primary RAJ Machado [facility]: [facility] ADMINPolicy Number: [id number]ository [address] [place] [address], Date:2018-04-10 - [facility] [place] 4580-67-55Ypfl [place] [address]Iun: Name:[id number]: East (HP) Wanda (HP)Tel: 000 [place] [address]MM: ([phone]) [phone] 04/11/2018 RAJ [facility] Insurance:Self [facility]: [facility] PayPolicy Number: [id number] [facility], Date:Plan [address], [place] [id number]: Name:[id number] [place] [id number]: [address] (HP) [address] [place] [address] () [address]TO:
== END 2018-06-30 00:30 | disposition short-term general hospital (02) | DRG 393 ==
LOC: ED 14:53 → MS3 17:15 → ICU 06-29 23:33 → MS3 06-30 10:47
PROVIDERS: Physician Assistant; Surgery; Admitting Provider Family Medicine; Emergency Provider Emergency Medicine; Family Provider Family Medicine; PCP Family Medicine; Visit Provider Internal Medicine
DX: K52.1 Toxic gastroenteritis and colitis (principal); A41.9 Sepsis, unspecified organism; R65.20 Severe sepsis without septic shock; D61.810 Antineoplastic chemotherapy induced pancytopenia; C21.1 Malignant neoplasm of anal canal; E44.0 Moderate protein-calorie malnutrition; K55.9 Vascular disorder of intestine, unspecified; E87.1 Hypo-osmolality and hyponatremia; E86.0 Dehydration; D70.9 Neutropenia, unspecified; K63.89 Other specified diseases of intestine; F17.210 Nicotine dependence, cigarettes, uncomplicated; E87.6 Hypokalemia; T45.1X5A Adverse effect of antineoplastic and immunosuppressive drugs, initial encounter; E83.39 Other disorders of phosphorus metabolism; K12.31 Oral mucositis (ulcerative) due to antineoplastic therapy; E83.42 Hypomagnesemia; R50.81 Fever presenting with conditions classified elsewhere; Z68.22 Body mass index [BMI] 22.0-22.9, adult; Z79.899 Other long term (current) drug therapy
CPT/HCPCS: 36415; 36600; 74018; 74019; 74177; 80048; 80053; 82803; 83605; 83690; 83735; 84100; 85025; 87506; 97802; 99284; 99406; J7030; J7040; Q9967; A4216; J0744; J1447